=== PATIENT | female | born 1965 | race Two or more races ===

== ENCOUNTER 2023-12-26 15:13 | Emergency (ER) | payer MEDICAID, OTHER ==
[~2023-12-26] VITALS: Ht 175.3 cm; Wt 81.0 kg
[2023-12-26] MEDS ORDERED: BACDST PO (16:07)
--- NOTE | 2023-12-26 16:08 | ED.PDOC ---
Musculoskeletal HPI Comments 58-year-old female complaining of wound to right lower extremity. Patient states she had previous injury to her right ankle in November of 2022. States she was stepping off a curb when she twisted her ankle. Says that it it was a worker's comp injury. She has been followed by worker's comp. States over the last two days she noticed some mild swelling and indentation to the top removed put. States today she was started noticed weeping and swelling out of a wound to the top of her foot. Intermittent chills or fever. 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 Pertinent JAVA WEB USER INTERFACE DEVELOPER History Constitutional: reports: chills; denies: diaphoresis, fatigue, fever, malaise, sweats, weakness, others EENTM: denies: blurred vision, double vision, ear bleeding, ear discharge, ear drainage, ear pain, ear ringing, eye pain, eye redness, hearing loss, mouth nathaniel n, mouth swelling, nasal discharge, nose bleeding, nose congestion, nose pain, photophobia, tearing, throat pain, throat swelling, voice changes, others Respiratory: denies: cough, hemoptysis, orthopnea, SOB at rest, shortness of breath, SOB with excertion, stridor, wheezing, others Cardiovascular: denies: chest pain, dizzy spells, diaphoresis, Dyspnea on exertion, edema, irregular heart beat, left arm pain, lightheadedness, palpitations, PND, syncope, others Gastrointestinal: denies: abdomen distended, abdominal pain, blood streaked bowels, constipated, diarrhea, dysphagia, difficulty swallowing, hematemesis, melena, nausea, poor appetite, poor fluid intake, rectal bleeding, rectal pain, vomiting, others Genitourinary: denies: abnormal vagina bleeding, burning, dyspareunia, dysuria, flank pain, frequency, hematuria, incontinence, pain, , vagina discharge, urgency, others Neurological: denies: dizziness, fainting, headache, left sided numbness, left sided weakness, numbness, paresthesia, pre-existing deficit, right sided numbness, right sided weakness, seizure, speech problems, tingling, tremors, weakness, others Musculoskeletal: denies: back pain, gout, joint pain, joint swelling, muscle pain, muscle stiffness, neck pain, others Integumetry: reports: wounds (Right foot); denies: bruises, change in color, change in hair/nails, dryness, laceration, lesions, lumps, rash, others Physical Exam General Appearance: No Apparent Distress, Normal HEENT: Normal ENT Inspection, Pharynx Normal, TMs Normal Neck: Full Range of Motion, Non-Tender, Normal, Normal Inspection Respiratory: Chest Non-Tender, Lungs Clear, No Accessory Muscle Use, No Respiratory Distress, Normal Breath Sounds Cardiovascular: No Edema, No JVD, No Murmur, No Gallop, Normal Peripheral Pulses, Regular Rate/Rhythm Breast Exam: Deferred Gastrointestinal: No Organomegaly, Non Tender, No Pulsatile Mass, Normal Bowel Sounds, Soft Genitalia: Deferred Pelvic: Deferred Rectal: Deferred Extremities: No calf tenderness, Normal capillary refill, Normal inspection, Normal range of motion, Non-tender, No pedal edema Musculoskeletal : Apperance: Normal Neurologic: Alert, 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 Surrounding tissues erythemic. There is a mild indentation where the wound is. There was also weeping from the wound.) Lymphatic: No Adenopathy Was a procedure done? Was a procedure done?: No Differential Diagnosis EXT Differential Diagnosis: Cellulitis, Fracture, Sprain, Dislocation X-Ray, Labs, Meds, VS Comment Imaging: X-rays and CT scans were reviewed and interpreted by this provider, imaging shows no fractures and no pathological disease. Pending radiology review. Laboratory: Labs reviewed and interpreted by this provider. No significant abnormalities noted. Patient has prior medical visits reviewed. Med reconciliation performed Vital signs reviewed Time of 1ST Reevaluation: 16:07 Reevaluation 1ST: Improved Patient Education/Counseling: Diagnosis, Treatment, Need For Follow Up (Patient advised to follow-up in the emergency room in the next 24 to 48 hours if symptoms do not improve. Advised follow-up with PCP in the next 3 to 5 days. Patient verbalized understanding. ) Family Education/Counseling: Diagnosis, Treatment Departure 1 Departure Time of Disposition: 16:06 Impression: Primary Impression: Cellulitis Qualified Codes: L03.115 - Cellulitis of right lower limb Disposition: 01 HOME / SELF CARE / HOMELESS Condition: Fair e-Prescriptions Sulfamethoxazole W/Trimethopri (Bactrim Ds Tablet) 1 Tab Tb 1 TAB PO BID for 10 Days, #20 TAB Prov: CAM ANDEROSN 12/26/23 Discharged With: Self Critical Care Note Critical Care Time?: No Stability Stability form required: No Heart Score Heart Score: Heart Score Response (Comments) Value History N/A 0 EKG N/A 0 Age N/A 0 Risk Factors N/A 0 Troponin N/A 0 Total 0 CAM ANDERSON Dec 26, 2023 16:08
[2023-12-26 17:50] VITALS: BP 142/70; PULSE 74; RESP 16; TEMP 97.8; O2SAT 99
== END 2023-12-26 17:53 | disposition home or self-care (01) ==
LOC: ER 15:20
DX: L03.115 Cellulitis of right lower limb (principal); X50.1XXA Overexertion from prolonged static or awkward postures, initial encounter; Y93.89 Activity, other specified; Y92.89 Other specified places as the place of occurrence of the external cause; Y99.8 Other external cause status

== ENCOUNTER 2023-12-30 23:27 | Emergency (ER) | payer MEDICAID ==
[~2023-12-30] VITALS: Ht 175.3 cm; Wt 81.9 kg
[~2023-12-30 23:27] MED LIST: BACDST PO
[2023-12-31 01:05] VITALS: BP 127/64; PULSE 68; RESP 18; TEMP 98.5; O2SAT 97
[2023-12-31] MEDS: IBUPROFEN 800 MG TAB PO ONE (01:31)
[2023-12-31] MEDS ORDERED: IBUP-1455 PO (02:00)
[2023-12-31] MEDS ORDERED: DOXY100C4 PO (02:00)
--- NOTE | 2023-12-31 02:01 | ED.PDOC ---
History of Present Illness(SKN HPI Comments THIS IS A 58-YEAR-OLD FEMALE PATIENT PRESENTS TO THE ED CHIEF COMPLAINT OF RIGHT FOOT WOUND CHECK. PATIENT REPORTS WAS SEEN HERE [facility], [place] ON MONDAY FOR CELLULITIS OF THE RIGHT FOOT. SHE WAS DISCHARGED IN PRESCRIBED BACTRIM AND HAS BEEN ON IT FOR TOTAL OF 4 DAYS. PATIENT VOICES CONCERN TODAY COULD SHE NOTES NO IMPROVEMENT IN THE PAIN, REDNESS AND SWELLING. SHE DENIES NUMBNESS, WEAKNESS, FEVER, CHILLS, NAUSEA, VOMITING, OR ANY NOTED DRAINAGE. Chief Complaint: Wound Check Time Seen by MD: 23:36 History of Present Illness: Nurses Notes, Medications, Allergies Allergies: Coded Allergies: NO KNOWN ALLERGIES (Unverified , 12/26/23) Home Meds Active Scripts Ibuprofen Micronized (Ibuprofen) 800 Mg Tab, 1 TAB PO BID PRN for 10 Days, #20 TAB Prov:SAMARA WHITE [facility] 12/31/23 Doxycycline Hyclate (Doxycycline Hyclate) 100 Mg Cap, 1 CAP PO BID for 7 Days, #14 CAP Prov:SAMARA WHITE [facility] 12/31/23 Information Source: Patient Mode of Arrival: Ambulatory Severity: Moderate Past Medical History PAST MEDICAL HISTORY: Denies Surgical History: Denies all surgeries PASTER 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: No Pertinent PASTER OPERATOR History Family History Family History: Reviewed,noncontributory to illness Constitutional: denies: chills, diaphoresis, fatigue, fever, malaise, sweats, weakness, others EENTM: denies: blurred vision, double vision, ear bleeding, ear discharge, ear drainage, ear pain, ear ringing, eye pain, eye redness, hearing loss, mouth pain, mouth swelling, nasal discharge, nose bleeding, nose congestion, nose pain, photophobia, tearing, throat pain, throat swelling, voice changes, others Respiratory: denies: cough, hemoptysis, orthopnea, SOB at rest, shortness of breath, SOB with excertion, stridor, wheezing, others Cardiovascular: denies: chest pain, dizzy spells, diaphoresis, Dyspnea on exertion, edema, irregular heart beat, left arm pain, lightheadedness, palpitations, PND, syncope, others Gastrointestinal: denies: abdomen distended, abdominal pain, blood streaked bowels, constipated, diarrhea, dysphagia, difficulty swallowing, hematemesis, melena, nausea, poor appetite, poor fluid intake, rectal bleeding, rectal pain, vomiting, others Genitourinary: denies: abnormal vagina bleeding, burning, dyspareunia, dysuria, flank pain, frequency, hematuria, incontinence, pain, , vagina discharge, urgency, others Neurological: denies: dizziness, fainting, headache, left sided numbness, left sided weakness, numbness, paresthesia, pre-existing deficit, right sided numbness, right sided weakness, seizure, speech problems, tingling, tremors, weakness, others Musculoskeletal: reports: others (RIGHT FOOT PAIN AND SWELLING); denies: back pain, gout, joint pain, joint swelling, muscle pain, muscle stiffness, neck pain Integumetry: reports: wounds (RIGHT FOOT); denies: bruises, change in color, change in hair/nails, dryness, laceration, lesions, lumps, rash, others Allergic/Immunocompromised: denies: Difficulty Healing, Frequent Infections, Hives, Itching, others Hematologic/Lymphatic: denies: anemia, blood clots, easy bleeding, easy bruising, swollen glands, others Endocrine: denies: excessive hunger, excessive sweating, excessive thirst, excessive urination, flushing, intolerance to cold, intolerance to heat, unexplained weight gain, unexplained weight loss, others Psychiatric: denies: anxiety, bipolar disorder, depression, hopeless, panic disorder, schizophrenia, sleepless, suicidal, others Physical Exam General Appearance: No Apparent Distress, Normal HEENT: Pharynx Normal Neck: Full Range of Motion, Non-Tender Respiratory: Lungs Clear, No Respiratory Distress, Normal Breath Sounds Cardiovascular: No Murmur, Normal Peripheral Pulses, Regular Rate/Rhythm Breast Exam: Deferred Gastrointestinal: Non Tender, Soft Genitalia: Deferred Pelvic: Deferred Rectal: Deferred Extremities: Normal capillary refill, Normal inspection, Normal range of motion, Non-tender Musculoskeletal : Location: Right Extremity Location: Foot (DORSUM ASPECT NOTED ESCHAR TISSUE WITH NOTED SURROUNDING ERYTHEMA AND MILD TO MODERATE EDEMA. POSITIVE PEDAL PULSE. STRENGTH SENSORY MOTION INTACT.) Apperance: Normal Neurologic: Alert, smoke tester II-XII nml as Tested, No Motor Deficits, Normal Affect, Normal Mood, No Sensory Deficits Cerebellar Function: Normal Reflexes: Normal Skin: Dry, Normal Color, Warm Lymphatic: No Adenopathy Was a procedure done? Was a procedure done?: No Differential Diagnosis (INTG) Differential Diagnosis: Cellulitis, Fracture Differential Diagnosis: Other (OSTEOMYELITIS) X-Ray, Labs, Meds, VS Vital Signs Date Time Temp Pulse Resp B/P (MAP) Pulse Ox O2 Delivery O2 Flow Rate FiO2 12/31/23 01:05 68 18 97 Room Air 12/31/23 01:05 98.5 68 18 127/64 (85) 97 98.5 12/30/23 23:47 98.4 71 16 144/80 (101) 95 Current Medications Medications (Trade) Dose Ordered Sig/Gregoria Route Start Time Stop Time Status Last Admin Ibuprofen (Motrin Tablet) 800 mg ONCE ONCE PO 12/31/23 01:15 12/31/23 01:16 DC 12/31/23 01:31 X-Ray, Labs, Meds, VS Comment PATIENT GIVEN IBUPROFEN 800 MG, SHE NOTES IMPROVEMENT IN PAIN AND FUNCTION. REQUESTING DISCHARGE AT THIS TIME ADVISED TO FOLLOW UP WITH HER PCP IN 2-3 DAYS NECESSARY CONSIDER MRI FOR CONTINUED SYMPTOMS AND NO IMPROVEMENT. WE WILL DISCONTINUE BACTRIM START DOXYCYCLINE TWICE DAILY X7 DAYS. SCRIPT IBUPROFEN 800 MG 3 TIMES DAILY NEEDED FOR PAIN AND SWELLING. ADVISED TO ELEVATE EXTREMITY. ADVISED TO RETURN TO THE ER FOR INCREASING PAIN, NUMBNESS, WEAKNESS, PURULENT DRAINAGE, FEVER, CHILLS, NAUSEA OR VOMITING. PATIENT AGREES WITH DISCHARGE PLAN OF CARE. X-RAY OF RIGHT FOOT SHOWS Impression: No acute fracture or dislocation by plain radiography.Diffuse osteopenia in the visualized bones. Diffuse mild soft tissue swelling in the foot. Advised further evaluation with MRI right foot without contrast if clinically indicated. Time of 1ST Reevaluation: 02:50 Reevaluation 1ST: Improved Patient Education/Counseling: Diagnosis, Treatment, Prognosis, Need For Follow Up Family Education/Counseling: No Family Present Departure 1 Departure Time of Disposition: 02:50 Impression: Primary Impression: Infected ulcer of skin Qualified Codes: L98.499 - Non-pressure chronic ulcer of skin of other sites with unspecified severity; L08.9 - Local infection of the skin and subcutaneous tissue, unspecified Disposition: 01 HOME / SELF CARE / HOMELESS Condition: Stable e-Prescriptions Ibuprofen Micronized (Ibuprofen) 800 Mg Tab 1 TAB PO BID PRN for 10 Days, #20 TAB Prov: SAMARA WHITE 12/31/23 Doxycycline Hyclate (Doxycycline Hyclate) 100 Mg Cap 1 CAP PO BID for 7 Days, #14 CAP Prov: SAMARA WHITE 12/31/23 Discharged With: Self Critical Care Note Critical Care Time?: No Stability Stability form required: SAMARA Rivera Dec 31, 2023 02:01
--- NOTE | 2023-12-31 02:43 | DVH ---
Examination: RFOOT Clinical Indication: INFECTION/PAIN/EDEMA Comparison: None. Technique: Three views of the right foot were obtained. Findings: There is no evidence of acute fracture or dislocation. Diffuse osteopenia in the visualized bones. Degenerative mild posterior and inferior calcaneal spurs. The sesamoid complex is well approximated. The joint spaces appear preserved. Tarsal bones are well aligned. Diffuse mild soft tissue swelling in the foot. Impression: 1. No acute fracture or dislocation by plain radiography. 2. Diffuse osteopenia in the visualized bones. 3. Diffuse mild soft tissue swelling in the foot. 4. Advised further evaluation with MRI right foot without contrast if clinically indicated. Electronically Signed 12/31/2023 02:34 Camelia Shrestha
== END 2023-12-31 03:04 | disposition home or self-care (01) ==
LOC: ER 23:27
DX: L08.89 Other specified local infections of the skin and subcutaneous tissue (principal); L97.519 Non-pressure chronic ulcer of other part of right foot with unspecified severity; Z79.899 Other long term (current) drug therapy
CPT/HCPCS: 73630

== ENCOUNTER 2024-01-11 22:43 | Inpatient (IN) | payer MEDICAID ==
[~2024-01-11] VITALS: Ht 175.3 cm; Wt 84.8 kg
[~2024-01-11 22:43] MED LIST changes: -BACDST PO; +DOXY100C4 PO; +IBUP-1455 PO
[2024-01-11 23:33] LABS: Basophils # (auto) 0.1 10 ^3/uL (0-0.2); Basophils % (auto) 0.9 % (0.0-2.0); Eosinophils # (auto) 0.2 10 ^3/uL (0-0.8); Eosinophils % (auto) 1.7 % (0.0-7.0); Hemoglobin 10.8 g/dL (12.2-16.2); Lymphocytes # (auto) 1.7 10 ^3/uL (0.4-5.4); Lymphocytes % (auto) 18.9 % (10.0-50.0); Mean Corpuscular Hemoglobin 28.2 pg (28.0-32.0); Mean Corpuscular Hgb Conc. 32.7 g/dL (32.0-36.0); Mean Corpuscular Volume 86.4 fL (80.0-100.0); Monocytes # (auto) 0.6 10 ^3/uL (0-1.3); Monocytes % (auto) 6.4 % (0.0-12.0); Neutrophils # (auto) 6.7 10 ^3/uL (1.6-8.6); Neutrophils % (auto) 72.1 % (37.0-80.0); Nucleated Red Blood Cells % 0.2 %; Platelet Count (auto) 236 10^3/uL (140-450); Red Blood Cells 3.81 10^6/uL (4.0-5.20); Red Cell Distribution Width 14.2 % (11.8-14.3); White Blood Cell 9.2 10^3/uL (4.4-10.8)
[2024-01-11 23:51] LABS: Alanine Aminotransferase 15 U/L (7-40); Albumin 4.3 g/dL (3.2-4.8); Alkaline Phosphatase 143 U/L (46-116); Anion Gap 7 (5-15); Aspartate Aminotransferase 14 U/L (13-40); BUN/Creatinine Ratio 13.3 (10.0-20.0); Blood Urea Nitrogen 14 mg/dL (9-23); Calcium 10.2 mg/dL (8.7-10.4); Carbon Dioxide 27 mmol/L (20-31); Chloride 111 mmol/L (98-107); Glucose 107 mg/dL (74-106); Potassium 3.3 mmol/L (3.5-5.1); Sodium 145 mmol/L (136-145)
[2024-01-11 23:52] LABS: Bilirubin, Total 0.3 mg/dL (0.2-1.0); Total Protein 7.4 g/dL (5.7-8.2)
--- NOTE | 2024-01-12 00:49 | DVH ---
CLINICAL INDICATION: Osteomyelitis TECHNIQUE: XY R FOOT 3 VIEW XRAY Comparison: XY R FOOT 3 VIEW XRAY on DOS: 12/31/23 FINDINGS/IMPRESSION: Bony demineralization limits evaluation for osteomyelitis. No definite focal osteopenia or cortical d estruction is seen to suggest osteomyelitis. No definite acute fracture. Mild 1st MTP joint osteoarthritis. The alignment is anatomical. Soft tissue swelling at the dorsum of the forefoot.
--- NOTE | 2024-01-12 01:04 | ED.PDOC ---
History of Present Illness(SKN HPI Comments This patient is a pleasant 58-year-old female who arrives to the ED today for evaluation of right foot concerns. Patient states that she has had a right foot ulcer for several weeks that has also [id number] early painful. Patient states she initially went to a facility and was given a an antibiotic, but states that that antibiotic was ineffective and therefore, received a 2nd antibiotic which she states has not improved the wound. Patient denies any fever nausea or vomiting. Patient denies any history of diabetes, but states a history of hypertension. Patient was hypertensive at arrival. Chief Complaint: Wound Check Time Seen by MD: 22:47 History of Present Illness: Nurses Notes Allergies: Coded Allergies: NO KNOWN ALLERGIES (Unverified , 12/26/23) Home Meds Active Scripts Ibuprofen Micronized (Ibuprofen) 800 Mg Tab, 1 TAB PO BID PRN for 10 Days, #20 TAB Prov:SAMARA WHITE [facility] 12/31/23 Doxycycline Hyclate (Doxycycline Hyclate) 100 Mg Cap, 1 CAP PO BID for 7 Days, #14 CAP Prov:SAMARA WHITE [facility] 12/31/23 Information Source: Patient, Relative (Child) Mode of Arrival: Ambulatory Severity: Moderate Timing: Weeks Duration: Since onset Prehospital treatment: Treatment Location: Foot Mechanism: Spontaneous Onset Occurence: Indoors Object: None Condition of Object: None Tetanus: UTD Associated Signs and Symptoms: Redness, Swelling Past Medical History PAST MEDICAL HISTORY: HTN Surgical History: Denies all surgeries WORKFORCE ANALYST History: No Pertinent WORKFORCE ANALYST History Family History Family History: Reviewed,noncontributory to illness Social History Smoker: Non-Smoker Alcohol: Denies ETOH Use Drugs: Denies Drug Use Lives In: Home Constitutional: denies: chills, diaphoresis, fatigue, fever, malaise, sweats, weakness, others EENTM: denies: blurred vision, double vision, ear bleeding, ear discharge, ear drainage, ear pain, ear ringing, eye pain, eye redness, hearing loss, mouth pain, mouth swelling, nasal discharge, nose bleeding, nose congestion, nose pain, photophobia, tearing, throat pain, throat swelling, voice changes, others Respiratory: denies: cough, hemoptysis, orthopnea, SOB at rest, shortness of breath, SOB with excertion, stridor, wheezing, others Cardiovascular: denies: chest pain, dizzy spells, diaphoresis, Dyspnea on e xertion, edema, irregular heart beat, left arm pain, lightheadedness, palpitations, PND, syncope, others Gastrointestinal: denies: abdomen distended, abdominal pain, blood streaked bowels, constipated, diarrhea, dysphagia, difficulty swallowing, hematemesis, melena, nausea, poor appetite, poor fluid intake, rectal bleeding, rectal pain, vomiting, others Genitourinary: denies: abnormal vagina bleeding, burning, dyspareunia, dysuria, flank pain, frequency, hematuria, incontinence, pain, , vagina discharge, urgency, others Neurological: denies: dizziness, fainting, headache, left sided numbness, left sided weakness, numbness, paresthesia, pre-existing deficit, right sided numbness, right sided weakness, seizure, speech problems, tingling, tremors, weakness, others Musculoskeletal: reports: others (Right foot wound); denies: back pain, gout, joint pain, joint swelling, muscle pain, muscle stiffness, neck pain Integumetry: denies: bruises, change in color, change in hair/nails, dryness, laceration, lesions, lumps, rash, wounds, others Allergic/Immunocompromised: denies: Difficulty Healing, Frequent Infections, Hives, Itching, others Hematologic/Lymphatic: denies: anemia, blood clots, easy bleeding, easy bruisin g, swollen glands, others Endocrine: denies: excessive hunger, excessive sweating, excessive thirst, excessive urination, flushing, intolerance to cold, intolerance to heat, unexplained weight gain, unexplained weight loss, others Psychiatric: denies: anxiety, bipolar disorder, depression, hopeless, panic disorder, schizophrenia, sleepless, suicidal, others Physical Exam General Appearance: Moderate Distress (Due to right foot pain and wound concerns.), Normal HEENT: Normal ENT Inspection, Pharynx Normal, TMs Normal Neck: Full Range of Motion, Non-Tender, Normal, Normal Inspection Respiratory: Chest Non-Tender, Lungs Clear, No Accessory Muscle Use, No Respiratory Distress, Normal Breath Sounds Cardiovascular: No Edema, No JVD, No Murmur, No Gallop, Normal Peripheral Pulses, Regular Rate/Rhythm Breast Exam: Deferred Gastrointestinal: No Organomegaly, Non Tender, No Pulsatile Mass, Normal Bowel Sounds, Soft Genitalia: Deferred Pelvic: Deferred Rectal: Deferred Extremities: Other (Patient displays a large eschar to the dorsal aspect of the right foot near the ankle. Wound is black and may represent dried blood or some possible necrotizing fashion. Moderate reduced range of motion. Minimal edema.) Neurologic: Alert, die inspector II-XII nml as Tested, No Motor Deficits, Normal Affect, Normal Mood, No Sensory Deficits Cerebellar Function: Normal Reflexes: Normal Skin: Dry, Normal Color, Warm Lymphatic: No Adenopathy Was a procedure done? Was a procedure done?: No Differential Diagnosis (INTG) Differential Diagnosis: Cellulitis, Contusion, Insect Envenomation, Other (Osteomyelitis, antibiotic resistant wound) X-Ray, Labs, Meds, VS Vital Signs Date Time Temp Pulse Resp B/P (MAP) Pulse Ox O2 Delivery O2 Flow Rate FiO2 01/11/24 23:07 98.1 92 18 174/83 (113) 100 Lab Test 01/11/24 23:20 Range/Units White Blood Count 9.2 4.4-10.8 10^3/uL Red Blood Count 3.81 L 4.0-5.20 10^6/uL Hemoglobin 10.8 L 12.2-16.2 g/dL Hematocrit 33.0 L 36.0-46.0 % Mean Corpuscular Volume 86.4 80.0-100.0 fL Mean Corpuscular Hemoglobin 28.2 28.0-32.0 pg Mean Corpuscular Hemoglobin Concent 32.7 32.0-36.0 g/dL Red Cell Distribution Width 14.2 11.8-14.3 % Platelet Count 236 140-450 10^3/uL Mean Platelet Volume 9.7 6.9-10.8 fL Neutrophils (%) (Auto) 72.1 37.0-80.0 % Lymphocytes (%) (Auto) 18.9 10.0-50.0 % Monocytes (%) (Auto) 6.4 0.0-12.0 % Eosinophils (%) (Auto) 1.7 0.0-7.0 % Basophils (%) (Auto) 0.9 0.0-2.0 % Neutrophils # (Auto) 6.7 1.6-8.6 10 ^3/uL Lymphocytes # (Auto) 1.7 0.4-5.4 10 ^3/uL Monocytes # (Auto) 0.6 0-1.3 10 ^3/uL Eosinophils # (Auto) 0.2 0-0.8 10 ^3/uL Basophils # (Auto) 0.1 0-0.2 10 ^3/uL Nucleated Red Blood Cells 0.2 % Sodium Level 145 136-145 mmol/L Potassium Level 3.3 L 3.5-5.1 mmol/L Chloride Level 111 H 98-107 mmol/L Carbon Dioxide Level 27 20-31 mmol/L Anion Gap 7 5-15 Blood Urea Nitrogen 14 9-23 mg/dL Creatinine 1.05 H 0.550-1.02 mg/dL Glomerular Filtration Rate Calc 61 >90 mL/min BUN/Creatinine Ratio 13.3 10.0-20.0 Serum Glucose 107 H 74-106 mg/dL Lactic Acid Level 1.2 0.4-2.0 mmol/L Calcium Level 10.2 8.7-10.4 mg/dL Total Bilirubin 0.3 0.2-1.0 mg/dL Aspartate Amino Transferase (AST) 14 13-40 U/L Alanine Aminotransferase (ALT) 15 7-40 U/L Alkaline Phosphatase 143 H 46-116 U/L B-Type Natriuretic Peptide 78.66 0-100 pg/mL Total Protein 7.4 5.7-8.2 g/dL Albumin 4.3 3.2-4.8 g/dL X-Ray, Labs, Meds, VS Comment All studies ordered were reviewed by me personally. Serum laboratories were relatively unremarkable for any definitive systemic process. No elevated white blood cell count. Imaging studies were unremarkable for any osteomyelitis. Due to the fact the patient has failed on multiple outpatient oral therapy, patient will be admitted for IV antibiotics while waiting on wound culture for a more specific targeted antibiotic. Time of 1ST Reevaluation: 01:03 Reevaluation 1ST: Improved Consultation: PCP Patient Education/Counseling: Diagnosis, Treatment Family Education/Counseling: Diagnosis, Treatment Departure 1 Departure Time of Disposition: 01:03 Impression: Primary Impression: Cellulitis Additional Impression: Antibiotic-resistant bacterial infection Disposition: 09 ADMITTED INPATIENT Condition: Stable Discharged With: Self, Relative Critical Care Note Critical Care Time?: No Stability Stability form required: No Heart Score Heart Score: Heart Score Response (Comments) Value History N/A 0 EKG N/A 0 Age N/A 0 Risk Factors N/A 0 Troponin N/A 0 Total 0 YESENIA KEMP PAC Jan 12, 2024 01:04
[2024-01-12] MEDS ORDERED: VANCOMYCIN PER PHARMACY 0 MG IV SCH (01:15)
[2024-01-12] MEDS: PIPERACILLIN-TAZOB 3.375GM 100 ML IV ONE ×2 (02:33→02:38)
[2024-01-12] MEDS: HYDROcodone-ACET 10/325MG TAB PO ONE (02:38)
[2024-01-12 02:54] VITALS: PULSE 82; RESP 16; O2SAT 99
[2024-01-12] MEDS ORDERED: ONDANSETRON HCL 4 MG/2 ML VIAL IV PRN (03:15)
[2024-01-12] MEDS: VANCOMYCIN 1GM/200ML PREMIX IV SCH (05:18)
[2024-01-12] MEDS: SODIUM CHLOR 0.9% PF (SALINE LOCK) 10ML VIAL/SYR IV SCH (06:00)
--- NOTE | 2024-01-12 06:36 | DVHHP2 ---
History of Present Illness Reason for Visit: Osteomyelitis of right foot History of Present Illness Patient is a 58-year-old female with past medical history of hypertension who presented to [facility] ED for evaluation of right foot ulcer. Patient reports that she has had a right foot ulcer for several weeks that has also [id number] early painful. Patient states she initially went to a facility and was given a an antibiotic, but states that antibiotic was ineffective and therefore, received a 2nd antibiotic which she states has not im proved the wound. Patient was seen and evaluated in the ED, laboratory data shows WBC 9.2, platelets 236, sodium 145, potassium 3.3, BUN 14, creatinine 1.05, glucose 107, BNP 78.66, blood pressure 186/75, heart rate 82, temperature 98.1 F, O2 saturation 99% on room air. Right foot CT revealing mild 1st MTP joint osteomyelitis, soft tissue swelling at the dorsum of the forefoot. Patient was started on IV antibiotic regimen vancomycin, please see medication orders section in the computer. On my assessment, patient denied chest pain, no headache, no dizziness, no shortness of breath, no nausea, no vomiting, no fever, no chills. Patient was admitted for further evaluation and medical management. Past Medical History HTN Past Surgical History Denies all surgeries Family History Reviewed, noncontributory to the management of this case. Past Social History The patient lives at home, denies smoking, alcohol or illicit drugs abuse. Review of Systems Constitutional: No: Fever, Chills, Sweats, Weakness, Malaise, Other Eyes: No: Pain, Vision change, Conjunctivae inflammation, Eyelid inflammation, Other, Redness ENT: No: Ear pain, Ear discharge, Nose pain, Nose discharge, Nose congestion, Mouth pain, Mouth swelling, Throat pain, Throat swelling, Other Respiratory: No: Cough, Dry, Shortness of breath, SOB with excertion, Wheezing, Hemoptysis, Pleuritic Pain, Sputum, Wheezing, Other Cardiovascular: No: Chest Pain, Palpitations, Orthopnea, Paroxysmal Noc. Dyspnea, Edema, Lt Headedness, Other Gastrointestinal: No: Nausea, Vomiting, Abdominal Pain, Diarrhea, Constipation, Melena, Hematochezia, Other Genitourinary: No Dysuria, No Frequency, No Incontinence, No Hematuria, No Retention, No Other Musculoskeletal: other (Right foot wound.); No: neck pain, shoulder pain, arm pain, back pain, hand pain, leg pain, foot pain Skin: No: Rash, Lesions, Jaundice, Bruising, Other Neurological: No: Weakness, Numbness, Incoordination, Change in speech, Confusion, Seizures, Other Allergies: Coded Allergies: NO KNOWN ALLERGIES (Unverified , 12/26/23) Medications Current Medications Medications Dose Ordered Sig/Gregoria Route Start Time Stop Time Status Last Admin Dose Admin Vancomycin HCl 0 ml @ 0 mls/hr UD IV 01/12/24 01:15 UNV Sodium Chloride 10 ml Q8HR IV 01/12/24 06:00 01/12/24 06:00 10 ML Acetaminophen/ Hydrocodone Bitart 1 tab Q4HP PRN PO 01/12/24 03:15 Ondansetron HCl 4 mg Q4HP PRN IV 01/12/24 03:15 Docusate Sodium 100 mg BIDPRN PRN PO 01/12/24 03:15 Zinc Sulfate 220 mg DAILY PO 01/12/24 10:00 Ascorbic Acid 500 mg BID PO 01/12/24 10:00 Multivitamins 1 tab DAILY PO 01/12/24 10:00 Acetaminophen 650 mg Q6HP PRN PO 01/12/24 03:15 Nitroglycerin 0.4 mg Q5MINP PRN SL 01/12/24 06:45 Morphine Sulfate 2 mg Q30M PRN IV 01/12/24 06:45 Exam Vital Signs Vital Signs Date Time Temp Pulse Resp B/P (MAP) Pulse Ox O2 Delivery O2 Flow Rate FiO2 01/12/24 02:54 82 16 99 Room Air* 0 21 01/12/24 02:54 186/75 (112) 01/11/24 23:07 98.1 General Appearance: Alert, Oriented X3, Cooperative, No acute distress HEENT: Atraumatic, PERRLA, EOMI, Mucous membr. moist/pink Respiratory: Clear to auscultation, Normal air movement Cardiovascular: Regular rate, Normal S1, Normal S2, No murmurs Abdominal: Normal bowel sounds, Soft, No tenderness, No hepatospenomegaly Extremities: No clubbing, No cyanosis, No edema, Normal pulses, Other (Right foot tenderness) Skin: No rashes, No breakdown, No significant lesion Neuro: Normal gait, Normal speech, Strength at 5/5 X4 ext, Normal tone, Sensation intact, Cranial nerves 3-12 NL, Reflexes 2+ Psych/Mental Status: Mental status NL, Mood NL Labs/Xrays Labs Test 01/11/24 23:20 Range/Units White Blood Count 9.2 4.4-10.8 10^3/uL Red Blood Count 3.81 L 4.0-5.20 10^6/uL Hemoglobin 10.8 L 12.2-16.2 g/dL Hematocrit 33.0 L 36.0-46.0 % Mean Corpuscular Volume 86.4 80.0-100.0 fL Mean Corpuscular Hemoglobin 28.2 28.0-32.0 pg Mean Corpuscular Hemoglobin Concent 32.7 32.0-36.0 g/dL Red Cell Distribution Width 14.2 11.8-14.3 % Platelet Count 236 140-450 10^3/uL Mean Platelet Volume 9.7 6.9-10.8 fL Neutrophils (%) (Auto) 72.1 37.0-80.0 % Lymphocytes (%) (Auto) 18.9 10.0-50.0 % Monocytes (%) (Auto) 6.4 0.0-12.0 % Eosinophils (%) (Auto) 1.7 0.0-7.0 % Basophils (%) (Auto) 0.9 0.0-2.0 % Neutrophils # (Auto) 6.7 1.6-8.6 10 ^3/uL Lymphocytes # (Auto) 1.7 0.4-5.4 10 ^3/uL Monocytes # (Auto) 0.6 0-1.3 10 ^3/uL Eosinophils # (Auto) 0.2 0-0.8 10 ^3/uL Basophils # (Auto) 0.1 0-0.2 10 ^3/uL Nucleated Red Blood Cells 0.2 % Sodium Level 145 136-145 mmol/L Potassium Level 3.3 L 3.5-5.1 mmol/L Chloride Level 111 H 98-107 mmol/L Carbon Dioxide Level 27 20-31 mmol/L Anion Gap 7 5-15 Blood Urea Nitrogen 14 9-23 mg/dL Creatinine 1.05 H 0.550-1.02 mg/dL Glomerular Filtration Rate Calc 61 >90 mL/min BUN/Creatinine Ratio 13.3 10.0-20.0 Serum Glucose 107 H 74-106 mg/dL Lactic Acid Level 1.2 0.4-2.0 mmol/L Calcium Level 10.2 8.7-10.4 mg/dL Total Bilirubin 0.3 0.2-1.0 mg/dL Aspartate Amino Transferase (AST) 14 13-40 U/L Alanine Aminotransferase (ALT) 15 7-40 U/L Alkaline Phosphatase 143 H 46-116 U/L B-Type Natriuretic Peptide 78.66 0-100 pg/mL Total Protein 7.4 5.7-8.2 g/dL Albumin 4.3 3.2-4.8 g/dL PATIENT: PAIGE LANGLEY ACCT: [id number] UNIT: [id number] : 1965 LOC: ER ROOM / BED: / AGE / SEX: 58 / F ADM STATUS: REG ER SERVICE [id number] ORDERING PHYSICIAN: YESENIA KEMP PAC PROCEDURE(s): RFOOT - R FOOT 3 VIEW XRAY REASON: Osteomyelitis ORDER NUMBER(s): [id number], ACCESSION NUMBER(s): [id number] CLINICAL INDICATION: Osteomyelitis TECHNIQUE: XY R FOOT 3 VIEW XRAY Comparison: XY R FOOT 3 VIEW XRAY on DOS: 12/31/23 FINDINGS/IMPRESSION: Bony demineralization limits evaluation for osteomyelitis. No definite focal osteopenia or cortical destruction is seen to suggest osteomyelitis. No definite acute fracture. Mild 1st MTP joint osteoarthritis. The alignment is anatomical. Soft tissue swelling at the dorsum of the forefoot. Assessment/Plan Assessment/Plan Osteomyelitis of right foot Hypokalemia Hypertensive urgency Plan 1. Admit to Med-Surg unit 2. Breathing treatment 3. Pain control management 4. IV antibiotic management 5. Management of fluids and electrolytes 6. Consultation for hospitalist/wound care 7. Diagnostic test right foot x-ray 8. DVT prophylaxis on SCDs 9. Repeat labs CBC, CMP in a.m. 10. Home medication reviewed and reconciled 11. Continue with current medical management 12. Treatment plan discussed with patient and RN. Patient verbalized understan lisa. Plan discussed with: Patient, Other (RN) My Orders Orders - CAIT QUIJANO DNP Procedure Category Date Status Time Complete Blood Count LAB 01/12/24 Logged 04:00 Comprehensive LAB 01/12/24 Logged Metabolic Panel 04:00 Allergies ELIGIO 01/12/24 In Process 03:10 Code Status CODE 01/12/24 Transmitted 03:10 Sodium Chloride Lock PHA 01/12/24 In Process (Saline Lock Ns) 06:00 Oxygen Per Hour RT 01/12/24 Transmitted 03:10 Hydrocodone-Acet PHA 01/12/24 In Process 5/325mg Tab ([place] 03:15 Ondansetron Hcl PHA 01/12/24 In Process (Zofran) 03:15 Docusate Sodium PHA 01/12/24 In Process Capsule (Colace 03:15 Zinc Sulfate PHA 01/12/24 In Process 10:00 Ascorbic Acid Tablet PHA 01/12/24 In Process (Vitamin C Tablet) 10:00 Multiple Vitamin PHA 01/12/24 In Process Tablet (Mvi Tab) 10:00 Complete Blood Count LAB 01/13/24 Verified 04:00 Comprehensive LAB 01/13/24 Verified Metabolic Panel 04:00 Cardiac DIET 01/12/24 Transmitted Diet-2gna,Lofat,Lochol Breakfast Condition: Serious ELIGIO 01/12/24 In Process 03:10 Acetaminophen Tablet PHA 01/12/24 In Process (Tylenol Tablet) 03:15 Bedrest With Bathroom ELIGIO 01/12/24 In Process Privileg 03:10 Sequential ELIGIO 01/12/24 In Process Compression Device Admit ADMIT 01/12/24 Transmitted 06:31 Nitroglycerin PHA 01/12/24 In Process Sublingual (Ntrostat 06:45 Morphine Sulfate PHA 01/12/24 In Process Injection 06:45 Notify Md Of Changes ELIGIO 01/12/24 In Process From Base 06:31 Emergency Dysrhythmia [facility] 01/12/24 In Process Protocol 06:31 Oxygen By Nasal RT 01/12/24 Transmitted Cannula 06:31 Problem List: (1) Osteomyelitis of right foot (2) Hypokalemia (3) Hypertensive urgency Date of Service: Jan 12, 2024 Billing Provider: CAIT QUIJANO DNP Common Visit Codes: [id number] INP/OBS CARE (HIGH) CAIT QUIJANO DNP Jan 12, 2024 06:36
[2024-01-12] MEDS: POTASSIUM CHL 20 Meq TABLET PO ONE (06:43)
[2024-01-12] MEDS ORDERED: NITROGLYCERIN 0.4 MG SL TAB SL PRN (06:45)
[2024-01-12] MEDS ORDERED: MORPHINE SULFATE INJ 2 MG/ml SYRG IV PRN (06:45)
[2024-01-12 07:39] LABS: Basophils # (auto) 0.1 10 ^3/uL (0-0.2); Basophils % (auto) 0.8 % (0.0-2.0); Eosinophils # (auto) 0.2 10 ^3/uL (0-0.8); Eosinophils % (auto) 1.9 % (0.0-7.0); Hematocrit 31.4 % (36.0-46.0); Hemoglobin 10.5 g/dL (12.2-16.2); Lymphocytes # (auto) 1.6 10 ^3/uL (0.4-5.4); Mean Corpuscular Hgb Conc. 33.5 g/dL (32.0-36.0); Mean Corpuscular Volume 86.7 fL (80.0-100.0); Monocytes # (auto) 0.6 10 ^3/uL (0-1.3); Monocytes % (auto) 7.2 % (0.0-12.0); Neutrophils % (auto) 71.1 % (37.0-80.0); Nucleated Red Blood Cells % 0.1 %; Platelet Count (auto) 229 10^3/uL (140-450); Red Blood Cells 3.62 10^6/uL (4.0-5.20); Red Cell Distribution Width 14.1 % (11.8-14.3); White Blood Cell 8.4 10^3/uL (4.4-10.8)
[2024-01-12 08:07] LABS: Alanine Aminotransferase 15 U/L (7-40); Albumin 4.4 g/dL (3.2-4.8); Alkaline Phosphatase 138 U/L (46-116); Anion Gap 9 (5-15); Aspartate Aminotransferase 15 U/L (13-40); Blood Urea Nitrogen 11 mg/dL (9-23); Calcium 9.9 mg/dL (8.7-10.4); Carbon Dioxide 24 mmol/L (20-31); Chloride 108 mmol/L (98-107); Glucose 98 mg/dL (74-106); Potassium 3.3 mmol/L (3.5-5.1); Sodium 141 mmol/L (136-145)
[2024-01-12 08:08] LABS: Bilirubin, Total 0.5 mg/dL (0.2-1.0); Total Protein 7.6 g/dL (5.7-8.2)
[2024-01-12] MEDS: VANCOMYCIN 1GM/250ML KIT 200 ML IV ONE (08:50)
[2024-01-12] MEDS: ZINC SULFATE 220mg CAP or TAB PO SCH (10:00)
[2024-01-12] MEDS: MULTIPLE VITAMIN TAB PO SCH (10:00)
[2024-01-12] MEDS: ASCORBIC ACID 500 MG TAB PO SCH (10:00)
[2024-01-12] MEDS: HYDROcodone-ACET 5/325MG TAB PO PRN (10:18)
[2024-01-12 16:21] VITALS: PULSE 97; RESP 17; O2SAT 98
[2024-01-12] MEDS: VANCOMYCIN 1GM/250ML KIT 200 ML IV SCH (16:53)
[2024-01-12 17:00] VITALS: BP 134/71; PULSE 97; RESP 17; TEMP 97.9; O2SAT 98
[2024-01-12] MEDS: hydrALAZINE HCL 20 MG/ML VL IV PRN (20:33)
[2024-01-12 21:00] VITALS: BP 167/81; PULSE 87; RESP 18; TEMP 98.6; O2SAT 99
[2024-01-13 01:00] VITALS: BP 163/65; PULSE 107; RESP 20; TEMP 98.6; O2SAT 98
[2024-01-13] MEDS ORDERED: ATOR40TA52 PO (04:10)
[2024-01-13] MEDS ORDERED: LISI40TA16 PO (04:10)
[2024-01-13] MEDS ORDERED: FURO40TA4 PO (04:10)
[2024-01-13] MEDS ORDERED: AMLO1TAB22 PO (04:10)
[2024-01-13] MEDS ORDERED: HYDR25TA88 PO (04:20)
[2024-01-13] MEDS ORDERED: IBUP-1456 PO (04:20)
[2024-01-13] MEDS ORDERED: SPIR25TA8 PO (04:20)
[2024-01-13] MEDS ORDERED: DULO20CA PO (04:20)
[2024-01-13] MEDS ORDERED: [UNRECOGNIZED DRUG - CODE] PO (04:24)
[2024-01-13] MEDS ORDERED: FUR20I PO (04:30)
[2024-01-13 05:00] VITALS: BP 97/75; PULSE 98; RESP 20; TEMP 98.1; O2SAT 99
[2024-01-13 07:30] LABS: Basophils # (auto) 0 10 ^3/uL (0-0.2); Basophils % (auto) 0.4 % (0.0-2.0); Eosinophils # (auto) 0.2 10 ^3/uL (0-0.8); Eosinophils % (auto) 2.2 % (0.0-7.0); Hematocrit 30.8 % (36.0-46.0); Hemoglobin 10.5 g/dL (12.2-16.2); Lymphocytes # (auto) 1.4 10 ^3/uL (0.4-5.4); Lymphocytes % (auto) 15.3 % (10.0-50.0); Mean Corpuscular Hgb Conc. 34.1 g/dL (32.0-36.0); Mean Corpuscular Volume 85.1 fL (80.0-100.0); Monocytes # (auto) 0.7 10 ^3/uL (0-1.3); Monocytes % (auto) 7.9 % (0.0-12.0); Neutrophils # (auto) 6.7 10 ^3/uL (1.6-8.6); Neutrophils % (auto) 74.2 % (37.0-80.0); Platelet Count (auto) 235 10^3/uL (140-450); Red Blood Cells 3.62 10^6/uL (4.0-5.20); Red Cell Distribution Width 14.1 % (11.8-14.3); White Blood Cell 9.1 10^3/uL (4.4-10.8)
[2024-01-13 07:42] LABS: Alanine Aminotransferase 13 U/L (7-40); Alkaline Phosphatase 136 U/L (46-116); Anion Gap 10 (5-15); Calcium 9.7 mg/dL (8.7-10.4); Carbon Dioxide 21 mmol/L (20-31); Chloride 110 mmol/L (98-107); Glucose 98 mg/dL (74-106); Potassium 3.7 mmol/L (3.5-5.1); Sodium 141 mmol/L (136-145)
[2024-01-13 07:43] LABS: Aspartate Aminotransferase 13 U/L (13-40); BUN/Creatinine Ratio 14.7 (10.0-20.0); Blood Urea Nitrogen 17 mg/dL (9-23)
[2024-01-13 07:44] LABS: Albumin 4.1 g/dL (3.2-4.8)
[2024-01-13 07:45] LABS: Bilirubin, Total 0.3 mg/dL (0.2-1.0)
[2024-01-13 09:00] VITALS: BP 146/66; PULSE 100; RESP 20; TEMP 97.3; O2SAT 96
[2024-01-13 13:00] VITALS: BP 182/80; PULSE 102; RESP 20; TEMP 98.5; O2SAT 99
--- NOTE | 2024-01-13 13:45 | DVHPN2 ---
Subjective The patient is seen and examined at bedside. Complain of leg wound pain. No fever or chill. Reviewed: Care Plan, H&P, Labs, Medications, Radiology Changes from previous H/P or p: No Changes Eyes: No Pain, No Vision change, No Conjunctivae inflammation, No Eyelid inflammation, No Other, No Redness ENT: No Ear pain, No Ear discharge, No Nose pain, No Nose discharge, No Nose congestion, No Mouth pain, No Mouth swelling, No Throat pain, No Throat swelling, No Other Cardiovascular: No Chest Pain, No Palpitations, No Orthopnea, No Paroxysmal Noc. Dyspnea, No Edema, No Lt Headedness, No Other Respiratory: No Cough, No Dry, No Shortness of breath, No SOB with excertion, No Wheezing, No Hemoptysis, No Pleuritic Pain, No Sputum, No Other Gastrointestinal: No Nausea, No Vomiting, No Abdominal Pain, No Diarrhea, No Constipation, No Melena, No Hematochezia, No Other Genitourinary: No Dysuria, No Frequency, No Incontinence, No Hematuria, No Retention, No Other Musculoskeletal: other (Right foot wound.); No neck pain, No shoulder pain, No arm pain, No back pain, No hand pain, No leg pain, No foot pain Skin: No Rash, No Lesions, No Jaundice, No Bruising, No Other Objective Vitals Vital Signs Date Time Temp Pulse Resp B/P (MAP) Pulse Ox O2 Delivery O2 Flow Rate FiO2 01/13/24 09:00 97.3 100 20 146/66 (92) 96 97.3 01/13/24 08:00 Room Air* 0 21 Intake/Output Intake and Output 01/13/24 07:00 Intake Total 1200 ml Balance 1200 ml Intake Oral 800 ml IV Total 400 ml # Voids 1 General Appearance: Alert, Oriented X3, Cooperative, No acute distress HEENT: Atraumatic, PERRLA, EOMI, Mucous membr. moist/pink Neck: Supple Lungs: Clear to auscultation, Normal air movement Cardiovascular: Regular rate, Normal S1, Normal S2, No murmurs, Gallops, Rubs Abdomen: Normal bowel sounds, Soft, No tenderness Neuro: Cranial nerves 3-12 NL Psych/Mental Status: Mental status NL Medications Current Medications Medications Dose Ordered Sig/Gregoria Route Start Time Stop Time Status Last Admin Dose Admin Vancomycin HCl 0 ml @ 0 mls/hr UD IV 01/12/24 01:15 Sodium Chloride 10 ml Q8HR IV 01/12/24 06:00 01/13/24 06:25 10 ML Acetaminophen/ Hydrocodone Bitart 1 tab Q4HP PRN PO 01/12/24 03:15 01/13/24 12:34 1 TAB Ondansetron HCl 4 mg Q4HP PRN IV 01/12/24 03:15 Docusate Sodium 100 mg BIDPRN PRN PO 01/12/24 03:15 Zinc Sulfate 220 mg DAILY PO 01/12/24 10:00 01/13/24 09:09 220 MG Ascorbic Acid 500 mg BID PO 01/12/24 10:00 01/13/24 09:09 500 MG Multivitamins 1 tab DAILY PO 01/12/24 10:00 01/13/24 09:09 1 TAB Acetaminophen 650 mg Q6HP PRN PO 01/12/24 03:15 Nitroglycerin 0.4 mg Q5MINP PRN SL 01/12/24 06:45 Morphine Sulfate 2 mg Q30M PRN IV 01/12/24 06:45 Hydralazine HCl 10 mg Q6HP PRN IV 01/12/24 07:30 01/13/24 03:49 10 MG Vancomycin HCl 200 ml @ 200 mls/hr Q12H IV 01/12/24 17:00 01/12/24 16:53 200 MLS/HR Laboratory Results Laboratory Tests 01/13/24 06:12 Chemistry Test 01/13/24 06:12 Albumin 4.1 g/dL (3.2-4.8) Calcium Level 9.7 mg/dL (8.7-10.4) Total Protein 7.0 g/dL (5.7-8.2) LFT Test 01/13/24 06:12 Alanine Aminotransferase (ALT) 13 U/L (7-40) Alkaline Phosphatase 136 U/L (46-116) H Aspartate Amino Transferase (AST) 13 U/L (13-40) Total Bilirubin 0.3 mg/dL (0.2-1.0) Labs and/or images reviewed: Labs reviewed by me Assessment/Plan Assessment/Plan Osteomyelitis of the right foot, failed outpatient antibiotic Hypertension uncontrolled Plan: Continuing current management continuing with IV antibiotic vancomycin and I will add Zosyn to her regimen. Podiatry consult Continuing p.r.n. medication for hypertension and continuing her home medication. Plan discussed with: Patient My Orders Orders - AURORA AGUILAR MD Procedure Category Date Status Time * Wound Consult CONS 01/12/24 Transmitted Cleanse Wound With ELIGIO 01/13/24 In Process Wound Clean 12:04 Date of Service: Jan 13, 2024 Billing Provider: AURORA AGUILAR MD Common Visit Codes: [id number] INP/OBS CARE(HIGH) AURORA AGUILAR MD Jan 13, 2024 13:45
--- NOTE | 2024-01-13 13:48 | DVHPN2 ---
Eyes: No Pain, No Vision change, No Conjunctivae inflammation, No Eyelid inflammation, No Other, No Redness ENT: No Ear pain, No Ear discharge, No Nose pain, No Nose discharge, No Nose congestion, No Mouth pain, No Mouth swelling, No Throat pain, No Throat swelling, No Other Cardiovascular: No Chest Pain, No Palpitations, No Orthopnea, No Paroxysmal Noc. Dyspnea, No Edema, No Lt Headedness, No Other Respiratory: No Cough, No Dry, No Shortness of breath, No SOB with excertion, No Wheezing, No Hemoptysis, No Pleuritic Pain, No Sputum, No Other Gastrointestinal: No Nausea, No Vomiting, No Abdominal Pain, No Diarrhea, No Constipation, No Melena, No Hematochezia, No Other Genitourinary: No Dysuria, No Frequency, No Incontinence, No Hematuria, No Retention, No Other Musculoskeletal: other (Right foot wound.); No neck pain, No shoulder pain, No arm pain, No back pain, No hand pain, No leg pain, No foot pain Skin: No Rash, No Lesions, No Jaundice, No Bruising, No Other Objective Vitals Vital Signs Date Time Temp Pulse Resp B/P (MAP) Pulse Ox O2 Delivery O2 Flow Rate FiO2 01/13/24 09:00 97.3 100 20 146/66 (92) 96 97.3 01/13/24 08:00 Room Air* 0 21 Intake/Output Intake and Output 01/13/24 07:00 Intake Total 1200 ml Balance 1200 ml Intake Oral 800 ml IV Total 400 ml # Voids 1 Medications Current Medications Medications Dose Ordered Sig/Gregoria Route Start Time Stop Time Status Last Admin Dose Admin Vancomycin HCl 0 ml @ 0 mls/hr UD IV 01/12/24 01:15 Sodium Chloride 10 ml Q8HR IV 01/12/24 06:00 01/13/24 06:25 10 ML Acetaminophen/ Hydrocodone Bitart 1 tab Q4HP PRN PO 01/12/24 03:15 01/13/24 12:34 1 TAB Ondansetron HCl 4 mg Q4HP PRN IV 01/12/24 03:15 Docusate Sodium 100 mg BIDPRN PRN PO 01/12/24 03:15 Zinc Sulfate 220 mg DAILY PO 01/12/24 10:00 01/13/24 09:09 220 MG Ascorbic Acid 500 mg BID PO 01/12/24 10:00 01/13/24 09:09 500 MG Multivitamins 1 tab DAILY PO 01/12/24 10:00 01/13/24 09:09 1 TAB Acetaminophen 650 mg Q6HP PRN PO 01/12/24 03:15 Nitroglycerin 0.4 mg Q5MINP PRN SL 01/12/24 06:45 Morphine Sulfate 2 mg Q30M PRN IV 01/12/24 06:45 Hydralazine HCl 10 mg Q6HP PRN IV 01/12/24 07:30 01/13/24 03:49 10 MG Vancomycin HCl 200 ml @ 200 mls/hr Q12H IV 01/12/24 17:00 01/12/24 16:53 200 MLS/HR Laboratory Results Laboratory Tests 01/13/24 06:12 Chemistry Test 01/13/24 06:12 Albumin 4.1 g/dL (3.2-4.8) Calcium Level 9.7 mg/dL (8.7-10.4) Total Protein 7.0 g/dL (5.7-8.2) LFT Test 01/13/24 06:12 Alanine Aminotransferase (ALT) 13 U/L (7-40) Alkaline Phosphatase 136 U/L (46-116) H Aspartate Amino Transferase (AST) 13 U/L (13-40) Total Bilirubin 0.3 mg/dL (0.2-1.0) Assessment/Plan My Orders Orders - AURORA AGUILAR MD Procedure Category Date Status Time * Wound Consult CONS 01/12/24 Transmitted Cleanse Wound With ELIGIO 01/13/24 In Process Wound Clean 12:04 AURORA AGUILAR MD Jan 13, 2024 13:48
[2024-01-13 18:00] VITALS: BP 167/56
[2024-01-13 21:00] VITALS: BP 138/55; PULSE 114; RESP 18; TEMP 98.3; O2SAT 99
[2024-01-14] VITALS (7 sets, daily range): BP systolic 124–160; BP diastolic 51–66; PULSE 91–114; RESP 16–20; TEMP 97.3–98.7; O2SAT 95–98
[2024-01-14] MEDS: Juven Orange Powder PACKET 27.5gm PO SCH (08:13)
--- NOTE | 2024-01-14 10:01 | DVHPN2 ---
Subjective The patient is seen and examined at bedside. Complain of leg wound pain. No fever or chill. Reviewed: Care Plan, H&P, Labs, Medications, Radiology Changes from previous H/P or p: No Changes Eyes: No Pain, No Vision change, No Conjunctivae inflammation, No Eyelid inflammation, No Other, No Redness ENT: No Ear pain, No Ear discharge, No Nose pain, No Nose discharge, No Nose congestion, No Mouth pain, No Mouth swelling, No Throat pain, No Throat swelling, No Other Cardiovascular: No Chest Pain, No Palpitations, No Orthopnea, No Paroxysmal Noc. Dyspnea, No Edema, No Lt Headedness, No Other Respiratory: No Cough, No Dry, No Shortness of breath, No SOB with excertion, No Wheezing, No Hemoptysis, No Pleuritic Pain, No Sputum, No Other Gastrointestinal: No Nausea, No Vomiting, No Abdominal Pain, No Diarrhea, No Constipation, No Melena, No Hematochezia, No Other Genitourinary: No Dysuria, No Frequency, No Incontinence, No Hematuria, No Retention, No Other Musculoskeletal: other (Right foot wound.); No neck pain, No shoulder pain, No arm pain, No back pain, No hand pain, No leg pain, No foot pain Skin: No Rash, No Lesions, No Jaundice, No Bruising, No Other Objective Vitals Vital Signs Date Time Temp Pulse Resp B/P (MAP) Pulse Ox O2 Delivery O2 Flow Rate FiO2 01/14/24 08:54 97.7 96 16 140/66 (90) 98 97.7 01/13/24 20:00 Room Air* 0 21 Intake/Output Intake and Output 01/14/24 07:00 Intake Total 1100 ml Output Total 600 ml Balance 500 ml Intake Oral 700 ml IV Total 400 ml Output Urine Total 600 ml # Voids 2 General Appearance: Alert, Oriented X3, Cooperative, No acute distress HEENT: Atraumatic, PERRLA, EOMI, Mucous membr. moist/pink Neck: Supple Lungs: Clear to auscultation, Normal air movement Cardiovascular: Regular rate, Normal S1, Normal S2, No murmurs, Gallops, Rubs Abdomen: Normal bowel sounds, Soft, No tenderness Neuro: Cranial nerves 3-12 NL Psych/Mental Status: Mental status NL Medications Current Medications Medications Dose Ordered Sig/Gregoria Route Start Time Stop Time Status Last Admin Dose Admin Vancomycin HCl 0 ml @ 0 mls/hr UD IV 01/12/24 01:15 Sodium Chloride 10 ml Q8HR IV 01/12/24 06:00 01/14/24 05:58 10 ML Acetaminophen/ Hydrocodone Bitart 1 tab Q4HP PRN PO 01/12/24 03:15 01/14/24 08:38 1 TAB Ondansetron HCl 4 mg Q4HP PRN IV 01/12/24 03:15 Docusate Sodium 100 mg BIDPRN PRN PO 01/12/24 03:15 Zinc Sulfate 220 mg DAILY PO 01/12/24 10:00 01/13/24 09:09 220 MG Ascorbic Acid 500 mg BID PO 01/12/24 10:00 01/13/24 21:11 500 MG Multivitamins 1 tab DAILY PO 01/12/24 10:00 01/13/24 09:09 1 TAB Acetaminophen 650 mg Q6HP PRN PO 01/12/24 03:15 Nitroglycerin 0.4 mg Q5MINP PRN SL 01/12/24 06:45 Morphine Sulfate 2 mg Q30M PRN IV 01/12/24 06:45 Hydralazine HCl 10 mg Q6HP PRN IV 01/12/24 07:30 01/13/24 17:22 10 MG Vancomycin HCl 200 ml @ 200 mls/hr Q12H IV 01/12/24 17:00 01/14/24 05:58 200 MLS/HR Enteral Nutritional Formula 27.5 gm BIDWM PO 01/14/24 08:00 01/14/24 08:13 27.5 GM Piperacillin Sod/ Tazobactam Sod 100 ml @ 25 mls/hr Q8HR IV 01/14/24 14:00 Laboratory Results Laboratory Tests 01/13/24 06:12 Labs and/or images reviewed: Labs reviewed by me Assessment/Plan Assessment/Plan Osteomyelitis of the right foot, failed outpatient antibiotic Hypertension uncontrolled Plan: Continuing current management continuing with IV antibiotic vancomycin and Zosyn. Waiting for Podiatry consult Continuing p.r.n. medication for hypertension and continuing her home medication. Plan discussed with: Patient My Orders Orders - AURORA AGUILAR MD Procedure Category Date Status Time Cleanse Wound With ELIGIO 01/13/24 In Process Wound Clean 12:04 *Podiatry Consult CONS 01/13/24 Transmitted Dennys(Dvmg) 13:47 Piperacillin-Tazob PHA 01/14/24 In Process 3.375gm (Zosyn 3.375g 14:00 Date of Service: Jan 14, 2024 Billing Provider: AURORA AGUILAR MD Common Visit Codes: [id number] INP/OBS CARE(HIGH) AURORA AGUILAR MD Jan 14, 2024 10:01
[2024-01-14] MEDS: ACETAMINOPHEN 325 MG TAB PO PRN (11:28)
[2024-01-14] MEDS ORDERED: PIPERACILLIN-TAZOB 3.375GM 100 ML IV SCH (14:00)
[2024-01-14] MEDS: MORPHINE SULFATE INJ 2 MG/ml SYRG IV PRN (15:25)
[2024-01-14] MEDS: PIPERACILLIN-TAZOB 3.375GM 100 ML IV SCH (18:27)
[2024-01-15] VITALS (7 sets, daily range): BP systolic 142–151; BP diastolic 57–81; PULSE 82–103; RESP 17–20; TEMP 98.4–98.8; O2SAT 95–99
--- NOTE | 2024-01-15 11:24 | DVHPN2 ---
Subjective The patient is seen and examined at bedside. Complain of leg wound pain. No fever or chill. Reviewed: Care Plan, H&P, Labs, Medications, Radiology Changes from previous H/P or p: No Changes Eyes: No Pain, No Vision change, No Conjunctivae inflammation, No Eyelid inflammation, No Other, No Redness ENT: No Ear pain, No Ear discharge, No Nose pain, No Nose discharge, No Nose congestion, No Mouth pain, No Mouth swelling, No Throat pain, No Throat swelling, No Other Cardiovascular: No Chest Pain, No Palpitations, No Orthopnea, No Paroxysmal Noc. Dyspnea, No Edema, No Lt Headedness, No Other Respiratory: No Cough, No Dry, No Shortness of breath, No SOB with excertion, No Wheezing, No Hemoptysis, No Pleuritic Pain, No Sputum, No Other Gastrointestinal: No Nausea, No Vomiting, No Abdominal Pain, No Diarrhea, No Constipation, No Melena, No Hematochezia, No Other Genitourinary: No Dysuria, No Frequency, No Incontinence, No Hematuria, No Retention, No Other Musculoskeletal: other (Right foot wound.); No neck pain, No shoulder pain, No arm pain, No back pain, No hand pain, No leg pain, No foot pain Skin: No Rash, No Lesions, No Jaundice, No Bruising, No Other Objective Vitals Vital Signs Date Time Temp Pulse Resp B/P (MAP) Pulse Ox O2 Delivery O2 Flow Rate FiO2 01/15/24 08:26 98.4 97 17 151/81 (104) 98 98.4 01/14/24 20:09 Room Air* 0 21 Intake/Output Intake and Output 01/15/24 07:00 Intake Total 3300 ml Output Total 400 ml Balance 2900 ml Intake Oral 2700 ml IV Total 600 ml Output Urine Total 400 ml # Voids 1 General Appearance: Alert, Oriented X3, Cooperative, No acute distress HEENT: Atraumatic, PERRLA, EOMI, Mucous membr. moist/pink Neck: Supple Lungs: Clear to auscultation, Normal air movement Cardiovascular: Regular rate, Normal S1, Normal S2, No murmurs, Gallops, Rubs Abdomen: Normal bowel sounds, Soft, No tenderness Neuro: Cranial nerves 3-12 NL Psych/Mental Status: Mental status NL Medications Current Medications Medications Dose Ordered Sig/Gregoria Route Start Time Stop Time Status Last Admin Dose Admin Vancomycin HCl 0 ml @ 0 mls/hr UD IV 01/12/24 01:15 Sodium Chloride 10 ml Q8HR IV 01/12/24 06:00 01/15/24 05:43 10 ML Acetaminophen/ Hydrocodone Bitart 1 tab Q4HP PRN PO 01/12/24 03:15 01/15/24 10:15 1 TAB Ondansetron HCl 4 mg Q4HP PRN IV 01/12/24 03:15 Docusate Sodium 100 mg BIDPRN PRN PO 01/12/24 03:15 Zinc Sulfate 220 mg DAILY PO 01/12/24 10:00 01/15/24 09:56 220 MG Ascorbic Acid 500 mg BID PO 01/12/24 10:00 01/15/24 09:56 500 MG Multivitamins 1 tab DAILY PO 01/12/24 10:00 01/15/24 09:56 1 TAB Acetaminophen 650 mg Q6HP PRN PO 01/12/24 03:15 01/14/24 11:28 650 MG Nitroglycerin 0.4 mg Q5MINP PRN SL 01/12/24 06:45 Morphine Sulfate 2 mg Q30M PRN IV 01/12/24 06:45 Hydralazine HCl 10 mg Q6HP PRN IV 01/12/24 07:30 01/14/24 11:28 10 MG Vancomycin HCl 200 ml @ 200 mls/hr Q12H IV 01/12/24 17:00 01/15/24 05:43 200 MLS/HR Enteral Nutritional Formula 27.5 gm BIDWM PO 01/14/24 08:00 01/15/24 08:04 27.5 GM Clonidine HCl 0.1 mg Q8HP PRN PO 01/14/24 13:15 Piperacillin Sod/ Tazobactam Sod 100 ml @ 25 mls/hr Q8H IV 01/14/24 18:00 01/15/24 09:57 25 MLS/HR Morphine Sulfate 2 mg Q4HPRN PRN IV 01/14/24 14:00 01/14/24 23:08 2 MG Laboratory Results Laboratory Tests 01/13/24 06:12 01/15/24 05:03 Microbiology Microbiology Date/Time Source Procedure Growth Status 01/13/24 12:15 Foot Gram Stain - Final Resulted 01/13/24 12:15 Foot Wound Culture - Preliminary Resulted Labs and/or images reviewed: Labs reviewed by me Assessment/Plan Assessment/Plan Osteomyelitis of the right foot, failed outpatient antibiotic Hypertension uncontrolled Plan: Continuing current management continuing with IV antibiotic vancomycin and Zosyn. Podiatry consult input appreciated. No further intervention for her wound. Continuing p.r.n. medication for hypertension and continuing her home medication. Plan discussed with: Patient My Orders Orders - AURORA AGUILAR MD Procedure Category Date Status Time Clonidine Hcl Tablet PHA 01/14/24 In Process (Catapres Tablet) 13:15 Insert Midline ORDERS 01/14/24 Transmitted 13:11 Piperacillin-Tazob PHA 01/14/24 In Process 3.375gm (Zosyn 3.375g 18:00 Morphine Sulfate PHA 01/14/24 In Process Injection 14:00 Date of Service: Jan 15, 2024 Billing Provider: AURORA AGUILAR MD Common Visit Codes: [id number] INP/OBS CARE(HIGH) AURORA AGUILAR MD Jan 15, 2024 11:24
--- NOTE | 2024-01-15 15:57 | DVHINCON2 ---
Date Seen: Jan 15, 2024 Reason for Consultation Left foot wound History of Present Illness Patient is a 58-year-old female with past medical history of hypertension who presented to [facility] ED for evaluation of right foot ulcer. Patient reports that she has had a right foot ulcer for several weeks that has also [id number] early painful. Patient states she initially went to a facility and was given a an antibiotic, but states that antibiotic was ineffective and therefore, received a 2nd antibiotic which she states has not improved the wound. Patient was seen and evaluated in the ED, laboratory data shows WBC 9.2, platelets 236, sodium 145, potassium 3.3, BUN 14, creatinine 1.05, glucose 107, BNP 78.66, blood pressure 186/75, heart rate 82, temperature 98.1 F, O2 saturation 99% on room air. Right foot CT revealing mild 1st MTP joint osteomyelitis, soft tissue swelling at the dorsum of the forefoot. Patient was started on IV antibiotic regimen vancomycin, please see medication orders section in the computer. On my assessment, patient denied chest pain, no headache, no dizziness, no shortness of breath, no nausea, no vomiting, no fever, no chills. Patient was admitted for further evaluation and medical management. Past Medical History See H&P Past Surgical History See H&P Family History: Diabetes mellitus G8 MOTHER Allergies: Coded Allergies: NO KNOWN ALLERGIES (Unverified , 12/26/23) Home Meds Active Scripts Doxycycline Hyclate (Doxycycline Hyclate) 100 Mg Cap, 1 CAP PO BID for 7 Days, #14 CAP Prov:SAMARA WHITE FUR FEEDER 12/31/23 Reported Medications Furosemide (Furosemide) 10 Mg/Ml Inj, 20 MG PO DAILY, INJ 01/13/24 Propranolol HCl (Propranolol HCl) 1 Mg/Ml Inj, 20 MG PO TID, INJ 01/13/24 Ibuprofen (Ibuprofen) 800 Mg Tab, 800 MG PO TID, MG 01/13/24 Duloxetine Hcl (Cymbalta) 20 Mg Cap, 30 MG PO DAILY, CAP 01/13/24 Spironolactone (Spironolactone) 25 Mg Tab, 1 TAB PO DAILY, #90 TAB 1 Refill 01/13/24 Hydralazine Hcl (Hydralazine Hcl) 25 Mg Tab, 25 MG PO PRN for sys greater than 150 for 30 Days, MG 01/13/24 Lisinopril (Lisinopril) 40 Mg Tab, 40 MG PO DAILY for 30 Days, MG 01/13/24 Amlodipine Besylate (Amlodipine Besylate) 5 Mg Tab, 5 MG PO BID for 30 Days, MG 01/13/24 Atorvastatin Calcium (ATORVASTATIN CALCIUM) 40 Mg Tab, 40 MG PO DAILY, TAB 01/13/24 Discontinued Reported Medications Furosemide (Furosemide) 40 Mg Tab, 1 TAB PO DAILY, #30 TAB 5 Refills 01/13/24 Current Medications Current Medications Medications (Trade) Dose Ordered Sig/Gregoria Route PRN Reason Start Time Stop Time Status Last Admin Piperacillin Sod/ Tazobactam Sod 100 ml @ 25 mls/hr Q8H IV 01/14/24 18:00 01/15/24 09:57 Vital Signs Vital Signs Date Time Temp Pulse Resp B/P (MAP) Pulse Ox O2 Delivery O2 Flow Rate FiO2 01/15/24 11:47 98.8 95 17 147/70 (95) 97 98.8 01/15/24 08:00 Room Air* 0 21 Physical Exam DERMATOLOGIC EXAM: - Skin is dry and cool to the touch dry bilaterally. - Nails 1-5 of the bilateral foot are thickened, discolored, dystrophic, and tender to palpate with subungual debris - Hair loss noted to bilateral feet Wound #1: Location: Left dorsal wound Measurements: Length 5 cm x width 3 cm x depth 0.5 cm. Wound margins: Hyperkeratotic. Wound base: Full thickness. General Appearance: Fibrotic Probes to Bone: No Purulent drainage: No Serous drainage: No Erythema: Periwound VASCULAR EXAM: - DP and PT pulses are palpable bilaterally. - LIBRARY ASSOCIATE is brisk to all digits. - Feet are cool to touch compared to lower legs bilaterally. NEUROLOGIC EXAM: - Normal light touch sensation to the superficial peroneal, deep peroneal, sural, saphenous, and tibial nerve branches. - Protective sensation is diminished as tested with a 5.07 10g Brandon-Fernando bilaterally. MUSCULOSKELETAL EXAM: - No gross deformities - Muscle strength is 5/5 and active motion is pain-free and symmetrical bilaterally - No pain or crepitation with passive range of motion bilaterally to all major pedal joints Labs/Diagnostic Data Labs Test 01/15/24 05:03 01/13/24 06:12 11/21/24 23:20 Range/Units Creatinine 1.14 H 0.550-1.02 mg/dL Glomerular Filtration Rate Calc 55 >90 mL/min Vancomycin Level Trough 14.9 H 5-10 ug/mL White Blood Count 9.1 4.4-10.8 10^3/uL Red Blood Count 3.62 L 4.0-5.20 10^6/uL Hemoglobin 10.5 L 12.2-16.2 g/dL Hematocrit 30.8 L 36.0-46.0 % Mean Corpuscular Volume 85.1 80.0-100.0 fL Mean Corpuscular Hemoglobin 29.0 28.0-32.0 pg Mean Corpuscular Hemoglobin Concent 34.1 32.0-36.0 g/dL Red Cell Distribution Width 14.1 11.8-14.3 % Platelet Count 235 140-450 10^3/uL Mean Platelet Volume 10.0 6.9-10.8 fL Neutrophils (%) (Auto) 74.2 37.0-80.0 % Lymphocytes (%) (Auto) 15.3 10.0-50.0 % Monocytes (%) (Auto) 7.9 0.0-12.0 % Eosinophils (%) (Auto) 2.2 0.0-7.0 % Basophils (%) (Auto) 0.4 0.0-2.0 % Neutrophils # (Auto) 6.7 1.6-8.6 10 ^3/uL Lymphocytes # (Auto) 1.4 0.4-5.4 10 ^3/uL Monocytes # (Auto) 0.7 0-1.3 10 ^3/uL Eosinophils # (Auto) 0.2 0-0.8 10 ^3/uL Basophils # (Auto) 0 0-0.2 10 ^3/uL Nucleated Red Blood Cells 0.0 % Sodium Level 141 136-145 mmol/L Potassium Level 3.7 3.5-5.1 mmol/L Chloride Level 110 H 98-107 mmol/L Carbon Dioxide Level 21 20-31 mmol/L Anion Gap 10 5-15 Blood Urea Nitrogen 17 9-23 mg/dL BUN/Creatinine Ratio 14.7 10.0-20.0 Serum Glucose 98 74-106 mg/dL Calcium Level 9.7 8.7-10.4 mg/dL Total Bilirubin 0.3 0.2-1.0 mg/dL Aspartate Amino Transferase (AST) 13 13-40 U/L Alanine Aminotransferase (ALT) 13 7-40 U/L Alkaline Phosphatase 136 H 46-116 U/L Total Protein 7.0 5.7-8.2 g/dL Albumin 4.1 3.2-4.8 g/dL Lactic Acid Level 1.2 0.4-2.0 mmol/L B-Type Natriuretic Peptide 78.66 0-100 pg/mL Microbiology Date/Time Source Procedure Growth Status 01/13/24 12:15 Foot Gram Stain - Final Resulted 01/13/24 12:15 Foot Wound Culture - Preliminary Resulted Problems(with codes): (1) Infected ulcer of skin (2) Antibiotic-resistant bacterial infection (3) Cellulitis (4) Hypokalemia (5) Osteomyelitis of right foot (6) Hypertensive urgency Plan/Recommendation ASSESSMENT: Patient is a 58-year-old seen on the floor for worsening left foot wound PLAN: - The patients chart was reviewed, clinical findings were discussed with the patient, the etiologies of the conditions were discussed in detail, and a treat ment plan was agreed to at this time, with both oral and written instructions provided. - discussed with the patient that the wound does not appear to be deep at this point. - recommend that patient follows up as an outpatient for wound care - patient would benefit from either Medihoney or Santyl - no surgical intervention recommended at this point All questions were answered and concerns addressed to the patient's satisfaction. The patient was given the phone number to the clinic and was told how to make contact with the clinic should any concerns or questions arise. Patient understands that if any questions or concerns arise prior to the next appointment, we should be contacted immediately. FOLLOW-UP: Patient will follow up with me in 1 week for continued wound care Plan discussed with: Patient Date of Service: Jan 15, 2024 Billing Provider: JUAN LUIS SANTIZO DPM Common Visit Codes: [id number] INP/OBS CARE (MOD) JUAN LUIS SANTIZO DPM Jan 15, 2024 15:57
[2024-01-16] VITALS (7 sets, daily range): BP systolic 143–170; BP diastolic 47–78; PULSE 91–97; RESP 16–21; TEMP 98.1–98.8; O2SAT 97–99
[2024-01-16 06:35] LABS: Basophils # (auto) 0.1 10 ^3/uL (0-0.2); Basophils % (auto) 0.5 % (0.0-2.0); Eosinophils # (auto) 0.2 10 ^3/uL (0-0.8); Eosinophils % (auto) 1.9 % (0.0-7.0); Hematocrit 28.9 % (36.0-46.0); Hemoglobin 9.9 g/dL (12.2-16.2); Lymphocytes # (auto) 1.6 10 ^3/uL (0.4-5.4); Lymphocytes % (auto) 16.2 % (10.0-50.0); Mean Corpuscular Hemoglobin 29.2 pg (28.0-32.0); Mean Corpuscular Hgb Conc. 34.1 g/dL (32.0-36.0); Mean Corpuscular Volume 85.7 fL (80.0-100.0); Monocytes # (auto) 0.9 10 ^3/uL (0-1.3); Monocytes % (auto) 9.3 % (0.0-12.0); Neutrophils # (auto) 7.3 10 ^3/uL (1.6-8.6); Neutrophils % (auto) 72.1 % (37.0-80.0); Platelet Count (auto) 218 10^3/uL (140-450); Red Blood Cells 3.38 10^6/uL (4.0-5.20); Red Cell Distribution Width 14.5 % (11.8-14.3); White Blood Cell 10.1 10^3/uL (4.4-10.8)
[2024-01-16 07:15] LABS: Anion Gap 8 (5-15); Carbon Dioxide 24 mmol/L (20-31); Chloride 106 mmol/L (98-107); Potassium 3.8 mmol/L (3.5-5.1); Sodium 138 mmol/L (136-145)
[2024-01-16 07:17] LABS: Calcium 10.1 mg/dL (8.7-10.4)
[2024-01-16 07:21] LABS: Glucose 101 mg/dL (74-106)
[2024-01-16 07:43] LABS: BUN/Creatinine Ratio 17.9 (10.0-20.0); Blood Urea Nitrogen 21 mg/dL (9-23)
--- NOTE | 2024-01-16 11:17 | DVHPN2 ---
Subjective The patient is seen and examined at bedside. Complain of leg wound pain. No fever or chill. Reviewed: Care Plan, H&P, Labs, Medications, Radiology Changes from previous H/P or p: No Changes Eyes: No Pain, No Vision change, No Conjunctivae inflammation, No Eyelid inflammation, No Other, No Redness ENT: No Ear pain, No Ear discharge, No Nose pain, No Nose discharge, No Nose congestion, No Mouth pain, No Mouth swelling, No Throat pain, No Throat swelling, No Other Cardiovascular: No Chest Pain, No Palpitations, No Orthopnea, No Paroxysmal Noc. Dyspnea, No Edema, No Lt Headedness, No Other Respiratory: No Cough, No Dry, No Shortness of breath, No SOB with excertion, No Wheezing, No Hemoptysis, No Pleuritic Pain, No Sputum, No Other Gastrointestinal: No Nausea, No Vomiting, No Abdominal Pain, No Diarrhea, No Constipation, No Melena, No Hematochezia, No Other Genitourinary: No Dysuria, No Frequency, No Incontinence, No Hematuria, No Retention, No Other Musculoskeletal: other (Right foot wound.); No neck pain, No shoulder pain, No arm pain, No back pain, No hand pain, No leg pain, No foot pain Skin: No Rash, No Lesions, No Jaundice, No Bruising, No Other Objective Vitals Vital Signs Date Time Temp Pulse Resp B/P (MAP) Pulse Ox O2 Delivery O2 Flow Rate FiO2 01/16/24 09:00 98.1 93 16 157/76 (103) 97 98.1 01/15/24 20:00 Room Air* 0 21 Intake/Output Intake and Output 01/16/24 07:00 Intake Total 1200 ml Output Total 200 ml Balance 1000 ml Intake Oral 1200 ml Output Urine Total 200 ml # Voids 3 General Appearance: Alert, Oriented X3, Cooperative, No acute distress HEENT: Atraumatic, PERRLA, EOMI, Mucous membr. moist/pink Neck: Supple Lungs: Clear to auscultation, Normal air movement Cardiovascular: Regular rate, Normal S1, Normal S2, No murmurs, Gallops, Rubs Abdomen: Normal bowel sounds, Soft, No tenderness Neuro: Cranial nerves 3-12 NL Psych/Mental Status: Mental status NL Medications Current Medications Medications Dose Ordered Sig/Gregoria Route Start Time Stop Time Status Last Admin Dose Admin Vancomycin HCl 0 ml @ 0 mls/hr UD IV 01/12/24 01:15 Sodium Chloride 10 ml Q8HR IV 01/12/24 06:00 01/16/24 05:32 10 ML Acetaminophen/ Hydrocodone Bitart 1 tab Q4HP PRN PO 01/12/24 03:15 01/15/24 20:51 1 TAB Ondansetron HCl 4 mg Q4HP PRN IV 01/12/24 03:15 Docusate Sodium 100 mg BIDPRN PRN PO 01/12/24 03:15 Zinc Sulfate 220 mg DAILY PO 01/12/24 10:00 01/15/24 09:56 220 MG Ascorbic Acid 500 mg BID PO 01/12/24 10:00 01/15/24 20:50 500 MG Multivitamins 1 tab DAILY PO 01/12/24 10:00 01/15/24 09:56 1 TAB Acetaminophen 650 mg Q6HP PRN PO 01/12/24 03:15 01/14/24 11:28 650 MG Nitroglycerin 0.4 mg Q5MINP PRN SL 01/12/24 06:45 Morphine Sulfate 2 mg Q30M PRN IV 01/12/24 06:45 Hydralazine HCl 10 mg Q6HP PRN IV 01/12/24 07:30 01/14/24 11:28 10 MG Vancomycin HCl 200 ml @ 200 mls/hr Q12H IV 01/12/24 17:00 01/16/24 05:00 200 MLS/HR Enteral Nutritional Formula 27.5 gm BIDWM PO 01/14/24 08:00 01/15/24 18:00 27.5 GM Clonidine HCl 0.1 mg Q8HP PRN PO 01/14/24 13:15 Piperacillin Sod/ Tazobactam Sod 100 ml @ 25 mls/hr Q8H IV 01/14/24 18:00 01/16/24 01:43 25 MLS/HR Morphine Sulfate 2 mg Q4HPRN PRN IV 01/14/24 14:00 01/16/24 01:52 2 MG Laboratory Results Laboratory Tests 01/16/24 04:54 Chemistry Test 01/16/24 04:54 Calcium Level 10.1 mg/dL (8.7-10.4) Microbiology Microbiology Date/Time Source Procedure Growth Status 01/13/24 12:15 Foot Gram Stain - Final Resulted 01/13/24 12:15 Foot Wound Culture - Preliminary Resulted Labs and/or images reviewed: Labs reviewed by me Assessment/Plan Assessment/Plan Osteomyelitis of the right foot, failed outpatient antibiotic Hypertension uncontrolled Plan: Continuing current management continuing with IV antibiotic vancomycin and Zosyn. Superintendent Sales we will not have any procedure done for her wound on the foot. I will put in a infectious disease consulted to see if the patient will need IV antibiotics for her osteomyelitis of the right foot and how long the patient needs the IV antibiotic for her osteomyelitis. We will work with upper caser to arrange home IV antibiotic and wound care if need antibiotic IV at home. Continuing p.r.n. medication for hypertension and continuing her home medication. Plan discussed with: Patient My Orders Orders - AURORA AGUILAR MD Procedure Category Date Status Time Complete Blood Count LAB 01/17/24 Verified 05:00 Complete Blood Count LAB 01/18/24 Verified 05:00 Complete Blood Count LAB 01/19/24 Verified 05:00 Complete Blood Count LAB 01/20/24 Verified 05:00 Basic Metabolic Panel LAB 01/17/24 Verified 05:00 Basic Metabolic Panel LAB 01/18/24 Verified 05:00 Basic Metabolic Panel LAB 01/19/24 Verified 05:00 Basic Metabolic Panel LAB 01/20/24 Verified 05:00 * Infectious [place]- Dr. DAVID 01/16/24 Verified [place] 11:15 Date of Service: Jan 16, 2024 Billing Provider: AURORA AGUILAR MD Common Visit Codes: [id number] INP/OBS CARE(HIGH) AURORA AGUILAR MD Jan 16, 2024 11:17
--- NOTE | 2024-01-16 16:22 | MEDREC ---
[facility] ASP Intervention Section I [facility] ASP Intervention: Review courses of therapy (WOUND CULTURE CAME BACK POSITIVE FOR STENOTROPHOMONAS MALTOPHILIA - PLEASE CONSIDER TO ADD BACTRIM FOR THIS PATIENT) OSWALDO CAMPOS PHARMACIST Jan 16, 2024 16:22
[2024-01-17] VITALS (7 sets, daily range): BP systolic 117–188; BP diastolic 44–87; PULSE 79–120; RESP 20–21; TEMP 98.2–98.8; O2SAT 94–99
[2024-01-17] MEDS: VANCOMYCIN HCL 1000 MG VL ONE (05:20)
[2024-01-17 07:26] LABS: Anion Gap 8 (5-15); Carbon Dioxide 25 mmol/L (20-31); Chloride 107 mmol/L (98-107); Potassium 3.9 mmol/L (3.5-5.1); Sodium 140 mmol/L (136-145)
[2024-01-17 07:28] LABS: Calcium 10.1 mg/dL (8.7-10.4)
[2024-01-17 07:32] LABS: BUN/Creatinine Ratio 18.5 (10.0-20.0); Blood Urea Nitrogen 20 mg/dL (9-23); Glucose 92 mg/dL (74-106)
[2024-01-17 07:37] LABS: Basophils # (auto) 0 10 ^3/uL (0-0.2); Basophils % (auto) 0.5 % (0.0-2.0); Eosinophils # (auto) 0.2 10 ^3/uL (0-0.8); Eosinophils % (auto) 1.8 % (0.0-7.0); Hematocrit 29.6 % (36.0-46.0); Hemoglobin 9.9 g/dL (12.2-16.2); Lymphocytes # (auto) 1.2 10 ^3/uL (0.4-5.4); Lymphocytes % (auto) 13.7 % (10.0-50.0); Mean Corpuscular Hemoglobin 28.6 pg (28.0-32.0); Mean Corpuscular Hgb Conc. 33.3 g/dL (32.0-36.0); Mean Corpuscular Volume 85.8 fL (80.0-100.0); Monocytes # (auto) 0.7 10 ^3/uL (0-1.3); Monocytes % (auto) 7.7 % (0.0-12.0); Neutrophils # (auto) 6.7 10 ^3/uL (1.6-8.6); Neutrophils % (auto) 76.3 % (37.0-80.0); Platelet Count (auto) 249 10^3/uL (140-450); Red Blood Cells 3.45 10^6/uL (4.0-5.20); Red Cell Distribution Width 14.6 % (11.8-14.3); White Blood Cell 8.7 10^3/uL (4.4-10.8)
--- NOTE | 2024-01-17 13:22 | DVHPN2 ---
Reviewed: Care Plan, H&P, Labs, Medications, Radiology Changes from previous H/P or p: No Changes Eyes: No Pain, No Vision change, No Conjunctivae inflammation, No Eyelid inflammation, No Other, No Redness ENT: No Ear pain, No Ear discharge, No Nose pain, No Nose discharge, No Nose congestion, No Mouth pain, No Mouth swelling, No Throat pain, No Throat swelling, No Other Cardiovascular: No Chest Pain, No Palpitations, No Orthopnea, No Paroxysmal Noc. Dyspnea, No Edema, No Lt Headedness, No Other Respiratory: No Cough, No Dry, No Shortness of breath, No SOB with excertion, No Wheezing, No Hemoptysis, No Pleuritic Pain, No Sputum, No Other Gastrointestinal: No Nausea, No Vomiting, No Abdominal Pain, No Diarrhea, No Constipation, No Melena, No Hematochezia, No Other Genitourinary: No Dysuria, No Frequency, No Incontinence, No Hematuria, No Retention, No Other Musculoskeletal: other (Right foot wound.); No neck pain, No shoulder pain, No arm pain, No back pain, No hand pain, No leg pain, No foot pain Skin: No Rash, No Lesions, No Jaundice, No Bruising, No Other Objective Vitals Vital Signs Date Time Temp Pulse Resp B/P (MAP) Pulse Ox O2 Delivery O2 Flow Rate FiO2 01/17/24 13:18 98.5 87 20 154/87 (109) 99 98.5 01/17/24 08:00 Room Air* 0 21 Intake/Output Intake and Output 01/17/24 07:00 Intake Total 1800 ml Balance 1800 ml Intake Oral 1700 ml IV Total 100 ml # Voids 5 General Appearance: Alert, Oriented X3, Cooperative, No acute distress HEENT: Atraumatic, PERRLA, EOMI, Mucous membr. moist/pink Neck: Supple Lungs: Clear to auscultation, Normal air movement Cardiovascular: Regular rate, Normal S1, Normal S2, No murmurs, Gallops, Rubs Abdomen: Normal bowel sounds, Soft, No tenderness Neuro: Cranial nerves 3-12 NL Psych/Mental Status: Mental status NL Medications Current Medications Medications Dose Ordered Sig/Gregoria Route Start Time Stop Time Status Last Admin Dose Admin Vancomycin HCl 0 ml @ 0 mls/hr UD IV 01/12/24 01:15 Sodium Chloride 10 ml Q8HR IV 01/12/24 06:00 01/17/24 06:07 10 ML Acetaminophen/ Hydrocodone Bitart 1 tab Q4HP PRN PO 01/12/24 03:15 01/17/24 08:24 1 TAB Ondansetron HCl 4 mg Q4HP PRN IV 01/12/24 03:15 Docusate Sodium 100 mg BIDPRN PRN PO 01/12/24 03:15 Zinc Sulfate 220 mg DAILY PO 01/12/24 10:00 01/17/24 10:45 220 MG Ascorbic Acid 500 mg BID PO 01/12/24 10:00 01/17/24 10:45 500 MG Multivitamins 1 tab DAILY PO 01/12/24 10:00 01/17/24 10:45 1 TAB Acetaminophen 650 mg Q6HP PRN PO 01/12/24 03:15 01/14/24 11:28 650 MG Nitroglycerin 0.4 mg Q5MINP PRN SL 01/12/24 06:45 Morphine Sulfate 2 mg Q30M PRN IV 01/12/24 06:45 Hydralazine HCl 10 mg Q6HP PRN IV 01/12/24 07:30 01/14/24 11:28 10 MG Vancomycin HCl 200 ml @ 200 mls/hr Q12H IV 01/12/24 17:00 01/17/24 05:00 200 MLS/HR Enteral Nutritional Formula 27.5 gm BIDWM PO 01/14/24 08:00 01/17/24 08:25 27.5 GM Clonidine HCl 0.1 mg Q8HP PRN PO 01/14/24 13:15 Piperacillin Sod/ Tazobactam Sod 100 ml @ 25 mls/hr Q8H IV 01/14/24 18:00 01/17/24 10:46 25 MLS/HR Morphine Sulfate 2 mg Q4HPRN PRN IV 01/14/24 14:00 01/17/24 11:53 2 MG Laboratory Results Laboratory Tests 01/17/24 06:49 Chemistry Test 01/17/24 06:49 Calcium Level 10.1 mg/dL (8.7-10.4) Microbiology Microbiology Date/Time Source Procedure Growth Status 01/13/24 12:15 Foot Gram Stain - Final Complete 01/13/24 12:15 Wound Culture - Final Stenotrophomonas maltophilia Complete Labs and/or images reviewed: Labs reviewed by me, Image(s) reviewed by me Assessment/Plan Assessment/Plan Covering for Dr. Vee Acute Osteomyelitis of the right foot, failed outpatient antibiotic continue vancomycin and Zosyn, consult by Dr. Noyola appreciated advised IV antibiotics no surgical intervention Hypertension uncontrolled Plan discussed with: Patient Date of Service: Jan 17, 2024 Billing Provider: LESLIE HAMPTON MD Common Visit Codes: [id number] INP/OBS CARE(HIGH) LESLIE HAMPTON MD Jan 17, 2024 13:22
--- NOTE | 2024-01-17 22:22 | DVHINCON2 ---
Date of service: Jan 16, 2024 Family History: Diabetes mellitus G8 MOTHER Allergies: Coded Allergies: NO KNOWN ALLERGIES (Unverified , 12/26/23) Home Meds Active Scripts Doxycycline Hyclate (Doxycycline Hyclate) 100 Mg Cap, 1 CAP PO BID for 7 Days, #14 CAP Prov:[facility] 12/31/23 Reported Medications Furosemide (Furosemide) 10 Mg/Ml Inj, 20 MG PO DAILY, INJ 01/13/24 Propranolol HCl (Propranolol HCl) 1 Mg/Ml Inj, 20 MG PO TID, INJ 01/13/24 Ibuprofen (Ibuprofen) 800 Mg Tab, 800 MG PO TID, MG 01/13/24 Duloxetine Hcl (Cymbalta) 20 Mg Cap, 30 MG PO DAILY, CAP 01/13/24 Spironolactone (Spironolactone) 25 Mg Tab, 1 TAB PO DAILY, #90 TAB 1 Refill 01/13/24 Hydralazine Hcl (Hydralazine Hcl) 25 Mg Tab, 25 MG PO PRN for sys greater than 150 for 30 Days, MG 01/13/24 Lisinopril (Lisinopril) 40 Mg Tab, 40 MG PO DAILY for 30 Days, MG 01/13/24 Amlodipine Besylate (Amlodipine Besylate) 5 Mg Tab, 5 MG PO BID for 30 Days, MG 01/13/24 Atorvastatin Calcium (ATORVASTATIN CALCIUM) 40 Mg Tab, 40 MG PO DAILY, TAB 01/13/24 Discontinued Reported Medications Furosemide (Furosemide) 40 Mg Tab, 1 TAB PO DAILY, #30 TAB 5 Refills 01/13/24 Vital Signs Vital Signs Date Time Temp Pulse Resp B/P (MAP) Pulse Ox O2 Delivery O2 Flow Rate FiO2 01/17/24 21:00 98.3 107 20 160/76 (104) 98 98.3 01/17/24 08:00 Room Air* 0 21 Labs/Diagnostic Data Labs Test 01/17/24 16:28 01/17/24 06:49 01/13/24 06:12 01/11/24 23:20 Range/Units Vancomycin Level Trough 18.6 H 5-10 ug/mL White Blood Count 8.7 4.4-10.8 10^3/uL Red Blood Count 3.45 L 4.0-5.20 10^6/uL Hemoglobin 9.9 L 12.2-16.2 g/dL Hematocrit 29.6 L 36.0-46.0 % Mean Corpuscular Volume 85.8 80.0-100.0 fL Mean Corpuscular Hemoglobin 28.6 28.0-32.0 pg Mean Corpuscular Hemoglobin Concent 33.3 32.0-36.0 g/dL Red Cell Distribution Width 14.6 H 11.8-14.3 % Platelet Count 249 140-450 10^3/uL Mean Platelet Volume 9.8 6.9-10.8 fL Neutrophils (%) (Auto) 76.3 37.0-80.0 % Lymphocytes (%) (Auto) 13.7 10.0-50.0 % Monocytes (%) (Auto) 7.7 0.0-12.0 % Eosinophils (%) (Auto) 1.8 0.0-7.0 % Basophils (%) (Auto) 0.5 0.0-2.0 % Neutrophils # (Auto) 6.7 1.6-8.6 10 ^3/uL Lymphocytes # (Auto) 1.2 0.4-5.4 10 ^3/uL Monocytes # (Auto) 0.7 0-1.3 10 ^3/uL Eosinophils # (Auto) 0.2 0-0.8 10 ^3/uL Basophils # (Auto) 0 0-0.2 10 ^3/uL Nucleated Red Blood Cells 0.0 % Sodium Level 140 136-145 mmol/L Potassium Level 3.9 3.5-5.1 mmol/L Chloride Level 107 98-107 mmol/L Carbon Dioxide Level 25 20-31 mmol/L Anion Gap 8 5-15 Blood Urea Nitrogen 20 9-23 mg/dL Creatinine 1.08 H 0.550-1.02 mg/dL Glomerular Filtration Rate Calc 59 >90 mL/min BUN/Creatinine Ratio 18.5 10.0-20.0 Serum Glucose 92 74-106 mg/dL Calcium Level 10.1 8.7-10.4 mg/dL Total Bilirubin 0.3 0.2-1.0 mg/dL Aspartate Amino Transferase (AST) 13 13-40 U/L Alanine Aminotransferase (ALT) 13 7-40 U/L Alkaline Phosphatase 136 H 46-116 U/L Total Protein 7.0 5.7-8.2 g/dL Albumin 4.1 3.2-4.8 g/dL Lactic Acid Level 1.2 0.4-2.0 mmol/L B-Type Natriuretic Peptide 78.66 0-100 pg/mL Microbiology Date/Time Source Procedure Growth Status 01/13/24 12:15 Foot Gram Stain - Final Complete 01/13/24 12:15 Wound Culture - Final Stenotrophomonas maltophilia Complete Plan/Recommendation ASSESSMENT AND PLAN: ID Problem List: - Right foot ulcer - Osteomyelitis - Hypertension - Tobacco use disorder Assessment This is a 58-year-old female with a past medical history of hypertension and chronic smoking since age 10, who presents with a right foot ulcer for several weeks associated with moderate to severe pain and swelling. She had tendonitis in the right foot last November. The lesion started as a small pinpoint ulcer and progressed rapidly over a few days into a large, macerated wound with necrosis and skin sloughing on the dorsal aspect of the foot. She was previously treated with oral antibiotics without improvement. Laboratory studies show WBC count of 9.2, platelets 236, BUN 17, creatinine 1.05, lactate 1.2, sodium 141. Imaging studies include an X-ray revealing mild first joint osteomyelitis and soft tissue swelling at the dorsum of the right foot. Wound cultures grew few coagulase-negative staphylococci and rare growth of Stenotrophomonas maltophilia. She was started on intravenous vancomycin and Zosyn. Plan: - Continue vancomycin and Zosyn for now. - Recommend MRI of the right foot to further evaluate for unseen abscess and degree of osteomyelitis. - Recommend blood cultures. - Agree with Podiatry consultation; patient will likely need debridement of the dorsal foot wound during operative procedure. - Please collect deep tissue aerobic and anaerobic bacterial cultures during surgery. - Will likely require IV antibiotics for osteomyelitis; antibiotic regimen to be determined based on operative findings and MRI results. - Would not change therapy based on Stenotrophomonas maltophilia as it is unlikely to be the etiology of patient's current severe cellulitic infection. Isolation Precautions: Standard Assessment and plan was discussed with the patient as written above Plan is subject to change pending incorporation of new incoming information/diagnostics. Updates may be added as addendum at the bottom (OR TOP) of this note Thank you for interesting consult. ID will continue to follow. Please contact Infectious Disease for any questions or concerns. Amie Monroy M.D. [facility] Ph: ? History: The patient's chart and medications were reviewed in detail and the patient was seen and examined. History obtained from: Patient Clover Giles is a 58-year-old female with a past medical history of hypertension and chronic smoking since age 10, who presents with a right foot ulcer for several weeks associated with moderate to severe pain and swelling. She had tendonitis in the right foot last November. Her symptoms of swelling, tenderness, and necrosis of the dorsal foot began developing three weeks ago. She was given an oral antibiotic but it was ineffective and then switched to a second antibiotic without improvement. Her wound progressed rapidly over the course of a few days, starting as a small pinpoint ulcerative lesion and developing into progressive necrosis. Review of Systems: A complete 10 system review of systems was completed and negative except as noted in the HPI or here. ROS: - CONSTITUTIONAL: Denies weight loss, fever, and chills. - HEENT: Denies changes in vision and hearing. - RESPIRATORY: Denies shortness of breath and cough. - CV: Denies palpitations and chest pain. - GI: Denies abdominal pain, nausea, vomiting, and diarrhea. - : Denies dysuria and urinary frequency. - MSK: Reports right foot pain, swelling, and tenderness. - SKIN: Reports ulcerative lesion on right foot with skin sloughing. - NEUROLOGICAL: Denies headache and syncope. - PSYCHIATRIC: Denies recent changes in mood. Denies anxiety and depression. Past Medical History: Diagnosis Date Hypertension Tendonitis of right foot (November last year) Past Surgical History: History reviewed. No pertinent surgical history. Home Medications: Prior to Admission medications Medication Sig [Not provided] Allergies: No known drug allergies Family History: No relevant family history provided. Social History: Socioeconomic History Marital status: Not provided Occupational History Not provided Tobacco Use Smoking status: Chronic smoker since age 10 Smokeless tobacco: Never Substance and Sexual Activity Alcohol use: Denies Drug use: Denies Sexual activity: Not provided Other Topics Concern Not provided Social Determinants of Health No difficulties reported with housing, food, utilities, transportation, or financial resources. Objective: Vital Signs on Arrival: Temp: 98.1 F BP: 186/75 Pulse: 82 Resp: 16 SpO2: 99% on room air Most Recent Vital Signs: Temp: 98.1 F BP: 186/75 Pulse: 82 Resp: 16 SpO2: 99% on room air Admission Weight: Not provided. Physical Exam: General: NAD Neck: Supple. No masses. HEENT: PERRL. Normal lids and conjunctiva. Moist mucous membranes. Oropharynx without lesions, exudates or excessive erythema. Normal appearance of the external aspects of the nose and ears. Heart: Regular rhythm, normal rate. No murmur. No lower extremity edema. Lungs: Normal respiratory effort. Clear to auscultation bilaterally. No wheezes. No crackles. Abdomen: Soft. Non-tender. Non-distended. No masses or abdominal hernia. Msk: No digital cyanosis. Normal strength and tone in all 4 limbs. Right foot with a large, approximately 5 x 5 cm macerated lesion on the dorsal aspect with edema, tenderness, skin sloughing, and malodorous discharge. Skin: Warm and dry, no rashes. Lesion on right dorsal foot as described. Neuro: Alert. No facial droop or slurred speech. Extra-ocular movements intact. Sensation intact to soft touch in all 4 limbs. Psych: Appropriate mood. Full affect. Oriented to person, place, time, and situation. Lines: Active Lines Peripheral IV Line placed on admission. Diagnostic Studies: Available diagnostic studies were reviewed personally. Significant relevant results and findings are outlined below or addressed in the Assessment and Plan above. Pertinent Imaging: Recent Results XR Foot Right - Impression IMPRESSION: - Mild first joint osteomyelitis. - Soft tissue swelling at the dorsum of the right foot. CT Right Foot - Impression IMPRESSION: - Soft tissue swelling at the dorsum of the right foot. Laboratory Data: - WBC count: 9.2 - Platelets: 236 BUN: 17 - Creatinine: 1.05 - Lactate: 1.2 - Sodium: 141 - Glucose: [Not provided] Microbiology: - Wound cultures grew few coagulase-negative staphylococci and rare growth of Stenotrophomonas maltophilia. Plan discussed with: Patient AMIE MONROY MD Jan 17, 2024 22:22
--- NOTE | 2024-01-17 22:54 | DVHPN2 ---
Consult Progress Note Date Seen: Jan 17, 2024 Subjective Patient reports: Feels better (no fever or chills) Objective vital signs Vital Sign Date Time Temp Pulse Resp B/P (MAP) Pulse Ox O2 Delivery O2 Flow Rate FiO2 01/17/24 21:00 98.3 107 20 160/76 (104) 98 98.3 01/17/24 08:00 Room Air* 0 21 Total Intake and Output 01/16/24 01/16/24 01/17/24 15:00 23:00 07:00 Intake Total 1140 ml 660 ml Balance 1140 ml 660 ml medications Current Medications Medications Dose Ordered Sig/Gregoria Route Start Time Stop Time Status Last Admin Dose Admin Vancomycin HCl 0 ml @ 0 mls/hr UD IV 01/12/24 01:15 Sodium Chloride 10 ml Q8HR IV 01/12/24 06:00 01/17/24 22:14 10 ML Acetaminophen/ Hydrocodone Bitart 1 tab Q4HP PRN PO 01/12/24 03:15 01/17/24 22:06 1 TAB Ondansetron HCl 4 mg Q4HP PRN IV 01/12/24 03:15 Docusate Sodium 100 mg BIDPRN PRN PO 01/12/24 03:15 Zinc Sulfate 220 mg DAILY PO 01/12/24 10:00 01/17/24 10:45 220 MG Ascorbic Acid 500 mg BID PO 01/12/24 10:00 01/17/24 22:06 500 MG Multivitamins 1 tab DAILY PO 01/12/24 10:00 01/17/24 10:45 1 TAB Acetaminophen 650 mg Q6HP PRN PO 01/12/24 03:15 01/14/24 11:28 650 MG Nitroglycerin 0.4 mg Q5MINP PRN SL 01/12/24 06:45 Morphine Sulfate 2 mg Q30M PRN IV 01/12/24 06:45 Hydralazine HCl 10 mg Q6HP PRN IV 01/12/24 07:30 01/17/24 16:51 10 MG Vancomycin HCl 200 ml @ 200 mls/hr Q12H IV 01/12/24 17:00 01/17/24 17:00 200 MLS/HR Enteral Nutritional Formula 27.5 gm BIDWM PO 01/14/24 08:00 01/17/24 18:00 27.5 GM Clonidine HCl 0.1 mg Q8HP PRN PO 01/14/24 13:15 Piperacillin Sod/ Tazobactam Sod 100 ml @ 25 mls/hr Q8H IV 01/14/24 18:00 01/17/24 18:00 25 MLS/HR Morphine Sulfate 2 mg Q4HPRN PRN IV 01/14/24 14:00 01/17/24 11:53 2 MG Physical Exam: General: NAD Neck: Supple. No masses. HEENT: PERRL. Normal lids and conjunctiva. Moist mucous membranes. Oropharynx without lesions, exudates or excessive erythema. Normal appearance of the external aspects of the nose and ears. Heart: Regular rhythm, normal rate. No murmur. No lower extremity edema. Lungs: Normal respiratory effort. Clear to auscultation bilaterally. No wheezes. No crackles. Abdomen: Soft. Non-tender. Non-distended. No masses or abdominal hernia. Msk: No digital cyanosis. Normal strength and tone in all 4 limbs. Right foot with a large, approximately 5 x 5 cm macerated lesion on the dorsal aspect with edema, tenderness, skin sloughing, and malodorous discharge. Skin: Warm and dry, no rashes. Lesion on right dorsal foot as described. Neuro: Alert. No facial droop or slurred speech. Extra-ocular movements intact. Sensation intact to soft touch in all 4 limbs. Psych: Appropriate mood. Full affect. Oriented to person, place, time, and situation. Lines: laboratory and microbiology Laboratory Tests 01/17/24 06:49 Test 01/17/24 06:49 Range/Units Serum Glucose 92 74-106 mg/dL Problem List/Assessment/Plan Problem List/Assessment/Plan ASSESSMENT AND PLAN: ID Problem List: - Right foot ulcer - Osteomyelitis - Hypertension - Tobacco use disorder - R foot cellulitis Assessment This is a 58-year-old female with a past medical history of hypertension and chronic smoking since age 10, who presents with a right foot ulcer for several weeks associated with moderate to severe pain and swelling. She had tendonitis in the right foot last November. The lesion started as a small pinpoint ulcer and progressed rapidly over a few days into a large, macerated wound with necrosis and skin sloughing on the dorsal aspect of the foot. She was previously treated with oral antibiotics without improvement. Laboratory studies show WBC count of 9.2, platelets 236, BUN 17, creatinine 1.05, lactate 1.2, sodium 141. Imaging studies include an X-ray revealing mild first joint osteomyelitis and soft tissue swelling at the dorsum of the right foot. Wound cultures grew few coagulase-negative staphylococci and rare growth of Stenotrophomonas maltophilia. She was started on intravenous vancomycin and Zosyn. Plan: - Continue vancomycin and Zosyn for now. - Recommend MRI of the right foot to further evaluate for unseen abscess and degree of osteomyelitis. - Recommend blood cultures. - Agree with Podiatry consultation; patient will likely need debridement of the dorsal foot wound during operative procedure. - Please collect deep tissue aerobic and anaerobic bacterial cultures during surgery. - Will likely require IV antibiotics for osteomyelitis; antibiotic regimen to be determined based on operative findings and MRI results. - Would not change therapy based on Stenotrophomonas maltophilia as it is unlikely to be the etiology of patient's current severe cellulitic infection. Isolation Precautions: Standard Assessment and plan was discussed with the patient as written above Plan is subject to change pending incorporation of new incoming information/diagnostics. Updates may be added as addendum at the bottom (OR TOP) of this note Thank you for interesting consult. ID will continue to follow. Please contact Infectious Disease for any questions or concerns. Amie Lizarraga M.D. [facility] Ph: ? Plan discussed with: Patient Dietary Evaluation Review Comments: 1. Continue current diet regime 2. Consider Roni BID (180kcal, 5g pro) Expected Outcomes/Goals: 1. Pt will consume >75% of needs within 3-5 days AMIE LIZARRAGA MD Jan 17, 2024 22:54
[2024-01-18 01:00] VITALS: BP 153/77; PULSE 95; RESP 20; TEMP 98.7; O2SAT 99
[2024-01-18 05:00] VITALS: BP 144/82; PULSE 94; RESP 18; TEMP 98.4; O2SAT 96
[2024-01-18 06:09] LABS: Basophils # (auto) 0 10 ^3/uL (0-0.2); Basophils % (auto) 0.4 % (0.0-2.0); Eosinophils # (auto) 0.2 10 ^3/uL (0-0.8); Eosinophils % (auto) 2.3 % (0.0-7.0); Hematocrit 28.6 % (36.0-46.0); Hemoglobin 9.7 g/dL (12.2-16.2); Lymphocytes # (auto) 1.3 10 ^3/uL (0.4-5.4); Lymphocytes % (auto) 14.3 % (10.0-50.0); Mean Corpuscular Volume 85.1 fL (80.0-100.0); Monocytes # (auto) 0.9 10 ^3/uL (0-1.3); Monocytes % (auto) 9.7 % (0.0-12.0); Neutrophils # (auto) 6.7 10 ^3/uL (1.6-8.6); Neutrophils % (auto) 73.3 % (37.0-80.0); Platelet Count (auto) 257 10^3/uL (140-450); Red Blood Cells 3.36 10^6/uL (4.0-5.20); Red Cell Distribution Width 14.6 % (11.8-14.3); White Blood Cell 9.2 10^3/uL (4.4-10.8)
[2024-01-18 06:20] LABS: Anion Gap 11 (5-15); Carbon Dioxide 22 mmol/L (20-31); Chloride 107 mmol/L (98-107); Sodium 140 mmol/L (136-145)
[2024-01-18 06:21] LABS: Calcium 9.9 mg/dL (8.7-10.4)
[2024-01-18 06:26] LABS: BUN/Creatinine Ratio 23.3 (10.0-20.0); Glucose 95 mg/dL (74-106)
[2024-01-18 06:29] LABS: Blood Urea Nitrogen 24 mg/dL (9-23)
--- NOTE | 2024-01-18 08:44 | DVHPN2 ---
Reviewed: Care Plan, H&P, Labs, Medications, Radiology Changes from previous H/P or p: No Changes Eyes: No Pain, No Vision change, No Conjunctivae inflammation, No Eyelid inflammation, No Other, No Redness ENT: No Ear pain, No Ear discharge, No Nose pain, No Nose discharge, No Nose congestion, No Mouth pain, No Mouth swelling, No Throat pain, No Throat swelling, No Other Cardiovascular: No Chest Pain, No Palpitations, No Orthopnea, No Paroxysmal Noc. Dyspnea, No Edema, No Lt Headedness, No Other Respiratory: No Cough, No Dry, No Shortness of breath, No SOB with excertion, No Wheezing, No Hemoptysis, No Pleuritic Pain, No Sputum, No Other Gastrointestinal: No Nausea, No Vomiting, No Abdominal Pain, No Diarrhea, No Constipation, No Melena, No Hematochezia, No Other Genitourinary: No Dysuria, No Frequency, No Incontinence, No Hematuria, No Retention, No Other Musculoskeletal: other (Right foot wound.); No neck pain, No shoulder pain, No arm pain, No back pain, No hand pain, No leg pain, No foot pain Skin: No Rash, No Lesions, No Jaundice, No Bruising, No Other Objective Vitals Vital Signs Date Time Temp Pulse Resp B/P (MAP) Pulse Ox O2 Delivery O2 Flow Rate FiO2 01/18/24 08:39 89 17 154/74 01/18/24 05:00 98.4 96 98.4 01/17/24 20:00 Room Air* 0 21 Intake/Output Intake and Output 01/18/24 07:00 Intake Total 2880 ml Output Total 2200 ml Balance 680 ml Intake Oral 2280 ml IV Total 600 ml Output Urine Total 2200 ml # Voids 1 General Appearance: Alert, Oriented X3, Cooperative, No acute distress HEENT: Atraumatic, PERRLA, EOMI, Mucous membr. moist/pink Neck: Supple Lungs: Clear to auscultation, Normal air movement Cardiovascular: Regular rate, Normal S1, Normal S2, No murmurs, Gallops, Rubs Abdomen: Normal bowel sounds, Soft, No tenderness Neuro: Cranial nerves 3-12 NL Psych/Mental Status: Mental status NL Medications Current Medications Medications Dose Ordered Sig/Gregoria Route Start Time Stop Time Status Last Admin Dose Admin Vancomycin HCl 0 ml @ 0 mls/hr UD IV 01/12/24 01:15 Sodium Chloride 10 ml Q8HR IV 01/12/24 06:00 01/17/24 22:14 10 ML Acetaminophen/ Hydrocodone Bitart 1 tab Q4HP PRN PO 01/12/24 03:15 01/18/24 04:37 1 TAB Ondansetron HCl 4 mg Q4HP PRN IV 01/12/24 03:15 Docusate Sodium 100 mg BIDPRN PRN PO 01/12/24 03:15 Zinc Sulfate 220 mg DAILY PO 01/12/24 10:00 01/17/24 10:45 220 MG Ascorbic Acid 500 mg BID PO 01/12/24 10:00 01/17/24 22:06 500 MG Multivitamins 1 tab DAILY PO 01/12/24 10:00 01/17/24 10:45 1 TAB Acetaminophen 650 mg Q6HP PRN PO 01/12/24 03:15 01/14/24 11:28 650 MG Nitroglycerin 0.4 mg Q5MINP PRN SL 01/12/24 06:45 Morphine Sulfate 2 mg Q30M PRN IV 01/12/24 06:45 Hydralazine HCl 10 mg Q6HP PRN IV 01/12/24 07:30 01/18/24 01:18 10 MG Vancomycin HCl 200 ml @ 200 mls/hr Q12H IV 01/12/24 17:00 01/18/24 04:24 200 MLS/HR Enteral Nutritional Formula 27.5 gm BIDWM PO 01/14/24 08:00 01/17/24 18:00 27.5 GM Clonidine HCl 0.1 mg Q8HP PRN PO 01/14/24 13:15 Piperacillin Sod/ Tazobactam Sod 100 ml @ 25 mls/hr Q8H IV 01/14/24 18:00 01/18/24 01:05 25 MLS/HR Morphine Sulfate 2 mg Q4HPRN PRN IV 01/14/24 14:00 01/18/24 08:39 2 MG Laboratory Results Laboratory Tests 01/18/24 05:04 Chemistry Test 01/18/24 05:04 Calcium Level 9.9 mg/dL (8.7-10.4) Microbiology Microbiology Date/Time Source Procedure Growth Status 01/13/24 12:15 Foot Gram Stain - Final Complete 01/13/24 12:15 Wound Culture - Final Stenotrophomonas maltophilia Complete Labs and/or images reviewed: Labs reviewed by me, Image(s) reviewed by me Assessment/Plan Assessment/Plan Covering for Dr. Vee Acute Osteomyelitis of the right foot, failed outpatient antibiotic continue vancomycin and Zosyn, consult by Dr. Noyola appreciated advised IV antibiotics no surgical intervention Hypertension uncontrolled Patient is still complaining of pain in the right foot we will increase Thayer to Thayer 10 q.6 hours scheduled Plan discussed with: Patient My Orders Orders - LESLIE HAMPTON MD Procedure Category Date Status Time * Degree Clerk CONS 01/17/24 Transmitted Consult Date of Service: Jan 18, 2024 Billing Provider: LESLIE HAMPTON MD Common Visit Codes: [id number] INP/OBS CARE(HIGH) LESLIE HAMTPON MD Jan 18, 2024 08:44
[2024-01-18 09:00] VITALS: BP 157/66; PULSE 91; RESP 18; TEMP 98.2; O2SAT 97
[2024-01-18] MEDS: HYDROcodone-ACET 10/325MG TAB PO SCH (12:42)
[2024-01-18 13:00] VITALS: BP 157/60; PULSE 89; RESP 19; TEMP 97.6; O2SAT 97
[2024-01-18 17:00] VITALS: BP 157/70; PULSE 95; RESP 18; TEMP 98.2; O2SAT 99
[2024-01-18 21:00] VITALS: BP 166/78; PULSE 101; RESP 19; TEMP 98.3; O2SAT 92
--- NOTE | 2024-01-18 22:48 | DVHPN2 ---
Consult Progress Note Date Seen: Jan 18, 2024 Subjective Patient reports: Feels better (podiatry deferring surgery) Objective vital signs Vital Sign Date Time Temp Pulse Resp B/P (MAP) Pulse Ox O2 Delivery O2 Flow Rate FiO2 01/18/24 22:07 166/78 01/18/24 20:00 Room Air* 0 21 01/18/24 17:00 98.2 95 18 99 98.2 Total Intake and Output 01/17/24 01/17/24 01/18/24 15:00 23:00 07:00 Intake Total 100 ml 1280 ml 1500 ml Output Total 900 ml 1300 ml Balance 100 ml 380 ml 200 ml medications Current Medications Medications Dose Ordered Sig/Gregoria Route Start Time Stop Time Status Last Admin Dose Admin Vancomycin HCl 0 ml @ 0 mls/hr UD IV 01/12/24 01:15 Sodium Chloride 10 ml Q8HR IV 01/12/24 06:00 01/18/24 22:23 10 ML Acetaminophen/ Hydrocodone Bitart 1 tab Q4HP PRN PO 01/12/24 03:15 01/18/24 20:03 1 TAB Ondansetron HCl 4 mg Q4HP PRN IV 01/12/24 03:15 Docusate Sodium 100 mg BIDPRN PRN PO 01/12/24 03:15 Zinc Sulfate 220 mg DAILY PO 01/12/24 10:00 01/18/24 12:15 220 MG Ascorbic Acid 500 mg BID PO 01/12/24 10:00 01/18/24 22:07 500 MG Multivitamins 1 tab DAILY PO 01/12/24 10:00 01/18/24 12:16 1 TAB Acetaminophen 650 mg Q6HP PRN PO 01/12/24 03:15 01/14/24 11:28 650 MG Nitroglycerin 0.4 mg Q5MINP PRN SL 01/12/24 06:45 Morphine Sulfate 2 mg Q30M PRN IV 01/12/24 06:45 Hydralazine HCl 10 mg Q6HP PRN IV 01/12/24 07:30 01/18/24 22:07 10 MG Vancomycin HCl 200 ml @ 200 mls/hr Q12H IV 01/12/24 17:00 01/18/24 18:02 200 MLS/HR Enteral Nutritional Formula 27.5 gm BIDWM PO 01/14/24 08:00 01/18/24 18:03 27.5 GM Clonidine HCl 0.1 mg Q8HP PRN PO 01/14/24 13:15 Piperacillin Sod/ Tazobactam Sod 100 ml @ 25 mls/hr Q8H IV 01/14/24 18:00 01/18/24 19:27 25 MLS/HR Acetaminophen/ Hydrocodone Bitart 1 tab Q6HP PO 01/18/24 12:00 01/18/24 12:42 1 TAB Physical Exam: General: NAD Neck: Supple. No masses. HEENT: PERRL. Normal lids and conjunctiva. Moist mucous membranes. Oropharynx without lesions, exudates or excessive erythema. Normal appearance of the external aspects of the nose and ears. Heart: Regular rhythm, normal rate. No murmur. No lower extremity edema. Lungs: Normal respiratory effort. Clear to auscultation bilaterally. No wheezes. No crackles. Abdomen: Soft. Non-tender. Non-distended. No masses or abdominal hernia. Msk: No digital cyanosis. Normal strength and tone in all 4 limbs. Right foot with a large, approximately 5 x 5 cm macerated lesion on the dorsal aspect with edema, tenderness, skin sloughing, and malodorous discharge. Skin: Warm and dry, no rashes. Lesion on right dorsal foot as described. Neuro: Alert. No facial droop or slurred speech. Extra-ocular movements intact. Sensation intact to soft touch in all 4 limbs. Psych: Appropriate mood. Full affect. Oriented to person, place, time, and situation. Lines: laboratory and microbiology Laboratory Tests 01/18/24 05:04 Test 01/18/24 05:04 Range/Units Serum Glucose 95 74-106 mg/dL Problem List/Assessment/Plan Problem List/Assessment/Plan ASSESSMENT AND PLAN: ID Problem List: - Right foot ulcer - Osteomyelitis - Hypertension - Tobacco use disorder - R foot cellulitis Assessment This is a 58-year-old female with a past medical history of hypertension and chronic smoking since age 10, who presents with a right foot ulcer for several weeks associated with moderate to severe pain and swelling. She had tendonitis in the right foot last November. The lesion started as a small pinpoint ulcer and progressed rapidly over a few days into a large, macerated wound with necrosis and skin sloughing on the dorsal aspect of the foot. She was previously treated with oral antibiotics without improvement. Laboratory studies show WBC count of 9.2, platelets 236, BUN 17, creatinine 1.05, lactate 1.2, sodium 141. Imaging studies include an X-ray revealing mild first joint osteomyelitis and soft tissue swelling at the dorsum of the right foot. Wound cultures grew few coagulase-negative staphylococci and rare growth of Stenotrophomonas maltophilia. She was started on intravenous vancomycin and Zosyn. Plan: - Continue vancomycin, change Zosyn to Levofloxacin - Recommend MRI of the right foot to further evaluate for unseen abscess and degree of osteomyelitis. - Recommend blood cultures. - podiatry recommends deferring any debridement to outpatient, without surgery rec - Please collect deep tissue aerobic and anaerobic bacterial cultures during surgery. - Will likely require IV antibiotics for osteomyelitis; antibiotic regimen to be determined based on operative findings and MRI results. - Would not change therapy based on Stenotrophomonas maltophilia as it is unlikely to be the etiology of patient's current severe cellulitic infection. Isolation Precautions: Standard Assessment and plan was discussed with the patient as written above Plan is subject to change pending incorporation of new incoming information/diagnostics. Updates may be added as addendum at the bottom (OR TOP) of this note Thank you for interesting consult. ID will continue to follow. Please contact Infectious Disease for any questions or concerns. Amie Lizarraga M.D. [facility] Ph: ? Plan discussed with: Patient Dietary Evaluation Review Comments: 1. Continue current diet regime 2. Consider Roni BID (180kcal, 5g pro) Expected Outcomes/Goals: 1. Pt will consume >75% of needs within 3-5 days AMIE LIZARRAGA MD Jan 18, 2024 22:48
[2024-01-19] VITALS (7 sets, daily range): BP systolic 132–160; BP diastolic 52–82; PULSE 89–111; RESP 15–19; TEMP 97.7–98.5; O2SAT 97–100
--- NOTE | 2024-01-19 03:27 | DVH ---
Bilateral Lower Extremity Arterial Duplex Date: 01/18/2024 10:52 PM Clinical History: evaluate for PAD Comparison: None Findings: Duplex Doppler evaluation including color Doppler and spectral/pulsed waveform analysis of the lower extremity arteries was performed. RIGHT: Multifocal tandem atherosclerotic plaque noted throughout the lower extremity arteries. Peak systolic velocities are as follows: The waveforms are monophasic with diastolic flow. LEFT: Multifocal tandem atherosclerotic plaque noted throughout the lower extremity arteries. The waveforms are monophasic with diastolic flow. REFERENCE VALUES, [facility]) vascular Imaging Lab Criteria: Peak systolic velocity ranges (in cm/sec) are as follows: <150 cm/s - <20 % stenosis 150-200 cm/s - 20-49% stenosis 200-300 cm/s - 50-75% stenosis >300 cm/s -> 75% stenosis IMPRESSION: Elevated velocities in bilateral common femoral arteries. Monophasic waveforms bilaterally. END IMPRESSION:
[2024-01-19 06:15] LABS: Basophils # (auto) 0.1 10 ^3/uL (0-0.2); Basophils % (auto) 0.6 % (0.0-2.0); Eosinophils # (auto) 0.2 10 ^3/uL (0-0.8); Eosinophils % (auto) 1.9 % (0.0-7.0); Hematocrit 27.6 % (36.0-46.0); Hemoglobin 9.2 g/dL (12.2-16.2); Lymphocytes # (auto) 1.1 10 ^3/uL (0.4-5.4); Lymphocytes % (auto) 12.3 % (10.0-50.0); Mean Corpuscular Hemoglobin 28.4 pg (28.0-32.0); Mean Corpuscular Hgb Conc. 33.3 g/dL (32.0-36.0); Mean Corpuscular Volume 85.3 fL (80.0-100.0); Monocytes # (auto) 0.9 10 ^3/uL (0-1.3); Monocytes % (auto) 9.8 % (0.0-12.0); Neutrophils # (auto) 6.7 10 ^3/uL (1.6-8.6); Neutrophils % (auto) 75.4 % (37.0-80.0); Platelet Count (auto) 283 10^3/uL (140-450); Red Blood Cells 3.23 10^6/uL (4.0-5.20); Red Cell Distribution Width 14.4 % (11.8-14.3); White Blood Cell 8.8 10^3/uL (4.4-10.8)
[2024-01-19 06:28] LABS: Calcium 10.3 mg/dL (8.7-10.4); Potassium 4.2 mmol/L (3.5-5.1); Sodium 139 mmol/L (136-145)
[2024-01-19 06:29] LABS: Anion Gap 10 (5-15); Carbon Dioxide 22 mmol/L (20-31)
[2024-01-19 06:34] LABS: BUN/Creatinine Ratio 18.9 (10.0-20.0); Blood Urea Nitrogen 20 mg/dL (9-23); Glucose 103 mg/dL (74-106)
[2024-01-19 06:36] LABS: Chloride 107 mmol/L (98-107)
[2024-01-19 09:02] LABS: INR 1.12 (0.9-1.15); Prothrombin Time 11.8 sec (9.3-11.8)
[2024-01-19] MEDS: levoFLOXacin 250 MG TAB PO SCH (09:48)
--- NOTE | 2024-01-19 11:47 | DVHPN2 ---
Subjective The patient is seen and examined at bedside. Complain of leg wound pain. No fever or chill. Reviewed: Care Plan, H&P, Labs, Medications, Radiology Changes from previous H/P or p: No Changes Eyes: No Pain, No Vision change, No Conjunctivae inflammation, No Eyelid inflammation, No Other, No Redness ENT: No Ear pain, No Ear discharge, No Nose pain, No Nose discharge, No Nose congestion, No Mouth pain, No Mouth swelling, No Throat pain, No Throat swelling, No Other Cardiovascular: No Chest Pain, No Palpitations, No Orthopnea, No Paroxysmal Noc. Dyspnea, No Edema, No Lt Headedness, No Other Respiratory: No Cough, No Dry, No Shortness of breath, No SOB with excertion, No Wheezing, No Hemoptysis, No Pleuritic Pain, No Sputum, No Other Gastrointestinal: No Nausea, No Vomiting, No Abdominal Pain, No Diarrhea, No Constipation, No Melena, No Hematochezia, No Other Genitourinary: No Dysuria, No Frequency, No Incontinence, No Hematuria, No Retention, No Other Musculoskeletal: other (Right foot wound.); No neck pain, No shoulder pain, No arm pain, No back pain, No hand pain, No leg pain, No foot pain Skin: No Rash, No Lesions, No Jaundice, No Bruising, No Other Objective Vitals Vital Signs Date Time Temp Pulse Resp B/P (MAP) Pulse Ox O2 Delivery O2 Flow Rate FiO2 01/19/24 05:15 160/82 01/19/24 05:00 97.7 111 19 98 97.7 01/18/24 20:00 Room Air* 0 21 Intake/Output Intake and Output 01/19/24 07:00 Intake Total 2175 ml Output Total 750 ml Balance 1425 ml Intake Oral 1675 ml IV Total 500 ml Output Urine Total 750 ml # Voids 3 General Appearance: Alert, Oriented X3, Cooperative, No acute distress HEENT: Atraumatic, PERRLA, EOMI, Mucous membr. moist/pink Neck: Supple Lungs: Clear to auscultation, Normal air movement Cardiovascular: Regular rate, Normal S1, Normal S2, No murmurs, Gallops, Rubs Abdomen: Normal bowel sounds, Soft, No tenderness Neuro: Cranial nerves 3-12 NL Psych/Mental Status: Mental status NL Medications Current Medications Medications Dose Ordered Sig/Gregoria Route Start Time Stop Time Status Last Admin Dose Admin Vancomycin HCl 0 ml @ 0 mls/hr UD IV 01/12/24 01:15 Sodium Chloride 10 ml Q8HR IV 01/12/24 06:00 01/19/24 09:37 10 ML Acetaminophen/ Hydrocodone Bitart 1 tab Q4HP PRN PO 01/12/24 03:15 01/18/24 20:03 1 TAB Ondansetron HCl 4 mg Q4HP PRN IV 01/12/24 03:15 Docusate Sodium 100 mg BIDPRN PRN PO 01/12/24 03:15 Zinc Sulfate 220 mg DAILY PO 01/12/24 10:00 01/19/24 09:47 220 MG Ascorbic Acid 500 mg BID PO 01/12/24 10:00 01/19/24 09:47 500 MG Multivitamins 1 tab DAILY PO 01/12/24 10:00 01/19/24 09:49 1 TAB Acetaminophen 650 mg Q6HP PRN PO 01/12/24 03:15 01/14/24 11:28 650 MG Nitroglycerin 0.4 mg Q5MINP PRN SL 01/12/24 06:45 Morphine Sulfate 2 mg Q30M PRN IV 01/12/24 06:45 Hydralazine HCl 10 mg Q6HP PRN IV 01/12/24 07:30 01/19/24 05:15 10 MG Vancomycin HCl 200 ml @ 200 mls/hr Q12H IV 01/12/24 17:00 01/19/24 05:14 200 MLS/HR Enteral Nutritional Formula 27.5 gm BIDWM PO 01/14/24 08:00 01/19/24 08:00 27.5 GM Clonidine HCl 0.1 mg Q8HP PRN PO 01/14/24 13:15 Acetaminophen/ Hydrocodone Bitart 1 tab Q6HP PO 01/18/24 12:00 01/19/24 09:36 1 TAB Levofloxacin 750 mg DAILY PO 01/19/24 10:00 01/19/24 09:48 750 MG Laboratory Results Laboratory Tests 01/19/24 05:10 Chemistry Test 01/19/24 05:10 Calcium Level 10.3 mg/dL (8.7-10.4) Coagulation Test 01/19/24 08:29 Prothrombin Time 11.8 sec (9.3-11.8) Prothrombin Time INR 1.12 (0.9-1.15) Activated Partial Thromboplast Time 32.0 SEC (24.5-34.5) Microbiology Microbiology Date/Time Source Procedure Growth Status 01/13/24 12:15 Foot Gram Stain - Final Complete 01/13/24 12:15 Wound Culture - Final Stenotrophomonas maltophilia Complete Labs and/or images reviewed: Labs reviewed by me Assessment/Plan Assessment/Plan Osteomyelitis of the right foot, failed outpatient antibiotic Hypertension uncontrolled Plan: Continuing current management continuing with IV antibiotic vancomycin and Zosyn. Waiting for MRI of her foot. Waiting for cook mess on her wound. Waiting for lining caser to arrange her IV antibiotic as outpatient Continuing wound care Continuing [place] for pain control Plan discussed with: Patient Date of Service: Jan 19, 2024 Billing Provider: AURORA AGUILAR MD Common Visit Codes: [id number] INP/OBS CARE(HIGH) AURORA AGUILAR MD Jan 19, 2024 11:47
--- NOTE | 2024-01-19 23:37 | DVHPN2 ---
Consult Progress Note Date Seen: Jan 19, 2024 Subjective Patient reports: Other (refusing IV piccline because of concerns about buttermaker helper placement plans , wound is unchanged with necrotics boarders and annular lesions ) Objective vital signs Vital Sign Date Time Temp Pulse Resp B/P (MAP) Pulse Ox O2 Delivery O2 Flow Rate FiO2 01/19/24 17:00 98.3 96 16 147/79 (101) 98 98.3 01/19/24 08:30 Room Air* 0 21 Total Intake and Output 01/18/24 01/18/24 01/19/24 15:00 23:00 07:00 Intake Total 1175 ml 1000 ml Output Total 250 ml 500 ml Balance 925 ml 500 ml medications Current Medications Medications Dose Ordered Sig/Gregoria Route Start Time Stop Time Status Last Admin Dose Admin Vancomycin HCl 0 ml @ 0 mls/hr UD IV 01/12/24 01:15 Sodium Chloride 10 ml Q8HR IV 01/12/24 06:00 01/19/24 20:00 10 ML Acetaminophen/ Hydrocodone Bitart 1 tab Q4HP PRN PO 01/12/24 03:15 01/19/24 17:48 1 TAB Ondansetron HCl 4 mg Q4HP PRN IV 01/12/24 03:15 Docusate Sodium 100 mg BIDPRN PRN PO 01/12/24 03:15 Zinc Sulfate 220 mg DAILY PO 01/12/24 10:00 01/19/24 09:47 220 MG Ascorbic Acid 500 mg BID PO 01/12/24 10:00 01/19/24 20:00 500 MG Multivitamins 1 tab DAILY PO 01/12/24 10:00 01/19/24 09:49 1 TAB Acetaminophen 650 mg Q6HP PRN PO 01/12/24 03:15 01/14/24 11:28 650 MG Nitroglycerin 0.4 mg Q5MINP PRN SL 01/12/24 06:45 Morphine Sulfate 2 mg Q30M PRN IV 01/12/24 06:45 Hydralazine HCl 10 mg Q6HP PRN IV 01/12/24 07:30 01/19/24 05:15 10 MG Vancomycin HCl 200 ml @ 200 mls/hr Q12H IV 01/12/24 17:00 01/19/24 16:59 200 MLS/HR Enteral Nutritional Formula 27.5 gm BIDWM PO 01/14/24 08:00 01/19/24 18:28 27.5 GM Clonidine HCl 0.1 mg Q8HP PRN PO 01/14/24 13:15 Acetaminophen/ Hydrocodone Bitart 1 tab Q6HP PO 01/18/24 12:00 01/19/24 18:47 1 TAB Levofloxacin 750 mg DAILY PO 01/19/24 10:00 01/19/24 09:48 750 MG Physical Exam: General: NAD Neck: Supple. No masses. HEENT: PERRL. Normal lids and conjunctiva. Moist mucous membranes. Oropharynx without lesions, exudates or excessive erythema. Normal appearance of the external aspects of the nose and ears. Heart: Regular rhythm, normal rate. No murmur. No lower extremity edema. Lungs: Normal respiratory effort. Clear to auscultation bilaterally. No wheezes. No crackles. Abdomen: Soft. Non-tender. Non-distended. No masses or abdominal hernia. Msk: No digital cyanosis. Normal strength and tone in all 4 limbs. Right foot with a large, approximately 5 x 5 cm macerated lesion on the dorsal aspect with edema, tenderness, skin sloughing, and malodorous discharge. Skin: Warm and dry, no rashes. Lesion on right dorsal foot as described. Neuro: Alert. No facial droop or slurred speech. Extra-ocular movements intact. Sensation intact to soft touch in all 4 limbs. Psych: Appropriate mood. Full affect. Oriented to person, place, time, and situation laboratory and microbiology Laboratory Tests 01/19/24 05:10 Test 01/19/24 05:10 Range/Units Serum Glucose 103 74-106 mg/dL Problem List/Assessment/Plan Problems(with codes): (1) Infected ulcer of skin (2) Hypertensive urgency (3) Osteomyelitis of right foot (4) Hypokalemia (5) Antibiotic-resistant bacterial infection (6) Cellulitis Problem List/Assessment/Plan ASSESSMENT AND PLAN: ID Problem List: - Right foot ulcer - Osteomyelitis - Hypertension - Tobacco use disorder - R foot cellulitis Assessment This is a 58-year-old female with a past medical history of hypertension and chronic smoking since age 10, who presents with a right foot ulcer for several weeks associated with moderate to severe pain and swelling. She had tendonitis in the right foot last November. The lesion started as a small pinpoint ulcer and progressed rapidly over a few days into a large, macerated wound with necrosis and skin sloughing on the dorsal aspect of the foot. She was previously treated with oral antibiotics without improvement. Laboratory studies show WBC count of 9.2, platelets 236, BUN 17, creatinine 1.05, lactate 1.2, sodium 141. Imaging studies include an X-ray revealing mild first joint osteomyelitis and soft tissue swelling at the dorsum of the right foot. Wound cultures grew few coagulase-negative staphylococci and rare growth of Stenotrophomonas maltophilia. She was started on intravenous vancomycin and Zosyn. Plan: - Continue vancomycin - Continue Levofloxacin - Recommend MRI of the right foot to further evaluate for unseen abscess and degree of osteomyelitis. - Recommend blood cultures. - podiatry recommends deferring any debridement to outpatient, without surgery rec - Please collect deep tissue aerobic and anaerobic bacterial cultures during surgery. - Will likely require IV antibiotics for osteomyelitis; antibiotic regimen to be determined based on operative findings and MRI results. - Would not change therapy based on Stenotrophomonas maltophilia as it is unlikely to be the etiology of patient's current severe cellulitic infection. Isolation Precautions: Standard Assessment and plan was discussed with the patient as written above Plan is subject to change pending incorporation of new incoming information/diagnostics. Updates may be added as addendum at the bottom (OR TOP) of this note Thank you for interesting consult. ID will continue to follow. Please contact Infectious Disease for any questions or concerns. Amie Lizarraga M.D. [facility] Ph: ? Plan discussed with: Other Dietary Evaluation Review Comments: 1. Continue current diet regime 2. Consider Roni BID (180kcal, 5g pro) Expected Outcomes/Goals: 1. Pt will consume >75% of needs within 3-5 days AMIE LIZARRAGA MD Jan 19, 2024 23:37
[2024-01-20] VITALS (8 sets, daily range): BP systolic 144–174; BP diastolic 60–80; PULSE 92–120; RESP 18–20; TEMP 97.7–99; O2SAT 95–100
[2024-01-20 06:52] LABS: Basophils # (auto) 0 10 ^3/uL (0-0.2); Basophils % (auto) 0.6 % (0.0-2.0); Eosinophils # (auto) 0.2 10 ^3/uL (0-0.8); Hematocrit 27.3 % (36.0-46.0); Hemoglobin 9.1 g/dL (12.2-16.2); Lymphocytes # (auto) 0.8 10 ^3/uL (0.4-5.4); Lymphocytes % (auto) 10.1 % (10.0-50.0); Mean Corpuscular Hemoglobin 28.5 pg (28.0-32.0); Mean Corpuscular Hgb Conc. 33.5 g/dL (32.0-36.0); Mean Corpuscular Volume 84.9 fL (80.0-100.0); Monocytes # (auto) 0.9 10 ^3/uL (0-1.3); Monocytes % (auto) 11.1 % (0.0-12.0); Neutrophils # (auto) 5.9 10 ^3/uL (1.6-8.6); Neutrophils % (auto) 76.2 % (37.0-80.0); Platelet Count (auto) 284 10^3/uL (140-450); Red Blood Cells 3.21 10^6/uL (4.0-5.20); Red Cell Distribution Width 14.1 % (11.8-14.3); White Blood Cell 7.7 10^3/uL (4.4-10.8)
[2024-01-20 07:02] LABS: Anion Gap 10 (5-15); Carbon Dioxide 20 mmol/L (20-31); Chloride 107 mmol/L (98-107); Potassium 4.1 mmol/L (3.5-5.1); Sodium 137 mmol/L (136-145)
[2024-01-20 07:09] LABS: BUN/Creatinine Ratio 15.4 (10.0-20.0); Blood Urea Nitrogen 16 mg/dL (9-23); Glucose 97 mg/dL (74-106)
--- NOTE | 2024-01-20 13:33 | DVH ---
CLINICAL HISTORY: abscess COMPARISON: None TECHNIQUE: Multisequence multiplanar MRI images of the right foot were obtained without contrast. FINDINGS: Diffusely abnormal heterogeneous marrow signal throughout the visualized osseous structures, may be d ue to diffuse demineralization when correlated with recent radiographs. Complex regional pain syndrom e or marrow packing disorder could also have a similar appearance. Superimposed bone are infarcts can not be excluded given the heterogeneous, somewhat serpiginous areas of signal abnormality in some ar eas, including distal tibia and talus. There is diffuse subcutaneous edema with no focal fluid collec tion identified to suggest abscess. Mild there is mild to moderate Achilles tendinosis. IMPRESSION: 1. No focal fluid collection identified to suggest abscess. 2. Diffusely abnormal heterogeneous marrow signal throughout the visualized osseous structures of the right foot and ankle. Differential considerations would include extensive osteopenia/ demineralizati on, complex regional pain syndrome, or marrow packing disorder such as myeloproliferative disease, le ukemia, lymphoma, or myeloma. Superimposed bone infarcts can not be excluded given the heterogeneous and somewhat serpiginous areas of signal abnormality in some areas. Correlation with clinical and lab oratory findings is needed. 3. Additional findings as described above.
--- NOTE | 2024-01-20 13:34 | DVHPN2 ---
Subjective The patient is seen and examined at bedside. Complain of leg wound pain. No fever or chill. Reviewed: Care Plan, H&P, Labs, Medications, Radiology Changes from previous H/P or p: No Changes Eyes: No Pain, No Vision change, No Conjunctivae inflammation, No Eyelid inflammation, No Other, No Redness ENT: No Ear pain, No Ear discharge, No Nose pain, No Nose discharge, No Nose congestion, No Mouth pain, No Mouth swelling, No Throat pain, No Throat swelling, No Other Cardiovascular: No Chest Pain, No Palpitations, No Orthopnea, No Paroxysmal Noc. Dyspnea, No Edema, No Lt Headedness, No Other Respiratory: No Cough, No Dry, No Shortness of breath, No SOB with excertion, No Wheezing, No Hemoptysis, No Pleuritic Pain, No Sputum, No Other Gastrointestinal: No Nausea, No Vomiting, No Abdominal Pain, No Diarrhea, No Constipation, No Melena, No Hematochezia, No Other Genitourinary: No Dysuria, No Frequency, No Incontinence, No Hematuria, No Retention, No Other Musculoskeletal: other (Right foot wound.); No neck pain, No shoulder pain, No arm pain, No back pain, No hand pain, No leg pain, No foot pain Skin: No Rash, No Lesions, No Jaundice, No Bruising, No Other Objective Vitals Vital Signs Date Time Temp Pulse Resp B/P (MAP) Pulse Ox O2 Delivery O2 Flow Rate FiO2 01/20/24 09:00 98.2 111 20 152/68 (96) 99 98.2 01/20/24 07:49 Room Air* 0 21 Intake/Output Intake and Output 01/20/24 07:00 Intake Total 2300 ml Output Total 700 ml Balance 1600 ml Intake Oral 1900 ml IV Total 400 ml Output Urine Total 700 ml # Voids 1 General Appearance: Alert, Oriented X3, Cooperative, No acute distress HEENT: Atraumatic, PERRLA, EOMI, Mucous membr. moist/pink Neck: Supple Lungs: Clear to auscultation, Normal air movement Cardiovascular: Regular rate, Normal S1, Normal S2, No murmurs, Gallops, Rubs Abdomen: Normal bowel sounds, Soft, No tenderness Neuro: Cranial nerves 3-12 NL Psych/Mental Status: Mental status NL Medications Current Medications Medications Dose Ordered Sig/Gregoria Route Start Time Stop Time Status Last Admin Dose Admin Vancomycin HCl 0 ml @ 0 mls/hr UD IV 01/12/24 01:15 Sodium Chloride 10 ml Q8HR IV 01/12/24 06:00 01/20/24 05:56 10 ML Acetaminophen/ Hydrocodone Bitart 1 tab Q4HP PRN PO 01/12/24 03:15 01/20/24 04:58 1 TAB Ondansetron HCl 4 mg Q4HP PRN IV 01/12/24 03:15 Docusate Sodium 100 mg BIDPRN PRN PO 01/12/24 03:15 Zinc Sulfate 220 mg DAILY PO 01/12/24 10:00 01/20/24 10:41 220 MG Ascorbic Acid 500 mg BID PO 01/12/24 10:00 01/20/24 10:41 500 MG Multivitamins 1 tab DAILY PO 01/12/24 10:00 01/20/24 10:41 1 TAB Acetaminophen 650 mg Q6HP PRN PO 01/12/24 03:15 01/14/24 11:28 650 MG Nitroglycerin 0.4 mg Q5MINP PRN SL 01/12/24 06:45 Morphine Sulfate 2 mg Q30M PRN IV 01/12/24 06:45 Hydralazine HCl 10 mg Q6HP PRN IV 01/12/24 07:30 01/20/24 01:08 10 MG Vancomycin HCl 200 ml @ 200 mls/hr Q12H IV 01/12/24 17:00 01/20/24 05:03 200 MLS/HR Enteral Nutritional Formula 27.5 gm BIDWM PO 01/14/24 08:00 01/20/24 10:42 27.5 GM Clonidine HCl 0.1 mg Q8HP PRN PO 01/14/24 13:15 Acetaminophen/ Hydrocodone Bitart 1 tab Q6HP PO 01/18/24 12:00 01/20/24 12:20 1 TAB Levofloxacin 750 mg DAILY PO 01/19/24 10:00 01/20/24 10:42 750 MG Laboratory Results Laboratory Tests 01/20/24 06:24 Chemistry Test 01/20/24 06:24 Calcium Level 10.0 mg/dL (8.7-10.4) Microbiology Microbiology Date/Time Source Procedure Growth Status 01/13/24 12:15 Foot Gram Stain - Final Complete 01/13/24 12:15 Wound Culture - Final Stenotrophomonas maltophilia Complete Labs and/or images reviewed: Labs reviewed by me Assessment/Plan Assessment/Plan Osteomyelitis of the right foot, failed outpatient antibiotic Hypertension uncontrolled Plan: Continuing current management continuing with IV antibiotic vancomycin and Zosyn. Waiting for MRI of her foot. Waiting for tourist adviser on her wound. Waiting for nurse case manager to arrange her IV antibiotic as outpatient Continuing wound care Continuing [place] for pain control Plan discussed with: Patient My Orders Orders - AURORA AGUILAR MD Procedure Category Date Status Time Mri R Foot Wo Contrast MRI 01/20/24 Resulted Date of Service: Jan 20, 2024 Billing Provider: AURORA AGUILAR MD Common Visit Codes: [id number] INP/OBS CARE(HIGH) AURORA AGUILAR MD Jan 20, 2024 13:34
[2024-01-20] MEDS: amLODIPine BESYLATE 5 MG TAB PO SCH (21:23)
[2024-01-20] MEDS: DOCUSATE SOD 100 MG CAP PO PRN (21:27)
--- NOTE | 2024-01-20 23:07 | DVHPN2 ---
Consult Progress Note Date Seen: Jan 20, 2024 Subjective Patient reports: Feels better (explained patient how IV abz would work at home) Objective vital signs Vital Sign Date Time Temp Pulse Resp B/P (MAP) Pulse Ox O2 Delivery O2 Flow Rate FiO2 01/20/24 21:23 160/73 01/20/24 21:00 99.0 107 18 95 99.0 01/20/24 07:49 Room Air* 0 21 Total Intake and Output 01/19/24 01/19/24 01/20/24 15:00 23:00 07:00 Intake Total 1600 ml 700 ml Output Total 700 ml Balance 900 ml 700 ml medications Current Medications Medications Dose Ordered Sig/Gregoria Route Start Time Stop Time Status Last Admin Dose Admin Vancomycin HCl 0 ml @ 0 mls/hr UD IV 01/12/24 01:15 Sodium Chloride 10 ml Q8HR IV 01/12/24 06:00 01/20/24 21:22 10 ML Acetaminophen/ Hydrocodone Bitart 1 tab Q4HP PRN PO 01/12/24 03:15 01/20/24 20:35 1 TAB Ondansetron HCl 4 mg Q4HP PRN IV 01/12/24 03:15 Docusate Sodium 100 mg BIDPRN PRN PO 01/12/24 03:15 01/20/24 21:27 100 MG Zinc Sulfate 220 mg DAILY PO 01/12/24 10:00 01/20/24 10:41 220 MG Ascorbic Acid 500 mg BID PO 01/12/24 10:00 01/20/24 21:23 500 MG Multivitamins 1 tab DAILY PO 01/12/24 10:00 01/20/24 10:41 1 TAB Acetaminophen 650 mg Q6HP PRN PO 01/12/24 03:15 01/14/24 11:28 650 MG Nitroglycerin 0.4 mg Q5MINP PRN SL 01/12/24 06:45 Morphine Sulfate 2 mg Q30M PRN IV 01/12/24 06:45 Hydralazine HCl 10 mg Q6HP PRN IV 01/12/24 07:30 01/20/24 18:23 10 MG Vancomycin HCl 200 ml @ 200 mls/hr Q12H IV 01/12/24 17:00 01/20/24 18:23 200 MLS/HR Enteral Nutritional Formula 27.5 gm BIDWM PO 01/14/24 08:00 01/20/24 18:28 27.5 GM Clonidine HCl 0.1 mg Q8HP PRN PO 01/14/24 13:15 Acetaminophen/ Hydrocodone Bitart 1 tab Q6HP PO 01/18/24 12:00 01/20/24 18:22 1 TAB Levofloxacin 750 mg DAILY PO 01/19/24 10:00 01/20/24 10:42 750 MG Amlodipine Besylate 5 mg BID PO 01/20/24 22:00 01/20/24 21:23 5 MG Atorvastatin Calcium 40 mg DAILY PO 01/21/24 10:00 Duloxetine HCl 30 mg DAILY PO 01/21/24 10:00 Lisinopril 40 mg DAILY PO 01/21/24 10:00 HEENT: PERRL. Normal lids and conjunctiva. Moist mucous membranes. Oropharynx without lesions, exudates, or excessive erythema. Normal appearance of the external aspects of the nose and ears. Heart: Regular rhythm, normal rate. No murmur. No lower extremity edema. Lungs: Normal respiratory effort. Clear to auscultation bilaterally. No wheezes. No crackles. Abdomen: Soft. Non-tender. Non-distended. No masses or abdominal hernia. MSK: No digital cyanosis. Normal strength and tone in all 4 limbs. Skin: Warm and dry. Redness and irritation of theR foot Neuro: Alert. No facial droop or slurred speech. Extra-ocular movements intact. Sensation intact to soft touch in all 4 limbs. Psych: Appropriate mood. Full affect. Oriented to person, place, time, and situation. laboratory and microbiology Laboratory Tests 01/20/24 06:24 Test 01/20/24 06:24 Range/Units Serum Glucose 97 74-106 mg/dL Problem List/Assessment/Plan Problem List/Assessment/Plan ASSESSMENT AND PLAN: ID Problem List: - Right foot ulcer - Osteomyelitis - Hypertension - Tobacco use disorder - R foot cellulitis Assessment This is a 58-year-old female with a past medical history of hypertension and chronic smoking since age 10, who presents with a right foot ulcer for several weeks associated with moderate to severe pain and swelling. She had tendonitis in the right foot last November. The lesion started as a small pinpoint ulcer and progressed rapidly over a few days into a large, macerated wound with necrosis and skin sloughing on the dorsal aspect of the foot. She was previously treated with oral antibiotics without improvement. Laboratory studies show WBC count of 9.2, platelets 236, BUN 17, creatinine 1.05, lactate 1.2, sodium 141. Imaging studies include an X-ray revealing mild first joint osteomyelitis and soft tissue swelling at the dorsum of the right foot. Wound cultures grew few coagulase-negative staphylococci and rare growth of Stenotrophomonas maltophilia. She was started on intravenous vancomycin and Zosyn. MRI foot- IMPRESSION: 1. No focal fluid collection identified to suggest abscess. 2. Diffusely abnormal heterogeneous marrow signal throughout the visualized osseous structures of the right foot and ankle. Differential considerations would include extensive osteopenia/ demineralization, complex regional pain syndrome, or marrow packing disorder such as myeloproliferative disease, leukemia, lymphoma, or myeloma. Superimposed bone infarcts can not be excluded given the heterogeneous and somewhat serpiginous areas of signal abnormality in some areas. Correlation with clinical and laboratory findings is needed. 3. Additional findings as described above. Plan: - Continue vancomycin - Continue Levofloxacin - Recommend blood cultures. - podiatry recommends deferring any debridement to outpatient, without surgery rec - Would not change therapy based on Stenotrophomonas maltophilia as it is unlikely to be the etiology of patient's current severe cellulitic infection. Isolation Precautions: Standard Assessment and plan was discussed with the patient as written above Plan is subject to change pending incorporation of new incoming information/diagnostics. Updates may be added as addendum at the bottom (OR TOP) of this note Thank you for interesting consult. ID will continue to follow. Please contact Infectious Disease for any questions or concerns. Amie Lizarraga M.D. [facility] Ph: ? Plan discussed with: Patient Dietary Evaluation Review Comments: 1. Continue current diet regime 2. Consider Roni BID (180kcal, 5g pro) Expected Outcomes/Goals: 1. Pt will consume >75% of needs within 3-5 days AMIE LIZARRAGA MD Jan 20, 2024 23:07
[2024-01-21] VITALS (7 sets, daily range): BP systolic 128–154; BP diastolic 54–83; PULSE 85–105; RESP 17–20; TEMP 98–99.3; O2SAT 94–98
[2024-01-21 04:10] LABS: Basophils # (auto) 0.1 10 ^3/uL (0-0.2); Basophils % (auto) 0.8 % (0.0-2.0); Eosinophils # (auto) 0.2 10 ^3/uL (0-0.8); Hematocrit 25.9 % (36.0-46.0); Hemoglobin 8.7 g/dL (12.2-16.2); Mean Corpuscular Hemoglobin 28.5 pg (28.0-32.0); Mean Corpuscular Hgb Conc. 33.6 g/dL (32.0-36.0); Mean Corpuscular Volume 84.8 fL (80.0-100.0); Monocytes # (auto) 0.9 10 ^3/uL (0-1.3); Monocytes % (auto) 14.7 % (0.0-12.0); Neutrophils # (auto) 4.1 10 ^3/uL (1.6-8.6); Neutrophils % (auto) 65.5 % (37.0-80.0); Platelet Count (auto) 263 10^3/uL (140-450); Red Blood Cells 3.05 10^6/uL (4.0-5.20); Red Cell Distribution Width 14.5 % (11.8-14.3); White Blood Cell 6.3 10^3/uL (4.4-10.8)
--- NOTE | 2024-01-21 08:15 | DVHPN2 ---
Subjective The patient is seen and examined at bedside. Complain of leg wound pain. No fever or chill. Reviewed: Care Plan, H&P, Labs, Medications, Radiology Changes from previous H/P or p: No Changes Eyes: No Pain, No Vision change, No Conjunctivae inflammation, No Eyelid inflammation, No Other, No Redness ENT: No Ear pain, No Ear discharge, No Nose pain, No Nose discharge, No Nose congestion, No Mouth pain, No Mouth swelling, No Throat pain, No Throat swelling, No Other Cardiovascular: No Chest Pain, No Palpitations, No Orthopnea, No Paroxysmal Noc. Dyspnea, No Edema, No Lt Headedness, No Other Respiratory: No Cough, No Dry, No Shortness of breath, No SOB with excertion, No Wheezing, No Hemoptysis, No Pleuritic Pain, No Sputum, No Other Gastrointestinal: No Nausea, No Vomiting, No Abdominal Pain, No Diarrhea, No Constipation, No Melena, No Hematochezia, No Other Genitourinary: No Dysuria, No Frequency, No Incontinence, No Hematuria, No Retention, No Other Musculoskeletal: other (Right foot wound.); No neck pain, No shoulder pain, No arm pain, No back pain, No hand pain, No leg pain, No foot pain Skin: No Rash, No Lesions, No Jaundice, No Bruising, No Other Objective Vitals Vital Signs Date Time Temp Pulse Resp B/P (MAP) Pulse Ox O2 Delivery O2 Flow Rate FiO2 01/21/24 05:00 99.1 100 20 154/54 (87) 98 99.1 01/20/24 20:00 Room Air* 0 21 Intake/Output Intake and Output 01/21/24 07:00 Intake Total 2400 ml Output Total 2400 ml Balance 0 ml Intake Oral 2000 ml IV Total 400 ml Output Urine Total 2400 ml General Appearance: Alert, Oriented X3, Cooperative, No acute distress HEENT: Atraumatic, PERRLA, EOMI, Mucous membr. moist/pink Neck: Supple Lungs: Clear to auscultation, Normal air movement Cardiovascular: Regular rate, Normal S1, Normal S2, No murmurs, Gallops, Rubs Abdomen: Normal bowel sounds, Soft, No tenderness Neuro: Cranial nerves 3-12 NL Psych/Mental Status: Mental status NL Medications Current Medications Medications Dose Ordered Sig/Gregoria Route Start Time Stop Time Status Last Admin Dose Admin Vancomycin HCl 0 ml @ 0 mls/hr UD IV 01/12/24 01:15 Sodium Chloride 10 ml Q8HR IV 01/12/24 06:00 01/21/24 06:18 10 ML Ondansetron HCl 4 mg Q4HP PRN IV 01/12/24 03:15 Docusate Sodium 100 mg BIDPRN PRN PO 01/12/24 03:15 01/20/24 21:27 100 MG Zinc Sulfate 220 mg DAILY PO 01/12/24 10:00 01/20/24 10:41 220 MG Ascorbic Acid 500 mg BID PO 01/12/24 10:00 01/20/24 21:23 500 MG Multivitamins 1 tab DAILY PO 01/12/24 10:00 01/20/24 10:41 1 TAB Acetaminophen 650 mg Q6HP PRN PO 01/12/24 03:15 01/14/24 11:28 650 MG Nitroglycerin 0.4 mg Q5MINP PRN SL 01/12/24 06:45 Morphine Sulfate 2 mg Q30M PRN IV 01/12/24 06:45 Hydralazine HCl 10 mg Q6HP PRN IV 01/12/24 07:30 01/20/24 18:23 10 MG Vancomycin HCl 200 ml @ 200 mls/hr Q12H IV 01/12/24 17:00 01/21/24 04:46 200 MLS/HR Enteral Nutritional Formula 27.5 gm BIDWM PO 01/14/24 08:00 01/20/24 18:28 27.5 GM Clonidine HCl 0.1 mg Q8HP PRN PO 01/14/24 13:15 Acetaminophen/ Hydrocodone Bitart 1 tab Q6HP PO 01/18/24 12:00 01/21/24 06:19 1 TAB Levofloxacin 750 mg DAILY PO 01/19/24 10:00 01/20/24 10:42 750 MG Amlodipine Besylate 5 mg BID PO 01/20/24 22:00 01/20/24 21:23 5 MG Atorvastatin Calcium 40 mg DAILY PO 01/21/24 10:00 Duloxetine HCl 30 mg DAILY PO 01/21/24 10:00 Lisinopril 40 mg DAILY PO 01/21/24 10:00 Laboratory Results Laboratory Tests 01/20/24 06:24 01/21/24 03:50 Microbiology Microbiology Date/Time Source Procedure Growth Status 01/13/24 12:15 Foot Gram Stain - Final Complete 01/13/24 12:15 Wound Culture - Final Stenotrophomonas maltophilia Complete Assessment/Plan Assessment/Plan Osteomyelitis of the right foot, failed outpatient antibiotic Hypertension uncontrolled Plan: Continuing current management continuing with IV antibiotic vancomycin and Zosyn. Waiting for MRI of her foot. 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 Waiting for rifle case repairer to arrange her IV antibiotic as outpatient Continuing wound care Continuing hypertensive medication Continuing [place] for pain control Plan discussed with: Patient My Orders Orders - AURORA AGUILAR MD Procedure Category Date Status Time Mri R Foot Wo Contrast MRI 01/20/24 Resulted Amlodipine Tablet PHA 01/20/24 In Process (Norvasc Tablet) 22:00 Atorvastatin (Lipitor) PHA 01/21/24 In Process 10:00 Duloxetine Hcl PHA 01/21/24 In Process Capsule (Cymbalta 10:00 Lisinopril Tablet PHA 01/21/24 In Process (Zestril Tablet) 10:00 Date of Service: Jan 21, 2024 Billing Provider: AURORA AGUILAR MD Common Visit Codes: [id number] INP/OBS CARE(HIGH) AURORA AGUILAR MD Jan 21, 2024 08:15
[2024-01-21] MEDS: ATORVASTATIN 20 MG TAB PO SCH (10:58)
[2024-01-21] MEDS: LISINOPRIL 20 MG TAB PO SCH (11:00)
[2024-01-21] MEDS: DULoxetine HCL 30 MG CAP PO SCH (11:00)
--- NOTE | 2024-01-21 23:40 | DVHPN2 ---
Consult Progress Note Date Seen: Jan 21, 2024 Subjective Patient reports: Feels better (awaiting IV antibiotic no fever or chills) Objective vital signs Vital Sign Date Time Temp Pulse Resp B/P (MAP) Pulse Ox O2 Delivery O2 Flow Rate FiO2 01/21/24 21:49 138/65 01/21/24 21:00 98.1 102 19 94 98.1 01/21/24 08:00 Room Air* 0 21 Total Intake and Output 01/20/24 01/20/24 01/21/24 15:00 23:00 07:00 Intake Total 1800 ml 600 ml Output Total 2400 ml 0 ml Balance -600 ml 600 ml medications Current Medications Medications Dose Ordered Sig/Gregoria Route Start Time Stop Time Status Last Admin Dose Admin Vancomycin HCl 0 ml @ 0 mls/hr UD IV 01/12/24 01:15 Sodium Chloride 10 ml Q8HR IV 01/12/24 06:00 01/21/24 21:49 10 ML Ondansetron HCl 4 mg Q4HP PRN IV 01/12/24 03:15 Docusate Sodium 100 mg BIDPRN PRN PO 01/12/24 03:15 01/20/24 21:27 100 MG Zinc Sulfate 220 mg DAILY PO 01/12/24 10:00 01/21/24 10:56 220 MG Ascorbic Acid 500 mg BID PO 01/12/24 10:00 01/21/24 21:49 500 MG Multivitamins 1 tab DAILY PO 01/12/24 10:00 01/21/24 10:57 1 TAB Acetaminophen 650 mg Q6HP PRN PO 01/12/24 03:15 01/14/24 11:28 650 MG Nitroglycerin 0.4 mg Q5MINP PRN SL 01/12/24 06:45 Morphine Sulfate 2 mg Q30M PRN IV 01/12/24 06:45 Hydralazine HCl 10 mg Q6HP PRN IV 01/12/24 07:30 01/20/24 18:23 10 MG Vancomycin HCl 200 ml @ 200 mls/hr Q12H IV 01/12/24 17:00 01/21/24 17:06 200 MLS/HR Enteral Nutritional Formula 27.5 gm BIDWM PO 01/14/24 08:00 01/21/24 18:00 27.5 GM Clonidine HCl 0.1 mg Q8HP PRN PO 01/14/24 13:15 Acetaminophen/ Hydrocodone Bitart 1 tab Q6HP PO 01/18/24 12:00 01/21/24 23:33 1 TAB Levofloxacin 750 mg DAILY PO 01/19/24 10:00 01/21/24 10:57 750 MG Amlodipine Besylate 5 mg BID PO 01/20/24 22:00 01/21/24 21:49 5 MG Atorvastatin Calcium 40 mg DAILY PO 01/21/24 10:00 01/21/24 10:58 40 MG Duloxetine HCl 30 mg DAILY PO 01/21/24 10:00 01/21/24 11:00 30 MG Lisinopril 40 mg DAILY PO 01/21/24 10:00 01/21/24 11:00 40 MG Propranolol HCl 20 mg DAILY PO 01/22/24 10:00 HEENT: PERRL. Normal lids and conjunctiva. Moist mucous membranes. Oropharynx without lesions, exudates, or excessive erythema. Normal appearance of the external aspects of the nose and ears. Heart: Regular rhythm, normal rate. No murmur. No lower extremity edema. Lungs: Normal respiratory effort. Clear to auscultation bilaterally. No wheezes. No crackles. Abdomen: Soft. Non-tender. Non-distended. No masses or abdominal hernia. MSK: No digital cyanosis. Normal strength and tone in all 4 limbs. Skin: Warm and dry. Redness and irritation of theR foot Neuro: Alert. No facial droop or slurred speech. Extra-ocular movements intact. Sensation intact to soft touch in all 4 limbs. Psych: Appropriate mood. Full affect. Oriented to person, place, time, and situation. laboratory and microbiology Laboratory Tests 01/21/24 03:50 01/20/24 06:24 Test 01/20/24 06:24 Range/Units Serum Glucose 97 74-106 mg/dL Problem List/Assessment/Plan Problems(with codes): (1) Antibiotic-resistant bacterial infection (2) Cellulitis (3) Hypokalemia (4) Osteomyelitis of right foot (5) Hypertensive urgency (6) Infected ulcer of skin Problem List/Assessment/Plan ASSESSMENT AND PLAN: ID Problem List: - Right foot ulcer - Osteomyelitis - Hypertension - Tobacco use disorder - R foot cellulitis Assessment This is a 58-year-old female with a past medical history of hypertension and chronic smoking since age 10, who presents with a right foot ulcer for several weeks associated with moderate to severe pain and swelling. She had tendonitis in the right foot last November. The lesion started as a small pinpoint ulcer and progressed rapidly over a few days into a large, macerated wound with necrosis and skin sloughing on the dorsal aspect of the foot. She was previously treated with oral antibiotics without improvement. Laboratory studies show WBC count of 9.2, platelets 236, BUN 17, creatinine 1.05, lactate 1.2, sodium 141. Imaging studies include an X-ray revealing mild first joint osteomyelitis and soft tissue swelling at the dorsum of the right foot. Wound cultures grew few coagulase-negative staphylococci and rare growth of Stenotrophomonas maltophilia. She was started on intravenous vancomycin and Zosyn. Plan: - Continue vancomycinx 6 weeks - Continue Levofloxacinx 6 weeks, will cover stenotrophomonas - fu in ID clinic in 4 weeks - Recommend blood cultures. - podiatry recommends deferring any debridement to outpatient, without surgery rec - Would not change therapy based on Stenotrophomonas maltophilia as it is unlikely to be the etiology of patient's current severe cellulitic infection. Isolation Precautions: Standard Assessment and plan was discussed with the patient as written above Plan is subject to change pending incorporation of new incoming information/diagnostics. Updates may be added as addendum at the bottom (OR TOP) of this note Thank you for interesting consult. ID will continue to follow. Please contact Infectious Disease for any questions or concerns. Amie Lizarraga M.D. [facility] Ph: ? Plan discussed with: Patient Dietary Evaluation Review Comments: 1. Continue current diet regime 2. Consider Roni BID (180kcal, 5g pro) Expected Outcomes/Goals: 1. Pt will consume >75% of needs within 3-5 days AMIE LIZARRAGA MD Jan 21, 2024 23:40
[2024-01-22] VITALS (7 sets, daily range): BP systolic 137–170; BP diastolic 60–83; PULSE 89–111; RESP 18–19; TEMP 97.4–99.2; O2SAT 95–100
[2024-01-22] MEDS: MORPHINE SULFATE INJ 2 MG/ml SYRG IV ONE (10:15)
[2024-01-22] MEDS: PROPRANOLOL HCL 20 MG TAB PO SCH (10:26)
[2024-01-22] MEDS ORDERED: OXYCODONE W/ ACETAMINOPHEN 5/325MG TABLET PO PRN (10:30)
--- NOTE | 2024-01-22 10:33 | DVHPN2 ---
Subjective Patient continues to report having severe pain to her right foot and ankle. Reviewed: Care Plan, H&P, Labs, Medications, Radiology Changes from previous H/P or p: No Changes General: Per HPI Eyes: No Pain, No Vision change, No Conjunctivae inflammation, No Eyelid inflammation, No Other, No Redness ENT: No Ear pain, No Ear discharge, No Nose pain, No Nose discharge, No Nose congestion, No Mouth pain, No Mouth swelling, No Throat pain, No Throat swelling, No Other Cardiovascular: No Chest Pain, No Palpitations, No Orthopnea, No Paroxysmal Noc. Dyspnea, No Edema, No Lt Headedness, No Other Respiratory: No Cough, No Dry, No Shortness of breath, No SOB with excertion, No Wheezing, No Hemoptysis, No Pleuritic Pain, No Sputum, No Other Gastrointestinal: No Nausea, No Vomiting, No Abdominal Pain, No Diarrhea, No Constipation, No Melena, No Hematochezia, No Other Genitourinary: No Dysuria, No Frequency, No Incontinence, No Hematuria, No Retention, No Other Musculoskeletal: other (Right foot wound.); No neck pain, No shoulder pain, No arm pain, No back pain, No hand pain, No leg pain, No foot pain Skin: No Rash, No Lesions, No Jaundice, No Bruising, No Other Objective Vitals Vital Signs Date Time Temp Pulse Resp B/P (MAP) Pulse Ox O2 Delivery O2 Flow Rate FiO2 01/22/24 08:30 97.4 100 18 170/72 (104) 97 97.4 01/21/24 20:00 Room Air* 0 21 Intake/Output Intake and Output 01/22/24 07:00 Intake Total 2000 ml Output Total 1300 ml Balance 700 ml Intake Oral 1600 ml IV Total 400 ml Output Urine Total 1300 ml General Appearance: Alert, Oriented X3, Cooperative, mild distress HEENT: Atraumatic, PERRLA, EOMI, Mucous membr. moist/pink Neck: Supple Lungs: Clear to auscultation, Normal air movement Cardiovascular: Regular rate, Normal S1, Normal S2, No murmurs, Gallops, Rubs Abdomen: Normal bowel sounds, Soft, No tenderness Musculoskeletal: Normal sensory function, Normal motor function Neuro: Cranial nerves 3-12 NL Skin: Wounds (See nurse notes and pictures) Psych/Mental Status: Mental status NL, Mood NL (Patient agitated) Medications Current Medications Medications Dose Ordered Sig/Gregoria Route Start Time Stop Time Status Last Admin Dose Admin Vancomycin HCl 0 ml @ 0 mls/hr UD IV 01/12/24 01:15 Sodium Chloride 10 ml Q8HR IV 01/12/24 06:00 01/22/24 04:41 10 ML Ondansetron HCl 4 mg Q4HP PRN IV 01/12/24 03:15 Docusate Sodium 100 mg BIDPRN PRN PO 01/12/24 03:15 01/20/24 21:27 100 MG Zinc Sulfate 220 mg DAILY PO 01/12/24 10:00 01/21/24 10:56 220 MG Ascorbic Acid 500 mg BID PO 01/12/24 10:00 01/21/24 21:49 500 MG Multivitamins 1 tab DAILY PO 01/12/24 10:00 01/21/24 10:57 1 TAB Acetaminophen 650 mg Q6HP PRN PO 01/12/24 03:15 01/14/24 11:28 650 MG Nitroglycerin 0.4 mg Q5MINP PRN SL 01/12/24 06:45 Morphine Sulfate 2 mg Q30M PRN IV 01/12/24 06:45 Hydralazine HCl 10 mg Q6HP PRN IV 01/12/24 07:30 01/20/24 18:23 10 MG Vancomycin HCl 200 ml @ 200 mls/hr Q12H IV 01/12/24 17:00 01/22/24 04:39 200 MLS/HR Enteral Nutritional Formula 27.5 gm BIDWM PO 01/14/24 08:00 01/22/24 08:00 27.5 GM Clonidine HCl 0.1 mg Q8HP PRN PO 01/14/24 13:15 Acetaminophen/ Hydrocodone Bitart 1 tab Q6HP PO 01/18/24 12:00 01/22/24 04:41 1 TAB Levofloxacin 750 mg DAILY PO 01/19/24 10:00 01/21/24 10:57 750 MG Amlodipine Besylate 5 mg BID PO 01/20/24 22:00 01/21/24 21:49 5 MG Atorvastatin Calcium 40 mg DAILY PO 01/21/24 10:00 01/21/24 10:58 40 MG Duloxetine HCl 30 mg DAILY PO 01/21/24 10:00 01/21/24 11:00 30 MG Lisinopril 40 mg DAILY PO 01/21/24 10:00 01/21/24 11:00 40 MG Propranolol HCl 20 mg DAILY PO 01/22/24 10:00 Laboratory Results Laboratory Tests 01/20/24 06:24 01/21/24 03:50 01/22/24 05:43 Microbiology Microbiology Date/Time Source Procedure Growth Status 01/13/24 12:15 Foot Gram Stain - Final Complete 01/13/24 12:15 Wound Culture - Final Stenotrophomonas maltophilia Complete Labs and/or images reviewed: Labs reviewed by me, Image(s) reviewed by me Assessment/Plan Assessment/Plan Impression: -? Right foot/ankle osteomyelitis given MRI results -primary hypertension -peripheral arterial disease -failure of oral antibiotic therapy Plan: -reconsult Podiatry to assess wound as well as MRI results -infectious disease consultation: Continue antibiotic therapy per their recommendations -pain management: Change [place] to Percocet -check ESR -further course of care per podiatry is recommendations. Patient currently on enzymatic debridement, without improvement of wound. Total time spent with patient discussing and formulating plan of care: 35 minutes. This medical document was created using an electronic medical record system with Cover dictation system. Although this document has been carefully reviewed, there may still be some phonetic and typographical errors. These areas are purely typographical due to imperfections of the software programs, and do not reflect any compromise in the patient's medical care. Plan discussed with: Patient, Other (RN) My Orders Orders - MINNIE MURRIETA NP Procedure Category Date Status Time Erythrocyte LAB 01/22/24 Logged Sedimentation Rate 10:16 *Podiatry Consult CONS 01/22/24 Transmitted [place](Dvmg) 10:16 Oxycodone W/ Acet PHA 01/22/24 Logged 5/325mg Tab (Percocet 10:30 Date of Service: Jan 22, 2024 Billing Provider: MINNIE MURRIETA NP Common Visit Codes: [id number] INP/OBS CARE(HIGH) MINNIE MURRIETA NP Jan 22, 2024 10:33
[2024-01-22 11:58] LABS: Erythrocyte Sedimentation Rate 114 mm/hr (0-20)
--- NOTE | 2024-01-22 13:24 | DVHPN2 ---
Subjective Patient is a 58-year-old female with past medical history of hypertension who presented to [facility] ED for evaluation of right foot ulcer. P atient reports that she has had a right foot ulcer for several weeks that has also [id number] early painful. Patient states she initially went to a facility and was given a an antibiotic, but states that antibiotic was ineffective and therefore, received a 2nd antibiotic which she states has not improved the wound. Patient was seen and evaluated in the ED, laboratory data shows WBC 9.2, platelets 236, sodium 145, potassium 3.3, BUN 14, creatinine 1.05, glucose 107, BNP 78.66, blood pressure 186/75, heart rate 82, temperature 98.1 F, O2 saturation 99% on room air. Right foot CT revealing mild 1st MTP joint osteomyelitis, soft tissue swelling at the dorsum of the forefoot. Patient was started on IV antibiotic regimen vancomycin, please see medication orders section in the computer. On my assessment, patient denied chest pain, no headache, no dizziness, no shortness of breath, no nausea, no vomiting, no fever, no chills. Patient was admitted for further evaluation and medical manageme Reviewed: Care Plan, H&P, Labs, Medications, Radiology Changes from previous H/P or p: No Changes General: Per HPI Eyes: No Pain, No Vision change, No Conjunctivae inflammation, No Eyelid inflammation, No Other, No Redness ENT: No Ear pain, No Ear discharge, No Nose pain, No Nose discharge, No Nose congestion, No Mouth pain, No Mouth swelling, No Throat pain, No Throat swelling, No Other Cardiovascular: No Chest Pain, No Palpitations, No Orthopnea, No Paroxysmal Noc. Dyspnea, No Edema, No Lt Headedness, No Other Respiratory: No Cough, No Dry, No Shortness of breath, No SOB with excertion, No Wheezing, No Hemoptysis, No Pleuritic Pain, No Sputum, No Other Gastrointestinal: No Nausea, No Vomiting, No Abdominal Pain, No Diarrhea, No Constipation, No Melena, No Hematochezia, No Other Genitourinary: No Dysuria, No Frequency, No Incontinence, No Hematuria, No Retention, No Other Musculoskeletal: other (Right foot wound.); No neck pain, No shoulder pain, No arm pain, No back pain, No hand pain, No leg pain, No foot pain Skin: No Rash, No Lesions, No Jaundice, No Bruising, No Other Objective Vitals Vital Signs Date Time Temp Pulse Resp B/P (MAP) Pulse Ox O2 Delivery O2 Flow Rate FiO2 01/22/24 13:02 98.2 104 18 155/64 (94) 98 98.2 01/21/24 20:00 Room Air* 0 21 Intake/Output Intake and Output 01/22/24 07:00 Intake Total 2000 ml Output Total 1300 ml Balance 700 ml Intake Oral 1600 ml IV Total 400 ml Output Urine Total 1300 ml Exam DERMATOLOGIC EXAM: - Skin is dry and cool to the touch dry bilaterally. - Nails 1-5 of the bilateral foot are thickened, discolored, dystrophic, and tender to palpate with subungual debris - Hair loss noted to bilateral feet Wound #1: Location: Left dorsal wound Measurements: Length 5 cm x width 3 cm x depth 0.5 cm. Wound margins: Hyperkeratotic. Wound base: Full thickness. General Appearance: Fibrotic Probes to Bone: No Purulent drainage: No Serous drainage: No Erythema: Periwound VASCULAR EXAM: - DP and PT pulses are palpable bilaterally. 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 - Feet are cool to touch compared to lower legs bilaterally. NEUROLOGIC EXAM: - Normal light touch sensation to the superficial peroneal, deep peroneal, sural, saphenous, and tibial nerve branches. - Protective sensation is diminished as tested with a 5.07 10g [place] bilaterally. MUSCULOSKELETAL EXAM: - No gross deformities - Muscle strength is 5/5 and active motion is pain-free and symmetrical bilaterally - No pain or crepitation with passive range of motion bilaterally to all major pedal joints General Appearance: Alert, Oriented X3, Cooperative, mild distress HEENT: Atraumatic, PERRLA, EOMI, Mucous membr. moist/pink Neck: Supple Lungs: Clear to auscultation, Normal air movement Cardiovascular: Regular rate, Normal S1, Normal S2, No murmurs, Gallops, Rubs Abdomen: Normal bowel sounds, Soft, No tenderness Musculoskeletal: Normal sensory function, Normal motor function Neuro: Cranial nerves 3-12 NL Skin: Wounds (See nurse notes and pictures) Psych/Mental Status: Mental status NL, Mood NL (Patient agitated) Medications Current Medications Medications Dose Ordered Sig/Gregoria Route Start Time Stop Time Status Last Admin Dose Admin Vancomycin HCl 0 ml @ 0 mls/hr UD IV 01/12/24 01:15 Sodium Chloride 10 ml Q8HR IV 01/12/24 06:00 01/22/24 04:41 10 ML Ondansetron HCl 4 mg Q4HP PRN IV 01/12/24 03:15 Docusate Sodium 100 mg BIDPRN PRN PO 01/12/24 03:15 01/20/24 21:27 100 MG Zinc Sulfate 220 mg DAILY PO 01/12/24 10:00 01/22/24 10:31 220 MG Ascorbic Acid 500 mg BID PO 01/12/24 10:00 01/22/24 10:28 500 MG Multivitamins 1 tab DAILY PO 01/12/24 10:00 01/22/24 10:28 1 TAB Acetaminophen 650 mg Q6HP PRN PO 01/12/24 03:15 01/22/24 12:47 650 MG Nitroglycerin 0.4 mg Q5MINP PRN SL 01/12/24 06:45 Morphine Sulfate 2 mg Q30M PRN IV 01/12/24 06:45 Hydralazine HCl 10 mg Q6HP PRN IV 01/12/24 07:30 01/20/24 18:23 10 MG Vancomycin HCl 200 ml @ 200 mls/hr Q12H IV 01/12/24 17:00 01/22/24 04:39 200 MLS/HR Enteral Nutritional Formula 27.5 gm BIDWM PO 01/14/24 08:00 01/22/24 08:00 27.5 GM Clonidine HCl 0.1 mg Q8HP PRN PO 01/14/24 13:15 Levofloxacin 750 mg DAILY PO 01/19/24 10:00 01/22/24 10:32 750 MG Amlodipine Besylate 5 mg BID PO 01/20/24 22:00 01/22/24 10:27 5 MG Atorvastatin Calcium 40 mg DAILY PO 01/21/24 10:00 01/22/24 10:27 40 MG Duloxetine HCl 30 mg DAILY PO 01/21/24 10:00 01/22/24 10:33 30 MG Lisinopril 40 mg DAILY PO 01/21/24 10:00 01/22/24 10:27 40 MG Propranolol HCl 20 mg DAILY PO 01/22/24 10:00 01/22/24 10:26 20 MG Oxycodone/ Acetaminophen 1 tab Q4HP PRN PO 01/22/24 10:30 Laboratory Results Laboratory Tests 01/20/24 06:24 01/21/24 03:50 01/22/24 05:43 Microbiology Microbiology Date/Time Source Procedure Growth Status 01/13/24 12:15 Foot Gram Stain - Final Complete 01/13/24 12:15 Wound Culture - Final Stenotrophomonas maltophilia Complete Assessment/Plan Assessment/Plan ASSESSMENT: Patient is a 58-year-old seen on the floor for worsening left foot wound PLAN: - The patients chart was reviewed, clinical findings were discussed with the patient, the etiologies of the conditions were discussed in detail, and a treatment plan was agreed to at this time, with both oral and written instructions provided. - discussed with the patient that the wound does not appear to be deep at this point. - reassured the patient again on this visit that the wound does not appear deeper and I am not concerned based off the MRI for any deeper infection - recommend that patient follows up as an outpatient for wound care - patient would benefit from either Benji or Ridgeyl - no surgical intervention recommended at this point All questions were answered and concerns addressed to the patient's satisfaction. The patient was given the phone number to the clinic and was told how to make contact with the clinic should any concerns or questions arise. Patient understands that if any questions or concerns arise prior to the next appointment, we should be contacted immediately. FOLLOW-UP: Patient will follow up with me in 1 week for continued wound care Plan discussed with: Patient Problem List: (1) Antibiotic-resistant bacterial infection (2) Cellulitis (3) Hypokalemia (4) Osteomyelitis of right foot (5) Hypertensive urgency (6) Infected ulcer of skin Date of Service: Jan 22, 2024 Billing Provider: JUAN LUIS SANTIZO DPM Common Visit Codes: [id number] INP/OBS CARE(MOD) JUAN LUIS SANTIZO DPM Jan 22, 2024 13:24
[2024-01-22] MEDS: oxyCODONE HCL 5MG TAB PO PRN (18:23)
[2024-01-22] MEDS: KETOROLAC TROMETH 30 MG/ML 1ML VIAL IV ONE (22:09)
--- NOTE | 2024-01-22 22:29 | DVHPN2 ---
Consult Progress Note Date Seen: Jan 22, 2024 Subjective Patient reports: Feels better (explained IV antibiotics need topatient) Objective vital signs Vital Sign Date Time Temp Pulse Resp B/P (MAP) Pulse Ox O2 Delivery O2 Flow Rate FiO2 01/22/24 22:09 148/78 01/22/24 21:00 97.9 104 19 95 97.9 01/22/24 08:00 Room Air* 0 21 Total Intake and Output 01/21/24 01/21/24 01/22/24 15:00 23:00 07:00 Intake Total 900 ml 1100 ml Output Total 600 ml 700 ml Balance 300 ml 400 ml medications Current Medications Medications Dose Ordered Sig/Gregoria Route Start Time Stop Time Status Last Admin Dose Admin Vancomycin HCl 0 ml @ 0 mls/hr UD IV 01/12/24 01:15 Sodium Chloride 10 ml Q8HR IV 01/12/24 06:00 01/22/24 22:09 10 ML Ondansetron HCl 4 mg Q4HP PRN IV 01/12/24 03:15 Docusate Sodium 100 mg BIDPRN PRN PO 01/12/24 03:15 01/20/24 21:27 100 MG Zinc Sulfate 220 mg DAILY PO 01/12/24 10:00 01/22/24 10:31 220 MG Ascorbic Acid 500 mg BID PO 01/12/24 10:00 01/22/24 22:08 500 MG Multivitamins 1 tab DAILY PO 01/12/24 10:00 01/22/24 10:28 1 TAB Acetaminophen 650 mg Q6HP PRN PO 01/12/24 03:15 01/22/24 12:47 650 MG Nitroglycerin 0.4 mg Q5MINP PRN SL 01/12/24 06:45 Morphine Sulfate 2 mg Q30M PRN IV 01/12/24 06:45 Hydralazine HCl 10 mg Q6HP PRN IV 01/12/24 07:30 01/20/24 18:23 10 MG Vancomycin HCl 200 ml @ 200 mls/hr Q12H IV 01/12/24 17:00 01/22/24 18:22 200 MLS/HR Enteral Nutritional Formula 27.5 gm BIDWM PO 01/14/24 08:00 01/22/24 18:23 27.5 GM Clonidine HCl 0.1 mg Q8HP PRN PO 01/14/24 13:15 Levofloxacin 750 mg DAILY PO 01/19/24 10:00 01/22/24 10:32 750 MG Amlodipine Besylate 5 mg BID PO 01/20/24 22:00 01/22/24 22:09 5 MG Atorvastatin Calcium 40 mg DAILY PO 01/21/24 10:00 01/22/24 10:27 40 MG Duloxetine HCl 30 mg DAILY PO 01/21/24 10:00 01/22/24 10:33 30 MG Lisinopril 40 mg DAILY PO 01/21/24 10:00 01/22/24 10:27 40 MG Propranolol HCl 20 mg DAILY PO 01/22/24 10:00 01/22/24 10:26 20 MG Oxycodone HCl 5 mg Q6HP PRN PO 01/22/24 16:30 01/22/24 18:23 5 MG Physical Exam: General: Patient is in general acute distress; Neck: Supple. No masses. HEENT: PERRL. Normal lids and conjunctiva. Moist mucous membranes. Oropharynx without lesions, exudates, or excessive erythema. Normal appearance of the external aspects of the nose and ears. Heart: Regular rhythm, normal rate. No murmur. No lower extremity edema. Lungs: Normal respiratory effort. Clear to auscultation bilaterally. No wheezes. No crackles. Abdomen: Soft. Non-tender. Non-distended. No masses or abdominal hernia. MSK: No digital cyanosis. Normal strength and tone in all 4 limbs. Skin: Warm and dry, no rashes. Neuro: No facial droop or slurred speech. Extraocular movements intact. Sensation intact to soft touch in all 4 limbs. laboratory and microbiology Laboratory Tests 01/22/24 05:43 01/21/24 03:50 01/20/24 06:24 Test 01/20/24 06:24 Range/Units Serum Glucose 97 74-106 mg/dL Problem List/Assessment/Plan Problem List/Assessment/Plan ASSESSMENT AND PLAN: ID Problem List: - Right foot ulcer - Osteomyelitis - Hypertension - Tobacco use disorder - R foot cellulitis Assessment This is a 58-year-old female with a past medical history of hypertension and chronic smoking since age 10, who presents with a right foot ulcer for several weeks associated with moderate to severe pain and swelling. She had tendonitis in the right foot last November. The lesion started as a small pinpoint ulcer and progressed rapidly over a few days into a large, macerated wound with necrosis and skin sloughing on the dorsal aspect of the foot. She was previously treated with oral antibiotics without improvement. Laboratory studies show WBC count of 9.2, platelets 236, BUN 17, creatinine 1.05, lactate 1.2, sodium 141. Imaging studies include an X-ray revealing mild first joint osteomyelitis and soft tissue swelling at the dorsum of the right foot. Wound cultures grew few coagulase-negative staphylococci and rare growth of Stenotrophomonas maltophilia. She was started on intravenous vancomycin and Zosyn. Plan: - Continue vancomycinx 6 weeks - Continue Levofloxacinx 6 weeks, will cover stenotrophomonas - fu in ID clinic in 4 weeks - Recommend blood cultures. - podiatry recommends deferring any debridement to outpatient, without surgery rec - Would not change therapy based on Stenotrophomonas maltophilia as it is unlikely to be the etiology of patient's current severe cellulitic infection. Isolation Precautions: Standard Assessment and plan was discussed with the patient as written above Plan is subject to change pending incorporation of new incoming information/diagnostics. Updates may be added as addendum at the bottom (OR TOP) of this note Thank you for interesting consult. ID will continue to follow. Please contact Infectious Disease for any questions or concerns. Amie Lizarraga M.D. [facility] Ph: ? Plan discussed with: Patient Dietary Evaluation Review Comments: 1. Continue current diet regime 2. Consider Roni BID (180kcal, 5g pro) Expected Outcomes/Goals: 1. Pt will consume >75% of needs within 3-5 days AMIE LIZARRAGA MD Jan 22, 2024 22:29
[2024-01-23] VITALS (8 sets, daily range): BP systolic 130–163; BP diastolic 55–84; PULSE 67–98; RESP 16–20; TEMP 97.4–100.3; O2SAT 96–99
[2024-01-23 07:10] LABS: Basophils # (auto) 0 10 ^3/uL (0-0.2); Basophils % (auto) 0.4 % (0.0-2.0); Eosinophils # (auto) 0.2 10 ^3/uL (0-0.8); Hematocrit 26.1 % (36.0-46.0); Hemoglobin 8.9 g/dL (12.2-16.2); Lymphocytes # (auto) 0.7 10 ^3/uL (0.4-5.4); Mean Corpuscular Hemoglobin 28.4 pg (28.0-32.0); Mean Corpuscular Volume 83.5 fL (80.0-100.0); Monocytes # (auto) 0.6 10 ^3/uL (0-1.3); Neutrophils % (auto) 73.6 % (37.0-80.0); Nucleated Red Blood Cells % 0.1 %; Platelet Count (auto) 263 10^3/uL (140-450); Red Blood Cells 3.13 10^6/uL (4.0-5.20); Red Cell Distribution Width 14.3 % (11.8-14.3); White Blood Cell 5.5 10^3/uL (4.4-10.8)
[2024-01-23] MEDS ORDERED: PERCOT PO (09:19)
[2024-01-23 10:08] LABS: INR 1.19 (0.9-1.15); Prothrombin Time 12.5 sec (9.3-11.8)
--- NOTE | 2024-01-23 10:43 | DVHDS2 ---
Discharge Summary Date of Admission Jan 12, 2024 at 06:31 Date of Discharge: Jan 23, 2024 Admitting Diagnosis Osteomyelitis of right foot Labs/Diagnostic Data: Laboratory Results Test 01/23/24 06:35 01/22/24 05:43 01/21/24 03:50 01/20/24 06:24 White Blood Count 5.5 10^3/uL (4.4-10.8) Red Blood Count 3.13 10^6/uL (4.0-5.20) Hemoglobin 8.9 g/dL (12.2-16.2) Hematocrit 26.1 % (36.0-46.0) Mean Corpuscular Volume 83.5 fL (80.0-100.0) Mean Corpuscular Hemoglobin 28.4 pg (28.0-32.0) Mean Corpuscular Hemoglobin Concent 34.0 g/dL (32.0-36.0) Red Cell Distribution Width 14.3 % (11.8-14.3) Platelet Count 263 10^3/uL (140-450) Mean Platelet Volume 9.1 fL (6.9-10.8) Neutrophils (%) (Auto) 73.6 % (37.0-80.0) Lymphocytes (%) (Auto) 12.0 % (10.0-50.0) Monocytes (%) (Auto) 11.0 % (0.0-12.0) Eosinophils (%) (Auto) 3.0 % (0.0-7.0) Basophils (%) (Auto) 0.4 % (0.0-2.0) Neutrophils # (Auto) 4.0 10 ^3/uL (1.6-8.6) Lymphocytes # (Auto) 0.7 10 ^3/uL (0.4-5.4) Monocytes # (Auto) 0.6 10 ^3/uL (0-1.3) Eosinophils # (Auto) 0.2 10 ^3/uL (0-0.8) Basophils # (Auto) 0 10 ^3/uL (0-0.2) Nucleated Red Blood Cells 0.1 % Prothrombin Time 12.5 sec (9.3-11.8) Prothrombin Time INR 1.19 (0.9-1.15) Creatinine 1.03 mg/dL (0.550-1.02) Glomerular Filtration Rate Calc 63 mL/min (>90) Erythrocyte Sedimentation Rate 114 mm/hr (0-20) Vancomycin Level Trough 19.0 ug/mL (5-10) Sodium Level 137 mmol/L (136-145) Potassium Level 4.1 mmol/L (3.5-5.1) Chloride Level 107 mmol/L (98-107) Carbon Dioxide Level 20 mmol/L (20-31) Anion Gap 10 (5-15) Blood Urea Nitrogen 16 mg/dL (9-23) BUN/Creatinine Ratio 15.4 (10.0-20.0) Serum Glucose 97 mg/dL (74-106) Calcium Level 10.0 mg/dL (8.7-10.4) Test 01/19/24 08:29 01/13/24 06:12 01/11/24 23:20 Activated Partial Thromboplast Time 32.0 SEC (24.5-34.5) Total Bilirubin 0.3 mg/dL (0.2-1.0) Aspartate Amino Transferase (AST) 13 U/L (13-40) Alanine Aminotransferase (ALT) 13 U/L (7-40) Alkaline Phosphatase 136 U/L (46-116) Total Protein 7.0 g/dL (5.7-8.2) Albumin 4.1 g/dL (3.2-4.8) Lactic Acid Level 1.2 mmol/L (0.4-2.0) B-Type Natriuretic Peptide 78.66 pg/mL (0-100) Other Laboratory Tests 01/23/24 06:35 01/20/24 06:24 Brief Hx & Hospital Course: History of Present Illness Patient is a 58-year-old female with past medical history of hypertension who presented to [facility] ED for evaluation of right foot ulcer. P atient reports that she has had a right foot ulcer for several weeks that has also [id number] early painful. Patient states she initially went to a facility and was given a an antibiotic, but states that antibiotic was ineffective and therefore, received a 2nd antibiotic which she states has not improved the wound. Patient was seen and evaluated in the ED, laboratory data shows WBC 9.2, platelets 236, sodium 145, potassium 3.3, BUN 14, creatinine 1.05, glucose 107, BNP 78.66, blood pressure 186/75, heart rate 82, temperature 98.1 F, O2 saturation 99% on room air. Right foot CT revealing mild 1st MTP joint osteomyelitis, soft tissue swelling at the dorsum of the forefoot. Patient was started on IV antibiotic regimen vancomycin, please see medication orders section in the computer. On my assessment, patient denied chest pain, no headache, no dizziness, no shortness of breath, no nausea, no vomiting, no fever, no chills. Patient was admitted for further evaluation and medical management. Course of hospitalization: Infectious disease consultation was obtained. IV antibiotics were started to cover stenotrophomonas maltophilia as well as covering possible osteomyelitis. Podiatry consultation was obtained. At this time he recommends enzymatic debridement with TheraHoney. Patient was pain management has been managed with oral medications. At this time the plan of care includes IV antibiotic therapy for six weeks with both vancomycin and Levaquin with follow up lab work to be reviewed by Dr. Mehreen Lizarraga. Patient will also be discharged with home health services for wound care three to 4 times a week, as well as assistance with IV antibiotic therapy. Given the patient was not from this area, states that she lives in [place], social group worker will attempt to provide services in the area has covered under [facility]. She will be continued with oral analgesic with Percocet 5/325 q. eight hours as needed. She will also follow up with her PCP at the next earliest appointment. She was agreeable with discharge plan. All questions answered. Physical exam General: Alert and Oriented x3. No acute distress. Well-nourished. Eyes: EOMI. Anicteric. HENT: Moist mucous membranes. Lungs: Clear to auscultation bilaterally. No accessory muscle use. Cardiovascular: Regular rate and rhythm. No murmur. No JVD. Abdomen: Soft, non-tender and non-distended. No palpable masses. Extremities: No edema. Non-tender. Skin: No rashes or lesions. Warm. Cellulitis and necrosis on right foot Neurologic: No focal neurological deficits. CN II-XII grossly intact, but not individually tested. Psychiatric: Cooperative. Appropriate mood and affect. Total time spent with patient discussing and formulating plan of care: 35 minutes. This medical document was created using an electronic medical record system with [employer] dictation system. Although this document has been carefully reviewed, there may still be some phonetic and typographical errors. These areas are purely typographical due to imperfections of the software programs, and do not reflect any compromise in the patient's medical care. Consults/Reason for consult Podiatry: Rule out right foot osteomyelitis Infectious disease:? Right foot osteomyelitis Condition at Discharge: Guarded Final Diagnosis/Problems List Right foot cellulitis with necrosis Secondary Diagnosis: -probable Right foot/ankle osteomyelitis given MRI results -primary hypertension -peripheral arterial disease -failure of oral antibiotic therapy Discharge Disposition: Home with Health Services Discharge Instruct/Medications Diet: Cardiac 2g Na,low cholest Activity: No Restrictions, As Tolerated Medications: IV abx per Dr. Zia Issa q8hrs has needed for mod to sev pain 36 Discharge Statement: "Patient was advised to return to the ER or call 911 if any headaches, dizziness, shortness of breath, chest pain, abdominal pain, bleeding, fevers, or worsening of medical condition. Patient was counseled about treatment plan, medications, possible side effects, patientverbalized understanding. All questions were answered to the best of my ability. This discharge took greater then 30 minutes in planning, reviewing documentation, counseling the patient, and discussing with other team members." ASSESSMENT ASSESSMENT Assessment Right foot cellulitis with necrosis Date of Service: Jan 23, 2024 Billing Provider: MINNIE MURRIETA NP Common Visit Codes: [id number] DISCH DAY >30min MINNIE MURRIETA NP Jan 23, 2024 10:43
[2024-01-23] MEDS: LIDOCAINE 1% (LOCAL ANESTH.) PF 5ml SDV ID ONE (13:45)
[2024-01-23] MEDS ORDERED: LEVO250T58 PO (16:58)
[2024-01-23] MEDS: VANCOMYCIN 1GM/250ML KIT 250 ML IV SCH (17:34)
--- NOTE | 2024-01-23 20:24 | DVHPN2 ---
Consult Progress Note Date Seen: Jan 23, 2024 Subjective Patient reports: Feels better (wound is not tender and can walk on it now , her wound with fibrinous excidate and granular tissue on the right foot, piccline put in place ) Objective vital signs Vital Sign Date Time Temp Pulse Resp B/P (MAP) Pulse Ox O2 Delivery O2 Flow Rate FiO2 01/23/24 17:00 100.3 90 18 148/67 (94) 96 100.3 01/23/24 08:00 Room Air* 0 21 Total Intake and Output 01/22/24 01/22/24 01/23/24 15:00 23:00 07:00 Intake Total 1320 ml 900 ml Output Total 700 ml Balance 1320 ml 200 ml medications Current Medications Medications Dose Ordered Sig/Gregoria Route Start Time Stop Time Status Last Admin Dose Admin Vancomycin HCl 0 ml @ 0 mls/hr UD IV 01/12/24 01:15 Sodium Chloride 10 ml Q8HR IV 01/12/24 06:00 01/23/24 14:00 10 ML Ondansetron HCl 4 mg Q4HP PRN IV 01/12/24 03:15 Docusate Sodium 100 mg BIDPRN PRN PO 01/12/24 03:15 01/20/24 21:27 100 MG Zinc Sulfate 220 mg DAILY PO 01/12/24 10:00 01/23/24 11:51 220 MG Ascorbic Acid 500 mg BID PO 01/12/24 10:00 01/23/24 11:51 500 MG Multivitamins 1 tab DAILY PO 01/12/24 10:00 01/23/24 11:51 1 TAB Acetaminophen 650 mg Q6HP PRN PO 01/12/24 03:15 01/22/24 12:47 650 MG Nitroglycerin 0.4 mg Q5MINP PRN SL 01/12/24 06:45 Morphine Sulfate 2 mg Q30M PRN IV 01/12/24 06:45 Hydralazine HCl 10 mg Q6HP PRN IV 01/12/24 07:30 01/20/24 18:23 10 MG Enteral Nutritional Formula 27.5 gm BIDWM PO 01/14/24 08:00 01/23/24 17:44 27.5 GM Clonidine HCl 0.1 mg Q8HP PRN PO 01/14/24 13:15 Levofloxacin 750 mg DAILY PO 01/19/24 10:00 01/23/24 11:46 750 MG Amlodipine Besylate 5 mg BID PO 01/20/24 22:00 01/23/24 11:50 5 MG Atorvastatin Calcium 40 mg DAILY PO 01/21/24 10:00 01/23/24 11:50 40 MG Duloxetine HCl 30 mg DAILY PO 01/21/24 10:00 01/23/24 11:51 30 MG Lisinopril 40 mg DAILY PO 01/21/24 10:00 01/23/24 11:48 40 MG Propranolol HCl 20 mg DAILY PO 01/22/24 10:00 01/23/24 11:47 20 MG Oxycodone HCl 5 mg Q6HP PRN PO 01/22/24 16:30 01/23/24 17:44 5 MG Vancomycin HCl 250 ml @ 250 mls/hr Q12H IV 01/23/24 17:00 01/23/24 17:34 250 MLS/HR Sodium Chloride 10 ml QSHIFT@10,22 IV 01/23/24 22:00 Physical Exam: General: Patient is in general acute distress; Neck: Supple. No masses. HEENT: PERRL. Normal lids and conjunctiva. Moist mucous membranes. Oropharynx without lesions, exudates, or excessive erythema. Normal appearance of the external aspects of the nose and ears. Heart: Regular rhythm, normal rate. No murmur. No lower extremity edema. Lungs: Normal respiratory effort. Clear to auscultation bilaterally. No wheezes. No crackles. Abdomen: Soft. Non-tender. Non-distended. No masses or abdominal hernia. MSK: No digital cyanosis. Normal strength and tone in all 4 limbs. Skin: Warm and dry, no rashes. Neuro: No facial droop or slurred speech. Extraocular movements intact. Sensation intact to soft touch in all 4 limbs. Examination: CVS:Abnormal laboratory and microbiology Laboratory Tests 01/23/24 11:37 01/23/24 06:35 01/20/24 06:24 Test 01/20/24 06:24 Range/Units Serum Glucose 97 74-106 mg/dL Problem List/Assessment/Plan Problems(with codes): (1) Infected ulcer of skin (2) Hypertensive urgency (3) Osteomyelitis of right foot (4) Hypokalemia (5) Cellulitis (6) Antibiotic-resistant bacterial infection Problem List/Assessment/Plan ASSESSMENT AND PLAN: ID Problem List: - Right foot ulcer - Osteomyelitis - Hypertension - Tobacco use disorder - R foot cellulitis Assessment This is a 58-year-old female with a past medical history of hypertension and chronic smoking since age 10, who presents with a right foot ulcer for several weeks associated with moderate to severe pain and swelling. She had tendonitis in the right foot last November. The lesion started as a small pinpoint ulcer and progressed rapidly over a few days into a large, macerated wound with necrosis and skin sloughing on the dorsal aspect of the foot. She was previously treated with oral antibiotics without improvement. Laboratory studies show WBC count of 9.2, platelets 236, BUN 17, creatinine 1.05, lactate 1.2, sodium 141. Imaging studies include an X-ray revealing mild first joint osteomyelitis and soft tissue swelling at the dorsum of the right foot. Wound cultures grew few coagulase-negative staphylococci and rare growth of Stenotrophomonas maltophilia. She was started on intravenous vancomycin and Zosyn. Plan: - Continue vancomycinx 6 weeks - Continue Levofloxacinx 6 weeks, will cover stenotrophomonas - fu in ID clinic in 4 weeks - Recommend blood cultures. - podiatry recommends deferring any debridement to outpatient, without surgery rec - Would not change therapy based on Stenotrophomonas maltophilia as it is unlikely to be the etiology of patient's current severe cellulitic infection. Isolation Precautions: Standard Assessment and plan was discussed with the patient as written above Plan is subject to change pending incorporation of new incoming information/diagnostics. Updates may be added as addendum at the bottom (OR TOP) of this note Thank you for interesting consult. ID will continue to follow. Please contact Infectious Disease for any questions or concerns. Amie Lizarraga M.D. [facility] Ph: ? Plan discussed with: Other Dietary Evaluation Review Comments: 1. Continue current diet regime 2. Consider Roni BID (180kcal, 5g pro) Expected Outcomes/Goals: 1. Pt will consume >75% of needs within 3-5 days AMIE LIZARRAGA MD Jan 23, 2024 20:24
[2024-01-23] MEDS: KETOROLAC TROMETH 30 MG/ML 1ML VIAL IV ONE (21:49)
[2024-01-23] MEDS: SODIUM CHLOR 0.9% PF (SALINE LOCK) 10ML VIAL/SYR IV SCH (21:49)
[2024-01-24] VITALS (8 sets, daily range): BP systolic 139–174; BP diastolic 52–83; PULSE 73–100; RESP 16–20; TEMP 98.3–99.7; O2SAT 96–100
--- NOTE | 2024-01-24 08:55 | DVHPN2 ---
Subjective Patient continues to report having severe pain to her right foot and ankle. Reviewed: Care Plan, H&P, Labs, Medications, Radiology Changes from previous H/P or p: No Changes General: Per HPI Eyes: No Pain, No Vision change, No Conjunctivae inflammation, No Eyelid inflammation, No Other, No Redness ENT: No Ear pain, No Ear discharge, No Nose pain, No Nose discharge, No Nose congestion, No Mouth pain, No Mouth swelling, No Throat pain, No Throat swelling, No Other Cardiovascular: No Chest Pain, No Palpitations, No Orthopnea, No Paroxysmal Noc. Dyspnea, No Edema, No Lt Headedness, No Other Respiratory: No Cough, No Dry, No Shortness of breath, No SOB with excertion, No Wheezing, No Hemoptysis, No Pleuritic Pain, No Sputum, No Other Gastrointestinal: No Nausea, No Vomiting, No Abdominal Pain, No Diarrhea, No Constipation, No Melena, No Hematochezia, No Other Genitourinary: No Dysuria, No Frequency, No Incontinence, No Hematuria, No Retention, No Other Musculoskeletal: other (Right foot wound.); No neck pain, No shoulder pain, No arm pain, No back pain, No hand pain, No leg pain, No foot pain Skin: No Rash, No Lesions, No Jaundice, No Bruising, No Other Objective Vitals Vital Signs Date Time Temp Pulse Resp B/P (MAP) Pulse Ox O2 Delivery O2 Flow Rate FiO2 01/24/24 04:44 98.3 93 16 152/53 (86) 97 98.3 01/23/24 20:00 Room Air* 0 21 Intake/Output Intake and Output 01/24/24 07:00 Intake Total 1525 ml Output Total 1 ml Balance 1524 ml Intake Oral 1025 ml IV Total 500 ml Output Urine Total 1 ml # Voids 2 General Appearance: Alert, Oriented X3, Cooperative, mild distress HEENT: Atraumatic, PERRLA, EOMI, Mucous membr. moist/pink Neck: Supple Lungs: Clear to auscultation, Normal air movement Cardiovascular: Regular rate, Normal S1, Normal S2, No murmurs, Gallops, Rubs Abdomen: Normal bowel sounds, Soft, No tenderness Musculoskeletal: Normal sensory function, Normal motor function Neuro: Cranial nerves 3-12 NL Skin: Wounds (See nurse notes and pictures) Psych/Mental Status: Mental status NL, Mood NL (Patient agitated) Medications Current Medications Medications Dose Ordered Sig/Gregoria Route Start Time Stop Time Status Last Admin Dose Admin Vancomycin HCl 0 ml @ 0 mls/hr UD IV 01/12/24 01:15 Sodium Chloride 10 ml Q8HR IV 01/12/24 06:00 01/24/24 06:19 10 ML Ondansetron HCl 4 mg Q4HP PRN IV 01/12/24 03:15 Docusate Sodium 100 mg BIDPRN PRN PO 01/12/24 03:15 01/20/24 21:27 100 MG Zinc Sulfate 220 mg DAILY PO 01/12/24 10:00 01/23/24 11:51 220 MG Ascorbic Acid 500 mg BID PO 01/12/24 10:00 01/23/24 21:50 500 MG Multivitamins 1 tab DAILY PO 01/12/24 10:00 01/23/24 11:51 1 TAB Acetaminophen 650 mg Q6HP PRN PO 01/12/24 03:15 01/22/24 12:47 650 MG Nitroglycerin 0.4 mg Q5MINP PRN SL 01/12/24 06:45 Morphine Sulfate 2 mg Q30M PRN IV 01/12/24 06:45 Hydralazine HCl 10 mg Q6HP PRN IV 01/12/24 07:30 01/20/24 18:23 10 MG Enteral Nutritional Formula 27.5 gm BIDWM PO 01/14/24 08:00 01/23/24 17:44 27.5 GM Clonidine HCl 0.1 mg Q8HP PRN PO 01/14/24 13:15 Levofloxacin 750 mg DAILY PO 01/19/24 10:00 01/23/24 11:46 750 MG Amlodipine Besylate 5 mg BID PO 01/20/24 22:00 01/23/24 21:50 5 MG Atorvastatin Calcium 40 mg DAILY PO 01/21/24 10:00 01/23/24 11:50 40 MG Duloxetine HCl 30 mg DAILY PO 01/21/24 10:00 01/23/24 11:51 30 MG Lisinopril 40 mg DAILY PO 01/21/24 10:00 01/23/24 11:48 40 MG Propranolol HCl 20 mg DAILY PO 01/22/24 10:00 01/23/24 11:47 20 MG Oxycodone HCl 5 mg Q6HP PRN PO 01/22/24 16:30 01/24/24 01:59 5 MG Vancomycin HCl 250 ml @ 250 mls/hr Q12H IV 01/23/24 17:00 01/24/24 04:58 250 MLS/HR Sodium Chloride 10 ml QSHIFT@10,22 IV 01/23/24 22:00 01/23/24 21:49 10 ML Laboratory Results Laboratory Tests 01/20/24 06:24 01/23/24 06:35 01/23/24 11:37 01/24/24 05:14 Coagulation Test 01/23/24 11:37 Activated Partial Thromboplast Time 32.9 SEC (24.5-34.5) Microbiology Microbiology Date/Time Source Procedure Growth Status 01/13/24 12:15 Foot Gram Stain - Final Complete 01/13/24 12:15 Wound Culture - Final Stenotrophomonas maltophilia Complete Assessment/Plan Assessment/Plan Impression: -? Right foot/ankle osteomyelitis given MRI results -primary hypertension -peripheral arterial disease -failure of oral antibiotic therapy Plan: -Podiatry recommendations reviewed. -infectious disease consultation: Continue antibiotic therapy per their recommendations -pain management: Change Jerome to Percocet -check ESR -DC held secondary to acceptance by [facility]. Continue current POC until DC Total time spent with patient discussing and formulating plan of care: 35 minutes. This medical document was created using an electronic medical record system with [employer] dictation system. Although this document has been carefully reviewed, there may still be some phonetic and typographical errors. These areas are purely typographical due to imperfections of the software programs, and do not reflect any compromise in the patient's medical care. Plan discussed with: Patient, Other (RN) My Orders Orders - MINNIE MURRIETA NP Procedure Category Date Status Time * Stripper Color CONS 01/23/24 Transmitted Consult Discharge DISCHARGE 01/23/24 Transmitted 09:13 * Picc Line Consult CONS 01/23/24 Transmitted 09:42 Us Guided Vascular US 01/23/24 Logged Access 14:13 Change Dressing Prn ELIGIO 01/23/24 In Process 14:13 Sodium Chloride Lock PHA 01/23/24 In Process (Saline Lock Ns) 22:00 Do Not Use Picc For ELIGIO 01/23/24 In Process Blood Cult 14:13 May Draw Blood From ELIGIO 01/23/24 In Process Picc 14:13 Ok To Use Picc [facility] 01/23/24 In Process 14:13 Change Picc Dressing [facility] 01/23/24 In Process Q7 Days 14:13 Date of Service: Jan 24, 2024 Billing Provider: MINNIE MURRIETA NP Common Visit Codes: [id number] INP/OBS CARE(MOD) MINNIE MURRIETA NP Jan 24, 2024 08:55
[2024-01-24] MEDS: cloNIDine HCL 0.1 MG TAB PO PRN (11:47)
[2024-01-24] MEDS: VANCOMYCIN 1GM/250ML KIT 200 ML IV ONE (18:19)
--- NOTE | 2024-01-24 22:36 | DVHPN2 ---
Consult Progress Note Date Seen: Jan 24, 2024 Subjective Patient reports: Other (got wound care , piccline in place , having some pain on her foot adn requiring morphine ) Objective vital signs Vital Sign Date Time Temp Pulse Resp B/P (MAP) Pulse Ox O2 Delivery O2 Flow Rate FiO2 01/24/24 21:46 155/100 01/24/24 21:00 99.5 100 20 96 99.5 01/24/24 20:00 Room Air* 0 21 Total Intake and Output 01/23/24 01/23/24 01/24/24 15:00 23:00 07:00 Intake Total 875 ml 650 ml Output Total 1 ml Balance 875 ml 649 ml medications Current Medications Medications Dose Ordered Sig/Gregoria Route Start Time Stop Time Status Last Admin Dose Admin Vancomycin HCl 0 ml @ 0 mls/hr UD IV 01/12/24 01:15 Sodium Chloride 10 ml Q8HR IV 01/12/24 06:00 01/24/24 21:46 10 ML Ondansetron HCl 4 mg Q4HP PRN IV 01/12/24 03:15 Docusate Sodium 100 mg BIDPRN PRN PO 01/12/24 03:15 01/20/24 21:27 100 MG Zinc Sulfate 220 mg DAILY PO 01/12/24 10:00 01/24/24 10:18 220 MG Ascorbic Acid 500 mg BID PO 01/12/24 10:00 01/24/24 21:45 500 MG Multivitamins 1 tab DAILY PO 01/12/24 10:00 01/24/24 10:18 1 TAB Acetaminophen 650 mg Q6HP PRN PO 01/12/24 03:15 01/22/24 12:47 650 MG Nitroglycerin 0.4 mg Q5MINP PRN SL 01/12/24 06:45 Morphine Sulfate 2 mg Q30M PRN IV 01/12/24 06:45 Hydralazine HCl 10 mg Q6HP PRN IV 01/12/24 07:30 01/24/24 21:46 10 MG Enteral Nutritional Formula 27.5 gm BIDWM PO 01/14/24 08:00 01/24/24 18:15 27.5 GM Clonidine HCl 0.1 mg Q8HP PRN PO 01/14/24 13:15 01/24/24 11:47 0.1 MG Levofloxacin 750 mg DAILY PO 01/19/24 10:00 01/24/24 11:40 750 MG Amlodipine Besylate 5 mg BID PO 01/20/24 22:00 01/24/24 10:19 5 MG Atorvastatin Calcium 40 mg DAILY PO 01/21/24 10:00 01/24/24 10:18 40 MG Duloxetine HCl 30 mg DAILY PO 01/21/24 10:00 01/24/24 10:18 30 MG Lisinopril 40 mg DAILY PO 01/21/24 10:00 01/24/24 10:19 40 MG Propranolol HCl 20 mg DAILY PO 01/22/24 10:00 01/24/24 10:19 20 MG Oxycodone HCl 5 mg Q6HP PRN PO 01/22/24 16:30 01/24/24 18:18 5 MG Vancomycin HCl 250 ml @ 250 mls/hr Q12H IV 01/23/24 17:00 01/24/24 18:18 250 MLS/HR Sodium Chloride 10 ml QSHIFT@10,22 IV 01/23/24 22:00 01/24/24 21:47 10 ML Physical Exam: General: Patient is in general acute distress; Neck: Supple. No masses. HEENT: PERRL. Normal lids and conjunctiva. Moist mucous membranes. Oropharynx without lesions, exudates, or excessive erythema. Normal appearance of the external aspects of the nose and ears. Heart: Regular rhythm, normal rate. No murmur. No lower extremity edema. Lungs: Normal respiratory effort. Clear to auscultation bilaterally. No wheezes. No crackles. Abdomen: Soft. Non-tender. Non-distended. No masses or abdominal hernia. MSK: No digital cyanosis. Normal strength and tone in all 4 limbs. Skin: Warm and dry, no rashes. Neuro: No facial droop or slurred speech. Extraocular movements intact. Sensation intact to soft touch in all 4 limbs. laboratory and microbiology Laboratory Tests 01/24/24 05:14 01/23/24 11:37 01/23/24 06:35 01/20/24 06:24 Test 01/20/24 06:24 Range/Units Serum Glucose 97 74-106 mg/dL Problem List/Assessment/Plan Problems(with codes): (1) Infected ulcer of skin (2) Hypertensive urgency (3) Osteomyelitis of right foot (4) Hypokalemia (5) Cellulitis (6) Antibiotic-resistant bacterial infection Problem List/Assessment/Plan ASSESSMENT AND PLAN: ID Problem List: - Right foot ulcer - Osteomyelitis - Hypertension - Tobacco use disorder - R foot cellulitis Assessment This is a 58-year-old female with a past medical history of hypertension and chronic smoking since age 10, who presents with a right foot ulcer for several weeks associated with moderate to severe pain and swelling. She had tendonitis in the right foot last November. The lesion started as a small pinpoint ulcer and progressed rapidly over a few days into a large, macerated wound with necrosis and skin sloughing on the dorsal aspect of the foot. She was previously treated with oral antibiotics without improvement. Laboratory studies show WBC count of 9.2, platelets 236, BUN 17, creatinine 1.05, lactate 1.2, sodium 141. Imaging studies include an X-ray revealing mild first joint osteomyelitis and soft tissue swelling at the dorsum of the right foot. Wound cultures grew few coagulase-negative staphylococci and rare growth of Stenotrophomonas maltophilia. She was started on intravenous vancomycin and Zosyn. Plan: - Continue vancomycinx 6 weeks - Continue Levofloxacinx 6 weeks, will cover stenotrophomonas - fu in ID clinic in 4 weeks - Recommend blood cultures. - podiatry recommends deferring any debridement to outpatient, without surgery rec - Would not change therapy based on Stenotrophomonas maltophilia as it is unlikely to be the etiology of patient's current severe cellulitic infection. Isolation Precautions: Standard Assessment and plan was discussed with the patient as written above Plan is subject to change pending incorporation of new incoming information/diagnostics. Updates may be added as addendum at the bottom (OR TOP) of this note Thank you for interesting consult. ID will continue to follow. Please contact Infectious Disease for any questions or concerns. Amie Lizarraga M.D. [facility] Ph: ? Plan discussed with: Other Dietary Evaluation Review Comments: 1. Continue current diet regime 2. Consider Roni BID (180kcal, 5g pro) Expected Outcomes/Goals: 1. Pt will consume >75% of needs within 3-5 days AMIE LIZARRAGA MD Jan 24, 2024 22:36
[2024-01-25] VITALS (9 sets, daily range): BP systolic 125–193; BP diastolic 47–89; PULSE 73–99; RESP 16–20; TEMP 97.7–99.1; O2SAT 96–100
[2024-01-25] MEDS: VANCOMYCIN 1GM/250ML KIT 250 ML IV SCH ×2 (05:11→16:19)
[2024-01-25] MEDS: VANCOMYCIN 1GM/250ML KIT 200 ML IV ONE (08:19)
[2024-01-25] MEDS: DOCUSATE SOD 100 MG CAP PO SCH (10:00)
--- NOTE | 2024-01-25 10:10 | DVHPN2 ---
Subjective Patient continues to report having severe pain to her right foot and ankle. Reviewed: Care Plan, H&P, Labs, Medications, Radiology Changes from previous H/P or p: No Changes General: Per HPI Eyes: No Pain, No Vision change, No Conjunctivae inflammation, No Eyelid inflammation, No Other, No Redness ENT: No Ear pain, No Ear discharge, No Nose pain, No Nose discharge, No Nose congestion, No Mouth pain, No Mouth swelling, No Throat pain, No Throat swelling, No Other Cardiovascular: No Chest Pain, No Palpitations, No Orthopnea, No Paroxysmal Noc. Dyspnea, No Edema, No Lt Headedness, No Other Respiratory: No Cough, No Dry, No Shortness of breath, No SOB with excertion, No Wheezing, No Hemoptysis, No Pleuritic Pain, No Sputum, No Other Gastrointestinal: No Nausea, No Vomiting, No Abdominal Pain, No Diarrhea, No Constipation, No Melena, No Hematochezia, No Other Genitourinary: No Dysuria, No Frequency, No Incontinence, No Hematuria, No Retention, No Other Musculoskeletal: other (Right foot wound.); No neck pain, No shoulder pain, No arm pain, No back pain, No hand pain, No leg pain, No foot pain Skin: No Rash, No Lesions, No Jaundice, No Bruising, No Other Objective Vitals Vital Signs Date Time Temp Pulse Resp B/P (MAP) Pulse Ox O2 Delivery O2 Flow Rate FiO2 01/25/24 08:39 98.1 74 18 133/56 (81) 99 98.1 01/24/24 20:00 Room Air* 0 21 Intake/Output Intake and Output 01/25/24 07:00 Intake Total 3185 ml Output Total 600 ml Balance 2585 ml Intake Oral 2345 ml IV Total 840 ml Output Urine Total 600 ml # Voids 1 General Appearance: Alert, Oriented X3, Cooperative, mild distress HEENT: Atraumatic, PERRLA, EOMI, Mucous membr. moist/pink Neck: Supple Lungs: Clear to auscultation, Normal air movement Cardiovascular: Regular rate, Normal S1, Normal S2, No murmurs, Gallops, Rubs Abdomen: Normal bowel sounds, Soft, No tenderness Musculoskeletal: Normal sensory function, Normal motor function Neuro: Cranial nerves 3-12 NL Skin: Wounds (See nurse notes and pictures) Psych/Mental Status: Mental status NL, Mood NL (Patient agitated) Medications Current Medications Medications Dose Ordered Sig/Gregoria Route Start Time Stop Time Status Last Admin Dose Admin Vancomycin HCl 0 ml @ 0 mls/hr UD IV 01/12/24 01:15 Sodium Chloride 10 ml Q8HR IV 01/12/24 06:00 01/25/24 05:27 10 ML Ondansetron HCl 4 mg Q4HP PRN IV 01/12/24 03:15 Zinc Sulfate 220 mg DAILY PO 01/12/24 10:00 01/25/24 08:23 220 MG Ascorbic Acid 500 mg BID PO 01/12/24 10:00 01/25/24 08:24 500 MG Multivitamins 1 tab DAILY PO 01/12/24 10:00 01/25/24 08:22 1 TAB Acetaminophen 650 mg Q6HP PRN PO 01/12/24 03:15 01/25/24 04:16 650 MG Nitroglycerin 0.4 mg Q5MINP PRN SL 01/12/24 06:45 Morphine Sulfate 2 mg Q30M PRN IV 01/12/24 06:45 Hydralazine HCl 10 mg Q6HP PRN IV 01/12/24 07:30 01/24/24 21:46 10 MG Enteral Nutritional Formula 27.5 gm BIDWM PO 01/14/24 08:00 01/24/24 18:15 27.5 GM Clonidine HCl 0.1 mg Q8HP PRN PO 01/14/24 13:15 01/24/24 11:47 0.1 MG Levofloxacin 750 mg DAILY PO 01/19/24 10:00 01/25/24 08:21 750 MG Amlodipine Besylate 5 mg BID PO 01/20/24 22:00 01/25/24 08:24 5 MG Atorvastatin Calcium 40 mg DAILY PO 01/21/24 10:00 01/24/24 10:18 40 MG Duloxetine HCl 30 mg DAILY PO 01/21/24 10:00 01/25/24 08:20 30 MG Lisinopril 40 mg DAILY PO 01/21/24 10:00 01/25/24 08:23 40 MG Propranolol HCl 20 mg DAILY PO 01/22/24 10:00 01/25/24 08:24 20 MG Sodium Chloride 10 ml QSHIFT@, IV 12/3/24 22:00 01/25/24 08:20 10 ML Vancomycin HCl 250 ml @ 250 mls/hr Q12H IV 01/25/24 17:00 Oxycodone HCl 10 mg Q6HP PRN PO 01/25/24 09:30 Docusate Sodium 100 mg BID PO 01/25/24 10:00 Laboratory Results Laboratory Tests 01/20/24 06:24 01/23/24 06:35 01/23/24 11:37 01/24/24 05:14 Microbiology Microbiology Date/Time Source Procedure Growth Status 01/13/24 12:15 Foot Gram Stain - Final Complete 01/13/24 12:15 Wound Culture - Final Stenotrophomonas maltophilia Complete Labs and/or images reviewed: Labs reviewed by me, Image(s) reviewed by me Assessment/Plan Assessment/Plan Impression: -? Right foot/ankle osteomyelitis given MRI results -primary hypertension -peripheral arterial disease -failure of oral antibiotic therapy Plan: Events: Pt stating continued pain despite current modality -Increase Oxycodone -Podiatry recommendations reviewed. -infectious disease consultation: Continue antibiotic therapy per their recommendations -pain management: Change Dickinson to Percocet -check ESR -DC held secondary to acceptance by [facility]. Continue current POC until DC Total time spent with patient discussing and formulating plan of care: 35 minutes. This medical document was created using an electronic medical record system with [employer] dictation system. Although this document has been carefully reviewed, there may still be some phonetic and typographical errors. These areas are purely typographical due to imperfections of the software programs, and do not reflect any compromise in the patient's medical care. Plan discussed with: Patient, Other (RN) My Orders Orders - MINNIE MURRIETA NP Procedure Category Date Status Time Oxycodone Immediate PHA 01/25/24 In Process Rel Tablet 09:30 Docusate Sodium PHA 01/25/24 In Process Capsule (Colace 10:00 Date of Service: Jan 25, 2024 Billing Provider: MINNIE MURRIETA NP Common Visit Codes: [id number] INP/OBS CARE(HIGH) MINNIE MURRIETA NP Jan 25, 2024 10:10
[2024-01-25] MEDS: oxyCODONE HCL 5MG TAB PO PRN (16:23)
[2024-01-26 01:00] VITALS: BP 131/68; PULSE 100; RESP 20; TEMP 99.1; O2SAT 94
[2024-01-26 05:00] VITALS: BP 149/69; PULSE 94; RESP 19; TEMP 99.3; O2SAT 93
[2024-01-26 09:34] VITALS: BP 131/59; PULSE 96; RESP 16; TEMP 97.6; O2SAT 100
--- NOTE | 2024-01-26 10:11 | DVHPN2 ---
Subjective Patient continues to report having severe pain to her right foot and ankle. Reviewed: Care Plan, H&P, Labs, Medications, Radiology Changes from previous H/P or p: No Changes General: Per HPI Eyes: No Pain, No Vision change, No Conjunctivae inflammation, No Eyelid inflammation, No Other, No Redness ENT: No Ear pain, No Ear discharge, No Nose pain, No Nose discharge, No Nose congestion, No Mouth pain, No Mouth swelling, No Throat pain, No Throat swelling, No Other Cardiovascular: No Chest Pain, No Palpitations, No Orthopnea, No Paroxysmal Noc. Dyspnea, No Edema, No Lt Headedness, No Other Respiratory: No Cough, No Dry, No Shortness of breath, No SOB with excertion, No Wheezing, No Hemoptysis, No Pleuritic Pain, No Sputum, No Other Gastrointestinal: No Nausea, No Vomiting, No Abdominal Pain, No Diarrhea, No Constipation, No Melena, No Hematochezia, No Other Genitourinary: No Dysuria, No Frequency, No Incontinence, No Hematuria, No Retention, No Other Musculoskeletal: other (Right foot wound.); No neck pain, No shoulder pain, No arm pain, No back pain, No hand pain, No leg pain, No foot pain Skin: No Rash, No Lesions, No Jaundice, No Bruising, No Other Objective Vitals Vital Signs Date Time Temp Pulse Resp B/P (MAP) Pulse Ox O2 Delivery O2 Flow Rate FiO2 01/26/24 09:34 97.6 96 16 131/59 (83) 100 97.6 01/25/24 20:00 Room Air* 0 21 Intake/Output Intake and Output 01/26/24 07:00 Intake Total 850 ml Balance 850 ml Intake Oral 600 ml IV Total 250 ml # Voids 5 General Appearance: Alert, Oriented X3, Cooperative, mild distress HEENT: Atraumatic, PERRLA, EOMI, Mucous membr. moist/pink Neck: Supple Lungs: Clear to auscultation, Normal air movement Cardiovascular: Regular rate, Normal S1, Normal S2, No murmurs, Gallops, Rubs Abdomen: Normal bowel sounds, Soft, No tenderness Musculoskeletal: Normal sensory function, Normal motor function Neuro: Cranial nerves 3-12 NL Skin: Wounds (See nurse notes and pictures) Psych/Mental Status: Mental status NL, Mood NL (Patient agitated) Medications Current Medications Medications Dose Ordered Sig/Gregoria Route Start Time Stop Time Status Last Admin Dose Admin Vancomycin HCl 0 ml @ 0 mls/hr UD IV 01/12/24 01:15 Sodium Chloride 10 ml Q8HR IV 01/12/24 06:00 01/26/24 06:00 10 ML Ondansetron HCl 4 mg Q4HP PRN IV 01/12/24 03:15 Zinc Sulfate 220 mg DAILY PO 01/12/24 10:00 01/25/24 08:23 220 MG Ascorbic Acid 500 mg BID PO 01/12/24 10:00 01/25/24 22:45 500 MG Multivitamins 1 tab DAILY PO 01/12/24 10:00 01/25/24 08:22 1 TAB Acetaminophen 650 mg Q6HP PRN PO 01/12/24 03:15 01/26/24 09:55 650 MG Nitroglycerin 0.4 mg Q5MINP PRN SL 01/12/24 06:45 Hydralazine HCl 10 mg Q6HP PRN IV 01/12/24 07:30 01/25/24 18:59 10 MG Enteral Nutritional Formula 27.5 gm BIDWM PO 01/14/24 08:00 01/25/24 16:33 27.5 GM Clonidine HCl 0.1 mg Q8HP PRN PO 01/14/24 13:15 01/25/24 21:35 0.1 MG Levofloxacin 750 mg DAILY PO 01/19/24 10:00 01/25/24 08:21 750 MG Amlodipine Besylate 5 mg BID PO 01/20/24 22:00 01/25/24 22:45 5 MG Atorvastatin Calcium 40 mg DAILY PO 01/21/24 10:00 01/24/24 10:18 40 MG Duloxetine HCl 30 mg DAILY PO 01/21/24 10:00 01/25/24 08:20 30 MG Lisinopril 40 mg DAILY PO 01/21/24 10:00 01/25/24 08:23 40 MG Propranolol HCl 20 mg DAILY PO 01/22/24 10:00 01/25/24 08:24 20 MG Sodium Chloride 10 ml QSHIFT@10,22 IV 01/23/24 22:00 01/25/24 22:50 10 ML Vancomycin HCl 250 ml @ 250 mls/hr Q12H IV 01/25/24 17:00 01/26/24 04:35 250 MLS/HR Oxycodone HCl 10 mg Q6HP PRN PO 01/25/24 09:30 01/26/24 06:06 10 MG Docusate Sodium 100 mg BID PO 01/25/24 10:00 Laboratory Results Laboratory Tests 01/20/24 06:24 01/23/24 06:35 01/23/24 11:37 01/26/24 05:14 Microbiology Microbiology Date/Time Source Procedure Growth Status 01/13/24 12:15 Foot Gram Stain - Final Complete 01/13/24 12:15 Wound Culture - Final Stenotrophomonas maltophilia Complete Labs and/or images reviewed: Labs reviewed by me, Image(s) reviewed by me Assessment/Plan Assessment/Plan Impression: -? Right foot/ankle osteomyelitis given MRI results -primary hypertension -peripheral arterial disease -failure of oral antibiotic therapy Plan: Events: Apparently, patient has no help at home with discharge planning now involving transferred to a group home facility at [place]. Orders placed. Continue current plan of care. -Increase Oxycodone -Podiatry recommendations reviewed. -infectious disease consultation: Continue antibiotic therapy per their recommendations -pain management: Change [place] to Percocet -check ESR -discharge to group home facility Total time spent with patient discussing and formulating plan of care: 35 minutes. This medical document was created using an electronic medical record system with [employer] dictation system. Although this document has been carefully reviewed, there may still be some phonetic and typographical errors. These areas are purely typographical due to imperfections of the software programs, and do not reflect any compromise in the patient's medical care. Plan discussed with: Patient, Other (RN) My Orders Orders - MINNIE MURRIETA NP Procedure Category Date Status Time Discharge DISCHARGE 01/25/24 Transmitted 16:13 Date of Service: Jan 26, 2024 Billing Provider: MINNIE MURRIETA NP Common Visit Codes: [id number] INP/OBS CARE(HIGH) MINNIE MURRIETA NP Jan 26, 2024 10:11
[2024-01-26 13:00] VITALS: BP 156/71; PULSE 91; RESP 19; TEMP 98.3; O2SAT 96
--- NOTE | 2024-01-26 13:39 | DVHPN2 ---
Consult Progress Note Date Seen: Jan 25, 2024 Subjective Patient reports: Other (no longer has family members avaliable to help with IV antibiotics and is now planning to go to SNF , high BP , denies headaches , her foot is dry and the ulcer is starting to not have any excedate ) Objective vital signs Vital Sign Date Time Temp Pulse Resp B/P (MAP) Pulse Ox O2 Delivery O2 Flow Rate FiO2 01/26/24 11:38 96 131/59 01/26/24 09:34 97.6 16 100 97.6 01/26/24 08:00 Room Air* 0 21 Total Intake and Output 01/25/24 01/25/24 01/26/24 15:00 23:00 07:00 Intake Total 850 ml Balance 850 ml medications Current Medications Medications Dose Ordered Sig/Gregoria Route Start Time Stop Time Status Last Admin Dose Admin Vancomycin HCl 0 ml @ 0 mls/hr UD IV 01/12/24 01:15 Sodium Chloride 10 ml Q8HR IV 01/12/24 06:00 01/26/24 06:00 10 ML Ondansetron HCl 4 mg Q4HP PRN IV 01/12/24 03:15 Zinc Sulfate 220 mg DAILY PO 01/12/24 10:00 01/26/24 11:36 220 MG Ascorbic Acid 500 mg BID PO 01/12/24 10:00 01/26/24 11:36 500 MG Multivitamins 1 tab DAILY PO 01/12/24 10:00 01/25/24 08:22 1 TAB Acetaminophen 650 mg Q6HP PRN PO 01/12/24 03:15 01/26/24 09:55 650 MG Nitroglycerin 0.4 mg Q5MINP PRN SL 01/12/24 06:45 Hydralazine HCl 10 mg Q6HP PRN IV 01/12/24 07:30 01/25/24 18:59 10 MG Enteral Nutritional Formula 27.5 gm BIDWM PO 01/14/24 08:00 01/25/24 16:33 27.5 GM Clonidine HCl 0.1 mg Q8HP PRN PO 01/14/24 13:15 01/25/24 21:35 0.1 MG Levofloxacin 750 mg DAILY PO 01/19/24 10:00 01/26/24 11:36 750 MG Amlodipine Besylate 5 mg BID PO 01/20/24 22:00 01/26/24 11:36 5 MG Atorvastatin Calcium 40 mg DAILY PO 01/21/24 10:00 01/26/24 11:37 40 MG Duloxetine HCl 30 mg DAILY PO 01/21/24 10:00 01/26/24 11:36 30 MG Lisinopril 40 mg DAILY PO 01/21/24 10:00 01/26/24 11:37 40 MG Propranolol HCl 20 mg DAILY PO 01/22/24 10:00 01/26/24 11:38 20 MG Sodium Chloride 10 ml QSHIFT@10,22 IV 01/23/24 22:00 01/26/24 11:38 10 ML Vancomycin HCl 250 ml @ 250 mls/hr Q12H IV 01/25/24 17:00 01/26/24 04:35 250 MLS/HR Oxycodone HCl 10 mg Q6HP PRN PO 01/25/24 09:30 01/26/24 12:38 10 MG Docusate Sodium 100 mg BID PO 01/25/24 10:00 01/26/24 11:35 100 MG Physical Exam: General: Patient is in general acute distress; Neck: Supple. No masses. HEENT: PERRL. Normal lids and conjunctiva. Moist mucous membranes. Oropharynx without lesions, exudates, or excessive erythema. Normal appearance of the external aspects of the nose and ears. Heart: Regular rhythm, normal rate. No murmur. No lower extremity edema. Lungs: Normal respiratory effort. Clear to auscultation bilaterally. No wheezes. No crackles. Abdomen: Soft. Non-tender. Non-distended. No masses or abdominal hernia. MSK: No digital cyanosis. Normal strength and tone in all 4 limbs. Skin: Warm and dry, no rashes. Neuro: No facial droop or slurred speech. Extraocular movements intact. Sensation intact to soft touch in all 4 limbs. laboratory and microbiology Laboratory Tests 01/26/24 05:14 01/23/24 11:37 01/23/24 06:35 01/20/24 06:24 Test 01/20/24 06:24 Range/Units Serum Glucose 97 74-106 mg/dL Problem List/Assessment/Plan Problems(with codes): (1) Antibiotic-resistant bacterial infection (2) Cellulitis (3) Hypokalemia (4) Osteomyelitis of right foot (5) Hypertensive urgency (6) Infected ulcer of skin Problem List/Assessment/Plan ASSESSMENT AND PLAN: ID Problem List: - Right foot ulcer - Osteomyelitis - Hypertension - Tobacco use disorder - R foot cellulitis Assessment This is a 58-year-old female with a past medical history of hypertension and chronic smoking since age 10, who presents with a right foot ulcer for several weeks associated with moderate to severe pain and swelling. She had tendonitis in the right foot last November. The lesion started as a small pinpoint ulcer and progressed rapidly over a few days into a large, macerated wound with necrosis and skin sloughing on the dorsal aspect of the foot. She was previously treated with oral antibiotics without improvement. Laboratory studies show WBC count of 9.2, platelets 236, BUN 17, creatinine 1.05, lactate 1.2, sodium 141. Imaging studies include an X-ray revealing mild first joint osteomyelitis and soft tissue swelling at the dorsum of the right foot. Wound cultures grew few coagulase-negative staphylococci and rare growth of Stenotrophomonas maltophilia. She was started on intravenous vancomycin and Zosyn. Plan: - Continue vancomycinx 6 weeks - Continue Levofloxacinx 6 weeks, will cover stenotrophomonas - fu in ID clinic in 4 weeks - Recommend blood cultures. - podiatry recommends deferring any debridement to outpatient, without surgery rec - Would not change therapy based on Stenotrophomonas maltophilia as it is unlikely to be the etiology of patient's current severe cellulitic infection. Isolation Precautions: Standard Assessment and plan was discussed with the patient as written above Plan is subject to change pending incorporation of new incoming information/diagnostics. Updates may be added as addendum at the bottom (OR TOP) of this note Thank you for interesting consult. ID will continue to follow. Please contact Infectious Disease for any questions or concerns. Amie Lizarraga M.D. [facility] Ph: ? Plan discussed with: Other Dietary Evaluation Review Comments: 1. Continue current diet regime 2. Consider Roni BID (180kcal, 5g pro) Expected Outcomes/Goals: 1. Pt will consume >75% of needs within 3-5 days AMIE LIZARRAGA MD Jan 26, 2024 13:39
[2024-01-26 16:57] VITALS: BP 108/48; PULSE 78; RESP 16; TEMP 98.3; O2SAT 98
--- NOTE | 2024-01-26 22:38 | DVHPN2 ---
Consult Progress Note Date Seen: Jan 26, 2024 Subjective Patient reports: Feels better, Other (now going to SNF if doesnt have living arrangements to continue IV antibioitics , right foot wound is clean ) Objective vital signs Vital Sign Date Time Temp Pulse Resp B/P (MAP) Pulse Ox O2 Delivery O2 Flow Rate FiO2 01/26/24 16:57 98.3 78 16 108/48 (68) 98 98.3 01/26/24 08:00 Room Air* 0 21 Total Intake and Output 01/25/24 01/25/24 01/26/24 15:00 23:00 07:00 Intake Total 850 ml Balance 850 ml medications Current Medications Medications Dose Ordered Sig/Gregoria Route Start Time Stop Time Status Last Admin Dose Admin Vancomycin HCl 0 ml @ 0 mls/hr UD IV 01/12/24 01:15 Sodium Chloride 10 ml Q8HR IV 01/12/24 06:00 01/26/24 14:49 10 ML Ondansetron HCl 4 mg Q4HP PRN IV 01/12/24 03:15 Zinc Sulfate 220 mg DAILY PO 01/12/24 10:00 01/26/24 11:36 220 MG Ascorbic Acid 500 mg BID PO 01/12/24 10:00 01/26/24 11:36 500 MG Multivitamins 1 tab DAILY PO 01/12/24 10:00 01/25/24 08:22 1 TAB Acetaminophen 650 mg Q6HP PRN PO 01/12/24 03:15 01/26/24 09:55 650 MG Nitroglycerin 0.4 mg Q5MINP PRN SL 01/12/24 06:45 Hydralazine HCl 10 mg Q6HP PRN IV 01/12/24 07:30 01/25/24 18:59 10 MG Enteral Nutritional Formula 27.5 gm BIDWM PO 01/14/24 08:00 01/26/24 18:51 27.5 GM Clonidine HCl 0.1 mg Q8HP PRN PO 01/14/24 13:15 01/25/24 21:35 0.1 MG Levofloxacin 750 mg DAILY PO 01/19/24 10:00 01/26/24 11:36 750 MG Amlodipine Besylate 5 mg BID PO 01/20/24 22:00 01/26/24 11:36 5 MG Atorvastatin Calcium 40 mg DAILY PO 01/21/24 10:00 01/26/24 11:37 40 MG Duloxetine HCl 30 mg DAILY PO 01/21/24 10:00 01/26/24 11:36 30 MG Lisinopril 40 mg DAILY PO 01/21/24 10:00 01/26/24 11:37 40 MG Propranolol HCl 20 mg DAILY PO 01/22/24 10:00 01/26/24 11:38 20 MG Sodium Chloride 10 ml QSHIFT@10,22 IV 01/23/24 22:00 01/26/24 11:38 10 ML Vancomycin HCl 250 ml @ 250 mls/hr Q12H IV 01/25/24 17:00 01/26/24 17:12 250 MLS/HR Oxycodone HCl 10 mg Q6HP PRN PO 01/25/24 09:30 01/26/24 18:51 10 MG Docusate Sodium 100 mg BID PO 01/25/24 10:00 01/26/24 11:35 100 MG Physical Exam: General: Patient is in general acute distress; Neck: Supple. No masses. HEENT: PERRL. Normal lids and conjunctiva. Moist mucous membranes. Oropharynx without lesions, exudates, or excessive erythema. Normal appearance of the external aspects of the nose and ears. Heart: Regular rhythm, normal rate. No murmur. No lower extremity edema. Lungs: Normal respiratory effort. Clear to auscultation bilaterally. No wheezes. No crackles. Abdomen: Soft. Non-tender. Non-distended. No masses or abdominal hernia. MSK: No digital cyanosis. Normal strength and tone in all 4 limbs. Skin: Warm and dry, no rashes. Neuro: No facial droop or slurred speech. Extraocular movements intact. Sensation intact to soft touch in all 4 limbs. laboratory and microbiology Laboratory Tests 01/26/24 05:14 01/23/24 11:37 01/23/24 06:35 01/20/24 06:24 Test 01/20/24 06:24 Range/Units Serum Glucose 97 74-106 mg/dL Problem List/Assessment/Plan Problems(with codes): (1) Infected ulcer of skin (2) Hypertensive urgency (3) Osteomyelitis of right foot (4) Hypokalemia (5) Cellulitis (6) Antibiotic-resistant bacterial infection Problem List/Assessment/Plan ASSESSMENT AND PLAN: ID Problem List: - Right foot ulcer - Osteomyelitis - Hypertension - Tobacco use disorder - R foot cellulitis Assessment This is a 58-year-old female with a past medical history of hypertension and chronic smoking since age 10, who presents with a right foot ulcer for several weeks associated with moderate to severe pain and swelling. She had tendonitis in the right foot last November. The lesion started as a small pinpoint ulcer and progressed rapidly over a few days into a large, macerated wound with necrosis and skin sloughing on the dorsal aspect of the foot. She was previously treated with oral antibiotics without improvement. Laboratory studies show WBC count of 9.2, platelets 236, BUN 17, creatinine 1.05, lactate 1.2, sodium 141. Imaging studies include an X-ray revealing mild first joint osteomyelitis and soft tissue swelling at the dorsum of the right foot. Wound cultures grew few coagulase-negative staphylococci and rare growth of Stenotrophomonas maltophilia. She was started on intravenous vancomycin and Zosyn. Plan: - Continue vancomycinx 6 weeks, end date is 02/24/2024 - Continue Levofloxacinx 6 weeks, will cover stenotrophomonas , end date is 02/24/2024 - fu in ID clinic in 4 weeks - Recommend blood cultures. - podiatry recommends deferring any debridement to outpatient, without surgery rec - Would not change therapy based on Stenotrophomonas maltophilia as it is unlikely to be the etiology of patient's current severe cellulitic infection. Isolation Precautions: Standard Assessment and plan was discussed with the patient as written above Plan is subject to change pending incorporation of new incoming information/diagnostics. Updates may be added as addendum at the bottom (OR TOP) of this note Thank you for interesting consult. ID will continue to follow. Please contact Infectious Disease for any questions or concerns. Amie Lizarraga M.D. [facility] Ph: ? Plan discussed with: Other Dietary Evaluation Review Comments: 1. Continue current diet regime 2. Consider Roni BID (180kcal, 5g pro) Expected Outcomes/Goals: 1. Pt will consume >75% of needs within 3-5 days AMIE LIZARRAGA MD Jan 26, 2024 22:38
[2024-01-27 01:00] VITALS: BP 126/63; PULSE 91; RESP 17; TEMP 97.3; O2SAT 98
[2024-01-27 05:00] VITALS: BP 134/58; PULSE 89; RESP 18; TEMP 97.4; O2SAT 95
[2024-01-27 09:00] VITALS: BP 141/76; PULSE 89; RESP 18; TEMP 99.2; O2SAT 97
--- NOTE | 2024-01-27 12:04 | DVHPN2 ---
Subjective The patient is seen and examined at bedside. Complain of leg wound pain. No fever or chill. Reviewed: Care Plan, H&P, Labs, Medications, Radiology Changes from previous H/P or p: No Changes General: Per HPI Eyes: No Pain, No Vision change, No Conjunctivae inflammation, No Eyelid inflammation, No Other, No Redness ENT: No Ear pain, No Ear discharge, No Nose pain, No Nose discharge, No Nose congestion, No Mouth pain, No Mouth swelling, No Throat pain, No Throat swelling, No Other Cardiovascular: No Chest Pain, No Palpitations, No Orthopnea, No Paroxysmal Noc. Dyspnea, No Edema, No Lt Headedness, No Other Respiratory: No Cough, No Dry, No Shortness of breath, No SOB with excertion, No Wheezing, No Hemoptysis, No Pleuritic Pain, No Sputum, No Other Gastrointestinal: No Nausea, No Vomiting, No Abdominal Pain, No Diarrhea, No Constipation, No Melena, No Hematochezia, No Other Genitourinary: No Dysuria, No Frequency, No Incontinence, No Hematuria, No Retention, No Other Musculoskeletal: other (Right foot wound.); No neck pain, No shoulder pain, No arm pain, No back pain, No hand pain, No leg pain, No foot pain Skin: No Rash, No Lesions, No Jaundice, No Bruising, No Other Objective Vitals Vital Signs Date Time Temp Pulse Resp B/P (MAP) Pulse Ox O2 Delivery O2 Flow Rate FiO2 01/27/24 09:00 99.2 89 18 141/76 (97) 97 99.2 01/27/24 08:00 Room Air* 0 21 Intake/Output Intake and Output 01/27/24 07:00 Intake Total 1950 ml Balance 1950 ml Intake Oral 1700 ml IV Total 250 ml # Voids 5 General Appearance: Alert, Oriented X3, Cooperative, mild distress HEENT: Atraumatic, PERRLA, EOMI, Mucous membr. moist/pink Neck: Supple Lungs: Clear to auscultation, Normal air movement Cardiovascular: Regular rate, Normal S1, Normal S2, No murmurs, Gallops, Rubs Abdomen: Normal bowel sounds, Soft, No tenderness Musculoskeletal: Normal sensory function, Normal motor function Neuro: Cranial nerves 3-12 NL Skin: Wounds (See nurse notes and pictures) Psych/Mental Status: Mental status NL, Mood NL (Patient agitated) Medications Current Medications Medications Dose Ordered Sig/Gregoria Route Start Time Stop Time Status Last Admin Dose Admin Vancomycin HCl 0 ml @ 0 mls/hr UD IV 01/12/24 01:15 Sodium Chloride 10 ml Q8HR IV 01/12/24 06:00 01/27/24 05:59 10 ML Ondansetron HCl 4 mg Q4HP PRN IV 01/12/24 03:15 Zinc Sulfate 220 mg DAILY PO 01/12/24 10:00 01/27/24 08:39 220 MG Ascorbic Acid 500 mg BID PO 01/12/24 10:00 01/27/24 08:40 500 MG Multivitamins 1 tab DAILY PO 01/12/24 10:00 01/27/24 08:39 1 TAB Acetaminophen 650 mg Q6HP PRN PO 01/12/24 03:15 01/26/24 09:55 650 MG Nitroglycerin 0.4 mg Q5MINP PRN SL 01/12/24 06:45 Hydralazine HCl 10 mg Q6HP PRN IV 01/12/24 07:30 01/25/24 18:59 10 MG Enteral Nutritional Formula 27.5 gm BIDWM PO 01/14/24 08:00 01/27/24 08:05 27.5 GM Clonidine HCl 0.1 mg Q8HP PRN PO 01/14/24 13:15 01/25/24 21:35 0.1 MG Levofloxacin 750 mg DAILY PO 01/19/24 10:00 01/27/24 08:39 750 MG Amlodipine Besylate 5 mg BID PO 01/20/24 22:00 01/27/24 08:40 5 MG Atorvastatin Calcium 40 mg DAILY PO 01/21/24 10:00 01/27/24 08:40 40 MG Duloxetine HCl 30 mg DAILY PO 01/21/24 10:00 01/27/24 08:39 30 MG Lisinopril 40 mg DAILY PO 01/21/24 10:00 01/27/24 08:41 40 MG Propranolol HCl 20 mg DAILY PO 01/22/24 10:00 01/27/24 08:40 20 MG Sodium Chloride 10 ml QSHIFT@10, IV 01/23/24 22:00 01/27/24 08:39 10 ML Vancomycin HCl 250 ml @ 250 mls/hr Q12H IV 01/25/24 17:00 01/27/24 04:26 250 MLS/HR Oxycodone HCl 10 mg Q6HP PRN PO 01/25/24 09:30 01/27/24 08:38 10 MG Docusate Sodium 100 mg BID PO 01/25/24 10:00 01/27/24 08:40 100 MG Laboratory Results Laboratory Tests 01/20/24 06:24 01/23/24 06:35 01/23/24 11:37 01/27/24 05:51 Microbiology Microbiology Date/Time Source Procedure Growth Status 01/13/24 12:15 Foot Gram Stain - Final Complete 01/13/24 12:15 Wound Culture - Final Stenotrophomonas maltophilia Complete Labs and/or images reviewed: Labs reviewed by me Assessment/Plan Assessment/Plan Osteomyelitis of the right foot, failed outpatient antibiotic Hypertension uncontrolled Plan: Continuing current management continuing with IV antibiotic vancomycin and Zosyn. Continue pain medication. Waiting for SNF in [facility]. Continue wound care. Continue HTN meds. Plan discussed with: Patient Date of Service: Jan 27, 2024 Billing Provider: AUROAR AGUILAR MD Common Visit Codes: [id number] INP/OBS CARE(HIGH) AURORA AGUILAR MD Jan 27, 2024 12:04
[2024-01-27 12:56] VITALS: BP 128/68; PULSE 76; RESP 20; TEMP 98.8; O2SAT 97
[2024-01-27 16:56] VITALS: BP 129/87; PULSE 86; RESP 20; TEMP 98.1; O2SAT 96
[2024-01-27 21:00] VITALS: BP 165/82; PULSE 101; RESP 20; TEMP 98.3; O2SAT 96
--- NOTE | 2024-01-27 23:34 | DVHPN2 ---
Consult Progress Note Date Seen: Jan 27, 2024 Subjective Patient reports: Feels better (no diarrhea or rash) Objective vital signs Vital Sign Date Time Temp Pulse Resp B/P (MAP) Pulse Ox O2 Delivery O2 Flow Rate FiO2 01/27/24 23:30 165/82 01/27/24 16:56 98.1 86 20 96 98.1 01/27/24 08:00 Room Air* 0 21 Total Intake and Output 01/26/24 01/26/24 01/27/24 15:00 23:00 07:00 Intake Total 1050 ml 900 ml Balance 1050 ml 900 ml medications Current Medications Medications Dose Ordered Sig/Gregoria Route Start Time Stop Time Status Last Admin Dose Admin Vancomycin HCl 0 ml @ 0 mls/hr UD IV 01/12/24 01:15 Sodium Chloride 10 ml Q8HR IV 01/12/24 06:00 01/27/24 23:30 10 ML Ondansetron HCl 4 mg Q4HP PRN IV 01/12/24 03:15 Zinc Sulfate 220 mg DAILY PO 01/12/24 10:00 01/27/24 08:39 220 MG Ascorbic Acid 500 mg BID PO 01/12/24 10:00 01/27/24 23:28 500 MG Multivitamins 1 tab DAILY PO 01/12/24 10:00 01/27/24 08:39 1 TAB Acetaminophen 650 mg Q6HP PRN PO 01/12/24 03:15 01/26/24 09:55 650 MG Nitroglycerin 0.4 mg Q5MINP PRN SL 01/12/24 06:45 Hydralazine HCl 10 mg Q6HP PRN IV 01/12/24 07:30 01/25/24 18:59 10 MG Enteral Nutritional Formula 27.5 gm BIDWM PO 01/14/24 08:00 01/27/24 17:22 27.5 GM Clonidine HCl 0.1 mg Q8HP PRN PO 01/14/24 13:15 01/25/24 21:35 0.1 MG Levofloxacin 750 mg DAILY PO 01/19/24 10:00 01/27/24 08:39 750 MG Amlodipine Besylate 5 mg BID PO 01/20/24 22:00 01/27/24 23:30 5 MG Atorvastatin Calcium 40 mg DAILY PO 01/21/24 10:00 01/27/24 08:40 40 MG Duloxetine HCl 30 mg DAILY PO 01/21/24 10:00 01/27/24 08:39 30 MG Lisinopril 40 mg DAILY PO 01/21/24 10:00 01/27/24 08:41 40 MG Propranolol HCl 20 mg DAILY PO 01/22/24 10:00 01/27/24 08:40 20 MG Sodium Chloride 10 ml QSHIFT@10,22 IV 01/23/24 22:00 01/27/24 22:00 10 ML Vancomycin HCl 250 ml @ 250 mls/hr Q12H IV 01/25/24 17:00 01/27/24 17:22 250 MLS/HR Oxycodone HCl 10 mg Q6HP PRN PO 01/25/24 09:30 01/27/24 15:55 10 MG Docusate Sodium 100 mg BID PO 01/25/24 10:00 01/27/24 23:27 100 MG PHYSICAL EXAM: - GENERAL: Alert and oriented x 3. No acute distress. Well-nourished. - EYES: EOMI. Anicteric. - HENT: Moist mucous membranes. No scleral icterus. No cervical lymphadenopathy. - LUNGS: Clear to auscultation bilaterally. No accessory muscle use. - CARDIOVASCULAR: Regular rate and rhythm. No murmur. No JVD. - ABDOMEN: Soft, non-tender and non-distended. No palpable masses. - EXTREMITIES: No edema. Non-tender.?SKIN: No rashes or lesions. Warm. - NEUROLOGIC: No focal neurological deficits. CN II-XII grossly intact, but not individually tested. - PSYCHIATRIC: Cooperative. Appropriate mood and affect. laboratory and microbiology Laboratory Tests 01/27/24 05:51 01/23/24 11:37 01/23/24 06:35 01/20/24 06:24 Test 01/20/24 06:24 Range/Units Serum Glucose 97 74-106 mg/dL Problem List/Assessment/Plan Problem List/Assessment/Plan ASSESSMENT AND PLAN: ID Problem List: - Right foot ulcer - Osteomyelitis - Hypertension - Tobacco use disorder - R foot cellulitis Assessment This is a 58-year-old female with a past medical history of hypertension and chronic smoking since age 10, who presents with a right foot ulcer for several weeks associated with moderate to severe pain and swelling. She had tendonitis in the right foot last November. The lesion started as a small pinpoint ulcer and progressed rapidly over a few days into a large, macerated wound with necrosis and skin sloughing on the dorsal aspect of the foot. She was previously treated with oral antibiotics without improvement. Laboratory studies show WBC count of 9.2, platelets 236, BUN 17, creatinine 1.05, lactate 1.2, sodium 141. Imaging studies include an X-ray revealing mild first joint osteomyelitis and soft tissue swelling at the dorsum of the right foot. Wound cultures grew few coagulase-negative staphylococci and rare growth of Stenotrophomonas maltophilia. She was started on intravenous vancomycin and Zosyn. Plan: - Continue vancomycinx 6 weeks, end date is 02/24/2024 - Continue Levofloxacinx 6 weeks, will cover stenotrophomonas , end date is 02/24/2024 - fu in ID clinic in 4 weeks - Recommend blood cultures. - podiatry recommends deferring any debridement to outpatient, without surgery rec - Would not change therapy based on Stenotrophomonas maltophilia as it is unlikely to be the etiology of patient's current severe cellulitic infection. Isolation Precautions: Standard Assessment and plan was discussed with the patient as written above Plan is subject to change pending incorporation of new incoming information/diagnostics. Updates may be added as addendum at the bottom (OR TOP) of this note Thank you for interesting consult. ID will continue to follow. Please contact Infectious Disease for any questions or concerns. Amie Lizarraga M.D. [facility] Ph: ? Plan discussed with: Patient Dietary Evaluation Review Comments: 1. Continue current diet regime 2. Consider Roni BID (180kcal, 5g pro) Expected Outcomes/Goals: 1. Pt will consume >75% of needs within 3-5 days AMIE LIZARRAGA MD Jan 27, 2024 23:33
[2024-01-28 01:00] VITALS: BP 142/76; PULSE 95; RESP 18; TEMP 99.2; O2SAT 96
[2024-01-28 05:00] VITALS: BP 158/64; PULSE 94; RESP 20; TEMP 99; O2SAT 95
[2024-01-28 09:00] VITALS: BP 165/57; PULSE 89; RESP 17; TEMP 98.5; O2SAT 95
--- NOTE | 2024-01-28 12:53 | DVHPN2 ---
Subjective The patient is seen and examined at bedside. Complain of leg wound pain. Reviewed: Care Plan, H&P, Labs, Medications, Radiology Changes from previous H/P or p: No Changes General: Per HPI Eyes: No Pain, No Vision change, No Conjunctivae inflammation, No Eyelid inflammation, No Other, No Redness ENT: No Ear pain, No Ear discharge, No Nose pain, No Nose discharge, No Nose congestion, No Mouth pain, No Mouth swelling, No Throat pain, No Throat swelling, No Other Cardiovascular: No Chest Pain, No Palpitations, No Orthopnea, No Paroxysmal Noc. Dyspnea, No Edema, No Lt Headedness, No Other Respiratory: No Cough, No Dry, No Shortness of breath, No SOB with excertion, No Wheezing, No Hemoptysis, No Pleuritic Pain, No Sputum, No Other Gastrointestinal: No Nausea, No Vomiting, No Abdominal Pain, No Diarrhea, No Constipation, No Melena, No Hematochezia, No Other Genitourinary: No Dysuria, No Frequency, No Incontinence, No Hematuria, No Retention, No Other Musculoskeletal: other (Right foot wound.); No neck pain, No shoulder pain, No arm pain, No back pain, No hand pain, No leg pain, No foot pain Skin: No Rash, No Lesions, No Jaundice, No Bruising, No Other Objective Vitals Vital Signs Date Time Temp Pulse Resp B/P (MAP) Pulse Ox O2 Delivery O2 Flow Rate FiO2 01/28/24 09:57 165/57 01/28/24 09:56 89 01/28/24 07:50 Room Air* 0 21 01/28/24 05:00 99.0 20 95 99.0 Intake/Output Intake and Output 01/28/24 07:00 Intake Total 1600 ml Output Total 0 ml Balance 1600 ml Intake Oral 1350 ml IV Total 250 ml Output Urine Total 0 ml Stool Total 0 ml # Voids 2 General Appearance: Alert, Oriented X3, Cooperative, mild distress HEENT: Atraumatic, PERRLA, EOMI, Mucous membr. moist/pink Neck: Supple Lungs: Clear to auscultation, Normal air movement Cardiovascular: Regular rate, Normal S1, Normal S2, No murmurs, Gallops, Rubs Abdomen: Normal bowel sounds, Soft, No tenderness Musculoskeletal: Normal sensory function, Normal motor function Neuro: Cranial nerves 3-12 NL Skin: Wounds (See nurse notes and pictures) Psych/Mental Status: Mental status NL, Mood NL (Patient agitated) Medications Current Medications Medications Dose Ordered Sig/Gregoria Route Start Time Stop Time Status Last Admin Dose Admin Vancomycin HCl 0 ml @ 0 mls/hr UD IV 01/12/24 01:15 Sodium Chloride 10 ml Q8HR IV 01/12/24 06:00 01/28/24 05:49 10 ML Ondansetron HCl 4 mg Q4HP PRN IV 01/12/24 03:15 Zinc Sulfate 220 mg DAILY PO 01/12/24 10:00 01/28/24 09:56 220 MG Ascorbic Acid 500 mg BID PO 01/12/24 10:00 01/28/24 09:57 500 MG Multivitamins 1 tab DAILY PO 01/12/24 10:00 01/28/24 09:57 1 TAB Acetaminophen 650 mg Q6HP PRN PO 01/12/24 03:15 01/26/24 09:55 650 MG Nitroglycerin 0.4 mg Q5MINP PRN SL 01/12/24 06:45 Hydralazine HCl 10 mg Q6HP PRN IV 01/12/24 07:30 01/25/24 18:59 10 MG Enteral Nutritional Formula 27.5 gm BIDWM PO 01/14/24 08:00 01/28/24 08:00 27.5 GM Clonidine HCl 0.1 mg Q8HP PRN PO 01/14/24 13:15 01/25/24 21:35 0.1 MG Levofloxacin 750 mg DAILY PO 01/19/24 10:00 01/28/24 09:57 750 MG Amlodipine Besylate 5 mg BID PO 01/20/24 22:00 01/28/24 09:56 5 MG Atorvastatin Calcium 40 mg DAILY PO 01/21/24 10:00 01/28/24 09:56 40 MG Duloxetine HCl 30 mg DAILY PO 01/21/24 10:00 01/28/24 09:56 30 MG Lisinopril 40 mg DAILY PO 01/21/24 10:00 01/28/24 09:57 40 MG Propranolol HCl 20 mg DAILY PO 01/22/24 10:00 01/28/24 09:56 20 MG Sodium Chloride 10 ml QSHIFT@10,22 IV 01/23/24 22:00 01/28/24 09:58 10 ML Vancomycin HCl 250 ml @ 250 mls/hr Q12H IV 01/25/24 17:00 01/28/24 05:43 250 MLS/HR Oxycodone HCl 10 mg Q6HP PRN PO 01/25/24 09:30 01/28/24 12:16 10 MG Docusate Sodium 100 mg BID PO 01/25/24 10:00 01/28/24 09:57 100 MG Laboratory Results Laboratory Tests 01/20/24 06:24 01/23/24 06:35 01/23/24 11:37 01/27/24 05:51 Microbiology Microbiology Date/Time Source Procedure Growth Status 01/13/24 12:15 Foot Gram Stain - Final Complete 01/13/24 12:15 Wound Culture - Final Stenotrophomonas maltophilia Complete Labs and/or images reviewed: Labs reviewed by me Assessment/Plan Assessment/Plan Osteomyelitis of the right foot, failed outpatient antibiotic Hypertension uncontrolled Plan: Continuing current management continuing with IV antibiotic vancomycin and Zosyn. Continue pain medication. Still waiting for SNF in [facility]. Continue wound care. Continue HTN meds. Plan discussed with: Patient Date of Service: Jan 28, 2024 Billing Provider: AURORA AGULIAR MD Common Visit Codes: [id number] INP/OBS CARE(HIGH) AURORA AGUILAR MD Jan 28, 2024 12:53
[2024-01-28 13:00] VITALS: BP 158/73; PULSE 83; RESP 16; TEMP 99.6; O2SAT 95
[2024-01-28 17:00] VITALS: BP 154/64; PULSE 89; RESP 16; TEMP 98.4; O2SAT 95
[2024-01-28] MEDS: CATHFLO ACTIVASE (ALTEPLASE) 2 MG VIAL IV ONE (17:05)
[2024-01-28] MEDS: VANCOMYCIN 1GM/250ML KIT 250 ML IV SCH (18:57)
[2024-01-28 21:00] VITALS: BP 129/52; PULSE 93; RESP 17; TEMP 99.2; O2SAT 94
[2024-01-29 05:00] VITALS: BP 105/75; PULSE 91; RESP 17; TEMP 99.3; O2SAT 92
[2024-01-29] MEDS: VANCOMYCIN 1GM/250ML KIT 250 ML IV SCH (06:10)
[2024-01-29 06:59] LABS: Eosinophils # (auto) 0.1 10 ^3/uL (0-0.8); Hemoglobin 7.8 g/dL (12.2-16.2); Lymphocytes # (auto) 1.1 10 ^3/uL (0.4-5.4); Monocytes # (auto) 0.9 10 ^3/uL (0-1.3)
[2024-01-29 07:01] LABS: Basophils # (auto) 0 10 ^3/uL (0-0.2); Basophils % (auto) 0.5 % (0.0-2.0); Eosinophils % (auto) 0.9 % (0.0-7.0); Hematocrit 23.5 % (36.0-46.0); Lymphocytes % (auto) 12.5 % (10.0-50.0); Mean Corpuscular Hemoglobin 27.2 pg (28.0-32.0); Mean Corpuscular Hgb Conc. 33.3 g/dL (32.0-36.0); Mean Corpuscular Volume 81.9 fL (80.0-100.0); Monocytes % (auto) 10.1 % (0.0-12.0); Neutrophils # (auto) 6.9 10 ^3/uL (1.6-8.6); Platelet Count (auto) 230 10^3/uL (140-450); Red Blood Cells 2.87 10^6/uL (4.0-5.20); Red Cell Distribution Width 14.6 % (11.8-14.3); White Blood Cell 9.1 10^3/uL (4.4-10.8)
[2024-01-29 09:00] VITALS: BP 144/63; PULSE 87; RESP 20; TEMP 98.3; O2SAT 91
--- NOTE | 2024-01-29 09:38 | DVHPN2 ---
Subjective Patient continues to report having severe pain to her right foot and ankle. Reviewed: Care Plan, H&P, Labs, Medications, Radiology Changes from previous H/P or p: No Changes General: Per HPI Eyes: No Pain, No Vision change, No Conjunctivae inflammation, No Eyelid inflammation, No Other, No Redness ENT: No Ear pain, No Ear discharge, No Nose pain, No Nose discharge, No Nose congestion, No Mouth pain, No Mouth swelling, No Throat pain, No Throat swelling, No Other Cardiovascular: No Chest Pain, No Palpitations, No Orthopnea, No Paroxysmal Noc. Dyspnea, No Edema, No Lt Headedness, No Other Respiratory: No Cough, No Dry, No Shortness of breath, No SOB with excertion, No Wheezing, No Hemoptysis, No Pleuritic Pain, No Sputum, No Other Gastrointestinal: No Nausea, No Vomiting, No Abdominal Pain, No Diarrhea, No Constipation, No Melena, No Hematochezia, No Other Genitourinary: No Dysuria, No Frequency, No Incontinence, No Hematuria, No Retention, No Other Musculoskeletal: other (Right foot wound.); No neck pain, No shoulder pain, No arm pain, No back pain, No hand pain, No leg pain, No foot pain Skin: No Rash, No Lesions, No Jaundice, No Bruising, No Other Objective Vitals Vital Signs Date Time Temp Pulse Resp B/P (MAP) Pulse Ox O2 Delivery O2 Flow Rate FiO2 01/29/24 08:55 87 144/63 01/29/24 05:00 99.3 17 92 99.3 01/28/24 20:00 Room Air* 0 21 Intake/Output Intake and Output 01/29/24 07:00 Intake Total 2100 ml Balance 2100 ml Intake Oral 2100 ml # Voids 3 General Appearance: Alert, Oriented X3, Cooperative, mild distress HEENT: Atraumatic, PERRLA, EOMI, Mucous membr. moist/pink Neck: Supple Lungs: Clear to auscultation, Normal air movement Cardiovascular: Regular rate, Normal S1, Normal S2, No murmurs, Gallops, Rubs Abdomen: Normal bowel sounds, Soft, No tenderness Musculoskeletal: Normal sensory function, Normal motor function Neuro: Cranial nerves 3-12 NL Skin: Wounds (See nurse notes and pictures) Psych/Mental Status: Mental status NL, Mood NL (Patient agitated) Medications Current Medications Medications Dose Ordered Sig/Gregoria Route Start Time Stop Time Status Last Admin Dose Admin Vancomycin HCl 0 ml @ 0 mls/hr UD IV 01/12/24 01:15 Sodium Chloride 10 ml Q8HR IV 01/12/24 06:00 01/29/24 06:11 10 ML Ondansetron HCl 4 mg Q4HP PRN IV 01/12/24 03:15 Zinc Sulfate 220 mg DAILY PO 01/12/24 10:00 01/29/24 08:50 220 MG Ascorbic Acid 500 mg BID PO 01/12/24 10:00 01/29/24 08:50 500 MG Multivitamins 1 tab DAILY PO 01/12/24 10:00 01/29/24 08:50 1 TAB Acetaminophen 650 mg Q6HP PRN PO 01/12/24 03:15 01/29/24 06:09 650 MG Nitroglycerin 0.4 mg Q5MINP PRN SL 01/12/24 06:45 Hydralazine HCl 10 mg Q6HP PRN IV 01/12/24 07:30 01/25/24 18:59 10 MG Enteral Nutritional Formula 27.5 gm BIDWM PO 01/14/24 08:00 01/29/24 08:50 27.5 GM Clonidine HCl 0.1 mg Q8HP PRN PO 01/14/24 13:15 01/25/24 21:35 0.1 MG Levofloxacin 750 mg DAILY PO 01/19/24 10:00 01/29/24 08:51 750 MG Amlodipine Besylate 5 mg BID PO 01/20/24 22:00 01/29/24 08:53 5 MG Atorvastatin Calcium 40 mg DAILY PO 01/21/24 10:00 01/28/24 09:56 40 MG Duloxetine HCl 30 mg DAILY PO 01/21/24 10:00 01/29/24 08:54 30 MG Lisinopril 40 mg DAILY PO 01/21/24 10:00 01/29/24 08:54 40 MG Propranolol HCl 20 mg DAILY PO 01/22/24 10:00 01/29/24 08:55 20 MG Sodium Chloride 10 ml QSHIFT@10,22 IV 01/23/24 22:00 01/29/24 08:56 10 ML Oxycodone HCl 10 mg Q6HP PRN PO 01/25/24 09:30 01/29/24 08:53 10 MG Docusate Sodium 100 mg BID PO 01/25/24 10:00 01/28/24 23:18 100 MG Vancomycin HCl 250 ml @ 250 mls/hr Q10H IV 01/29/24 06:00 01/29/24 06:10 250 MLS/HR Laboratory Results Laboratory Tests 01/20/24 06:24 01/29/24 05:37 Microbiology Microbiology Date/Time Source Procedure Growth Status 01/13/24 12:15 Foot Gram Stain - Final Complete 01/13/24 12:15 Wound Culture - Final Stenotrophomonas maltophilia Complete Labs and/or images reviewed: Labs reviewed by me, Image(s) reviewed by me Assessment/Plan Assessment/Plan Impression: -? Right foot/ankle osteomyelitis given MRI results -primary hypertension -peripheral arterial disease -failure of oral antibiotic therapy Plan: Events: Apparently, patient has no help at home with discharge planning now involving transferred to a fpc facility at [place]. No change in assessment/plan.01/29/24 -Increase Oxycodone -Podiatry recommendations reviewed. -infectious disease consultation: Continue antibiotic therapy per their recommendations -pain management: Change Ashley to Percocet -discharge to fpc facility Total time spent with patient discussing and formulating plan of care: 35 minutes. This medical document was created using an electronic medical record system with [employer] dictation system. Although this document has been carefully reviewed, there may still be some phonetic and typographical errors. These areas are purely typographical due to imperfections of the software programs, and do not reflect any compromise in the patient's medical care. Plan discussed with: Patient, Other (RN) Date of Service: Jan 29, 2024 Billing Provider: MINNIE MURRIETA NP Common Visit Codes: [id number] INP/OBS CARE(MOD) MINNIE MURRIETA NP Jan 29, 2024 09:38
--- NOTE | 2024-01-29 11:01 | DVHCONRES ---
Date Seen: Jan 29, 2024 Resident Creating Document: CAROL RIVERS Jr., MD Referring Physician med Reason for Consultation Leg peripheral vascular disease History of Present Illness Patient is a 58-year-old female with past medical history of hypertension who presented to [facility] ED for evaluation of right foot ulcer. Patient reports that she has had a right foot ulcer for several weeks that has also [id number] early painful. Patient states she initially went to a facility and was given a an antibiotic, but states that antibiotic was ineffective and therefore, received a 2nd antibiotic which she states has not improved the wound. Was admitted to the hospital on January 11 was in 24. Patient has been on IV antibiotics the wound has not been healing. I was called to see the patient regarding her poor peripheral vascular exam. Patient describes having approximately 100 meter claudication. She has rest pain of the right foot. She smokes 1 pack a day for many years. Patient has history of high cholesterol hypertension. Not diabetic Past Medical History Hypertension, hypercholesterolemia, Past Surgical History None Family History: Diabetes mellitus G8 MOTHER Social History Pack-a-day smoker for many years. Does not drink. No other IV drug abuse. Allergies: Coded Allergies: NO KNOWN ALLERGIES (Unverified , 12/26/23) Home Meds Active Scripts Levofloxacin Hemihydrate (LEVOFLOXACIN) 250 Mg Tab, 750 MG PO DAILY for 35 Days, #105 TAB Prov:AMIE MONROY MD 01/23/24 Oxycodone W/ Acetaminophen (Percocet 5/325MG) 1 Tab Tb, 1 TAB PO TID for 4 Days, #12 TAB Prov:MINNIE MURRIETA NP 01/23/24 Doxycycline Hyclate (Doxycycline Hyclate) 100 Mg Cap, 1 CAP PO BID for 7 Days, #14 CAP Prov:SAMARA WHITE 12/31/23 Reported Medications Furosemide (Furosemide) 10 Mg/Ml Inj, 20 MG PO DAILY, INJ 01/13/24 Propranolol HCl (Propranolol HCl) 1 Mg/Ml Inj, 20 MG PO TID, INJ 01/13/24 Ibuprofen (Ibuprofen) 800 Mg Tab, 800 MG PO TID, MG 01/13/24 Duloxetine Hcl (Cymbalta) 20 Mg Cap, 30 MG PO DAILY, CAP 01/13/24 Spironolactone (Spironolactone) 25 Mg Tab, 1 TAB PO DAILY, #90 TAB 1 Refill 01/13/24 Hydralazine Hcl (Hydralazine Hcl) 25 Mg Tab, 25 MG PO PRN for sys greater than 150 for 30 Days, MG 01/13/24 Lisinopril (Lisinopril) 40 Mg Tab, 40 MG PO DAILY for 30 Days, MG 01/13/24 Amlodipine Besylate (Amlodipine Besylate) 5 Mg Tab, 5 MG PO BID for 30 Days, MG 01/13/24 Atorvastatin Calcium (ATORVASTATIN CALCIUM) 40 Mg Tab, 40 MG PO DAILY, TAB 01/13/24 Current Medications Current Medications Medications (Trade) Dose Ordered Sig/Gregoria Route PRN Reason Start Time Stop Time Status Last Admin Vancomycin HCl 250 ml @ 250 mls/hr Q10H IV 01/28/24 18:00 01/29/24 05:51 DC 01/28/24 18:57 Vancomycin HCl 250 ml @ 250 mls/hr Q10H IV 01/29/24 06:00 01/29/24 06:10 Review of Systems All systems reviewed otherwise negative. Vital Signs Vital Signs Date Time Temp Pulse Resp B/P (MAP) Pulse Ox O2 Delivery O2 Flow Rate FiO2 01/29/24 09:00 98.3 87 20 144/63 (90) 91 98.3 01/28/24 20:00 Room Air* 0 21 Physical Exam Head eyes ears nose and throat exam eyes are nonicteric conjunctiva is pink neck was supple no JVD no lymphadenopathy no carotid lungs are clear to auscultation heart was regular rate and rhythm abdomen is soft and nontender no pulsatile abdominal masses or bruits lower extremities palpable femoral pulses bilaterally nonpalpable pedal pulses bilaterally. Popliteal pulses were nonpalpable as well. She has large wound on her anterior ankle which has a black eschar over top of it with no signs of cellulitis the surrounding edges. No drainage. Neurologically she does have peripheral neuropathy. Labs/Diagnostic Data Labs Test 01/29/24 05:37 01/28/24 16:23 01/23/24 11:37 01/23/24 06:35 Range/Units White Blood Count 9.1 # 4.4-10.8 10^3/uL Red Blood Count 2.87 L 4.0-5.20 10^6/uL Hemoglobin 7.8 L 12.2-16.2 g/dL Hematocrit 23.5 L 36.0-46.0 % Mean Corpuscular Volume 81.9 80.0-100.0 fL Mean Corpuscular Hemoglobin 27.2 L 28.0-32.0 pg Mean Corpuscular Hemoglobin Concent 33.3 32.0-36.0 g/dL Red Cell Distribution Width 14.6 H 11.8-14.3 % Platelet Count 230 140-450 10^3/uL Mean Platelet Volume 9.4 6.9-10.8 fL Neutrophils (%) (Auto) 76.0 37.0-80.0 % Lymphocytes (%) (Auto) 12.5 10.0-50.0 % Monocytes (%) (Auto) 10.1 0.0-12.0 % Eosinophils (%) (Auto) 0.9 0.0-7.0 % Basophils (%) (Auto) 0.5 0.0-2.0 % Neutrophils # (Auto) 6.9 1.6-8.6 10 ^3/uL Lymphocytes # (Auto) 1.1 0.4-5.4 10 ^3/uL Monocytes # (Auto) 0.9 0-1.3 10 ^3/uL Eosinophils # (Auto) 0.1 0-0.8 10 ^3/uL Basophils # (Auto) 0 0-0.2 10 ^3/uL Nucleated Red Blood Cells 0.0 % Creatinine 0.98 0.550-1.02 mg/dL Glomerular Filtration Rate Calc 66 >90 mL/min Vancomycin Level Trough 14.6 H 5-10 ug/mL Activated Partial Thromboplast Time 32.9 24.5-34.5 SEC Prothrombin Time 12.5 H 9.3-11.8 sec Prothrombin Time INR 1.19 H 0.9-1.15 Test 01/22/24 05:43 01/20/24 06:24 01/13/24 06:12 01/11/24 23:20 Range/Units Erythrocyte Sedimentation Rate 114 H 0-20 mm/hr Sodium Level 137 136-145 mmol/L Potassium Level 4.1 3.5-5.1 mmol/L Chloride Level 107 98-107 mmol/L Carbon Dioxide Level 20 20-31 mmol/L Anion Gap 10 5-15 Blood Urea Nitrogen 16 9-23 mg/dL BUN/Creatinine Ratio 15.4 10.0-20.0 Serum Glucose 97 74-106 mg/dL Calcium Level 10.0 8.7-10.4 mg/dL Total Bilirubin 0.3 0.2-1.0 mg/dL Aspartate Amino Transferase (AST) 13 13-40 U/L Alanine Aminotransferase (ALT) 13 7-40 U/L Alkaline Phosphatase 136 H 46-116 U/L Total Protein 7.0 5.7-8.2 g/dL Albumin 4.1 3.2-4.8 g/dL Lactic Acid Level 1.2 0.4-2.0 mmol/L B-Type Natriuretic Peptide 78.66 0-100 pg/mL Microbiology Date/Time Source Procedure Growth Status 01/13/24 12:15 Foot Gram Stain - Final Complete 01/13/24 12:15 Wound Culture - Final Stenotrophomonas maltophilia Complete Bilateral Lower Extremity Arterial Duplex Date: 01/18/2024 10:52 PM Clinical History: evaluate for PAD Comparison: None Findings: Duplex Doppler evaluation including color Doppler and spectral/pulsed waveform analysis of the lower extremity arteries was performed. RIGHT: Multifocal tandem atherosclerotic plaque noted throughout the lower extremity arteries. Peak systolic velocities are as follows: The waveforms are monophasic with diastolic flow. LEFT: Multifocal tandem atherosclerotic plaque noted throughout the lower extremity arteries. The waveforms are monophasic with diastolic flow. REFERENCE VALUES, [facility] ([facility]) vascular Imaging Lab Criteria: Peak systolic velocity ranges (in cm/sec) are as follows: <150 cm/s - <20 % stenosis 150-200 cm/s - 20-49% stenosis 200-300 cm/s - 50-75% stenosis >300 cm/s -> 75% stenosis IMPRESSION: Elevated velocities in bilateral common femoral arteries. Monophasic waveforms bilaterally. Assessment A 58-year-old female with a right foot nonhealing wound. With arterial duplex findings of femoral artery disease on the right side. Recommend continue with IV antibiotics We will plan on performing a right leg arteriogram on January 30, 2024. Continue his current wound care. Stressed the importance of smoking cessation. Patient agrees with the plan. Plan/Recommendation A 58-year-old female with a right foot nonhealing wound. With arterial duplex findings of femoral artery disease on the right side. Recommend continue with IV antibiotics We will plan on performing a right leg arteriogram on January 30, 2024. Continue his current wound care. Stressed the importance of smoking cessation. Patient agrees with the plan. Plan discussed with: Patient CAROL RIVERS Jr., MD Jan 29, 2024 11:00
[2024-01-29 13:00] VITALS: BP 113/41; PULSE 95; RESP 20; TEMP 98.1; O2SAT 96
[2024-01-29 17:00] VITALS: BP 127/74; PULSE 90; RESP 20; TEMP 98; O2SAT 92
[2024-01-29 21:00] VITALS: BP 135/65; PULSE 99; RESP 17; TEMP 98.2; O2SAT 94
--- NOTE | 2024-01-29 21:23 | DVHPN2 ---
Consult Progress Note Date Seen: Jan 28, 2024 Subjective Patient reports: Feels better (awaiting placement) Objective vital signs Vital Sign Date Time Temp Pulse Resp B/P (MAP) Pulse Ox O2 Delivery O2 Flow Rate FiO2 01/29/24 17:00 98.0 90 20 127/74 (91) 92 98.0 01/29/24 08:00 Room Air* 0 21 Total Intake and Output 01/28/24 01/28/24 01/29/24 15:00 23:00 07:00 Intake Total 1600 ml 500 ml Balance 1600 ml 500 ml medications Current Medications Medications Dose Ordered Sig/Gregoria Route Start Time Stop Time Status Last Admin Dose Admin Vancomycin HCl 0 ml @ 0 mls/hr UD IV 01/12/24 01:15 Sodium Chloride 10 ml Q8HR IV 01/12/24 06:00 01/29/24 14:00 10 ML Ondansetron HCl 4 mg Q4HP PRN IV 01/12/24 03:15 Zinc Sulfate 220 mg DAILY PO 01/12/24 10:00 01/29/24 08:50 220 MG Ascorbic Acid 500 mg BID PO 01/12/24 10:00 01/29/24 08:50 500 MG Multivitamins 1 tab DAILY PO 01/12/24 10:00 01/29/24 08:50 1 TAB Acetaminophen 650 mg Q6HP PRN PO 01/12/24 03:15 01/29/24 06:09 650 MG Nitroglycerin 0.4 mg Q5MINP PRN SL 01/12/24 06:45 Hydralazine HCl 10 mg Q6HP PRN IV 01/12/24 07:30 01/25/24 18:59 10 MG Enteral Nutritional Formula 27.5 gm BIDWM PO 01/14/24 08:00 01/29/24 18:18 27.5 GM Clonidine HCl 0.1 mg Q8HP PRN PO 01/14/24 13:15 01/25/24 21:35 0.1 MG Levofloxacin 750 mg DAILY PO 01/19/24 10:00 01/29/24 08:51 750 MG Amlodipine Besylate 5 mg BID PO 01/20/24 22:00 01/29/24 08:53 5 MG Atorvastatin Calcium 40 mg DAILY PO 01/21/24 10:00 01/29/24 10:12 40 MG Duloxetine HCl 30 mg DAILY PO 01/21/24 10:00 01/29/24 08:54 30 MG Lisinopril 40 mg DAILY PO 01/21/24 10:00 01/29/24 08:54 40 MG Propranolol HCl 20 mg DAILY PO 01/22/24 10:00 01/29/24 08:55 20 MG Sodium Chloride 10 ml QSHIFT@10,22 IV 01/23/24 22:00 01/29/24 08:56 10 ML Oxycodone HCl 10 mg Q6HP PRN PO 01/25/24 09:30 01/29/24 15:01 10 MG Docusate Sodium 100 mg BID PO 01/25/24 10:00 01/28/24 23:18 100 MG Vancomycin HCl 250 ml @ 250 mls/hr Q10H IV 01/29/24 06:00 01/29/24 17:53 250 MLS/HR PHYSICAL EXAM: - GENERAL: Alert and oriented x 3. No acute distress. Well-nourished. - EYES: EOMI. Anicteric. - HENT: Moist mucous membranes. No scleral icterus. No cervical lymphadenopathy. - LUNGS: Clear to auscultation bilaterally. No accessory muscle use. - CARDIOVASCULAR: Regular rate and rhythm. No murmur. No JVD. - ABDOMEN: Soft, non-tender and non-distended. No palpable masses. - EXTREMITIES: No edema. Non-tender.?SKIN: No rashes or lesions. Warm. - NEUROLOGIC: No focal neurological deficits. CN II-XII grossly intact, but not individually tested. - PSYCHIATRIC: Cooperative. Appropriate mood and affect. laboratory and microbiology Laboratory Tests 01/29/24 05:37 01/20/24 06:24 Test 01/20/24 06:24 Range/Units Serum Glucose 97 74-106 mg/dL Problem List/Assessment/Plan Problem List/Assessment/Plan ASSESSMENT AND PLAN: ID Problem List: - Right foot ulcer - Osteomyelitis - Hypertension - Tobacco use disorder - R foot cellulitis Assessment This is a 58-year-old female with a past medical history of hypertension and chronic smoking since age 10, who presents with a right foot ulcer for several weeks associated with moderate to severe pain and swelling. She had tendonitis in the right foot last November. The lesion started as a small pinpoint ulcer and progressed rapidly over a few days into a large, macerated wound with necrosis and skin sloughing on the dorsal aspect of the foot. She was previously treated with oral antibiotics without improvement. Laboratory studies show WBC count of 9.2, platelets 236, BUN 17, creatinine 1.05, lactate 1.2, sodium 141. Imaging studies include an X-ray revealing mild first joint osteomyelitis and soft tissue swelling at the dorsum of the right foot. Wound cultures grew few coagulase-negative staphylococci and rare growth of Stenotrophomonas maltophilia. She was started on intravenous vancomycin and Zosyn. Plan: - Continue vancomycinx 6 weeks, end date is 02/24/2024 - Continue Levofloxacinx 6 weeks, will cover stenotrophomonas , end date is 02/24/2024 - fu in ID clinic in 4 weeks - Recommend blood cultures. - podiatry recommends deferring any debridement to outpatient, without surgery rec - Would not change therapy based on Stenotrophomonas maltophilia as it is unlikely to be the etiology of patient's current severe cellulitic infection. Isolation Precautions: Standard Assessment and plan was discussed with the patient as written above Plan is subject to change pending incorporation of new incoming information/diagnostics. Updates may be added as addendum at the bottom (OR TOP) of this note Thank you for interesting consult. ID will continue to follow. Please contact Infectious Disease for any questions or concerns. Amie Lizarraga M.D. [facility] Ph: ? Plan discussed with: Patient Dietary Evaluation Review Comments: 1. Continue current diet regime 2. Consider Roni BID (180kcal, 5g pro) Expected Outcomes/Goals: 1. Pt will consume >75% of needs within 3-5 days AMIE LIZARRAGA MD Jan 29, 2024 21:23
--- NOTE | 2024-01-29 22:20 | DVHPN2 ---
Consult Progress Note Date Seen: Jan 29, 2024 Subjective Patient reports: Feels better (Her piccline was clotted yesterday but is now functional , wound is clean with fibrious exudate on the base of her right foot ulcer ) Objective vital signs Vital Sign Date Time Temp Pulse Resp B/P (MAP) Pulse Ox O2 Delivery O2 Flow Rate FiO2 01/29/24 21:00 98.2 99 17 135/65 (88) 94 98.2 01/29/24 08:00 Room Air* 0 21 Total Intake and Output 01/28/24 01/28/24 01/29/24 15:00 23:00 07:00 Intake Total 1600 ml 500 ml Balance 1600 ml 500 ml medications Current Medications Medications Dose Ordered Sig/Gregoria Route Start Time Stop Time Status Last Admin Dose Admin Vancomycin HCl 0 ml @ 0 mls/hr UD IV 01/12/24 01:15 Sodium Chloride 10 ml Q8HR IV 01/12/24 06:00 01/29/24 14:00 10 ML Ondansetron HCl 4 mg Q4HP PRN IV 01/12/24 03:15 Zinc Sulfate 220 mg DAILY PO 01/12/24 10:00 01/29/24 08:50 220 MG Ascorbic Acid 500 mg BID PO 01/12/24 10:00 01/29/24 08:50 500 MG Multivitamins 1 tab DAILY PO 01/12/24 10:00 01/29/24 08:50 1 TAB Acetaminophen 650 mg Q6HP PRN PO 01/12/24 03:15 01/29/24 06:09 650 MG Nitroglycerin 0.4 mg Q5MINP PRN SL 01/12/24 06:45 Hydralazine HCl 10 mg Q6HP PRN IV 01/12/24 07:30 01/25/24 18:59 10 MG Enteral Nutritional Formula 27.5 gm BIDWM PO 01/14/24 08:00 01/29/24 18:18 27.5 GM Clonidine HCl 0.1 mg Q8HP PRN PO 01/14/24 13:15 01/25/24 21:35 0.1 MG Levofloxacin 750 mg DAILY PO 01/19/24 10:00 01/29/24 08:51 750 MG Amlodipine Besylate 5 mg BID PO 01/20/24 22:00 01/29/24 08:53 5 MG Atorvastatin Calcium 40 mg DAILY PO 01/21/24 10:00 01/29/24 10:12 40 MG Duloxetine HCl 30 mg DAILY PO 01/21/24 10:00 01/29/24 08:54 30 MG Lisinopril 40 mg DAILY PO 01/21/24 10:00 01/29/24 08:54 40 MG Propranolol HCl 20 mg DAILY PO 01/22/24 10:00 01/29/24 08:55 20 MG Sodium Chloride 10 ml QSHIFT@10,22 IV 01/23/24 22:00 01/29/24 08:56 10 ML Oxycodone HCl 10 mg Q6HP PRN PO 01/25/24 09:30 01/29/24 15:01 10 MG Docusate Sodium 100 mg BID PO 01/25/24 10:00 01/28/24 23:18 100 MG Vancomycin HCl 250 ml @ 250 mls/hr Q10H IV 01/29/24 06:00 01/29/24 17:53 250 MLS/HR PHYSICAL EXAM: - GENERAL: Alert and oriented x 3. No acute distress. Well-nourished. - EYES: EOMI. Anicteric. - HENT: Moist mucous membranes. No scleral icterus. No cervical lymphadenopathy. - LUNGS: Clear to auscultation bilaterally. No accessory muscle use. - CARDIOVASCULAR: Regular rate and rhythm. No murmur. No JVD. - ABDOMEN: Soft, non-tender and non-distended. No palpable masses. - EXTREMITIES: No edema. Non-tender.?SKIN: No rashes or lesions. Warm. - NEUROLOGIC: No focal neurological deficits. CN II-XII grossly intact, but not individually tested. - PSYCHIATRIC: Cooperative. Appropriate mood and affect. laboratory and microbiology Laboratory Tests 01/29/24 05:37 01/20/24 06:24 Test 01/20/24 06:24 Range/Units Serum Glucose 97 74-106 mg/dL Problem List/Assessment/Plan Problems(with codes): (1) Antibiotic-resistant bacterial infection (2) Cellulitis (3) Hypokalemia (4) Osteomyelitis of right foot (5) Hypertensive urgency (6) Infected ulcer of skin Problem List/Assessment/Plan ASSESSMENT AND PLAN: ID Problem List: - Right foot ulcer - Osteomyelitis - Hypertension - Tobacco use disorder - R foot cellulitis Assessment This is a 58-year-old female with a past medical history of hypertension and chronic smoking since age 10, who presents with a right foot ulcer for several weeks associated with moderate to severe pain and swelling. She had tendonitis in the right foot last November. The lesion started as a small pinpoint ulcer and progressed rapidly over a few days into a large, macerated wound with necrosis and skin sloughing on the dorsal aspect of the foot. She was previously treated with oral antibiotics without improvement. Laboratory studies show WBC count of 9.2, platelets 236, BUN 17, creatinine 1.05, lactate 1.2, sodium 141. Imaging studies include an X-ray revealing mild first joint osteomyelitis and soft tissue swelling at the dorsum of the right foot. Wound cultures grew few coagulase-negative staphylococci and rare growth of Stenotrophomonas maltophilia. She was started on intravenous vancomycin and Zosyn. Plan: - Continue vancomycinx 6 weeks, end date is 02/24/2024 - Continue Levofloxacinx 6 weeks, will cover stenotrophomonas , end date is 02/24/2024 - fu in ID clinic in 4 weeks - Recommend blood cultures. - podiatry recommends deferring any debridement to outpatient, without surgery rec - Would not change therapy based on Stenotrophomonas maltophilia as it is unlikely to be the etiology of patient's current severe cellulitic infection. Isolation Precautions: Standard Assessment and plan was discussed with the patient as written above Plan is subject to change pending incorporation of new incoming information/diagnostics. Updates may be added as addendum at the bottom (OR TOP) of this note Thank you for interesting consult. ID will continue to follow. Please contact Infectious Disease for any questions or concerns. Amie Lizarraga M.D. [facility] Ph: ? Plan discussed with: Other Dietary Evaluation Review Comments: 1. Continue current diet regime 2. Consider Roni BID (180kcal, 5g pro) Expected Outcomes/Goals: 1. Pt will consume >75% of needs within 3-5 days AMIE LIZARRAGA MD Jan 29, 2024 22:20
[2024-01-30] VITALS (10 sets, daily range): BP systolic 114–162; BP diastolic 57–71; PULSE 75–93; RESP 12–20; TEMP 97.3–98.7; O2SAT 94–99
[2024-01-30 05:49] LABS: INR 1.25 (0.9-1.15); Partial Thromboplastin Time 34.5 SEC (24.5-34.5)
[2024-01-30 06:00] LABS: Chloride 103 mmol/L (98-107); Sodium 137 mmol/L (136-145)
[2024-01-30 06:01] LABS: Anion Gap 7 (5-15); Calcium 9.2 mg/dL (8.7-10.4); Carbon Dioxide 27 mmol/L (20-31)
[2024-01-30 06:06] LABS: Blood Urea Nitrogen 13 mg/dL (9-23)
[2024-01-30 06:15] LABS: Glucose 111 mg/dL (74-106)
--- NOTE | 2024-01-30 06:40 | DVH ---
CHEST RADIOGRAPH Indication: protocol, pain Technique: Single frontal view of the chest was obtained Comparison: None FINDINGS: Lines and Tubes: Left PIC tip in svc Lungs: No focal consolidation. Pleura: No effusion. No pneumothorax. Cardiomediastinal contours: Unremarkable Bones: No acute osseous abnormality. IMPRESSION: No acute cardiopulmonary disease.
[2024-01-30] MEDS: IODIXANOL 320MG/ML 100ML BTL IV ONE (07:15)
[2024-01-30] MEDS: HEPARIN IN NS 1000Units/500mL 1,500 ML ONE (07:15)
[2024-01-30] MEDS: ANGIOMAX 250 MG VIAL IV ONE (07:44)
[2024-01-30] MEDS: MIDAZOLAM HCL 2MG/2ML 2ml VIAL (1mg/ml) ONE (07:45)
[2024-01-30] MEDS: fentaNYL CITRATE 100 MCG/2 ML VL ONE (07:45)
[2024-01-30] MEDS: LIDOCAINE 2%HCL (LOCAL ANESTH.) INJ 20ML MDV ONE (07:45)
[2024-01-30] MEDS: SODIUM CHL 0.9% 0 ML ONE (07:45)
[2024-01-30] MEDS: HEPARIN SODIUM (PORCINE) 5000 UNITS/ML 1ML VIAL ONE (08:02)
--- NOTE | 2024-01-30 08:35 | DVHOP2 ---
Operative Report - 2 Report Details Date: 01/30/24 Preop Diagnosis: Right leg critical limb ischemia Postop Diagnosis: Right foot cellulitis with necrosis Surgeon: Remy Fernandes MD Anesthesiologist: Conscious sedation Anesthesia: Local Consent: The patient was informed of the risks and benefits of the procedure. These inc lude but are not limited to complications of anesthesia, postoperative infection, incomplete relief of symptoms, recurrence of symptoms, damage to blood vessels, nerves and tendons, deep venous thrombosis, pulmonary embolism and possible need for repeat surgery in the future. Findings: Right profunda femoral artery stenosis 80% treated with 7 mm balloon down to 20% residual stenosis. Right SFA occlusion from the origin to the above knee popliteal artery. Indications for Surgery: Right critical limb ischemia. Name of Procedure Performed Aortogram bilateral lower extremity arteriogram with a right femoral artery angioplasty Procedure Details Procedure Details: Patient was identified in the preop hold areas being Mrs. Giles. At this point in time she was consented in preop by myself she was brought back to the catheterization lab and placed in the high density press laborer table in supine position after adequate induction anesthesia antibiotics and a time-out the right and left groins were prepped and draped normal surgical fashion. 1% lidocaine was injected above the left common femoral artery micro puncture needle was then used to cannulate the left common femoral artery this was then exchanged out for a 6 Romansh sheath a wire and catheter were passed into the aorta. Aortogram was performed demonstrated widely patent aorta and common iliacs bilaterally the external iliacs were patent bilaterally as well. The left common femoral artery was widely patent. The right common femoral artery was patent the SFA was occluded at its origin. The right profunda femoral artery had a 80% stenosis mid thigh. The remainder of the right lower extremity demonstrated reconstitution of the SFA at the above knee popliteal artery with the tibioperoneal trunk being widely patent. A wire was then passed down into the p rofunda and across the stenosis. A destination sheath was then inserted to the level of the right common femoral artery. 3000 units of heparin was given. The profunda femoral artery stenosis was then angioplasty with a 7 x 10 balloon. Completion arteriogram demonstrated 20% residual stenosis. At this point in time the wires and catheters were removed a Angio-Seal was deployed in the left common femoral artery. Patient was taken the PACU in a stable condition. Specimen: None Condition Guarded Disposition PACU REMY FERNANDES Jr., MD Jan 30, 2024 08:35
--- NOTE | 2024-01-30 08:37 | POSTOP ---
Post-Operative Note Post-Operative Note Preop Diagnosis Right leg critical limb ischemia Postop Diagnosis: Right foot cellulitis with necrosis Operation performed Aortogram bilateral lower extremity arteriogram with a right femoral artery angioplasty Specimen None Anesthesia: Local Anesthesiologist: Conscious sedation Blood Loss(fluid mgmt) Minimal Surgeon Remy Fernandes MD Additional Remarks Right SFA occlusion at its origin to the distal above knee popliteal artery. Right profunda femoral artery stenosis 80% treated with 7 mm balloon to a 20% residual stenosis. Patient will require fem-pop bypass once medically cleared with cardiology. Date 01/30/24 Time 08:35 REMY FERNANDES Jr., MD Jan 30, 2024 08:37
--- NOTE | 2024-01-30 12:01 | DVHPN2 ---
Subjective Patient continues to report having severe pain to her right foot and ankle. Reviewed: Care Plan, H&P, Labs, Medications, Radiology Changes from previous H/P or p: No Changes General: Per HPI Eyes: No Pain, No Vision change, No Conjunctivae inflammation, No Eyelid inflammation, No Other, No Redness ENT: No Ear pain, No Ear discharge, No Nose pain, No Nose discharge, No Nose congestion, No Mouth pain, No Mouth swelling, No Throat pain, No Throat swelling, No Other Cardiovascular: No Chest Pain, No Palpitations, No Orthopnea, No Paroxysmal Noc. Dyspnea, No Edema, No Lt Headedness, No Other Respiratory: No Cough, No Dry, No Shortness of breath, No SOB with excertion, No Wheezing, No Hemoptysis, No Pleuritic Pain, No Sputum, No Other Gastrointestinal: No Nausea, No Vomiting, No Abdominal Pain, No Diarrhea, No Constipation, No Melena, No Hematochezia, No Other Genitourinary: No Dysuria, No Frequency, No Incontinence, No Hematuria, No Retention, No Other Musculoskeletal: other (Right foot wound.); No neck pain, No shoulder pain, No arm pain, No back pain, No hand pain, No leg pain, No foot pain Skin: No Rash, No Lesions, No Jaundice, No Bruising, No Other Objective Vitals Vital Signs Date Time Temp Pulse Resp B/P (MAP) Pulse Ox O2 Delivery O2 Flow Rate FiO2 01/30/24 11:07 143/59 01/30/24 11:06 91 01/30/24 09:45 Room Air* 0 21 01/30/24 09:26 12 99 01/30/24 08:27 97.8 97.8 Intake/Output Intake and Output 01/30/24 07:00 Intake Total 1350 ml Output Total 800 ml Balance 550 ml Intake Oral 600 ml IV Total 750 ml Output Urine Total 800 ml # Voids 3 General Appearance: Alert, Oriented X3, Cooperative, mild distress HEENT: Atraumatic, PERRLA, EOMI, Mucous membr. moist/pink Neck: Supple Lungs: Clear to auscultation, Normal air movement Cardiovascular: Regular rate, Normal S1, Normal S2, No murmurs, Gallops, Rubs Abdomen: Normal bowel sounds, Soft, No tenderness Musculoskeletal: Normal sensory function, Normal motor function Neuro: Cranial nerves 3-12 NL Skin: Wounds (See nurse notes and pictures) Psych/Mental Status: Mental status NL, Mood NL (Patient agitated) Medications Current Medications Medications Dose Ordered Sig/Gregoria Route Start Time Stop Time Status Last Admin Dose Admin Vancomycin HCl 0 ml @ 0 mls/hr UD IV 01/12/24 01:15 Sodium Chloride 10 ml Q8HR IV 01/12/24 06:00 01/30/24 06:29 10 ML Ondansetron HCl 4 mg Q4HP PRN IV 01/12/24 03:15 Zinc Sulfate 220 mg DAILY PO 01/12/24 10:00 01/30/24 11:07 220 MG Ascorbic Acid 500 mg BID PO 01/12/24 10:00 01/30/24 11:07 500 MG Multivitamins 1 tab DAILY PO 01/12/24 10:00 01/30/24 11:07 1 TAB Acetaminophen 650 mg Q6HP PRN PO 01/12/24 03:15 01/30/24 11:14 650 MG Nitroglycerin 0.4 mg Q5MINP PRN SL 01/12/24 06:45 Hydralazine HCl 10 mg Q6HP PRN IV 01/12/24 07:30 01/25/24 18:59 10 MG Enteral Nutritional Formula 27.5 gm BIDWM PO 01/14/24 08:00 01/29/24 18:18 27.5 GM Clonidine HCl 0.1 mg Q8HP PRN PO 01/14/24 13:15 01/25/24 21:35 0.1 MG Levofloxacin 750 mg DAILY PO 01/19/24 10:00 01/30/24 11:05 750 MG Amlodipine Besylate 5 mg BID PO 01/20/24 22:00 01/30/24 11:06 5 MG Atorvastatin Calcium 40 mg DAILY PO 01/21/24 10:00 01/30/24 11:06 40 MG Duloxetine HCl 30 mg DAILY PO 01/21/24 10:00 01/30/24 11:06 30 MG Lisinopril 40 mg DAILY PO 01/21/24 10:00 01/30/24 11:07 40 MG Propranolol HCl 20 mg DAILY PO 01/22/24 10:00 01/30/24 11:06 20 MG Sodium Chloride 10 ml QSHIFT@, IV 01/23/24 22:00 01/30/24 11:07 10 ML Oxycodone HCl 10 mg Q6HP PRN PO 01/25/24 09:30 01/30/24 06:56 10 MG Docusate Sodium 100 mg BID PO 01/25/24 10:00 01/28/24 23:18 100 MG Vancomycin HCl 250 ml @ 250 mls/hr Q12H IV 01/30/24 14:00 Laboratory Results Laboratory Tests 01/29/24 05:37 01/30/24 04:56 Chemistry Test 01/30/24 04:56 Calcium Level 9.2 mg/dL (8.7-10.4) Coagulation Test 01/30/24 04:56 Prothrombin Time 13.0 sec (9.3-11.8) H Prothrombin Time INR 1.25 (0.9-1.15) H Activated Partial Thromboplast Time 34.5 SEC (24.5-34.5) Microbiology Microbiology Date/Time Source Procedure Growth Status 01/13/24 12:15 Foot Gram Stain - Final Complete 01/13/24 12:15 Wound Culture - Final Stenotrophomonas maltophilia Complete Labs and/or images reviewed: Labs reviewed by me, Image(s) reviewed by me Assessment/Plan Assessment/Plan Impression: -? Right foot/ankle osteomyelitis given MRI results -primary hypertension -peripheral arterial disease -failure of oral antibiotic therapy Plan: Events:S/P angioplasty to RLE. -Increase Oxycodone -Podiatry recommendations reviewed. -infectious disease consultation: Continue antibiotic therapy per their recommendations -pain management: Change Seanor to Percocet -discharge to correction facility once bed is available Total time spent with patient discussing and formulating plan of care: 35 minutes. This medical document was created using an electronic medical record system with [employer] dictation system. Although this document has been carefully reviewed, there may still be some phonetic and typographical errors. These areas are purely typographical due to imperfections of the software programs, and do not reflect any compromise in the patient's medical care. Plan discussed with: Patient, Other (RN) Date of Service: Jan 30, 2024 Billing Provider: MINNIE MURRIETA NP Common Visit Codes: [id number] INP/OBS CARE(HIGH) MINNIE MURRIETA NP Jan 30, 2024 12:00
[2024-01-30] MEDS: VANCOMYCIN 1GM/250ML KIT 250 ML IV SCH (13:33)
--- NOTE | 2024-02-01 17:23 | DVHPN2 ---
Consult Progress Note Date Seen: Jan 30, 2024 Subjective Patient reports: Feels better (has placement no fever or chills) Objective vital signs Vital Sign Date Time Temp Pulse Resp B/P (MAP) Pulse Ox O2 Delivery O2 Flow Rate FiO2 01/30/24 17:00 98.6 77 19 117/58 (77) 96 98.6 01/30/24 09:45 Room Air* 0 21 medications PHYSICAL EXAM: - GENERAL: Alert and oriented x 3. No acute distress. Well-nourished. ? - EYES: EOMI. Anicteric. ?- HENT: Moist mucous membranes. No scleral icterus. No cervical lymphadenopathy. ?- LUNGS: Clear to auscultation bilaterally. No accessory muscle use.? - CARDIOVASCULAR: Regular rate and rhythm. No murmur. No JVD.? - ABDOMEN: Soft, non-tender and non-distended. No palpable masses.? - EXTREMITIES: No edema. Non-tender.?SKIN: No rashes or lesions. Warm. ? - NEUROLOGIC: No focal neurological deficits. CN II-XII grossly intact, but not individually tested.? - PSYCHIATRIC: Cooperative. Appropriate mood and affect. laboratory and microbiology Laboratory Tests 01/30/24 04:56 01/29/24 05:37 Test 01/30/24 04:56 Range/Units Serum Glucose 111 H 74-106 mg/dL Problem List/Assessment/Plan Problem List/Assessment/Plan ASSESSMENT AND PLAN: ID Problem List: - Right foot ulcer - Osteomyelitis - Hypertension - Tobacco use disorder - R foot cellulitis Assessment This is a 58-year-old female with a past medical history of hypertension and chronic smoking since age 10, who presents with a right foot ulcer for several weeks associated with moderate to severe pain and swelling. She had tendonitis in the right foot last November. The lesion started as a small pinpoint ulcer and progressed rapidly over a few days into a large, macerated wound with necrosis and skin sloughing on the dorsal aspect of the foot. She was previously treated with oral antibiotics without improvement. Laboratory studies show WBC count of 9.2, platelets 236, BUN 17, creatinine 1.05, lactate 1.2, sodium 141. Imaging studies include an X-ray revealing mild first joint osteomyelitis and soft tissue swelling at the dorsum of the right foot. Wound cultures grew few coagulase-negative staphylococci and rare growth of Stenotrophomonas maltophilia. She was started on intravenous vancomycin and Zosyn. Plan: - Continue vancomycinx 6 weeks, end date is 02/24/2024 - Continue Levofloxacinx 6 weeks, will cover stenotrophomonas , end date is 02/24/2024 - fu in ID clinic in 4 weeks - Recommend blood cultures. - podiatry recommends deferring any debridement to outpatient, without surgery rec - Would not change therapy based on Stenotrophomonas maltophilia as it is unlikely to be the etiology of patient's current severe cellulitic infection. Isolation Precautions: Standard Assessment and plan was discussed with the patient as written above Plan is subject to change pending incorporation of new incoming information/diagnostics. Updates may be added as addendum at the bottom (OR TOP) of this note Thank you for interesting consult. ID will continue to follow. Please contact Infectious Disease for any questions or concerns. Amie Lizarraga M.D. [facility] Ph: ? Plan discussed with: Patient Dietary Evaluation Review Comments: 1. Continue current diet regime 2. Consider Roni BID (180kcal, 5g pro) Expected Outcomes/Goals: 1. Pt will consume >75% of needs within 3-5 days AMIE LIZARRAGA MD Feb 01, 2024 17:23
== END 2024-01-30 19:18 | DRG 182 ==
LOC: ER 22:43 → OVERFLOW 01-12 06:31 → CENTRAL 01-12 16:21
PROVIDERS: ADMIT Nurse Practitioner Family; ATTEND Nurse Practitioner Acute Care
PROC: 05HB33Z Insertion of Infusion Device into Right Basilic Vein, Percutaneous Approach (ICD-10-PCS; 2024-01-14)
PROC: B54MZZA Ultrasonography of Right Upper Extremity Veins, Guidance (ICD-10-PCS; 2024-01-14)
PROC: 02HV33Z Insertion of Infusion Device into Superior Vena Cava, Percutaneous Approach (ICD-10-PCS; 2024-01-23)
PROC: B548ZZA Ultrasonography of Superior Vena Cava, Guidance (ICD-10-PCS; 2024-01-23)
PROC: 047K3ZZ Dilation of Right Femoral Artery, Percutaneous Approach (ICD-10-PCS; principal; 2024-01-30)
PROC: B41DYZZ Fluoroscopy of Aorta and Bilateral Lower Extremity Arteries using Other Contrast (ICD-10-PCS; 2024-01-30)
PROC: B41GYZZ Fluoroscopy of Left Lower Extremity Arteries using Other Contrast (ICD-10-PCS; 2024-01-30)
PROC: B41FYZZ Fluoroscopy of Right Lower Extremity Arteries using Other Contrast (ICD-10-PCS; 2024-01-30)
DX: I70.221 Atherosclerosis of native arteries of extremities with rest pain, right leg (principal); M86.171 Other acute osteomyelitis, right ankle and foot; L03.115 Cellulitis of right lower limb; L97.519 Non-pressure chronic ulcer of other part of right foot with unspecified severity; I16.0 Hypertensive urgency; E87.6 Hypokalemia; I10 Essential (primary) hypertension; A48.8 Other specified bacterial diseases; F17.200 Nicotine dependence, unspecified, uncomplicated; Z16.30 Resistance to unspecified antimicrobial drugs; Z53.20 Procedure and treatment not carried out because of patient's decision for unspecified reasons; Z83.3 Family history of diabetes mellitus; Z79.1 Long term (current) use of non-steroidal anti-inflammatories (NSAID); Z79.899 Other long term (current) drug therapy
CPT/HCPCS: 36415; 36569; 37224; 71045; 73630; 73718; 75716; 76937; 80048; 80053; 80202; 82565; 83605; 83880; 85025; 85049; 85610; 85652; 85730; 87077; 87186; 87205; 93925; 96365; 96366; 96367; 99152; C1894; G0378; J1885; J2250; J2543; Q9967

== ENCOUNTER 2024-02-04 10:22 | Inpatient (IN) | payer MEDICAID ==
[~2024-02-04] VITALS: Ht 170.2 cm; Wt 82.7 kg
[~2024-02-04 10:22] MED LIST changes: +AMLO1TAB22 PO; +ATOR40TA52 PO; +DULO20CA PO; +FUR20I PO; +HYDR25TA88 PO; -IBUP-1455 PO; +IBUP-1456 PO; +LEVO250T58 PO; +LISI40TA16 PO; +PERCOT PO; +SPIR25TA8 PO; +[UNRECOGNIZED DRUG - CODE] PO
[2024-02-04 12:05] LABS: Basophils # (auto) 0.1 10 ^3/uL (0-0.2); Eosinophils # (auto) 0.1 10 ^3/uL (0-0.8)
[2024-02-04 12:07] LABS: Basophils % (auto) 0.4 % (0.0-2.0); Eosinophils % (auto) 0.7 % (0.0-7.0); Hematocrit 25.4 % (36.0-46.0); Hemoglobin 8.1 g/dL (12.2-16.2); Lymphocytes % (auto) 7.3 % (10.0-50.0); Mean Corpuscular Hemoglobin 26.7 pg (28.0-32.0); Mean Corpuscular Hgb Conc. 31.8 g/dL (32.0-36.0); Mean Corpuscular Volume 83.8 fL (80.0-100.0); Monocytes % (auto) 7.6 % (0.0-12.0); Nucleated Red Blood Cells % 0.2 %; Platelet Count (auto) 414 10^3/uL (140-450); Red Blood Cells 3.03 10^6/uL (4.0-5.20); White Blood Cell 13.1 10^3/uL (4.4-10.8)
[2024-02-04] MEDS: ONDANSETRON HCL 4 MG/2 ML VIAL IV ONE (12:10)
[2024-02-04] MEDS: MORPHINE SULFATE 4 MG/ML SYR/VIAL IV ONE (12:11)
[2024-02-04 12:13] LABS: Chloride 104 mmol/L (98-107); Potassium 3.7 mmol/L (3.5-5.1); Sodium 139 mmol/L (136-145)
[2024-02-04 12:14] LABS: Anion Gap 8 (5-15); Carbon Dioxide 27 mmol/L (20-31)
[2024-02-04 12:15] LABS: Calcium 9.9 mg/dL (8.7-10.4)
[2024-02-04 12:19] LABS: BUN/Creatinine Ratio 10.8 (10.0-20.0); Blood Urea Nitrogen 10 mg/dL (9-23)
[2024-02-04 12:21] LABS: INR 1.25 (0.9-1.15); Partial Thromboplastin Time 33.3 SEC (24.5-34.5)
[2024-02-04 12:31] LABS: Glucose 106 mg/dL (74-106)
[2024-02-04 12:42] LABS: Erythrocyte Sedimentation Rate 116 mm/hr (0-20)
[2024-02-04] MEDS ORDERED: VANCOMYCIN PER PHARMACY 0 MG IV SCH (13:15)
[2024-02-04] MEDS: SOD CHL 0.45% 1,000 ML IV SCH (13:15)
[2024-02-04] MEDS ORDERED: ONDANSETRON HCL 4 MG/2 ML VIAL IV PRN (13:15)
--- NOTE | 2024-02-04 13:40 | DVHHP2 ---
History of Present Illness Reason for Visit: Right foot wound History of Present Illness This 58-year-old female presents in the ED with a chief complaint of right foot wound. Patient was recently admitted at this facility status post angioplasty right lower extremity, right foot cellulitis with necrosis. She was advised by PCP to come to the ER for possible fem-pop bypass. History of hypertension. Denies other acute symptoms Past Medical History Hypertension Past Surgical History Status post angioplasty right lower extremity Family History Reviewed, non-contributory to the management of this case. Past Social History The patient lives at home, denies smoking, alcohol or illicit drugs abuse. Review of Systems Constitutional: Yes: Malaise Eyes: No: Pain, Vision change, Conjunctivae inflammation, Eyelid inflammation, Other, Redness ENT: No: Ear pain, Ear discharge, Nose pain, Nose discharge, Nose congestion, Mouth pain, Mouth swelling, Throat pain, Throat swelling, Other Respiratory: No: Cough, Dry, Shortness of breath, SOB with excertion, Wheezing, Hemoptysis, Pleuritic Pain, Sputum, Wheezing, Other Gastrointestinal: No: Nausea, Vomiting, Abdominal Pain, Diarrhea, Constipation, Melena, Hematochezia, Other Genitourinary: No Dysuria, No Frequency, No Incontinence, No Hematuria, No Retention, No Other Musculoskeletal: No: other, neck pain, shoulder pain, arm pain, back pain, hand pain, leg pain, foot pain Skin: Jaundice, Other (Right foot wound) Neurological: No: Weakness, Numbness, Incoordination, Change in speech, Confusion, Seizures, Other Allergies: Coded Allergies: NO KNOWN ALLERGIES (Unverified , 12/26/23) Medications Current Medications Medications Dose Ordered Sig/Gregoria Route Start Time Stop Time Status Last Admin Dose Admin Ondansetron HCl 4 mg Q4HP PRN IV 02/04/24 13:15 UNV Enoxaparin Sodium 40 mg DAILY SC 02/05/24 10:00 UNV Vancomycin HCl 0 ml @ 0 mls/hr UD IV 02/04/24 13:15 UNV Piperacillin Sod/ Tazobactam Sod 100 ml @ 25 mls/hr Q8HR IV 02/04/24 14:00 UNV Sodium Chloride 1,000 ml @ 75 mls/hr [id number] IV 02/04/24 13:15 UNV Exam Vital Signs Vital Signs Date Time Temp Pulse Resp B/P (MAP) Pulse Ox O2 Delivery O2 Flow Rate FiO2 02/04/24 13:16 78 16 137/89 02/04/24 10:26 98.0 96 General Appearance: Alert, Oriented X3, Cooperative, mild distress HEENT: Atraumatic, PERRLA, EOMI, Mucous membr. moist/pink Respiratory: Clear to auscultation, Normal air movement Cardiovascular: Regular rate, Normal S2 Abdominal: Normal bowel sounds, Soft, No tenderness Extremities: Other (Right foot wound) Neuro: Normal speech, Normal tone Psych/Mental Status: Mental status NL Labs/Xrays Labs Test 02/04/24 11:10 Range/Units White Blood Count 13.1 #H 4.4-10.8 10^3/uL Red Blood Count 3.03 L 4.0-5.20 10^6/uL Hemoglobin 8.1 L 12.2-16.2 g/dL Hematocrit 25.4 L 36.0-46.0 % Mean Corpuscular Volume 83.8 80.0-100.0 fL Mean Corpuscular Hemoglobin 26.7 L 28.0-32.0 pg Mean Corpuscular Hemoglobin Concent 31.8 L 32.0-36.0 g/dL Red Cell Distribution Width 16.0 H 11.8-14.3 % Platelet Count 414 140-450 10^3/uL Mean Platelet Volume 8.4 6.9-10.8 fL Neutrophils (%) (Auto) 84.0 H 37.0-80.0 % Lymphocytes (%) (Auto) 7.3 L 10.0-50.0 % Monocytes (%) (Auto) 7.6 0.0-12.0 % Eosinophils (%) (Auto) 0.7 0.0-7.0 % Basophils (%) (Auto) 0.4 0.0-2.0 % Neutrophils # (Auto) 11.0 H 1.6-8.6 10 ^3/uL Lymphocytes # (Auto) 1.0 0.4-5.4 10 ^3/uL Monocytes # (Auto) 1.0 0-1.3 10 ^3/uL Eosinophils # (Auto) 0.1 0-0.8 10 ^3/uL Basophils # (Auto) 0.1 0-0.2 10 ^3/uL Nucleated Red Blood Cells 0.2 % Erythrocyte Sedimentation Rate 116 H 0-20 mm/hr Prothrombin Time 13.0 H 9.3-11.8 sec Prothrombin Time INR 1.25 H 0.9-1.15 Activated Partial Thromboplast Time 33.3 24.5-34.5 SEC Sodium Level 139 136-145 mmol/L Potassium Level 3.7 3.5-5.1 mmol/L Chloride Level 104 98-107 mmol/L Carbon Dioxide Level 27 20-31 mmol/L Anion Gap 8 5-15 Blood Urea Nitrogen 10 9-23 mg/dL Creatinine 0.93 0.550-1.02 mg/dL Glomerular Filtration Rate Calc 71 >90 mL/min BUN/Creatinine Ratio 10.8 10.0-20.0 Serum Glucose 106 74-106 mg/dL Calcium Level 9.9 8.7-10.4 mg/dL PROCEDURE(s): RFTMR - MRI R FOOT WO CONTRAST REASON: abcess ORDER NUMBER(s): [id number], ACCESSION NUMBER(s): [id number] CLINICAL HISTORY: abscess COMPARISON: None TECHNIQUE: Multisequence multiplanar MRI images of the right foot were obtained without contrast. FINDINGS: Diffusely abnormal heterogeneous marrow signal throughout the visualized osseous structures, may be due to diffuse demineralization when correlated with recent radiographs. Complex regional pain syndrome or marrow packing disorder could also have a similar appearance. Superimposed bone are infarcts can not be excluded given the heterogeneous, somewhat serpiginous areas of signal abnormality in some areas, including distal tibia and talus. There is diffuse subcutaneous edema with no focal fluid collection identified to suggest abscess. Mild there is mild to moderate Achilles tendinosis. IMPRESSION: 1. No focal fluid collection identified to suggest abscess. 2. Diffusely abnormal heterogeneous marrow signal throughout the visualized osseous structures of the right foot and ankle. Differential considerations would include extensive osteopenia/ demineralization, complex regional pain syndrome, or marrow packing disorder such as myeloproliferative disease, leukemia, lymphoma, or myeloma. Superimposed bone infarcts can not be excluded given the heterogeneous and somewhat serpiginous areas of signal abnormality in some areas. Correlation with clinical and laboratory findings is needed. 3. Additional findings as described above. Assessment/Plan Assessment/Plan # Right foot cellulitis with necrosis # osteomyelitis # s/p angioplasty RLE # PAD Admit to medical unit Consult vascular Wound consult [facility] consult for clearance - for possible fem-pop bypass Echo NPO after MN # Hypertension Continue home meds Medical plan discuss with pt Plan discussed with: Patient My Orders Orders - NEFTALI FALLON Procedure Category Date Status Time Admit ADMIT 02/04/24 Transmitted 13:13 Code Status CODE 02/04/24 Transmitted 13:13 2 Gm Sodium Diet DIET 02/04/24 Transmitted Lunch Ondansetron Hcl PHA 02/04/24 Logged (Zofran) 13:15 Enoxaparin Sodium PHA 02/05/24 Logged (Lovenox) 10:00 Fall Risk Precautions ELIGIO 02/04/[address] 13:13 Complete Blood Count LAB 02/05/24 Verified 04:00 Comprehensive LAB 02/05/24 Verified Metabolic Panel 04:00 Condition: Fair ELIGIO 02/04/24 In Process 13:13 Consult CONS 02/04/24 Transmitted Vascular/Endovascular 13:13 Blood Culture GIANNA 02/04/24 Logged 13:13 Vancomycin Per PHA 02/04/24 Logged Pharmacy 13:15 Piperacillin-Tazob PHA 02/04/24 Logged 3.375gm (Zosyn 3.375g 14:00 * Wound Consult CONS 02/04/24 Transmitted Sod Chl 0.45% (Sodium PHA 02/04/24 Logged Chloride 0.45% Via 13:15 Echo 2d Mode Cardiac US 02/04/24 Transmitted DOP 13:23 * Cardiology Consult CONS 02/04/24 Transmitted 13:23 Date of Service: Feb 04, 2024 Billing Provider: NEFTALI FALLON Common Visit Codes: [id number] INP/OBS CARE (HIGH) NEFTALI FALLON Feb 04, 2024 13:40
[2024-02-04] MEDS ORDERED: hydrALAZINE HCL 25 MG TAB PO SCH (13:45)
--- NOTE | 2024-02-04 14:59 | ED.PDOC ---
History of Present Illness HPI Comments This is a 58-year-old female who comes in with chief complaint of right ankle osteomyelitis in his here for possible bypass surgery. The patient denies any nausea, vomiting or diarrhea. The patient states that she was told to come to the emergency department's because of persistent pain and failure of the last procedure. She has had somewhat of the decreased blood flow and developed the osteomyelitis to the right foot. Chief Complaint: Lower Extremity Time Seen by MD: 10:35 Primary Care Provider: dr barajas Reviewed Notes: Nurses Notes, Medications, Allergies (No allergies to medications) Allergies: Coded Allergies: NO KNOWN ALLERGIES (Unverified , 12/26/23) Home Meds Active Scripts Levofloxacin Hemihydrate (LEVOFLOXACIN) 250 Mg Tab, 750 MG PO DAILY for 35 Days, #105 TAB Prov:AMIE MONROY MD 01/23/24 Oxycodone W/ Acetaminophen (Percocet 5/325MG) 1 Tab Tb, 1 TAB PO TID for 4 Days, #12 TAB Prov:MINNIE MURRIETA NP 01/23/24 Doxycycline Hyclate (Doxycycline Hyclate) 100 Mg Cap, 1 CAP PO BID for 7 Days, #14 CAP Prov:SAMARA WHITE 12/31/23 Reported Medications Furosemide (Furosemide) 10 Mg/Ml Inj, 20 MG PO DAILY, INJ 01/13/24 Propranolol HCl (Propranolol HCl) 1 Mg/Ml Inj, 20 MG PO TID, INJ 01/13/24 Ibuprofen (Ibuprofen) 800 Mg Tab, 800 MG PO TID, MG 01/13/24 Duloxetine Hcl (Cymbalta) 20 Mg Cap, 30 MG PO DAILY, CAP 01/13/24 Spironolactone (Spironolactone) 25 Mg Tab, 1 TAB PO DAILY, #90 TAB 1 Refill 01/13/24 Hydralazine Hcl (Hydralazine Hcl) 25 Mg Tab, 25 MG PO PRN for sys greater than 150 for 30 Days, MG 01/13/24 Lisinopril (Lisinopril) 40 Mg Tab, 40 MG PO DAILY for 30 Days, MG 01/13/24 Amlodipine Besylate (Amlodipine Besylate) 5 Mg Tab, 5 MG PO BID for 30 Days, MG 01/13/24 Atorvastatin Calcium (ATORVASTATIN CALCIUM) 40 Mg Tab, 40 MG PO DAILY, TAB 01/13/24 Information Source: Patient Mode of Arrival: Ambulatory Severity: Moderate Timing: Days Duration: Since onset Prehospital treatment: None Associated signs and symptoms Right ankle osteomyelitis Past Medical History PAST MEDICAL HISTORY: High Lipids, HTN Past Medical History (Other): Peripheral vascular disease Surgical History (Other): Right shoulder surgery ROOM INSPECTOR History: No Pertinent ROOM INSPECTOR History Family History Family History: Family hx of DM, Family hx of heart letty Social History Smoker: Quit Greater Than 1 Year Alcohol: Denies ETOH Use Drugs: Denies Drug Use Lives In: Home Constitutional: denies: chills, diaphoresis, fatigue, fever, malaise, sweats, weakness, others EENTM: denies: blurred vision, double vision, ear bleeding, ear discharge, ear drainage, ear pain, ear ringing, eye pain, eye redness, hearing loss, mouth pain, mouth swelling, nasal discharge, nose bleeding, nose congestion, nose pain, photophobia, tearing, throat pain, throat swelling, voice changes, others Respiratory: denies: cough, hemoptysis, orthopnea, SOB at rest, shortness of breath, SOB with excertion, stridor, wheezing, others Cardiovascular: denies: chest pain, dizzy spells, diaphoresis, Dyspnea on exertion, edema, irregular heart beat, left arm pain, lightheadedness, palpitations, PND, syncope, others Gastrointestinal: denies: abdomen distended, abdominal pain, blood streaked bowels, constipated, diarrhea, dysphagia, difficulty swallowing, hematemesis, melena, nausea, poor appetite, poor fluid intake, rectal bleeding, rectal pain, vomiting, others Genitourinary: denies: abnormal vagina bleeding, burning, dyspareunia, dysuria, flank pain, frequency, hematuria, incontinence, pain, , vagina discharge, urgency, others Neurological: denies: dizziness, fainting, headache, left sided numbness, left sided weakness, numbness, paresthesia, pre-existing deficit, right sided numbness, right sided weakness, seizure, speech problems, tingling, tremors, weakness, others Musculoskeletal: reports: others (Right ankle pain and redness); denies: back pain, gout, joint pain, joint swelling, muscle pain, muscle stiffness, neck pain Integumetry: denies: bruises, change in color, change in hair/nails, dryness, laceration, lesions, lumps, rash, wounds, others Allergic/Immunocompromised: denies: Difficulty Healing, Frequent Infections, Hives, Itching, others Hematologic/Lymphatic: denies: anemia, blood clots, easy bleeding, easy bruising, swollen glands, others Endocrine: denies: excessive hunger, excessive sweating, excessive thirst, excessive urination, flushing, intolerance to cold, intolerance to heat, unexplained weight gain, unexplained weight loss, others Psychiatric: denies: anxiety, bipolar disorder, depression, hopeless, panic disorder, schizophrenia, sleepless, suicidal, others Physical Exam General Appearance: Mild Distress HEENT: Normal ENT Inspection, Pharynx Normal, TMs Normal Neck: Full Range of Motion, Non-Tender, Normal, Normal Inspection Respiratory: Chest Non-Tender, Lungs Clear, No Accessory Muscle Use, No Respiratory Distress, Normal Breath Sounds Cardiovascular: No Edema, No JVD, No Murmur, No Gallop, Normal Peripheral Pulses, Regular Rate/Rhythm Breast Exam: Deferred Gastrointestinal: No Organomegaly, Non Tender, No Pulsatile Mass, Normal Bowel Sounds, Soft Genitalia: Deferred Pelvic: Deferred Rectal: Deferred Extremities: No calf tenderness, Normal capillary refill, No pedal edema Musculoskeletal : Apperance: Normal Neurologic: Alert, screen cleaner II-XII nml as Tested, No Motor Deficits, Normal Affect, Normal Mood, No Sensory Deficits Cerebellar Function: Normal Reflexes: Normal Skin: Dry, Normal Color, Warm, Other (Right ankle pain and redness) Lymphatic: No Adenopathy Was a procedure done? Was a procedure done?: No Differential Dx Considerations may include: Fracture, osteomyelitis, strain X-Ray, Labs, Meds, VS Vital Signs Date Time Temp Pulse Resp B/P (MAP) Pulse Ox O2 Delivery O2 Flow Rate FiO2 02/04/24 12:11 78 16 156/71 02/04/24 10:26 98.0 85 22 180/80 (113) 96 Lab Test 02/04/24 11:10 Range/Units White Blood Count 13.1 #H 4.4-10.8 10^3/uL Red Blood Count 3.03 L 4.0-5.20 10^6/uL Hemoglobin 8.1 L 12.2-16.2 g/dL Hematocrit 25.4 L 36.0-46.0 % Mean Corpuscular Volume 83.8 80.0-100.0 fL Mean Corpuscular Hemoglobin 26.7 L 28.0-32.0 pg Mean Corpuscular Hemoglobin Concent 31.8 L 32.0-36.0 g/dL Red Cell Distribution Width 16.0 H 11.8-14.3 % Platelet Count 414 140-450 10^3/uL Mean Platelet Volume 8.4 6.9-10.8 fL Neutrophils (%) (Auto) 84.0 H 37.0-80.0 % Lymphocytes (%) (Auto) 7.3 L 10.0-50.0 % Monocytes (%) (Auto) 7.6 0.0-12.0 % Eosinophils (%) (Auto) 0.7 0.0-7.0 % Basophils (%) (Auto) 0.4 0.0-2.0 % Neutrophils # (Auto) 11.0 H 1.6-8.6 10 ^3/uL Lymphocytes # (Auto) 1.0 0.4-5.4 10 ^3/uL Monocytes # (Auto) 1.0 0-1.3 10 ^3/uL Eosinophils # (Auto) 0.1 0-0.8 10 ^3/uL Basophils # (Auto) 0.1 0-0.2 10 ^3/uL Nucleated Red Blood Cells 0.2 % Erythrocyte Sedimentation Rate 116 H 0-20 mm/hr Prothrombin Time 13.0 H 9.3-11.8 sec Prothrombin Time INR 1.25 H 0.9-1.15 Activated Partial Thromboplast Time 33.3 24.5-34.5 SEC Sodium Level 139 136-145 mmol/L Potassium Level 3.7 3.5-5.1 mmol/L Chloride Level 104 98-107 mmol/L Carbon Dioxide Level 27 20-31 mmol/L Anion Gap 8 5-15 Blood Urea Nitrogen 10 9-23 mg/dL Creatinine 0.93 0.550-1.02 mg/dL Glomerular Filtration Rate Calc 71 >90 mL/min BUN/Creatinine Ratio 10.8 10.0-20.0 Serum Glucose 106 74-106 mg/dL Calcium Level 9.9 8.7-10.4 mg/dL Current Medications Medications (Trade) Dose Ordered Sig/Gregoria Route Start Time Stop Time Status Last Admin Morphine Sulfate 4 mg ONCE ONCE IV 02/04/24 11:30 02/04/24 11:31 DC 02/04/24 12:11 Ondansetron HCl (Zofran) 4 mg ONCE ONCE IV 02/04/24 11:30 02/04/24 11:31 DC 02/04/24 12:10 IV Hep-Lock was established The patient was given morphine 4 mg IV push for the pain The patient was given Zofran 4 mg IV push for the nausea The CBC shows an elevated white blood cell count of 13.1 The patient was anemic with a hemoglobin of 8.1 and hematocrit of 25.4 The INR is 1.25 The chemistry panel is within normal limits At this time, the patient was being admitted to the hospitalist The vascular surgeon will be consulting on the patient. Time of 1ST Reevaluation: 14:58 Reevaluation 1ST: Unchanged Patient Education/Counseling: Diagnosis, Treatment, Prognosis Family Education/Counseling: No Family Present Departure 1 Departure Time of Disposition: 14:58 Impression: Primary Impression: Ankle osteomyelitis, right Qualified Codes: M86.9 - Osteomyelitis, unspecified Disposition: 09 ADMITTED INPATIENT Admit to: Med Surg Condition: Fair Critical Care Note Critical Care Time?: No Stability Stability form required: Yes Unstable for transfer: ED Physician Assesment (Clinical assesment) Heart Score Heart Score: Heart Score Response (Comments) Value History N/A 0 EKG N/A 0 Age N/A 0 Risk Factors N/A 0 Troponin N/A 0 Total 0 ANDREW ROLON MD Feb 04, 2024 14:59
[2024-02-04] MEDS: VANCOMYCIN 1GM/250ML KIT 250 ML IV ONE (15:26)
[2024-02-04] MEDS: PIPERACILLIN-TAZOB 3.375GM 100 ML IV SCH (15:27)
[2024-02-04 16:00] VITALS: BP 138/69; PULSE 91; RESP 16; TEMP 98.3; O2SAT 98
[2024-02-04 16:05] VITALS: BP 138/69; PULSE 91; RESP 14; TEMP 98.3; O2SAT 95
[2024-02-04] MEDS: PROPRANOLOL HCL 20 MG TAB PO SCH (16:27)
[2024-02-04] MEDS: ATORVASTATIN 20 MG TAB PO SCH (21:44)
[2024-02-04] MEDS: amLODIPine BESYLATE 5 MG TAB PO SCH (21:45)
[2024-02-04 22:00] VITALS: BP 152/55; PULSE 82; RESP 17; TEMP 98.7; O2SAT 98
[2024-02-05] VITALS (7 sets, daily range): BP systolic 134–176; BP diastolic 60–70; PULSE 79–94; RESP 11–20; TEMP 98.1–99.1; O2SAT 90–97
[2024-02-05 02:48] LABS: Urine Bacteria None Seen /hpf (None Seen)
[2024-02-05 03:03] LABS: Urine Blood Negative /uL (Negative); Urine Clarity Clear (Clear); Urine Color Yellow (Yellow); Urine Mucus FEW (None Seen); Urine Protein, UAD TRACE (Negative); Urine Specific Gravity 1.022 (1.001-1.035); Urine Urobilinogen Normal (Negative); Urine WBC <1 /hpf (0 - 5); Urine pH 5.5 (5.0-9.0)
[2024-02-05 06:29] LABS: Basophils # (auto) 0.1 10 ^3/uL (0-0.2); Basophils % (auto) 0.7 % (0.0-2.0); Eosinophils # (auto) 0.1 10 ^3/uL (0-0.8); Eosinophils % (auto) 1.2 % (0.0-7.0); Hematocrit 23.3 % (36.0-46.0); Hemoglobin 7.5 g/dL (12.2-16.2); Lymphocytes % (auto) 8.5 % (10.0-50.0); Mean Corpuscular Hgb Conc. 32.2 g/dL (32.0-36.0); Mean Corpuscular Volume 80.7 fL (80.0-100.0); Monocytes # (auto) 0.8 10 ^3/uL (0-1.3); Monocytes % (auto) 6.6 % (0.0-12.0); Neutrophils # (auto) 9.8 10 ^3/uL (1.6-8.6); Platelet Count (auto) 342 10^3/uL (140-450); Red Blood Cells 2.88 10^6/uL (4.0-5.20); Red Cell Distribution Width 15.7 % (11.8-14.3); White Blood Cell 11.8 10^3/uL (4.4-10.8)
[2024-02-05 06:59] LABS: Albumin 3.9 g/dL (3.2-4.8); Anion Gap 7 (5-15); BUN/Creatinine Ratio 11.2 (10.0-20.0); Bilirubin, Total 0.4 mg/dL (0.2-1.0); Blood Urea Nitrogen 12 mg/dL (9-23); Calcium 9.7 mg/dL (8.7-10.4); Carbon Dioxide 27 mmol/L (20-31); Cholesterol 103 mg/dL (< 200); LDL Cholesterol 59 mg/dL (< 100); Total Protein 6.8 g/dL (5.7-8.2); Triglycerides 84 mg/dL (< 150)
[2024-02-05 07:00] LABS: Chloride 105 mmol/L (98-107); Sodium 139 mmol/L (136-145)
[2024-02-05 07:01] LABS: Alanine Aminotransferase 99 U/L (7-40); Alkaline Phosphatase 117 U/L (46-116); Aspartate Aminotransferase 59 U/L (13-40); Glucose 120 mg/dL (74-106); HDL Cholesterol 23 mg/dL (40-59)
--- NOTE | 2024-02-05 07:14 | DVHSR ---
APPROVED REPORT EXAM: Two-dimensional and M-mode echocardiogram with Doppler and color Doppler. Blood Pressure: 137/89 mmHg INDICATION Pre-Op RISK FACTORS Height: 67, Weight: 174 DIMENSIONS LVDd4.2 (3.8-5.7cm)LA (2D)5.1 (1.9-4.0cm)Aortic Root3.7 (2.0-3.7cm) LVDs2.8 (2.5-4.0cm)LA (MM) (1.9-4.0cm)Aortic Cusp Exc1.9 (1.5-2.0cm) EF (%) 60.0 (55-70%)Rt. Atrium4.4 (1.9-4.0cm)Asc. Aorta cm Mitral Valve MitralMitral Stenosis E wave0.98m/sMV Mean GR.mmHg A wave1.13m/sMV Peak GR.mmHg E/A ratio0.92D MVAcm2 DECEL [id number] 1/2 Megi35tl IVRTmsDop MVA2.38cm2 Aortic Valve Aortic ValveAortic Stenosis V11.63m/Tonya Mean GR.8mmHg V22.01m/Tonya Peak GR.16mmHg LVOT Diameter2.0 (1.8-2.4cm)Doppler AVA2.55cm2 Pulmonic Valve V21.14m/s Other Information Technically limited study due to body habitus. Conclusion lvef 60% by visual estimate moderate LVH RV normal function left atrium enlarged aortic sclerosis
--- NOTE | 2024-02-05 08:31 | DVHINCON2 ---
Date of service: Feb 05, 2024 History of Present Illness This 58-year-old female presents in the ED with a chief complaint of right foot wound. Patient was recently admitted at this facility status post angioplasty right lower extremity, right foot cellulitis with necrosis. She was advised by PCP to come to the ER for possible fem-pop bypass. History of hypertension. Denies other acute symptoms Past Medical History Hypertension Past Surgical History Status post angioplasty right lower extremity Family History Reviewed, non-contributory to the management of this case. Past Social History The patient lives at home, denies smoking, alcohol or illicit drugs abuse. Past Medical History reviewed Family History: Congenital anomaly Diabetes mellitus G8 MOTHER ((Mther) Diabetes type !!. Takes pills only and never has used insulin. ) 19 CHILD, Onset:10's - 15 Grandmother Glaucoma Grandmother, Onset:50's - 60 Osteoporosis G8 MOTHER ((Mother) Osteoporosis onset at age 50) Thyroid disease G8 MOTHER, Onset:50s - 60 Allergies: Coded Allergies: NO KNOWN ALLERGIES (Unverified , 12/26/23) Home Meds Active Scripts Levofloxacin Hemihydrate (LEVOFLOXACIN) 250 Mg Tab, 750 MG PO DAILY for 35 Days, #105 TAB Prov:AMIE MONROY MD 01/23/24 Oxycodone W/ Acetaminophen (Percocet 5/325MG) 1 Tab Tb, 1 TAB PO TID for 4 Days, #12 TAB Prov:MINNIE MURRIETA NP 01/23/24 Doxycycline Hyclate (Doxycycline Hyclate) 100 Mg Cap, 1 CAP PO BID for 7 Days, #14 CAP Prov:SAMARA WHITE 12/31/23 Reported Medications Furosemide (Furosemide) 10 Mg/Ml Inj, 20 MG PO DAILY, INJ 01/13/24 Propranolol HCl (Propranolol HCl) 1 Mg/Ml Inj, 20 MG PO TID, INJ 01/13/24 Ibuprofen (Ibuprofen) 800 Mg Tab, 800 MG PO TID, MG 01/13/24 Duloxetine Hcl (Cymbalta) 20 Mg Cap, 30 MG PO DAILY, CAP 01/13/24 Spironolactone (Spironolactone) 25 Mg Tab, 1 TAB PO DAILY, #90 TAB 1 Refill 01/13/24 Hydralazine Hcl (Hydralazine Hcl) 25 Mg Tab, 25 MG PO PRN for sys greater than 150 for 30 Days, MG 01/13/24 Lisinopril (Lisinopril) 40 Mg Tab, 40 MG PO DAILY for 30 Days, MG 01/13/24 Amlodipine Besylate (Amlodipine Besylate) 5 Mg Tab, 5 MG PO BID for 30 Days, MG 01/13/24 Atorvastatin Calcium (ATORVASTATIN CALCIUM) 40 Mg Tab, 40 MG PO DAILY, TAB 01/13/24 Current Medications Current Medications Medications (Trade) Dose Ordered Sig/Gregoria Route PRN Reason Start Time Stop Time Status Last Admin Ondansetron HCl (Zofran) 4 mg Q4HP PRN IV NAUSEA / VOMITING 02/04/24 13:15 Enoxaparin Sodium (Lovenox) 40 mg DAILY SC 02/05/24 10:00 Vancomycin HCl 0 ml @ 0 mls/hr UD IV 02/04/24 13:15 Piperacillin Sod/ Tazobactam Sod 100 ml @ 25 mls/hr Q8HR IV 02/04/24 14:00 02/05/24 06:10 Sodium Chloride 1,000 ml @ 75 mls/hr [id number] IV 02/04/24 13:15 02/05/24 01:20 Amlodipine Besylate (Norvasc Tablet) 5 mg BID PO 02/04/24 22:00 02/04/24 21:45 Hydralazine HCl (Apresoline Tablet) 25 mg PRN PO 02/04/24 13:45 Hold Spironolactone (Aldactone) 25 mg DAILY PO 02/05/24 10:00 Atorvastatin Calcium (Lipitor) 40 mg HS PO 02/04/24 22:00 02/04/24 21:44 Duloxetine HCl (Cymbalta Capsule) 30 mg DAILY PO 02/05/24 10:00 Lisinopril (Zestril Tablet) 40 mg DAILY PO 02/05/24 10:00 Propranolol HCl (Inderal Tablet) 20 mg TID PO 02/04/24 14:00 02/05/24 06:10 Review of Systems 10 pt ros otherwise negative Vital Signs Vital Signs Date Time Temp Pulse Resp B/P (MAP) Pulse Ox O2 Delivery O2 Flow Rate FiO2 02/05/24 06:10 79 149/69 02/05/24 05:00 98.4 17 96 98.4 02/04/24 20:00 Room Air* 0 21 Physical Exam nad s1 s2 rrr ctab soft nt/nd RLE bandaged up Labs/Diagnostic Data Labs Test 02/05/24 06:00 02/05/24 02:30 02/04/24 11:10 Range/Units White Blood Count 11.8 H 4.4-10.8 10^3/uL Red Blood Count 2.88 L 4.0-5.20 10^6/uL Hemoglobin 7.5 L 12.2-16.2 g/dL Hematocrit 23.3 L 36.0-46.0 % Mean Corpuscular Volume 80.7 80.0-100.0 fL Mean Corpuscular Hemoglobin 26.0 L 28.0-32.0 pg Mean Corpuscular Hemoglobin Concent 32.2 32.0-36.0 g/dL Red Cell Distribution Width 15.7 H 11.8-14.3 % Platelet Count 342 140-450 10^3/uL Mean Platelet Volume 8.1 6.9-10.8 fL Neutrophils (%) (Auto) 83.0 H 37.0-80.0 % Lymphocytes (%) (Auto) 8.5 L 10.0-50.0 % Monocytes (%) (Auto) 6.6 0.0-12.0 % Eosinophils (%) (Auto) 1.2 0.0-7.0 % Basophils (%) (Auto) 0.7 0.0-2.0 % Neutrophils # (Auto) 9.8 H 1.6-8.6 10 ^3/uL Lymphocytes # (Auto) 1.0 0.4-5.4 10 ^3/uL Monocytes # (Auto) 0.8 0-1.3 10 ^3/uL Eosinophils # (Auto) 0.1 0-0.8 10 ^3/uL Basophils # (Auto) 0.1 0-0.2 10 ^3/uL Nucleated Red Blood Cells 0.0 % Sodium Level 139 136-145 mmol/L Potassium Level 4.0 3.5-5.1 mmol/L Chloride Level 105 98-107 mmol/L Carbon Dioxide Level 27 20-31 mmol/L Anion Gap 7 5-15 Blood Urea Nitrogen 12 9-23 mg/dL Creatinine 1.07 H 0.550-1.02 mg/dL Glomerular Filtration Rate Calc 60 >90 mL/min BUN/Creatinine Ratio 11.2 10.0-20.0 Serum Glucose 120 H 74-106 mg/dL Hemoglobin A1c 5.6 <5.7 % A1C Calcium Level 9.7 8.7-10.4 mg/dL Total Bilirubin 0.4 0.2-1.0 mg/dL Aspartate Amino Transferase (AST) 59 H 13-40 U/L Alanine Aminotransferase (ALT) 99 H 7-40 U/L Alkaline Phosphatase 117 H 46-116 U/L Total Protein 6.8 5.7-8.2 g/dL Albumin 3.9 3.2-4.8 g/dL Triglycerides Level 84 < 150 mg/dL Cholesterol Level 103 < 200 mg/dL LDL Cholesterol 59 < 100 mg/dL HDL Cholesterol 23 L 40-59 mg/dL Random Vancomycin Level 12.0 H 5-10 ug/mL Urine Color Yellow Yellow Urine Clarity Clear Clear Urine pH 5.5 5.0-9.0 Urine Specific [place] 1.022 1.001-1.035 Urine Protein Trace H Negative Urine Ketones Negative Negative Urine Blood Negative Negative /uL Urine Nitrite Negative Negative Urine Bilirubin Negative Negative Urine Urobilinogen Normal Negative mg/dL Urine Leukocyte Esterase Negative Negative /uL Urine RBC 1 0 - 4 /hpf Urine WBC <1 0 - 5 /hpf Urine Squamous Epithelial Cells Few <5 /hpf Urine Bacteria None seen None Seen /hpf Urine Mucus Few None Seen Urine Glucose Normal Normal mg/dL Erythrocyte Sedimentation Rate 116 H 0-20 mm/hr Prothrombin Time 13.0 H 9.3-11.8 sec Prothrombin Time INR 1.25 H 0.9-1.15 Activated Partial Thromboplast Time 33.3 24.5-34.5 SEC Assessment pad HTN HL copd previous tobacco LVH Plan/Recommendation pt to undergo vascular procedure with her surgeon recommend daily asa 81 mg for hx of pad statin cont bp meds normal lvef on echo outpt fu and stress testing no active cv symptoms, pt does all ADLs Plan discussed with: Patient PARUL CINTRON MD Feb 05, 2024 08:31
[2024-02-05] MEDS: ENOXAPARIN SOD 40 MG/0.4 ML SYRINGE SC SCH (10:00)
[2024-02-05] MEDS: LISINOPRIL 20 MG TAB PO SCH (10:03)
[2024-02-05] MEDS: DULoxetine HCL 30 MG CAP PO SCH (10:03)
[2024-02-05] MEDS: SPIRONOLACTONE 25 MG TAB PO SCH (10:04)
--- NOTE | 2024-02-05 10:28 | DVHCONRES ---
Date Seen: Feb 05, 2024 Resident Creating Document: CAROL RIVERS Jr., MD Referring Physician katy Reason for Consultation Right leg severe peripheral vascular disease nonhealing wound History of Present Illness This 58-year-old female presents in the ED with a chief complaint of right foot wound. Patient was recently admitted at this facility status post angioplasty right lower extremity, right foot cellulitis with necrosis. Patient was admitted yesterday with worsening pain of the right foot we will be cleared this morning for a right fem pop bypass. Past Medical History Hypertension Past Surgical History Right leg angiogram Family History: Congenital anomaly Diabetes mellitus G8 MOTHER ((Mther) Diabetes type !!. Takes pills only and never has used insulin. ) 19 CHILD, Onset:10's - 15 Grandmother Glaucoma Grandmother, Onset:50's - 60 Osteoporosis G8 MOTHER ((Mother) Osteoporosis onset at age 50) Thyroid disease G8 MOTHER, Onset:50's - 60 Social History Recently quit smoking but long history of smoking history Allergies: Coded Allergies: NO KNOWN ALLERGIES (Unverified , 12/26/23) Home Meds Active Scripts Levofloxacin Hemihydrate (LEVOFLOXACIN) 250 Mg Tab, 750 MG PO DAILY for 35 Days, #105 TAB Prov:AMIE MONROY MD 01/23/24 Oxycodone W/ Acetaminophen (Percocet 5/325MG) 1 Tab Tb, 1 TAB PO TID for 4 Days, #12 TAB Prov:MINNIE MURRIETA NP 01/23/24 Doxycycline Hyclate (Doxycycline Hyclate) 100 Mg Cap, 1 CAP PO BID for 7 Days, #14 CAP Prov:SAMARA WHITE 12/31/23 Reported Medications Furosemide (Furosemide) 10 Mg/Ml Inj, 20 MG PO DAILY, INJ 01/13/24 Propranolol HCl (Propranolol HCl) 1 Mg/Ml Inj, 20 MG PO TID, INJ 01/13/24 Ibuprofen (Ibuprofen) 800 Mg Tab, 800 MG PO TID, MG 01/13/24 Duloxetine Hcl (Cymbalta) 20 Mg Cap, 30 MG PO DAILY, CAP 01/13/24 Spironolactone (Spironolactone) 25 Mg Tab, 1 TAB PO DAILY, #90 TAB 1 Refill 01/13/24 Hydralazine Hcl (Hydralazine Hcl) 25 Mg Tab, 25 MG PO PRN for sys greater than 150 for 30 Days, MG 01/13/24 Lisinopril (Lisinopril) 40 Mg Tab, 40 MG PO DAILY for 30 Days, MG 01/13/24 Amlodipine Besylate (Amlodipine Besylate) 5 Mg Tab, 5 MG PO BID for 30 Days, MG 01/13/24 Atorvastatin Calcium (ATORVASTATIN CALCIUM) 40 Mg Tab, 40 MG PO DAILY, TAB 01/13/24 Current Medications Current Medications Medications (Trade) Dose Ordered Sig/Gregoria Route PRN Reason Start Time Stop Time Status Last Admin Ondansetron HCl (Zofran) 4 mg Q4HP PRN IV NAUSEA / VOMITING 02/04/24 13:15 Enoxaparin Sodium (Lovenox) 40 mg DAILY SC 02/05/24 10:00 Vancomycin HCl 0 ml @ 0 mls/hr UD IV 02/04/24 13:15 Piperacillin Sod/ Tazobactam Sod 100 ml @ 25 mls/hr Q8HR IV 02/04/24 14:00 02/05/24 06:10 Sodium Chloride 1,000 ml @ 75 mls/hr [id number] IV 02/04/24 13:15 02/05/24 01:20 Amlodipine Besylate (Norvasc Tablet) 5 mg BID PO 02/04/24 22:00 02/05/24 10:04 Hydralazine HCl (Apresoline Tablet) 25 mg PRN PO 02/04/24 13:45 Hold Spironolactone (Aldactone) 25 mg DAILY PO 02/05/24 10:00 02/05/24 10:04 Atorvastatin Calcium (Lipitor) 40 mg HS PO 02/04/24 22:00 02/04/24 21:44 Duloxetine HCl (Cymbalta Capsule) 30 mg DAILY PO 02/05/24 10:00 02/05/24 10:03 Lisinopril (Zestril Tablet) 40 mg DAILY PO 02/05/24 10:00 02/05/24 10:03 Propranolol HCl (Inderal Tablet) 20 mg TID PO 02/04/24 14:00 02/05/24 06:10 Review of Systems All systems reviewed otherwise negative other than what is in the HPI. Vital Signs Vital Signs Date Time Temp Pulse Resp B/P (MAP) Pulse Ox O2 Delivery O2 Flow Rate FiO2 02/05/24 10:04 170/60 02/05/24 09:00 98.5 87 20 97 98.5 02/04/24 20:00 Room Air* 0 21 Physical Exam Head eyes ears nose and throat exam eyes are nonicteric conjunctiva is pink neck was supple no JVD no lymphadenopathy no carotid bruits lungs are clear to auscultation heart was regular rate and rhythm abdomen was soft and nontender no pulsatile abdominal mass or bruits. Lower extremities palpable femoral pulses bilaterally nonpalpable pedal pulse on the right side with black eschar over the anterior portion of the ankle and foot. Labs/Diagnostic Data Labs Test 02/05/24 06:00 02/05/24 02:30 02/04/24 11:10 Range/Units White Blood Count 11.8 H 4.4-10.8 10^3/uL Red Blood Count 2.88 L 4.0-5.20 10^6/uL Hemoglobin 7.5 L 12.2-16.2 g/dL Hematocrit 23.3 L 36.0-46.0 % Mean Corpuscular Volume 80.7 80.0-100.0 fL Mean Corpuscular Hemoglobin 26.0 L 28.0-32.0 pg Mean Corpuscular Hemoglobin Concent 32.2 32.0-36.0 g/dL Red Cell Distribution Width 15.7 H 11.8-14.3 % Platelet Count 342 140-450 10^3/uL Mean Platelet Volume 8.1 6.9-10.8 fL Neutrophils (%) (Auto) 83.0 H 37.0-80.0 % Lymphocytes (%) (Auto) 8.5 L 10.0-50.0 % Monocytes (%) (Auto) 6.6 0.0-12.0 % Eosinophils (%) (Auto) 1.2 0.0-7.0 % Basophils (%) (Auto) 0.7 0.0-2.0 % Neutrophils # (Auto) 9.8 H 1.6-8.6 10 ^3/uL Lymphocytes # (Auto) 1.0 0.4-5.4 10 ^3/uL Monocytes # (Auto) 0.8 0-1.3 10 ^3/uL Eosinophils # (Auto) 0.1 0-0.8 10 ^3/uL Basophils # (Auto) 0.1 0-0.2 10 ^3/uL Nucleated Red Blood Cells 0.0 % Sodium Level 139 136-145 mmol/L Potassium Level 4.0 3.5-5.1 mmol/L Chloride Level 105 98-107 mmol/L Carbon Dioxide Level 27 20-31 mmol/L Anion Gap 7 5-15 Blood Urea Nitrogen 12 9-23 mg/dL Creatinine 1.07 H 0.550-1.02 mg/dL Glomerular Filtration Rate Calc 60 >90 mL/min BUN/Creatinine Ratio 11.2 10.0-20.0 Serum Glucose 120 H 74-106 mg/dL Hemoglobin A1c 5.6 <5.7 % A1C Calcium Level 9.7 8.7-10.4 mg/dL Total Bilirubin 0.4 0.2-1.0 mg/dL Aspartate Amino Transferase (AST) 59 H 13-40 U/L Alanine Aminotransferase (ALT) 99 H 7-40 U/L Alkaline Phosphatase 117 H 46-116 U/L Total Protein 6.8 5.7-8.2 g/dL Albumin 3.9 3.2-4.8 g/dL Triglycerides Level 84 < 150 mg/dL Cholesterol Level 103 < 200 mg/dL LDL Cholesterol 59 < 100 mg/dL HDL Cholesterol 23 L 40-59 mg/dL Random Vancomycin Level 12.0 H 5-10 ug/mL Urine Color Yellow Yellow Urine Clarity Clear Clear Urine pH 5.5 5.0-9.0 Urine Specific [place] 1.022 1.001-1.035 Urine Protein Trace H Negative Urine Ketones Negative Negative Urine Blood Negative Negative /uL Urine Nitrite Negative Negative Urine Bilirubin Negative Negative Urine Urobilinogen Normal Negative mg/dL Urine Leukocyte Esterase Negative Negative /uL Urine RBC 1 0 - 4 /hpf Urine WBC <1 0 - 5 /hpf Urine Squamous Epithelial Cells Few <5 /hpf Urine Bacteria None seen None Seen /hpf Urine Mucus Few None Seen Urine Glucose Normal Normal mg/dL Erythrocyte Sedimentation Rate 116 H 0-20 mm/hr Prothrombin Time 13.0 H 9.3-11.8 sec Prothrombin Time INR 1.25 H 0.9-1.15 Activated Partial Thromboplast Time 33.3 24.5-34.5 SEC Assessment Critical limb ischemia of the right foot. We will plan on performing a right fem-pop bypass today. Patient understands risks benefits of the procedure Plan/Recommendation Critical limb ischemia of the right foot. We will plan on performing a right fem-pop bypass today. Patient understands risks benefits of the procedure Plan discussed with: Patient CAROL RIVERS Jr., MD Feb 05, 2024 10:28
[2024-02-05] MEDS ORDERED: LIDOCAINE 2% (LOCAL ANESTH.) PF 5ml SDV ONE (11:54)
[2024-02-05] MEDS ORDERED: PROPOFOL 10 MG/ML 20 ML IV ONE (11:54)
[2024-02-05] MEDS ORDERED: ePHEDrine SULFATE 50 MG/ML AMP ONE (11:54)
[2024-02-05] MEDS ORDERED: MIDAZOLAM HCL 2MG/2ML 2ml VIAL (1mg/ml) ONE (11:54)
[2024-02-05] MEDS ORDERED: HYDROmorphone HCL 2 MG/ML VL/or syr ONE (11:54)
[2024-02-05] MEDS ORDERED: ONDANSETRON HCL 4 MG/2 ML VIAL ONE (11:54)
[2024-02-05] MEDS ORDERED: GLYCOPYRROLATE 0.2 MG/ML 1ML VIAL ONE (11:54)
[2024-02-05] MEDS ORDERED: fentaNYL CITRATE 100 MCG/2 ML VL ONE ×2 (11:54→12:35)
[2024-02-05] MEDS ORDERED: DexAMETHasone SOD PHOS 10MG/1ML VIAL INJ ONE (11:54)
[2024-02-05] MEDS: BUPIVACAINE 0.25% INJ 50ML VIAL ONE (13:24)
[2024-02-05] MEDS: LIDOCAINE 1% HCL (LOCAL ANESTH.) INJ 20ML MDV ONE (13:26)
[2024-02-05] MEDS: HEPARIN SODIUM (PORCINE) 5000 UNITS/ML 1ML VIAL ONE (13:27)
--- NOTE | 2024-02-05 15:07 | POSTOP ---
Post-Operative Note Post-Operative Note Preop Diagnosis Right critical limb ischemia, peripheral vascular disease Postop Diagnosis: Same Operation performed Right fem popliteal artery bypass with [place]-Job graft, right common femoral artery endarterectomy Specimen Right common femoral artery plaque Anesthesia: General Anesthesiologist: General endotracheal tube Blood Loss(fluid mgmt) 200 mL Tourniquet Time None Surgeon Remy Fernandes MD Date 02/05/24 Time 15:06 REMY FERNANDES Jr., MD Feb 05, 2024 15:07
--- NOTE | 2024-02-05 15:17 | DVHOP2 ---
Operative Report - 2 Report Details Date: 02/05/24 Preop Diagnosis: Right critical limb ischemia, peripheral vascular disease Postop Diagnosis: Same Surgeon: Remy Fernandes MD Anesthesiologist: General endotracheal tube Anesthesia: General Consent: The patient was informed of the risks and benefits of the procedure. These include but are not limited to complications of anesthesia, postoperative infection, incomplete relief of symptoms, recurrence of symptoms, damage to blood vessels, nerves and tendons, deep venous thrombosis, pulmonary embolism and possible need for repeat surgery in the future. Estimated Blood Loss: 200 mL Name of Procedure Performed Right fem popliteal artery bypass with Mobile-Job graft, right common femoral artery endarterectomy Procedure Details Procedure Details: Patient was identified in the preop hold area is being Mrs. Giles. Patient was consented in the preop by myself she was brought back to the operating room placed the operating table in supine position after adequate induction of anesthesia antibiotics and time-out the right leg was prepped and draped in normal surgical fashion. The initial incision was made in the right medial lower thigh dissection was taken down into the above knee popliteal fossa region where the popliteal artery was identified was calcified. However there was a good landing zone for the bypass circumferentially controlled proximally and distally was obtained with vessel loops. Wet lap was then placed in the wound and attention was placed to the right common femoral artery where a longitudinal incision was made above the right common femoral artery dissection was taken down to the common femoral artery common femoral artery was then dissected proximally and distally and controlled with vessel loops. There was a heavy posterior plaque noted in the right common femoral artery. At this point in time using a Mobile tunneler a 8 mm Mobile-Job reinforced graft was then tunneled subsartorially. 5000 units of heparin was given at this point in time then the common femoral artery was clamped proximally and distally in a arteriotomy was made and extended with the Suggs scissors there was extensive plaque burden and this area which was excised an endarterectomy fashion. Good healthy lumen was noted the proximal and distal artery was flushed with heparinized saline. At this point in time using a five 0 Mobile-Job suture the graft was then sewn to the common femoral artery in an end-to-side fashion. Surgicel was applied to the anastomosis and attention was then placed to the distal anastomosis. The Gortex graft was then measured and spatulated for the anastomosis. The proximal and distal popliteal artery was then clamped 11 blade was used to create the arteriotomy was extended with Suggs scissors using six 0 Mobile-Job suture the anastomosis was performed in an end-to-side fashion. Completion anastomosis there was no further surgical site bleeding from the anastomosis it was reinforced with a Surgicel. A Doppler was used which demonstrated excellent Doppler signals in the distal popliteal artery. At this point in time both wounds were closed deep layers were closed with 2-0 Vicryl sutures followed by a dermal layer of 3-0 Vicryl suture. Followed by 4-0 Monocryl subcuticular suture. 1% lidocaine with Marcaine was injected in both surgical sites Dermabond was applied to the skin. Sponge and needle counts were correct however there was a discrepancy with potentially one extra needle on the field. So a two field x-ray was performed which demonstrated no needles in the surgical field. The patient was brought to the PACU in a stable condition. Specimen: Right common femoral artery plaque Condition Stable (pacu) Disposition pacu REMY FERNANDES Jr., MD Feb 05, 2024 15:17
[2024-02-05] MEDS: THROMBIN (BOVINE) 5000 UNIT SOL VIAL ONE (15:24)
[2024-02-05] MEDS: GELATIN 1 SPONGE SIZE 100 TOP ONE (15:25)
[2024-02-05] MEDS: NEOMYCIN-BACITRACIN-POLYM 15GM TOP OINT TOP ONE (15:25)
[2024-02-05] MEDS: ceFAZolin 2 GM/D5W100ml 100 ML IV ONE (15:25)
[2024-02-05] MEDS: ONDANSETRON HCL 4 MG/2 ML VIAL IV ONE (15:26)
--- NOTE | 2024-02-05 15:27 | DVH ---
EXAM: XY POST PROCEDURE LOWER EXTREMITY INDICATION: R/O FB POST SURGERY TECHNIQUE: single radiographic views of the right knees were obtained. COMPARISON: None FINDINGS: No acute fracture. Soft tissue swelling is present. Surgical pins in subcutaneous tissue a t the level of the distal femur. IMPRESSION: No acute fracture. Soft tissue swelling is present. Surgical pins in subcutaneous tissue at the leve l of the distal femur.
[2024-02-05] MEDS ORDERED: HYDROmorphone HCL 2 MG/ML VL/or syr IV PRN (15:30)
--- NOTE | 2024-02-05 15:42 | DVH ---
INDICATION: R/O FB POST SURGERY TECHNIQUE: Single AP view of the pelvis was obtained. COMPARISON: XY R FOOT 3 VIEW XRAY on DOS: 01/11/24, XY R FOOT 3 VIEW XRAY on DOS: 12/31/23 FINDINGS: The pelvic ring appears intact.There is no evidence of acute fracture or dislocation.Bilate ral hip joints appear unremarkable without evidence of joint space narrowing. The lower lumbar spine and bilateral sacroiliac joints appear unremarkable without evidence of fusion.The alignment is anato mical.The surrounding soft tissues are unremarkable. IMPRESSION: Moderate right hip osteoarthritis. No radiopaque foreign body.
[2024-02-05] MEDS: VANCOMYCIN 1GM/250ML KIT 250 ML IV SCH (18:50)
--- NOTE | 2024-02-05 19:02 | DVHPN2 ---
Subjective in bed resting Changes from previous H/P or p: No Changes Eyes: No Pain, No Vision change, No Conjunctivae inflammation, No Eyelid inflammation, No Other, No Redness ENT: No Ear pain, No Ear discharge, No Nose pain, No Nose discharge, No Nose congestion, No Mouth pain, No Mouth swelling, No Throat pain, No Throat swelling, No Other Respiratory: No Cough, No Dry, No Shortness of breath, No SOB with excertion, No Wheezing, No Hemoptysis, No Pleuritic Pain, No Sputum, No Other Gastrointestinal: No Nausea, No Vomiting, No Abdominal Pain, No Diarrhea, No Constipation, No Melena, No Hematochezia, No Other Genitourinary: No Dysuria, No Frequency, No Incontinence, No Hematuria, No Retention, No Other Musculoskeletal: No other, No neck pain, No shoulder pain, No arm pain, No back pain, No hand pain, No leg pain, No foot pain Skin: Jaundice, Other (Right foot wound) Objective Vitals Vital Signs Date Time Temp Pulse Resp B/P (MAP) Pulse Ox O2 Delivery O2 Flow Rate FiO2 02/05/24 17:00 98.1 82 16 158/69 (98) 91 98.1 02/05/24 15:30 Room Air 0 90 Intake/Output Intake and Output 02/05/24 05:00 Intake Total 1910 ml Balance 1910 ml Intake Oral 785 ml IV Total 1125 ml # Voids 3 General Appearance: Alert, Oriented X3 HEENT: Atraumatic Cardiovascular: Regular rate, Normal S1 Abdomen: Normal bowel sounds Medications Current Medications Medications Dose Ordered Sig/Gregoria Route Start Time Stop Time Status Last Admin Dose Admin Ondansetron HCl 4 mg Q4HP PRN IV 02/04/24 13:15 Enoxaparin Sodium 40 mg DAILY SC 02/05/24 10:00 Vancomycin HCl 0 ml @ 0 mls/hr UD IV 02/04/24 13:15 Piperacillin Sod/ Tazobactam Sod 100 ml @ 25 mls/hr Q8HR IV 02/04/24 14:00 02/05/24 06:10 25 MLS/HR Sodium Chloride 1,000 ml @ 75 mls/hr [id number] IV 02/04/24 13:15 02/05/24 01:20 75 MLS/HR Amlodipine Besylate 5 mg BID PO 02/04/24 22:00 02/05/24 10:04 5 MG Hydralazine HCl 25 mg PRN PO 02/04/24 13:45 Cancel Spironolactone 25 mg DAILY PO 02/05/24 10:00 02/05/24 10:04 25 MG Atorvastatin Calcium 40 mg HS PO 02/04/24 22:00 02/04/24 21:44 40 MG Duloxetine HCl 30 mg DAILY PO 02/05/24 10:00 02/05/24 10:03 30 MG Lisinopril 40 mg DAILY PO 02/05/24 10:00 02/05/24 10:03 40 MG Propranolol HCl 20 mg TID PO 02/04/24 14:00 02/05/24 06:10 20 MG Vancomycin HCl 250 ml @ 250 mls/hr Q24H IV 02/05/24 18:00 02/05/24 18:50 250 MLS/HR Oxycodone/ Acetaminophen 2 tab Q4HP PRN PO 02/05/24 15:45 Hydralazine HCl 10 mg Q6HPRN PRN IV 02/05/24 15:50 Laboratory Results Laboratory Tests 02/05/24 06:00 Chemistry Test 02/05/24 06:00 Albumin 3.9 g/dL (3.2-4.8) Calcium Level 9.7 mg/dL (8.7-10.4) Total Protein 6.8 g/dL (5.7-8.2) Lipid panel Test 02/05/24 06:00 Cholesterol Level 103 mg/dL (< 200) HDL Cholesterol 23 mg/dL (40-59) L Triglycerides Level 84 mg/dL (< 150) LFT Test 02/05/24 06:00 Alanine Aminotransferase (ALT) 99 U/L (7-40) H Alkaline Phosphatase 117 U/L (46-116) H Aspartate Amino Transferase (AST) 59 U/L (13-40) H Total Bilirubin 0.4 mg/dL (0.2-1.0) HgA1c, TSH Test 02/05/24 06:00 Hemoglobin A1c 5.6 % A1C (<5.7) Urinalysis Test 02/05/24 02:30 Urine Color Yellow (Yellow) Urine Clarity Clear (Clear) Urine pH 5.5 (5.0-9.0) Urine Specific [place] 1.022 (1.001-1.035) Urine Protein Trace (Negative) H Urine Ketones Negative (Negative) Urine Blood Negative /uL (Negative) Urine Nitrite Negative (Negative) Urine Bilirubin Negative (Negative) Urine Urobilinogen Normal mg/dL (Negative) Urine Leukocyte Esterase Negative /uL (Negative) Urine RBC 1 /hpf (0 - 4) Urine WBC <1 /hpf (0 - 5) Urine Squamous Epithelial Cells Few /hpf (<5) Urine Bacteria None seen /hpf (None Seen) Urine Mucus Few (None Seen) Urine Glucose Normal mg/dL (Normal) Microbiology Microbiology Date/Time Source Procedure Growth Status 02/04/24 14:38 Blood Blood Culture - Preliminary NO GROWTH AFTER 24 HOURS OF INCUBATION. Resulted Assessment/Plan Assessment/Plan # Right foot cellulitis with necrosis # osteomyelitis # s/p angioplasty RLE # PAD Admit to medical unit Consult vascular >going for bypass tomorrow Wound consult Vanco and Zosyn Cardiology consult for clearance - for possible fem-pop bypass Echo NPO after MN # Hypertension Continue home meds Plan discussed with: Patient Date of Service: Feb 05, 2024 Billing Provider: BHUPINDER FRANCIS MD Common Visit Codes: [id number] INP/OBS CARE(HIGH) BHUPINDER FRANCIS MD Feb 05, 2024 19:02
[2024-02-05] MEDS: OXYCODONE W/ ACETAMINOPHEN 5/325MG TABLET PO PRN (22:06)
[2024-02-06] VITALS (11 sets, daily range): BP systolic 108–158; BP diastolic 44–72; PULSE 71–82; RESP 16–18; TEMP 98–98.7; O2SAT 95–98
[2024-02-06 06:34] LABS: Basophils # (auto) 0 10 ^3/uL (0-0.2); Basophils % (auto) 0.1 % (0.0-2.0); Eosinophils # (auto) 0 10 ^3/uL (0-0.8); Monocytes # (auto) 1.1 10 ^3/uL (0-1.3); Monocytes % (auto) 6.1 % (0.0-12.0); Red Cell Distribution Width 15.5 % (11.8-14.3)
[2024-02-06 06:38] LABS: Hematocrit 21.4 % (36.0-46.0); Lymphocytes % (auto) 5.6 % (10.0-50.0); Mean Corpuscular Hemoglobin 25.9 pg (28.0-32.0); Mean Corpuscular Hgb Conc. 31.8 g/dL (32.0-36.0); Mean Corpuscular Volume 81.4 fL (80.0-100.0); Neutrophils # (auto) 15.6 10 ^3/uL (1.6-8.6); Neutrophils % (auto) 88.2 % (37.0-80.0); Platelet Count (auto) 343 10^3/uL (140-450); Red Blood Cells 2.63 10^6/uL (4.0-5.20); White Blood Cell 17.6 10^3/uL (4.4-10.8)
--- NOTE | 2024-02-06 07:12 | DVHPN2 ---
Progress Note Date Seen: Feb 06, 2024 Has the PT tested + for MRSA If YES, has PT been informed?: No Medical Necessity Reason Pt with a Central, PICC or Fol: Yes The following are medically ne: PICC Line, Monterroso Catheter Reason for monterroso catheter: Strict I&O Subjective Patient reports: Other (Right foot pain decreased. Decreased sensation the medial calf incision sites mild discomfort) Review of Systems: HEENT:Normal, CVS:Normal, RESPIRATORY:Normal, GI:Normal, :Normal, MSK:Normal, NEURO:Normal Objective vital signs Vital Sign Date Time Temp Pulse Resp B/P (MAP) Pulse Ox O2 Delivery O2 Flow Rate FiO2 02/06/24 05:23 78 158/65 02/06/24 05:00 98.7 18 95 98.7 02/05/24 20:00 Room Air* 0 21 Total Intake and Output 02/05/24 02/05/24 02/06/24 15:00 23:00 07:00 Intake Total 100 ml 250 ml 700 ml Output Total 900 ml 650 ml Balance 100 ml -650 ml 50 ml medications Current Medications Medications Dose Ordered Sig/Gregoria Route Start Time Stop Time Status Last Admin Dose Admin Ondansetron HCl 4 mg Q4HP PRN IV 02/04/24 13:15 Enoxaparin Sodium 40 mg DAILY SC 02/05/24 10:00 Vancomycin HCl 0 ml @ 0 mls/hr UD IV 02/04/24 13:15 Piperacillin Sod/ Tazobactam Sod 100 ml @ 25 mls/hr Q8HR IV 02/04/24 14:00 02/06/24 05:27 25 MLS/HR Sodium Chloride 1,000 ml @ 75 mls/hr [id number] IV 02/04/24 13:15 02/05/24 01:20 75 MLS/HR Amlodipine Besylate 5 mg BID PO 02/04/24 22:00 02/05/24 22:07 5 MG Hydralazine HCl 25 mg PRN PO 02/04/24 13:45 Cancel Spironolactone 25 mg DAILY PO 02/05/24 10:00 02/05/24 10:04 25 MG Atorvastatin Calcium 40 mg HS PO 02/04/24 22:00 02/05/24 22:07 40 MG Duloxetine HCl 30 mg DAILY PO 02/05/24 10:00 02/05/24 10:03 30 MG Lisinopril 40 mg DAILY PO 02/05/24 10:00 02/05/24 10:03 40 MG Propranolol HCl 20 mg TID PO 02/04/24 14:00 02/06/24 05:23 20 MG Vancomycin HCl 250 ml @ 250 mls/hr Q24H IV 02/05/24 18:00 02/05/24 18:50 250 MLS/HR Oxycodone/ Acetaminophen 2 tab Q4HP PRN PO 02/05/24 15:45 02/06/24 04:30 2 TAB Hydralazine HCl 10 mg Q6HPRN PRN IV 02/05/24 15:50 Examination: GENERAL:Normal, HEENT:Normal, NECK:Normal, LUNGS:Normal, CVS:Normal, ABDOMEN:Normal, MSK:Normal (Right foot wrapped leg is warm well perfused. Incision sites clean dry intact. Decreased sensation medial calf postsurgical), SKIN:Normal, NEURO:Normal, :Normal laboratory and microbiology Laboratory Tests 02/06/24 05:52 02/05/24 06:00 Test 02/05/24 06:00 Range/Units Serum Glucose 120 H 74-106 mg/dL Microbiology Date/Time Source Procedure Growth Status 02/04/24 14:38 Blood Blood Culture - Preliminary NO GROWTH AFTER 24 HOURS OF INCUBATION. Resulted Problem List/Assessment/Plan Problem List/Assessment/Plan Patient is postop day 1. Status post right femoral to popliteal bypass and endarterectomy. Surgical date February 05, 2024 Out of bed Physical therapy Wound care consult [facility] to right foot wound. Social were for rehab placement. Plan discussed with: Patient My Orders My Orders Orders - CAROL RIVERS Jr., MD Procedure Category Date Status Time Obtain Consent For: ORDERS 02/05/24 Transmitted 10:21 Obtain Consent For ELIGIO 02/05/24 In Process Anesthesia 10:21 Post Procedure Lower XY 02/05/24 Resulted Extremity 15:04 R Hip 1v Xray XY 02/05/24 Resulted 15:04 Regular Diet DIET 02/05/24 Transmitted Dinner Transfer Orders XFER 02/05/24 Transmitted 15:23 Oxycodone W/ Acet PHA 02/05/24 In Process 5/325mg Tab (Percocet 15:45 CAROL RIVERS Jr., MD Feb 06, 2024 07:12
[2024-02-06 07:31] LABS: Hemoglobin 6.8 g/dL (12.2-16.2)
[2024-02-06] MEDS: LACTULOSE 20Gm/30ML SOLN PO ONE (15:45)
--- NOTE | 2024-02-06 15:50 | DVHPN2 ---
Subjective Seen and examined at bedside. POD1 Fem/Pop Bypass by Vascular Surgery. Patient has some anemia, will get FOBT or expected due to surgery. Will Transfuse 1 PRBC. Cont Abx Changes from previous H/P or p: No Changes Eyes: No Pain, No Vision change, No Conjunctivae inflammation, No Eyelid inflammation, No Other, No Redness ENT: No Ear pain, No Ear discharge, No Nose pain, No Nose discharge, No Nose congestion, No Mouth pain, No Mouth swelling, No Throat pain, No Throat swelling, No Other Respiratory: No Cough, No Dry, No Shortness of breath, No SOB with excertion, No Wheezing, No Hemoptysis, No Pleuritic Pain, No Sputum, No Other Gastrointestinal: No Nausea, No Vomiting, No Abdominal Pain, No Diarrhea, No Constipation, No Melena, No Hematochezia, No Other Genitourinary: No Dysuria, No Frequency, No Incontinence, No Hematuria, No Retention, No Other Musculoskeletal: No other, No neck pain, No shoulder pain, No arm pain, No back pain, No hand pain, No leg pain, No foot pain Objective Vitals Vital Signs Date Time Temp Pulse Resp B/P (MAP) Pulse Ox O2 Delivery O2 Flow Rate FiO2 02/06/24 15:34 82 146/68 02/06/24 15:30 98.2 16 98.2 02/06/24 12:45 96 02/06/24 08:00 Room Air* 0 21 Intake/Output Intake and Output 02/06/24 07:00 Intake Total 1050 ml Output Total 1550 ml Balance -500 ml Intake Oral 700 ml IV Total 350 ml Output Urine Total 1550 ml General Appearance: Alert, Oriented X3 HEENT: Atraumatic Cardiovascular: Regular rate, Normal S1 Abdomen: Normal bowel sounds Extremities: Other (Right Foot Dressing) Medications Current Medications Medications Dose Ordered Sig/Gregoria Route Start Time Stop Time Status Last Admin Dose Admin Ondansetron HCl 4 mg Q4HP PRN IV 02/04/24 13:15 Enoxaparin Sodium 40 mg DAILY SC 02/05/24 10:00 Vancomycin HCl 0 ml @ 0 mls/hr UD IV 02/04/24 13:15 Piperacillin Sod/ Tazobactam Sod 100 ml @ 25 mls/hr Q8HR IV 02/04/24 14:00 02/06/24 05:27 25 MLS/HR Sodium Chloride 1,000 ml @ 75 mls/hr [id number] IV 02/04/24 13:15 02/05/24 01:20 75 MLS/HR Amlodipine Besylate 5 mg BID PO 02/04/24 22:00 02/06/24 09:26 5 MG Hydralazine HCl 25 mg PRN PO 02/04/24 13:45 Cancel Spironolactone 25 mg DAILY PO 02/05/24 10:00 02/06/24 09:27 25 MG Atorvastatin Calcium 40 mg HS PO 02/04/24 22:00 02/05/24 22:07 40 MG Duloxetine HCl 30 mg DAILY PO 02/05/24 10:00 02/06/24 09:26 30 MG Lisinopril 40 mg DAILY PO 02/05/24 10:00 02/06/24 09:27 40 MG Propranolol HCl 20 mg TID PO 02/04/24 14:00 02/06/24 15:34 20 MG Vancomycin HCl 250 ml @ 250 mls/hr Q24H IV 02/05/24 18:00 02/05/24 18:50 250 MLS/HR Oxycodone/ Acetaminophen 2 tab Q4HP PRN PO 02/05/24 15:45 02/06/24 09:41 2 TAB Hydralazine HCl 10 mg Q6HPRN PRN IV 02/05/24 15:50 Laboratory Results Laboratory Tests 02/05/24 06:00 02/06/24 05:52 Urinalysis Test 02/05/24 02:30 Urine Color Yellow (Yellow) Urine Clarity Clear (Clear) Urine pH 5.5 (5.0-9.0) Urine Specific [place] 1.022 (1.001-1.035) Urine Protein Trace (Negative) H Urine Ketones Negative (Negative) Urine Blood Negative /uL (Negative) Urine Nitrite Negative (Negative) Urine Bilirubin Negative (Negative) Urine Urobilinogen Normal mg/dL (Negative) Urine Leukocyte Esterase Negative /uL (Negative) Urine RBC 1 /hpf (0 - 4) Urine WBC <1 /hpf (0 - 5) Urine Squamous Epithelial Cells Few /hpf (<5) Urine Bacteria None seen /hpf (None Seen) Urine Mucus Few (None Seen) Urine Glucose Normal mg/dL (Normal) Microbiology Microbiology Date/Time Source Procedure Growth Status 02/04/24 14:38 Blood Blood Culture - Preliminary NO GROWTH AFTER 48 HOURS OF INCUBATION. Resulted Assessment/Plan Assessment/Plan # Right Foot Osteomyelitis- Cont Abx # Anemia- Transfuse PRBC # s/p Right Fem Pop Bypass due to Critical Limb Ischemia # Transaminitis- Monitor, DC Statins if further increase # Vitamin D Def- Supplement critical care time 43 mins Plan discussed with: Patient My Orders Orders - JOHN MICHELLE MD Procedure Category Date Status Time * Wind Turbine Erector CONS 02/06/24 Transmitted Consult Lactulose Oral PHA 02/06/24 Verified 15:45 Stool Occult Blood LAB 02/06/24 Verified 15:45 Complete Blood Count LAB 02/07/24 Verified 04:00 Comprehensive LAB 02/07/24 Verified Metabolic Panel 04:00 Date of Service: Feb 06, 2024 Billing Provider: JOHN MICHELLE MD Common Visit Codes: [id number] CARE 30-74 MIN JOHN MICHELLE MD Feb 06, 2024 15:50
[2024-02-06] MEDS: PIPERACILLIN-TAZOB 3.375GM 100 ML IV SCH (17:18)
[2024-02-07] VITALS (9 sets, daily range): BP systolic 119–159; BP diastolic 57–79; PULSE 66–100; RESP 14–19; TEMP 98.2–100.1; O2SAT 94–98
--- NOTE | 2024-02-07 07:27 | DVHPN2 ---
Progress Note Date Seen: Feb 07, 2024 Has the PT tested + for MRSA If YES, has PT been informed?: No Medical Necessity Reason Pt with a Central, PICC or Fol: Yes The following are medically ne: PICC Line, Monterroso Catheter Reason for monterroso catheter: Strict I&O Subjective Patient reports: Other (Above knee incision site pain) Review of Systems: HEENT:Normal, CVS:Normal, RESPIRATORY:Normal, GI:Normal, :Normal, MSK:Normal, NEURO:Normal Objective vital signs Vital Sign Date Time Temp Pulse Resp B/P (MAP) Pulse Ox O2 Delivery O2 Flow Rate FiO2 02/07/24 05:35 85 159/67 02/07/24 05:00 98.6 19 95 98.6 02/06/24 20:15 Room Air* 0 21 Total Intake and Output 02/06/24 02/06/24 02/07/24 15:00 23:00 07:00 Intake Total 100 ml 1550 ml 500 ml Output Total 900 ml 1150 ml Balance 100 ml 650 ml -650 ml medications Current Medications Medications Dose Ordered Sig/Gregoria Route Start Time Stop Time Status Last Admin Dose Admin Ondansetron HCl 4 mg Q4HP PRN IV 02/04/24 13:15 Enoxaparin Sodium 40 mg DAILY SC 02/05/24 10:00 Vancomycin HCl 0 ml @ 0 mls/hr UD IV 02/04/24 13:15 Amlodipine Besylate 5 mg BID PO 02/04/24 22:00 02/06/24 22:46 5 MG Hydralazine HCl 25 mg PRN PO 02/04/24 13:45 Cancel Spironolactone 25 mg DAILY PO 02/05/24 10:00 02/06/24 09:27 25 MG Atorvastatin Calcium 40 mg HS PO 02/04/24 22:00 02/06/24 22:46 40 MG Duloxetine HCl 30 mg DAILY PO 02/05/24 10:00 02/06/24 09:26 30 MG Lisinopril 40 mg DAILY PO 02/05/24 10:00 02/06/24 09:27 40 MG Propranolol HCl 20 mg TID PO 02/04/24 14:00 02/07/24 05:35 20 MG Vancomycin HCl 250 ml @ 250 mls/hr Q24H IV 02/05/24 18:00 02/05/24 18:50 250 MLS/HR Oxycodone/ Acetaminophen 2 tab Q4HP PRN PO 02/05/24 15:45 02/07/24 05:36 2 TAB Hydralazine HCl 10 mg Q6HPRN PRN IV 02/05/24 15:50 Piperacillin Sod/ Tazobactam Sod 100 ml @ 25 mls/hr Q8H IV 02/06/24 18:00 02/07/24 02:45 25 MLS/HR Examination: GENERAL:Normal, HEENT:Normal, NECK:Normal, LUNGS:Normal, CVS:Normal, ABDOMEN:Normal, MSK:Normal (Things are clean dry and intact right leg is warm well-perfused), SKIN:Normal, NEURO:Normal, :Normal laboratory and microbiology Test 02/07/24 06:23 Range/Units Serum Glucose Pending Microbiology Date/Time Source Procedure Growth Status 02/04/24 14:38 Blood Blood Culture - Preliminary NO GROWTH AFTER 48 HOURS OF INCUBATION. Resulted Problem List/Assessment/Plan Problem List/Assessment/Plan Patient is postop day 1 Status post right femoral to popliteal bypass and endarterectomy. Surgical date February 05, 2024 Out of bed Physical therapy Wound care consult [facility] to right foot wound. Socialwork for rehab placement. Plan discussed with: Patient CAROL RIVERS Jr., MD Feb 07, 2024 07:27
[2024-02-07 07:44] LABS: Basophils # (auto) 0.1 10 ^3/uL (0-0.2); Eosinophils # (auto) 0.1 10 ^3/uL (0-0.8); Eosinophils % (auto) 0.6 % (0.0-7.0); Lymphocytes # (auto) 1.1 10 ^3/uL (0.4-5.4); Monocytes # (auto) 1.2 10 ^3/uL (0-1.3); Neutrophils # (auto) 12.8 10 ^3/uL (1.6-8.6)
[2024-02-07 07:46] LABS: Basophils % (auto) 0.7 % (0.0-2.0); Hematocrit 26.5 % (36.0-46.0); Hemoglobin 8.6 g/dL (12.2-16.2); Mean Corpuscular Hemoglobin 26.1 pg (28.0-32.0); Mean Corpuscular Hgb Conc. 32.5 g/dL (32.0-36.0); Mean Corpuscular Volume 80.4 fL (80.0-100.0); Monocytes % (auto) 7.6 % (0.0-12.0); Neutrophils % (auto) 84.1 % (37.0-80.0); Nucleated Red Blood Cells % 0.2 %; Platelet Count (auto) 335 10^3/uL (140-450); Red Blood Cells 3.29 10^6/uL (4.0-5.20); Red Cell Distribution Width 15.9 % (11.8-14.3); White Blood Cell 15.2 10^3/uL (4.4-10.8)
[2024-02-07 07:55] LABS: Anion Gap 6 (5-15); BUN/Creatinine Ratio 12.7 (10.0-20.0); Blood Urea Nitrogen 13 mg/dL (9-23); Calcium 9.7 mg/dL (8.7-10.4); Carbon Dioxide 27 mmol/L (20-31); Chloride 106 mmol/L (98-107); Glucose 102 mg/dL (74-106); Potassium 4.1 mmol/L (3.5-5.1); Sodium 139 mmol/L (136-145)
[2024-02-07 07:56] LABS: Albumin 3.8 g/dL (3.2-4.8); Bilirubin, Total 0.7 mg/dL (0.2-1.0); Total Protein 6.8 g/dL (5.7-8.2)
[2024-02-07 08:01] LABS: Alanine Aminotransferase 82 U/L (7-40); Alkaline Phosphatase 123 U/L (46-116); Aspartate Aminotransferase 58 U/L (13-40)
[2024-02-07] MEDS: MORPHINE SULFATE INJ 2 MG/ml SYRG IV ONE (08:08)
[2024-02-07] MEDS: VANCOMYCIN 1GM/250ML KIT 250 ML IV ONE (10:26)
--- NOTE | 2024-02-07 18:02 | DVHPN2 ---
Subjective Seen and examined at bedside. POD2 Fem/Pop Bypass by Vascular Surgery. Likely DC in AM. Changes from previous H/P or p: No Changes Eyes: No Pain, No Vision change, No Conjunctivae inflammation, No Eyelid inflammation, No Other, No Redness ENT: No Ear pain, No Ear discharge, No Nose pain, No Nose discharge, No Nose congestion, No Mouth pain, No Mouth swelling, No Throat pain, No Throat swelling, No Other Respiratory: No Cough, No Dry, No Shortness of breath, No SOB with excertion, No Wheezing, No Hemoptysis, No Pleuritic Pain, No Sputum, No Other Gastrointestinal: No Nausea, No Vomiting, No Abdominal Pain, No Diarrhea, No Constipation, No Melena, No Hematochezia, No Other Genitourinary: No Dysuria, No Frequency, No Incontinence, No Hematuria, No Retention, No Other Musculoskeletal: No other, No neck pain, No shoulder pain, No arm pain, No back pain, No hand pain, No leg pain, No foot pain Objective Vitals Vital Signs Date Time Temp Pulse Resp B/P (MAP) Pulse Ox O2 Delivery O2 Flow Rate FiO2 02/07/24 16:34 99.4 83 16 139/73 (95) 97 99.4 02/07/24 08:00 Room Air* 0 21 Intake/Output Intake and Output 02/07/24 07:00 Intake Total 2150 ml Output Total 2050 ml Balance 100 ml Intake Oral 1150 ml IV Total 100 ml Blood Product 300 ml Other 600 ml Output Urine Total 2050 ml General Appearance: Alert, Oriented X3 HEENT: Atraumatic Cardiovascular: Regular rate, Normal S1 Abdomen: Normal bowel sounds Extremities: Other (Right Foot Dressing) Medications Current Medications Medications Dose Ordered Sig/Gregoria Route Start Time Stop Time Status Last Admin Dose Admin Ondansetron HCl 4 mg Q4HP PRN IV 02/04/24 13:15 Enoxaparin Sodium 40 mg DAILY SC 02/05/24 10:00 02/07/24 10:28 40 MG Vancomycin HCl 0 ml @ 0 mls/hr UD IV 02/04/24 13:15 Amlodipine Besylate 5 mg BID PO 02/04/24 22:00 02/07/24 10:27 5 MG Hydralazine HCl 25 mg PRN PO 02/04/24 13:45 Cancel Spironolactone 25 mg DAILY PO 02/05/24 10:00 02/07/24 10:26 25 MG Atorvastatin Calcium 40 mg HS PO 02/04/24 22:00 02/06/24 22:46 40 MG Duloxetine HCl 30 mg DAILY PO 02/05/24 10:00 02/07/24 10:26 30 MG Lisinopril 40 mg DAILY PO 02/05/24 10:00 02/07/24 10:28 40 MG Propranolol HCl 20 mg TID PO 02/04/24 14:00 02/07/24 14:56 20 MG Oxycodone/ Acetaminophen 2 tab Q4HP PRN PO 02/05/24 15:45 02/07/24 10:27 2 TAB Hydralazine HCl 10 mg Q6HPRN PRN IV 02/05/24 15:50 Piperacillin Sod/ Tazobactam Sod 100 ml @ 25 mls/hr Q8H IV 02/06/24 18:00 02/07/24 12:16 25 MLS/HR Laboratory Results Laboratory Tests 02/07/24 06:23 Chemistry Test 02/07/24 06:23 Albumin 3.8 g/dL (3.2-4.8) Calcium Level 9.7 mg/dL (8.7-10.4) Total Protein 6.8 g/dL (5.7-8.2) LFT Test 02/07/24 06:23 Alanine Aminotransferase (ALT) 82 U/L (7-40) H Alkaline Phosphatase 123 U/L (46-116) H Aspartate Amino Transferase (AST) 58 U/L (13-40) H Total Bilirubin 0.7 mg/dL (0.2-1.0) Urinalysis Test 02/05/24 02:30 Urine Color Yellow (Yellow) Urine Clarity Clear (Clear) Urine pH 5.5 (5.0-9.0) Urine Specific [place] 1.022 (1.001-1.035) Urine Protein Trace (Negative) H Urine Ketones Negative (Negative) Urine Blood Negative /uL (Negative) Urine Nitrite Negative (Negative) Urine Bilirubin Negative (Negative) Urine Urobilinogen Normal mg/dL (Negative) Urine Leukocyte Esterase Negative /uL (Negative) Urine RBC 1 /hpf (0 - 4) Urine WBC <1 /hpf (0 - 5) Urine Squamous Epithelial Cells Few /hpf (<5) Urine Bacteria None seen /hpf (None Seen) Urine Mucus Few (None Seen) Urine Glucose Normal mg/dL (Normal) Microbiology Microbiology Date/Time Source Procedure Growth Status 02/04/24 14:38 Blood Blood Culture - Preliminary NO GROWTH AFTER 72 HOURS OF INCUBATION. Resulted Assessment/Plan Assessment/Plan # Right Foot Osteomyelitis- Cont Abx # Anemia- Transfuse PRBC # s/p Right Fem Pop Bypass due to Critical Limb Ischemia # Transaminitis- Monitor, DC Statins if further increase # Vitamin D Def- Supplement Plan discussed with: Patient My Orders Orders - JOHN IMCHELLE MD Procedure Category Date Status Time * Intel Analyst CONS 02/07/24 Transmitted Consult 09:30 Comprehensive LAB 02/08/24 Verified Metabolic Panel 04:00 Complete Blood Count LAB 02/08/24 Verified 04:00 Date of Service: Feb 07, 2024 Billing Provider: JOHN MICHELLE MD Common Visit Codes: [id number] INP/OBS CARE(HIGH) JOHN MICHELLE MD Feb 07, 2024 18:02
[2024-02-07] MEDS: hydrALAZINE HCL 20 MG/ML VL IV PRN (21:11)
[2024-02-08] VITALS (9 sets, daily range): BP systolic 137–153; BP diastolic 54–74; PULSE 70–96; RESP 13–17; TEMP 97–99.9; O2SAT 93–99
[2024-02-08 06:38] LABS: Monocytes # (auto) 1.1 10 ^3/uL (0-1.3); Red Cell Distribution Width 15.9 % (11.8-14.3); White Blood Cell 14.3 10^3/uL (4.4-10.8)
[2024-02-08 06:41] LABS: Basophils # (auto) 0 10 ^3/uL (0-0.2); Basophils % (auto) 0.3 % (0.0-2.0); Eosinophils # (auto) 0.2 10 ^3/uL (0-0.8); Eosinophils % (auto) 1.1 % (0.0-7.0); Hematocrit 25.4 % (36.0-46.0); Hemoglobin 8.3 g/dL (12.2-16.2); Lymphocytes % (auto) 7.3 % (10.0-50.0); Mean Corpuscular Hemoglobin 26.4 pg (28.0-32.0); Mean Corpuscular Hgb Conc. 32.6 g/dL (32.0-36.0); Mean Corpuscular Volume 80.9 fL (80.0-100.0); Monocytes % (auto) 7.4 % (0.0-12.0); Neutrophils % (auto) 83.9 % (37.0-80.0); Nucleated Red Blood Cells % 0.1 %; Platelet Count (auto) 320 10^3/uL (140-450); Red Blood Cells 3.14 10^6/uL (4.0-5.20)
[2024-02-08 06:50] LABS: Albumin 3.9 g/dL (3.2-4.8); Anion Gap 6 (5-15); BUN/Creatinine Ratio 14.3 (10.0-20.0); Bilirubin, Total 0.6 mg/dL (0.2-1.0); Blood Urea Nitrogen 14 mg/dL (9-23); Calcium 9.8 mg/dL (8.7-10.4); Carbon Dioxide 26 mmol/L (20-31); Glucose 102 mg/dL (74-106); Sodium 139 mmol/L (136-145); Total Protein 6.8 g/dL (5.7-8.2)
[2024-02-08 06:52] LABS: Alanine Aminotransferase 90 U/L (7-40); Alkaline Phosphatase 137 U/L (46-116); Aspartate Aminotransferase 61 U/L (13-40); Chloride 107 mmol/L (98-107)
--- NOTE | 2024-02-08 08:07 | DVHPN2 ---
Progress Note Date Seen: Feb 08, 2024 Has the PT tested + for MRSA If YES, has PT been informed?: No Medical Necessity Reason Pt with a Central, PICC or Fol: Yes The following are medically ne: PICC Line, Monterroso Catheter Reason for monterroso catheter: Strict I&O Subjective Patient reports: Feels better Review of Systems: HEENT:Normal, CVS:Normal, RESPIRATORY:Normal, GI:Normal, :Normal, MSK:Normal, NEURO:Normal Objective vital signs Vital Sign Date Time Temp Pulse Resp B/P (MAP) Pulse Ox O2 Delivery O2 Flow Rate FiO2 02/08/24 05:41 86 151/54 02/08/24 05:00 98.0 14 99 98.0 02/07/24 20:15 Room Air* 0 21 Total Intake and Output 02/07/24 02/07/24 02/08/24 15:00 23:00 07:00 Intake Total 250 ml 1050 ml Output Total 800 ml 550 ml Balance 250 ml 250 ml -550 ml medications Current Medications Medications Dose Ordered Sig/Gregoria Route Start Time Stop Time Status Last Admin Dose Admin Ondansetron HCl 4 mg Q4HP PRN IV 02/04/24 13:15 Enoxaparin Sodium 40 mg DAILY SC 02/05/24 10:00 02/07/24 10:28 40 MG Vancomycin HCl 0 ml @ 0 mls/hr UD IV 02/04/24 13:15 Amlodipine Besylate 5 mg BID PO 02/04/24 22:00 02/07/24 21:11 5 MG Hydralazine HCl 25 mg PRN PO 02/04/24 13:45 Cancel Spironolactone 25 mg DAILY PO 02/05/24 10:00 02/07/24 10:26 25 MG Atorvastatin Calcium 40 mg HS PO 02/04/24 22:00 02/07/24 21:10 40 MG Duloxetine HCl 30 mg DAILY PO 02/05/24 10:00 02/07/24 10:26 30 MG Lisinopril 40 mg DAILY PO 02/05/24 10:00 02/07/24 10:28 40 MG Propranolol HCl 20 mg TID PO 02/04/24 14:00 02/08/24 05:41 20 MG Oxycodone/ Acetaminophen 2 tab Q4HP PRN PO 02/05/24 15:45 02/08/24 05:41 2 TAB Hydralazine HCl 10 mg Q6HPRN PRN IV 02/05/24 15:50 02/07/24 21:11 10 MG Piperacillin Sod/ Tazobactam Sod 100 ml @ 25 mls/hr Q8H IV 02/06/24 18:00 02/08/24 03:05 25 MLS/HR Examination: GENERAL:Normal, HEENT:Normal, NECK:Normal, LUNGS:Normal, CVS:Normal, ABDOMEN:Normal, MSK:Normal (incision cdi, right leg warm and perfused.), SKIN:Normal, NEURO:Normal, :Normal laboratory and microbiology Laboratory Tests 02/08/24 05:37 Test 02/08/24 05:37 Range/Units Serum Glucose 102 74-106 mg/dL Microbiology Date/Time Source Procedure Growth Status 02/04/24 14:38 Blood Blood Culture - Preliminary NO GROWTH AFTER 72 HOURS OF INCUBATION. Resulted Problem List/Assessment/Plan Problem List/Assessment/Plan Patient is postop day 3 Status post right femoral to popliteal bypass and endarterectomy. Surgical date February 05, 2024 Out of bed Physical therapy Wound care consult [facility] to right foot wound. Socialwork for rehab placement. d/c monterroso Plan discussed with: Patient My Orders My Orders Orders - CAROL RIVERS Jr., MD Procedure Category Date Status Time Cleanse Wound With ELIGIO 02/07/24 In Process Wound Clean 16:34 Dietary Evaluation Review Comments: 1) Continue to monitor pt PO intake to meet at least 75% of meals 2) If appetite remains poor consider Ensure Enlive TIDWM 3) Continue current plan of care Expected Outcomes/Goals: 1) Pt appetite to improve 2) F/U in 3-5 days CAROL RIVERS Jr., MD Feb 08, 2024 08:07
[2024-02-08] MEDS: VANCOMYCIN 750MG VIAL 750 MG in D5W 5% 100 ML IV SCH (11:00)
--- NOTE | 2024-02-08 11:23 | DVHDS2 ---
Discharge Summary Date of Admission Feb 04, 2024 at 13:13 Date of Discharge: Feb 09, 2024 Admitting Diagnosis Right critical limb ischemia Labs/Diagnostic Data: Laboratory Results Test 02/08/24 05:37 02/05/24 06:00 02/05/24 02:30 02/04/24 11:10 White Blood Count 14.3 10^3/uL (4.4-10.8) Red Blood Count 3.14 10^6/uL (4.0-5.20) Hemoglobin 8.3 g/dL (12.2-16.2) Hematocrit 25.4 % (36.0-46.0) Mean Corpuscular Volume 80.9 fL (80.0-100.0) Mean Corpuscular Hemoglobin 26.4 pg (28.0-32.0) Mean Corpuscular Hemoglobin Concent 32.6 g/dL (32.0-36.0) Red Cell Distribution Width 15.9 % (11.8-14.3) Platelet Count 320 10^3/uL (140-450) Mean Platelet Volume 8.3 fL (6.9-10.8) Neutrophils (%) (Auto) 83.9 % (37.0-80.0) Lymphocytes (%) (Auto) 7.3 % (10.0-50.0) Monocytes (%) (Auto) 7.4 % (0.0-12.0) Eosinophils (%) (Auto) 1.1 % (0.0-7.0) Basophils (%) (Auto) 0.3 % (0.0-2.0) Neutrophils # (Auto) 12.0 10 ^3/uL (1.6-8.6) Lymphocytes # (Auto) 1.0 10 ^3/uL (0.4-5.4) Monocytes # (Auto) 1.1 10 ^3/uL (0-1.3) Eosinophils # (Auto) 0.2 10 ^3/uL (0-0.8) Basophils # (Auto) 0 10 ^3/uL (0-0.2) Nucleated Red Blood Cells 0.1 % Sodium Level 139 mmol/L (136-145) Potassium Level 4.0 mmol/L (3.5-5.1) Chloride Level 107 mmol/L (98-107) Carbon Dioxide Level 26 mmol/L (20-31) Anion Gap 6 (5-15) Blood Urea Nitrogen 14 mg/dL (9-23) Creatinine 0.98 mg/dL (0.550-1.02) Glomerular Filtration Rate Calc 66 mL/min (>90) BUN/Creatinine Ratio 14.3 (10.0-20.0) Serum Glucose 102 mg/dL (74-106) Calcium Level 9.8 mg/dL (8.7-10.4) Total Bilirubin 0.6 mg/dL (0.2-1.0) Aspartate Amino Transferase (AST) 61 U/L (13-40) Alanine Aminotransferase (ALT) 90 U/L (7-40) Alkaline Phosphatase 137 U/L (46-116) Total Protein 6.8 g/dL (5.7-8.2) Albumin 3.9 g/dL (3.2-4.8) Random Vancomycin Level 6.2 ug/mL (5-10) Hemoglobin A1c 5.6 % A1C (<5.7) Triglycerides Level 84 mg/dL (< 150) Cholesterol Level 103 mg/dL (< 200) LDL Cholesterol 59 mg/dL (< 100) HDL Cholesterol 23 mg/dL (40-59) Urine Color Yellow (Yellow) Urine Clarity Clear (Clear) Urine pH 5.5 (5.0-9.0) Urine Specific [place] 1.022 (1.001-1.035) Urine Protein Trace (Negative) Urine Ketones Negative (Negative) Urine Blood Negative /uL (Negative) Urine Nitrite Negative (Negative) Urine Bilirubin Negative (Negative) Urine Urobilinogen Normal mg/dL (Negative) Urine Leukocyte Esterase Negative /uL (Negative) Urine RBC 1 /hpf (0 - 4) Urine WBC <1 /hpf (0 - 5) Urine Squamous Epithelial Cells Few /hpf (<5) Urine Bacteria None seen /hpf (None Seen) Urine Mucus Few (None Seen) Urine Glucose Normal mg/dL (Normal) Erythrocyte Sedimentation Rate 116 mm/hr (0-20) Prothrombin Time 13.0 sec (9.3-11.8) Prothrombin Time INR 1.25 (0.9-1.15) Activated Partial Thromboplast Time 33.3 SEC (24.5-34.5) Vitamin D 25-Hydroxy 24.6 ng/mL (30.0-100) Other Laboratory Tests 02/08/24 05:37 Brief Hx & Hospital Course: This 58-year-old female presents in the ED with a chief complaint of right foot wound. Patient was recently admitted at this facility status post angioplasty right lower extremity, right foot cellulitis with necrosis. Patient was admitted yesterday with worsening pain of the right foot underwent a right fem pop bypass. Tolerated the procedure well. Will discharge back to SNF for IV Abx. Operations or Procedures Operative Report - 2 Operative Report - 2 Report Details Date: 02/05/24 Preop Diagnosis: Right critical limb ischemia, peripheral vascular disease Postop Diagnosis: Same Surgeon: Remy Fernandes MD Anesthesiologist: General endotracheal tube Anesthesia: General Consent: The patient was informed of the risks and benefits of the procedure. These include but are not limited to complications of anesthesia, postoperative infection, incomplete relief of symptoms, recurrence of symptoms, damage to blood vessels, nerves and tendons, deep venous thrombosis, pulmonary embolism and possible need for repeat surgery in the future. Estimated Blood Loss: 200 mL Name of Procedure Performed Right fem popliteal artery bypass with [place]-Job graft, right common femoral artery endarterectomy Procedure Details Procedure Details: Patient was identified in the preop hold area is being Mrs. Giles. Patient was consented in the preop by myself she was brought back to the operating room placed the operating table in supine position after adequate induction of anesthesia antibiotics and time-out the right leg was prepped and draped in normal surgical fashion. The initial incision was made in the right medial lower thigh dissection was taken down into the above knee popliteal fossa region where the popliteal artery was identified was calcified. However there was a good landing zone for the bypass circumferentially controlled proximally and distally was obtained with vessel loops. Wet lap was then placed in the wound and attention was placed to the right common femoral artery where a longitudinal incision was made above the right common femoral artery dissection was taken down to the common femoral artery common femoral artery was then dissected proximally and distally and controlled with vessel loops. There was a heavy posterior plaque noted in the right common femoral artery. At this point in time using a Plymouth tunneler a 8 mm [place]-Job reinforced graft was then tunneled subsartorially. 5000 units of heparin was given at this point in time then the common femoral artery was clamped proximally and distally in a arteriotomy was made and extended with the Suggs scissors there was extensive plaque burden and this area which was excised an endarterectomy fashion. Good healthy lumen was noted the proximal and distal artery was flushed with heparinized saline. At this point in time using a five 0 [place]-Job suture the graft was then sewn to the common femoral artery in an end-to-side fashion. Surgicel was applied to the anastomosis and attention was then placed to the distal anastomosis. The Gortex graft was then measured and spatulated for the anastomosis. The proximal and distal popliteal artery was then clamped 11 blade was used to create the arteriotomy was extended with Suggs scissors using six 0 [place]-Job suture the anastomosis was performed in an end-to-side fashion. Completion anastomosis there was no further surgical site bleeding from the anastomosis it was reinforced with a Surgicel. A Doppler was used which demonstrated excellent Doppler signals in the distal popliteal artery. At this point in time both wounds were closed deep layers were closed with 2-0 Vicryl sutures followed by a dermal layer of 3-0 Vicryl suture. Followed by 4-0 Monocryl subcuticular suture. 1% lidocaine with Marcaine was injected in both surgical sites Dermabond was applied to the skin. Sponge and needle counts were correct however there was a discrepancy with potentially one extra needle on the field. So a two field x-ray was performed which demonstrated no needles in the surgical field. The patient was brought to the PACU in a stable condition. Specimen: Right common femoral artery plaque Condition at Discharge: Poor Final Diagnosis/Problems List # Right Foot Osteomyelitis- Cont Abx # Anemia- Transfused PRBC # s/p Right Fem Pop Bypass due to Critical Limb Ischemia # Transaminitis- Monitor, DC Statins if further increase # Vitamin D Def- Supplement Discharge Disposition: [facility] Facility Discharge Instruct/Medications Diet: Regular Activity: Light activity Follow Up/Referral: Dr. Fernandes in 1 week Medications: see [facility] Discharge Statement: "Patient was advised to return to the ER or call 911 if any headaches, dizziness, shortness of breath, chest pain, abdominal pain, bleeding, fevers, or worsening of medical condition. Patient was counseled about treatment plan, medications, possible side effects, patientverbalized understanding. All questions were answered to the best of my ability. This discharge took greater then 30 minutes in planning, reviewing documentation, counseling the patient, and discussing with other team members." ASSESSMENT ASSESSMENT Assessment Same Date of Service: Feb 08, 2024 Billing Provider: JOHN MICHELLE MD Common Visit Codes: [id number] DISCH DAY >30min JOHN MICHELLE MD Feb 08, 2024 11:23
[2024-02-09 01:00] VITALS: BP_SYST 143; BP_DIAS 68; BP_DIAS 72; PULSE 93; RESP 13; RESP 16; TEMP 98.1; O2SAT 100; O2SAT 95
[2024-02-09 05:00] VITALS: BP 160/70; PULSE 89; RESP 17; TEMP 97.9; O2SAT 97
[2024-02-09 06:52] LABS: Chloride 107 mmol/L (98-107); Potassium 4.1 mmol/L (3.5-5.1); Sodium 140 mmol/L (136-145)
[2024-02-09 06:53] LABS: Anion Gap 6 (5-15); Calcium 9.8 mg/dL (8.7-10.4); Carbon Dioxide 27 mmol/L (20-31)
[2024-02-09 06:58] LABS: BUN/Creatinine Ratio 14.6 (10.0-20.0); Blood Urea Nitrogen 15 mg/dL (9-23); Glucose 102 mg/dL (74-106)
[2024-02-09 08:00] VITALS: PULSE 93; RESP 18; O2SAT 94
[2024-02-09 08:14] VITALS: BP 159/71; PULSE 93; RESP 18; TEMP 97.9; O2SAT 94
== END 2024-02-09 08:30 | DRG 181 ==
LOC: EDBD 10:22 → ER 10:29 → OVERFLOW 13:13 → EAST 15:21 → TELE-E-ADS 02-05 16:37 → EAST 02-08 11:25
PROVIDERS: ADMIT Registered Nurse; ATTEND Internal Medicine
PROC: 04CM3ZZ Extirpation of Matter from Right Popliteal Artery, Percutaneous Approach (ICD-10-PCS; 2024-02-05)
PROC: 04UK3JZ Supplement Right Femoral Artery with Synthetic Substitute, Percutaneous Approach (ICD-10-PCS; 2024-02-05)
PROC: 041K0JL Bypass Right Femoral Artery to Popliteal Artery with Synthetic Substitute, Open Approach (ICD-10-PCS; 2024-02-05)
PROC: 04CK0ZZ Extirpation of Matter from Right Femoral Artery, Open Approach (ICD-10-PCS; principal; 2024-02-05 12:16)
PROC: 30233N1 Transfusion of Nonautologous Red Blood Cells into Peripheral Vein, Percutaneous Approach (ICD-10-PCS; 2024-02-06)
DX: I70.221 Atherosclerosis of native arteries of extremities with rest pain, right leg (principal); R65.10 Systemic inflammatory response syndrome (SIRS) of non-infectious origin without acute organ dysfunction; M86.8X7 Other osteomyelitis, ankle and foot; L03.115 Cellulitis of right lower limb; R71.0 Precipitous drop in hematocrit; I10 Essential (primary) hypertension; J44.9 Chronic obstructive pulmonary disease, unspecified; R74.01 Elevation of levels of liver transaminase levels; E55.9 Vitamin D deficiency, unspecified; Z83.3 Family history of diabetes mellitus; Z87.891 Personal history of nicotine dependence; Z82.49 Family history of ischemic heart disease and other diseases of the circulatory system; Z82.62 Family history of osteoporosis
CPT/HCPCS: 36415; 73501; 80048; 80053; 80061; 80202; 81001; 82306; 82565; 83036; 85025; 85610; 85652; 85730; 86850; 86900; 86901; 86920; 87040; 93306; 97116; 97163; 97530; G0378; J1100; J2003; J2250; J2405; J2543; J2704; J3490; J7060

== ENCOUNTER 2024-03-03 11:17 | Inpatient (IN) | payer MEDICAID ==
[~2024-03-03] VITALS: Ht 172.7 cm; Wt 80.9 kg
--- NOTE | 2024-03-03 11:37 | ED.PDOC ---
History of Present Illness(SKN HPI Comments 58 y.o female with PMHx of HTN and hyperlipidemia, presents to the ED via EMS for a chief complaint of right foot pain s/p surgery. Patient reports she had a right foot arterial bypass due to a blockage on 02/06/24, developed osteomyelitis and underwent the surgery. Patient reports she developed pain shortly after with no modifying factors. Patient denies any fever, chills, nausea, vomiting, chest pain. 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, Medications, Allergies Allergies: Coded Allergies: NO KNOWN ALLERGIES (Unverified , 12/26/23) Home Meds Active Scripts Levofloxacin Hemihydrate (LEVOFLOXACIN) 250 Mg Tab, 750 MG PO DAILY for 35 Days, #105 TAB Prov:AMIE MONROY MD 01/23/24 Oxycodone W/ Acetaminophen (Percocet 5/325MG) 1 Tab Tb, 1 TAB PO TID for 4 Days, #12 TAB Prov:MINNIE MURRIETA NP 01/23/24 Doxycycline Hyclate (Doxycycline Hyclate) 100 Mg Cap, 1 CAP PO BID for 7 Days, #14 CAP Prov:SAMARA WHITE 12/31/23 Reported Medications Furosemide (Furosemide) 10 Mg/Ml Inj, 20 MG PO DAILY, INJ 01/13/24 Propranolol HCl (Propranolol HCl) 1 Mg/Ml Inj, 20 MG PO TID, INJ 01/13/24 Ibuprofen (Ibuprofen) 800 Mg Tab, 800 MG PO TID, MG 01/13/24 Duloxetine Hcl (Cymbalta) 20 Mg Cap, 30 MG PO DAILY, CAP 01/13/24 Spironolactone (Spironolactone) 25 Mg Tab, 1 TAB PO DAILY, #90 TAB 1 Refill 01/13/24 Hydralazine Hcl (Hydralazine Hcl) 25 Mg Tab, 25 MG PO PRN for sys greater than 150 for 30 Days, MG 01/13/24 Lisinopril (Lisinopril) 40 Mg Tab, 40 MG PO DAILY for 30 Days, MG 01/13/24 Amlodipine Besylate (Amlodipine Besylate) 5 Mg Tab, 5 MG PO BID for 30 Days, MG 01/13/24 Atorvastatin Calcium (ATORVASTATIN CALCIUM) 40 Mg Tab, 40 MG PO DAILY, TAB 01/13/24 Information Source: Patient, Emergency Med Personnel Mode of Arrival: EMS Severity: Moderate Timing: Hours Duration: Since onset Location: Foot Mechanism: Preceding Wound Object: None Wound Type: Other Immunization Status of Animal: NA Tetanus: UTD Associated Signs and Symptoms: Pain Past Medical History PAST MEDICAL HISTORY: High Lipids, HTN Surgical History (Other): right foot arterial bypass PEDIATRIC CLINICAL NURSE SPECIALIST History: No Pertinent PEDIATRIC CLINICAL NURSE SPECIALIST History Family History Family History: Family hx of DM, Family hx of heart letty, Family hx of HTN Social History Smoker: Quit Greater Than 1 Year Alcohol: Denies ETOH Use Drugs: Denies Drug Use Lives In: Home Constitutional: denies: chills, diaphoresis, fatigue, fever, malaise, sweats, weakness, others EENTM: denies: blurred vision, double vision, ear bleeding, ear discharge, ear drainage, ear pain, ear ringing, eye pain, eye redness, hearing loss, mouth pain, mouth swelling, nasal discharge, nose bleeding, nose congestion, nose pa in, photophobia, tearing, throat pain, throat swelling, voice changes, others Respiratory: denies: cough, hemoptysis, orthopnea, SOB at rest, shortness of breath, SOB with excertion, stridor, wheezing, others Cardiovascular: denies: chest pain, dizzy spells, diaphoresis, Dyspnea on exertion, edema, irregular heart beat, left arm pain, lightheadedness, palpitations, PND, syncope, others Gastrointestinal: denies: abdomen distended, abdominal pain, blood streaked bowels, constipated, diarrhea, dysphagia, difficulty swallowing, hematemesis, melena, nausea, poor appetite, poor fluid intake, rectal bleeding, rectal pain, vomiting, others Genitourinary: denies: abnormal vagina bleeding, burning, dyspareunia, dysuria, flank pain, frequency, hematuria, incontinence, pain, , vagina discharge, urgency, others Neurological: denies: dizziness, fainting, headache, left sided numbness, left sided weakness, numbness, paresthesia, pre-existing deficit, right sided numbness, right sided weakness, seizure, speech problems, tingling, tremors, weakness, others Musculoskeletal: denies: back pain, gout, joint pain, joint swelling, muscle pain, muscle stiffness, neck pain, others Integumetry: reports: wounds (right foot with pain ); denies: bruises, change in color, change in hair/nails, dryness, laceration, lesions, lumps, rash, others Allergic/Immunocompromised: denies: Difficulty Healing, Frequent Infections, Hives, Itching, others Hematologic/Lymphatic: denies: anemia, blood clots, easy bleeding, easy bruising, swollen glands, others Endocrine: denies: excessive hunger, excessive sweating, excessive thirst, excessive urination, flushing, intolerance to cold, intolerance to heat, unexplained weight gain, unexplained weight loss, others Psychiatric: denies: anxiety, bipolar disorder, depression, hopeless, panic disorder, schizophrenia, sleepless, suicidal, others All Other Systems: Reviewed and Negative Physical Exam General Appearance: Moderate Distress HEENT: Normal ENT Inspection, Pharynx Normal, TMs Normal Neck: Full Range of Motion, Non-Tender, Normal, Normal Inspection Respiratory: Chest Non-Tender, Lungs Clear, No Accessory Muscle Use, No Respi ratory Distress, Normal Breath Sounds Cardiovascular: No Edema, No JVD, No Murmur, No Gallop, Normal Peripheral Pulses, Regular Rate/Rhythm Breast Exam: Deferred Gastrointestinal: No Organomegaly, Non Tender, No Pulsatile Mass, Normal Bowel Sounds, Soft Genitalia: Deferred Pelvic: Deferred Rectal: Deferred Extremities: No calf tenderness, Normal capillary refill, No pedal edema, Other (Right foot with some drainage to the dorsum as well as tenderness and redness) Musculoskeletal : Apperance: Normal Neurologic: Alert, concrete block 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 Was a procedure done?: No Differential Diagnosis (INTG) Differential Diagnosis: N/A Differential Diagnosis: Cellulitis, Contact Dermatitis Abscess: Bacteremia Differential Diagnosis: Cellulitis, Osteomyelitis X-Ray, Labs, Meds, VS Vital Signs Date Time Temp Pulse Resp B/P (MAP) Pulse Ox O2 Delivery O2 Flow Rate FiO2 03/03/24 12:59 69 20 147/68 03/03/24 12:56 98.0 69 20 147/68 (94) 98 98.0 03/03/24 11:18 98.9 65 18 41/77 (65) 96 Lab Test 03/03/24 12:51 Range/Units White Blood Count 9.2 4.4-10.8 10^3/uL Red Blood Count 3.61 L 4.0-5.20 10^6/uL Hemoglobin 9.1 L 12.2-16.2 g/dL Hematocrit 29.0 L 36.0-46.0 % Mean Corpuscular Volume 80.2 80.0-100.0 fL Mean Corpuscular Hemoglobin 25.2 L 28.0-32.0 pg Mean Corpuscular Hemoglobin Concent 31.3 L 32.0-36.0 g/dL Red Cell Distribution Width 17.4 H 11.8-14.3 % Platelet Count 286 140-450 10^3/uL Mean Platelet Volume 8.8 6.9-10.8 fL Neutrophils (%) (Auto) 69.8 37.0-80.0 % Lymphocytes (%) (Auto) 19.3 10.0-50.0 % Monocytes (%) (Auto) 7.5 0.0-12.0 % Eosinophils (%) (Auto) 2.8 0.0-7.0 % Basophils (%) (Auto) 0.6 0.0-2.0 % Neutrophils # (Auto) 6.4 1.6-8.6 10 ^3/uL Lymphocytes # (Auto) 1.8 0.4-5.4 10 ^3/uL Monocytes # (Auto) 0.7 0-1.3 10 ^3/uL Eosinophils # (Auto) 0.3 0-0.8 10 ^3/uL Basophils # (Auto) 0.1 0-0.2 10 ^3/uL Nucleated Red Blood Cells 0.0 % Sodium Level 139 136-145 mmol/L Potassium Level 4.4 3.5-5.1 mmol/L Chloride Level 107 98-107 mmol/L Carbon Dioxide Level 25 20-31 mmol/L Anion Gap 7 5-15 Blood Urea Nitrogen 13 9-23 mg/dL Creatinine 0.95 0.550-1.02 mg/dL Glomerular Filtration Rate Calc 69 >90 mL/min BUN/Creatinine Ratio 13.7 10.0-20.0 Serum Glucose 98 74-106 mg/dL Calcium Level 10.2 8.7-10.4 mg/dL Current Medications Medications (Trade) Dose Ordered Sig/Gregoria Route Start Time Stop Time Status Last Admin Sodium Chloride 500 ml @ 500 mls/hr Q1H ONCE IV 03/03/24 11:45 03/03/24 12:44 DC 03/03/24 12:58 Morphine Sulfate 4 mg ONCE ONCE IV 03/03/24 11:45 03/03/24 11:46 DC 03/03/24 12:59 Ondansetron HCl (Zofran) 4 mg ONCE ONCE IV 03/03/24 11:45 03/03/24 11:46 DC 03/03/24 12:59 INDICATION: infection IMPRESSION: 1. Large wound over the dorsum of the foot with regional edema/cellulitis. No definite fluid collections identified to suggest abscess, somewhat limited in evaluation without intravenous contrast. 2. Redemonstration of severe demineralization of the osseous structures, with other underlying etiologies not excluded, as described on prior MRI. This results in limited evaluation for erosive changes. No definite erosive changes i dentified to suggest osteomyelitis. IV Hep-Lock was established The CBC is within normal limits The chemistry panel is within normal limits The patient was given normal saline at a 500 cc bolus The patient was given morphine 4 mg IV push for the pain The patient was given Zofran mg IV push for the nausea The patient was being given clindamycin IV piggyback The patient was being admitted. Images Reviewed?: Images reviewed and evaluated by me Time of 1ST Reevaluation: 11:34 Reevaluation 1ST: Unchanged Patient Education/Counseling: Diagnosis, Treatment, Prognosis Family Education/Counseling: No Family Present Departure 1 Departure Time of Disposition: 14:53 Impression: Primary Impression: Osteomyelitis of right foot Qualified Codes: M86.9 - Osteomyelitis, unspecified Disposition: 09 ADMITTED INPATIENT Admit to: Med Surg Condition: Fair Critical Care Note Critical Care Time?: No Stability Stability form required: Yes Unstable for transfer: ED Physician Assesment (Clinical assesment) I personally scribed for ANDREW ROLON MD (GINGER) on 03/03/24 at 11:37. Electronically submitted by Angeles Lopez ([employer]). I personally scribed for ANDREW ROLON MD (GINGER) on 03/03/24 at 13:20. Electronically submitted by Angeles Lopez ([employer]). ANDREW ROLON MD Mar 03, 2024 11:37
--- NOTE | 2024-03-03 12:49 | DVH ---
INDICATION: infection COMPARISON: MRI MRI R FOOT WO CONTRAST on DOS: 01/20/24 TECHNIQUE: CT of the right was performed without contrast. Volume transverse images were obtained and reconstructed in multiple planes using bone and soft tissue algorithms. Radiation Dose Information: CT Dose: CTDI volume is 7.75 mGy. Dose-length product is 232.57 mGy*cm FINDINGS: There is redemonstration of diffusely demineralized /lytic appearance of the visualized osseous struc tures. Large wound is noted over the dorsum of the foot with mild regional soft tissue swelling. There are no definite regional fluid collections identified. No definite osseous erosive changes are noted. The re is no acute fracture. There are scattered osseous degenerative changes. IMPRESSION: 1. Large wound over the dorsum of the foot with regional edema/cellulitis. No definite fluid collecti ons identified to suggest abscess, somewhat limited in evaluation without intravenous contrast. 2. Redemonstration of severe demineralization of the osseous structures, with other underlying etiolo gies not excluded, as described on prior MRI. This results in limited evaluation for erosive changes. No definite erosive changes identified to suggest osteomyelitis. All CT scans at this medical facility are performed using dose modulation techniques as appropriate t o a performed exam including the following: Automated exposure control was utilized; adjustment of th e MA and/or KV according to patient size; and use of iterative reconstruction technique.
[2024-03-03] MEDS: SODIUM CHLORIDE 0.9% 500 ML IV ONE (12:58)
[2024-03-03] MEDS: ONDANSETRON HCL 4 MG/2 ML VIAL IV ONE (12:59)
[2024-03-03] MEDS: MORPHINE SULFATE 4 MG/ML SYR/VIAL IV ONE (12:59)
[2024-03-03 13:29] LABS: Basophils # (auto) 0.1 10 ^3/uL (0-0.2); Basophils % (auto) 0.6 % (0.0-2.0); Eosinophils # (auto) 0.3 10 ^3/uL (0-0.8); Eosinophils % (auto) 2.8 % (0.0-7.0); Hemoglobin 9.1 g/dL (12.2-16.2); Lymphocytes # (auto) 1.8 10 ^3/uL (0.4-5.4); Lymphocytes % (auto) 19.3 % (10.0-50.0); Mean Corpuscular Hemoglobin 25.2 pg (28.0-32.0); Mean Corpuscular Hgb Conc. 31.3 g/dL (32.0-36.0); Mean Corpuscular Volume 80.2 fL (80.0-100.0); Monocytes # (auto) 0.7 10 ^3/uL (0-1.3); Monocytes % (auto) 7.5 % (0.0-12.0); Neutrophils # (auto) 6.4 10 ^3/uL (1.6-8.6); Neutrophils % (auto) 69.8 % (37.0-80.0); Platelet Count (auto) 286 10^3/uL (140-450); Red Blood Cells 3.61 10^6/uL (4.0-5.20); Red Cell Distribution Width 17.4 % (11.8-14.3); White Blood Cell 9.2 10^3/uL (4.4-10.8)
[2024-03-03 14:01] LABS: Potassium 4.4 mmol/L (3.5-5.1); Sodium 139 mmol/L (136-145)
[2024-03-03 14:02] LABS: Anion Gap 7 (5-15); Calcium 10.2 mg/dL (8.7-10.4); Carbon Dioxide 25 mmol/L (20-31)
[2024-03-03 14:03] LABS: Chloride 107 mmol/L (98-107)
[2024-03-03 14:07] LABS: BUN/Creatinine Ratio 13.7 (10.0-20.0); Blood Urea Nitrogen 13 mg/dL (9-23); Glucose 98 mg/dL (74-106)
[2024-03-03 15:07] VITALS: PULSE 81; RESP 19; O2SAT 95
[2024-03-03] MEDS: CLINDAMYCIN 600MG IV 50 ML IV ONE (15:26)
[2024-03-03] MEDS: HYDROcodone-ACET 10/325MG TAB PO ONE (16:50)
[2024-03-03] MEDS ORDERED: MAALOX PLUS or MAALOX 30 ML PO PRN (18:15)
[2024-03-03] MEDS ORDERED: LORazepam 0.5 MG TAB PO PRN (18:15)
[2024-03-03] MEDS ORDERED: ACETAMINOPHEN 325 MG TAB PO PRN (18:15)
[2024-03-03] MEDS ORDERED: VANCOMYCIN PER PHARMACY 0 MG IV SCH (18:15)
--- NOTE | 2024-03-03 18:23 | DVHHP2 ---
History of Present Illness Reason for Visit: Worsening Foot Wound History of Present Illness Patient is a 58 year-old F with a PMHx of severe PVD (s/p Right Fem Bypass last month), HTN, and Osteomyelitis of the right foot who was sent from [facility] for worsening right foot wound. Patient was being treated with IV abx at the SNF with Vancomycin. Patient was complaining of right foot pain. Patient will be taken to the OR tomorrow ( Monday) by Dr. Fernandes for debridement. Review of Systems Constitutional: No: Fever, Chills, Sweats, Weakness, Malaise, Other Eyes: No: Pain, Vision change, Conjunctivae inflammation, Eyelid inflammation, Other, Redness ENT: No: Ear pain, Ear discharge, Nose pain, Nose discharge, Nose congestion, Mouth pain, Mouth swelling, Throat pain, Throat swelling, Other Respiratory: No: Cough, Dry, Shortness of breath, SOB with excertion, Wheezing, Hemoptysis, Pleuritic Pain, Sputum, Wheezing, Other Cardiovascular: No: Chest Pain, Palpitations, Orthopnea, Paroxysmal Noc. Dyspnea, Edema, Lt Headedness, Other Gastrointestinal: No: Nausea, Vomiting, Abdominal Pain, Diarrhea, Constipation, Melena, Hematochezia, Other Genitourinary: No Dysuria, No Frequency, No Incontinence, No Hematuria, No Retention, No Other Musculoskeletal: No: other, neck pain, shoulder pain, arm pain, back pain, hand pain, leg pain, foot pain Skin: Other Neurological: No: Weakness, Numbness, Incoordination, Change in speech, Confusion, Seizures, Other Allergies: Coded Allergies: NO KNOWN ALLERGIES (Unverified , 12/26/23) Exam Vital Signs Vital Signs Date Time Temp Pulse Resp B/P (MAP) Pulse Ox O2 Delivery O2 Flow Rate FiO2 03/03/24 17:50 97.9 80 16 134/66 (88) 96 97.9 03/03/24 15:07 Room Air* 0 21 General Appearance: Alert, Oriented X3, Cooperative HEENT: Atraumatic Respiratory: Clear to auscultation Cardiovascular: Regular rate, Normal S1, Normal S2 Abdominal: Normal bowel sounds, Soft Extremities: Other (RIGHT FOOT DRESSING) Labs/Xrays Labs Test 03/03/24 12:51 Range/Units White Blood Count 9.2 4.4-10.8 10^3/uL Red Blood Count 3.61 L 4.0-5.20 10^6/uL Hemoglobin 9.1 L 12.2-16.2 g/dL Hematocrit 29.0 L 36.0-46.0 % Mean Corpuscular Volume 80.2 80.0-100.0 fL Mean Corpuscular Hemoglobin 25.2 L 28.0-32.0 pg Mean Corpuscular Hemoglobin Concent 31.3 L 32.0-36.0 g/dL Red Cell Distribution Width 17.4 H 11.8-14.3 % Platelet Count 286 140-450 10^3/uL Mean Platelet Volume 8.8 6.9-10.8 fL Neutrophils (%) (Auto) 69.8 37.0-80.0 % Lymphocytes (%) (Auto) 19.3 10.0-50.0 % Monocytes (%) (Auto) 7.5 0.0-12.0 % Eosinophils (%) (Auto) 2.8 0.0-7.0 % Basophils (%) (Auto) 0.6 0.0-2.0 % Neutrophils # (Auto) 6.4 1.6-8.6 10 ^3/uL Lymphocytes # (Auto) 1.8 0.4-5.4 10 ^3/uL Monocytes # (Auto) 0.7 0-1.3 10 ^3/uL Eosinophils # (Auto) 0.3 0-0.8 10 ^3/uL Basophils # (Auto) 0.1 0-0.2 10 ^3/uL Nucleated Red Blood Cells 0.0 % Sodium Level 139 136-145 mmol/L Potassium Level 4.4 3.5-5.1 mmol/L Chloride Level 107 98-107 mmol/L Carbon Dioxide Level 25 20-31 mmol/L Anion Gap 7 5-15 Blood Urea Nitrogen 13 9-23 mg/dL Creatinine 0.95 0.550-1.02 mg/dL Glomerular Filtration Rate Calc 69 >90 mL/min BUN/Creatinine Ratio 13.7 10.0-20.0 Serum Glucose 98 74-106 mg/dL Calcium Level 10.2 8.7-10.4 mg/dL Assessment/Plan Assessment/Plan # Unhealed Right Foot Wound - NPO after Midnight for Debridement - Cx Dr. Fernandes # Chronic Osteomyelitis - Cont Vanco # PVD - s/p Fem Pop Bypass - Cont ASA after surgery # Vitamin D Def - Supplement Plan discussed with: Patient My Orders Orders - JOHN MICHELLE MD Procedure Category Date Status Time Consult CONS 03/03/24 Transmitted Vascular/Endovascular 18:14 Npo After Midnight DIET 03/03/24 Transmitted Dinner Admit ADMIT 03/03/24 Transmitted 18:14 Code Status CODE 03/03/24 Transmitted 18:14 Vital Signs [facility] 03/03/24 In Process 18:14 Review Orders With ELIGIO 03/03/24 In Process Adm. 18:14 Sodium Chloride 0.9% PHA 03/03/24 Logged 18:15 Lorazepam Tablet PHA 03/03/24 Logged (Ativan Tablet) 18:15 Alum & Mag PHA 03/03/24 Logged Hydrox-Simethicone 18:15 Docusate Sodium PHA 03/03/24 Logged Capsule (Colace 18:15 Acetaminophen Tablet PHA 03/03/24 Logged (Tylenol Tablet) 18:15 Notify Of Changes [facility] 03/03/24 In Process From Base 18:14 Advance Directive [facility] 03/03/24 In Process 18:14 Patient Condition ORDERS 03/03/24 Transmitted 18:14 Allergies [facility] 03/03/24 In Process 18:14 Hydrocodone-Acet PHA 03/03/24 Logged 5/325mg Tab ([place] 18:15 Hydromorphone PHA 03/03/24 Logged Injection (Dilaudid 18:15 Ondansetron Hcl PHA 03/03/24 Logged (Zofran) 18:15 Vancomycin Per PHA 03/03/24 Logged Pharmacy 18:15 Date of Service: Mar 03, 2024 Billing Provider: JOHN MICHELLE MD Common Visit Codes: [id number] INP/OBS CARE (HIGH) JOHN MICHELLE MD Mar 03, 2024 18:23
[2024-03-03] MEDS: SODIUM CHLORIDE 0.9% 1,000 ML IV SCH (19:28)
[2024-03-03] MEDS: VANCOMYCIN 1.5GM/300ML 300 ML IV ONE (19:28)
[2024-03-03 21:45] VITALS: BP 151/69; PULSE 89; RESP 19; TEMP 98.1; O2SAT 98
[2024-03-03 21:53] VITALS: BP 151/69; PULSE 89; RESP 19; RESP 20; TEMP 98.1; O2SAT 98
[2024-03-03] MEDS: ONDANSETRON HCL 4 MG/2 ML VIAL IV PRN (22:22)
[2024-03-03] MEDS: HYDROmorphone HCL 2 MG/ML VL/or syr IV PRN (22:23)
[2024-03-03] MEDS ORDERED: PROP1TAB53 PO (23:03)
[2024-03-04] VITALS (8 sets, daily range): BP systolic 95–159; BP diastolic 55–77; PULSE 82–132; RESP 17–19; TEMP 98.2–99.2; O2SAT 92–100
--- NOTE | 2024-03-04 06:38 | DVH ---
CHEST RADIOGRAPH Indication: preop pain Technique: Single frontal view of the chest was obtained Comparison: XY CHEST PORTABLE on DOS: 01/30/24 FINDINGS: Lines and Tubes: Left PICC tip in the SVC Lungs: No focal consolidation. Pleura: No effusion. No pneumothorax. Cardiomediastinal contours: Unremarkable Bones: No acute osseous abnormality. IMPRESSION: No acute cardiopulmonary disease.
[2024-03-04 07:41] LABS: Basophils # (auto) 0 10 ^3/uL (0-0.2); Eosinophils # (auto) 0.3 10 ^3/uL (0-0.8); Hemoglobin 8.1 g/dL (12.2-16.2); Monocytes # (auto) 0.6 10 ^3/uL (0-1.3)
[2024-03-04 07:43] LABS: Basophils % (auto) 0.6 % (0.0-2.0); Eosinophils % (auto) 2.9 % (0.0-7.0); Hematocrit 25.6 % (36.0-46.0); Lymphocytes % (auto) 11.8 % (10.0-50.0); Mean Corpuscular Hgb Conc. 31.7 g/dL (32.0-36.0); Mean Corpuscular Volume 78.9 fL (80.0-100.0); Monocytes % (auto) 7.3 % (0.0-12.0); Neutrophils # (auto) 6.7 10 ^3/uL (1.6-8.6); Neutrophils % (auto) 77.4 % (37.0-80.0); Platelet Count (auto) 239 10^3/uL (140-450); Red Blood Cells 3.24 10^6/uL (4.0-5.20); Red Cell Distribution Width 17.6 % (11.8-14.3); White Blood Cell 8.7 10^3/uL (4.4-10.8)
[2024-03-04 07:47] LABS: INR 1.11 (0.9-1.15); Partial Thromboplastin Time 31.5 SEC (24.5-34.5); Prothrombin Time 11.7 sec (9.3-11.8)
[2024-03-04 07:59] LABS: Alanine Aminotransferase 17 U/L (7-40); Anion Gap 8 (5-15); BUN/Creatinine Ratio 13.9 (10.0-20.0); Blood Urea Nitrogen 14 mg/dL (9-23); Calcium 9.7 mg/dL (8.7-10.4); Carbon Dioxide 24 mmol/L (20-31); Chloride 106 mmol/L (98-107); Potassium 4.7 mmol/L (3.5-5.1); Sodium 138 mmol/L (136-145)
[2024-03-04 08:00] LABS: Bilirubin, Total 0.4 mg/dL (0.2-1.0); Total Protein 6.8 g/dL (5.7-8.2)
[2024-03-04 08:03] LABS: Alkaline Phosphatase 142 U/L (46-116); Aspartate Aminotransferase 13 U/L (13-40); Glucose 102 mg/dL (74-106)
--- NOTE | 2024-03-04 08:21 | DVHCONRES ---
Date Seen: Mar 04, 2024 Resident Creating Document: CAROL RIVERS Jr., MD Referring Physician Jeremias Reason for Consultation right foot chronic wound History of Present Illness Patient is a 58 year-old F with a PMHx of severe PVD (s/p Right Fem Bypass last month), HTN, and Osteomyelitis of the right foot who was sent from [facility] for worsening right foot wound. Patient was being treated with IV abx at the SNF with Vancomycin. Patient was complaining of right foot pain. Patient was admitted after I saw her on my office. She will require right foot debridement as well as the right thigh wound needs to be washed out as well. No fevers or chills. Past Medical History severe PVD (s/p Right Fem Bypass last month), HTN, and Osteomyelitis of the right foot Past Surgical History Right fem to popliteal artery bypass with graft performed January 2024. Family History: Congenital anomaly Diabetes mellitus G8 MOTHER ((Mther) Diabetes type !!. Takes pills only and never has used insulin. ) 19 CHILD, Onset:10's - 15 Grandmother Glaucoma Grandmother, Onset:50's - 60 Osteoporosis G8 MOTHER ((Mother) Osteoporosis onset at age 50) Thyroid disease G8 MOTHER, Onset:50's - 60 Family History Noncontributory Social History Quit smoking approximately 1 month ago. Allergies: Coded Allergies: NO KNOWN ALLERGIES (Unverified , 12/26/23) Home Meds Active Scripts Levofloxacin Hemihydrate (LEVOFLOXACIN) 250 Mg Tab, 750 MG PO DAILY for 35 Days, #105 TAB Prov:AMIE MONROY MD 01/23/24 Oxycodone W/ Acetaminophen (Percocet 5/325MG) 1 Tab Tb, 1 TAB PO TID for 4 Days, #12 TAB Prov:MINNIE MURRIETA NP 01/23/24 Doxycycline Hyclate (Doxycycline Hyclate) 100 Mg Cap, 1 CAP PO BID for 7 Days, #14 CAP Prov:SAMARA WHITE 12/31/23 Reported Medications Propranolol HCl (Propranolol Hydrochloride) 20 Mg Tab, 20 MG PO TID, TAB 03/03/24 Furosemide (Furosemide) 10 Mg/Ml Inj, 20 MG PO DAILY, INJ 01/13/24 Propranolol HCl (Propranolol HCl) 1 Mg/Ml Inj, 20 MG PO TID, INJ 01/13/24 Ibuprofen (Ibuprofen) 800 Mg Tab, 800 MG PO TID, MG 01/13/24 Duloxetine Hcl (Cymbalta) 20 Mg Cap, 30 MG PO DAILY, CAP 01/13/24 Spironolactone (Spironolactone) 25 Mg Tab, 1 TAB PO DAILY, #90 TAB 1 Refill 01/13/24 Hydralazine Hcl (Hydralazine Hcl) 25 Mg Tab, 25 MG PO PRN for sys greater than 150 for 30 Days, MG 01/13/24 Lisinopril (Lisinopril) 40 Mg Tab, 40 MG PO DAILY for 30 Days, MG 01/13/24 Amlodipine Besylate (Amlodipine Besylate) 5 Mg Tab, 5 MG PO BID for 30 Days, MG 01/13/24 Atorvastatin Calcium (ATORVASTATIN CALCIUM) 40 Mg Tab, 40 MG PO DAILY, TAB 01/13/24 Current Medications Current Medications Medications (Trade) Dose Ordered Sig/Gregoria Route PRN Reason Start Time Stop Time Status Last Admin Sodium Chloride 1,000 ml @ 60 mls/hr [id number] IV 03/03/24 18:15 03/03/24 19:28 Lorazepam (Ativan Tablet) 0.5 mg Q6HP PRN PO ANXIETY 03/03/24 18:15 Al Hydrox/Mg Hydrox/Simethicone (Maalox Plus) 30 ml Q6HP PRN PO FOR STOMACH DISTRESS 03/03/24 18:15 Docusate Sodium (Colace Capsule) 100 mg BIDPRN PRN PO FOR CONSTIPATION 03/03/24 18:15 Acetaminophen (Tylenol Tablet) 650 mg Q6HP PRN PO PAIN SCALE 1-3 OR TEMP>100.4 03/03/24 18:15 Acetaminophen/ Hydrocodone Bitart ([place] 5/325MG Tab) 1 tab Q4HP PRN PO MODERATE PAIN (4-6 PAIN SCALE) 03/03/24 18:15 Hydromorphone HCl (Dilaudid Injection) 0.5 mg Q4HP PRN IV SEVERE PAIN (7-10 PAIN SCALE) 03/03/24 18:15 03/04/24 05:07 Ondansetron HCl (Zofran) 4 mg Q4HP PRN IV NAUSEA / VOMITING 03/03/24 18:15 03/04/24 05:07 Vancomycin HCl 0 ml @ 0 mls/hr UD IV 03/03/24 18:15 UNV Review of Systems All systems reviewed otherwise negative than what is in HPI. Vital Signs Vital Signs Date Time Temp Pulse Resp B/P (MAP) Pulse Ox O2 Delivery O2 Flow Rate FiO2 03/04/24 05:37 89 16 132/67 03/04/24 05:00 99.0 97 99.0 03/03/24 21:53 Room Air* 0 21 Physical Exam Head eyes ears nose and throat exam eyes are nonicteric conjunctiva is pink neck was supple no JVD no lymphadenopathy no carotid bruits lungs are clear to auscultation heart was regular rate and rhythm abdomen is soft and nontender with no pulsatile mass or bruits lower extremities palpable femoral pulses bilaterally she does have Doppler signals in right popliteal artery the she has a large wound in the right foot on the dorsum. The right above knee popliteal incision was opened proximally 2 cm with no significant drainage. Labs/Diagnostic Data Labs Test 03/04/24 06:37 03/03/24 12:51 Range/Units White Blood Count 8.7 4.4-10.8 10^3/uL Red Blood Count 3.24 L 4.0-5.20 10^6/uL Hemoglobin 8.1 L 12.2-16.2 g/dL Hematocrit 25.6 #L 36.0-46.0 % Mean Corpuscular Volume 78.9 L 80.0-100.0 fL Mean Corpuscular Hemoglobin 25.0 L 28.0-32.0 pg Mean Corpuscular Hemoglobin Concent 31.7 L 32.0-36.0 g/dL Red Cell Distribution Width 17.6 H 11.8-14.3 % Platelet Count 239 140-450 10^3/uL Mean Platelet Volume 8.9 6.9-10.8 fL Neutrophils (%) (Auto) 77.4 37.0-80.0 % Lymphocytes (%) (Auto) 11.8 10.0-50.0 % Monocytes (%) (Auto) 7.3 0.0-12.0 % Eosinophils (%) (Auto) 2.9 0.0-7.0 % Basophils (%) (Auto) 0.6 0.0-2.0 % Neutrophils # (Auto) 6.7 1.6-8.6 10 ^3/uL Lymphocytes # (Auto) 1.0 0.4-5.4 10 ^3/uL Monocytes # (Auto) 0.6 0-1.3 10 ^3/uL Eosinophils # (Auto) 0.3 0-0.8 10 ^3/uL Basophils # (Auto) 0 0-0.2 10 ^3/uL Nucleated Red Blood Cells 0.0 % Prothrombin Time 11.7 9.3-11.8 sec Prothrombin Time INR 1.11 0.9-1.15 Activated Partial Thromboplast Time 31.5 24.5-34.5 SEC Sodium Level 138 136-145 mmol/L Potassium Level 4.7 3.5-5.1 mmol/L Chloride Level 106 98-107 mmol/L Carbon Dioxide Level 24 20-31 mmol/L Anion Gap 8 5-15 Blood Urea Nitrogen 14 9-23 mg/dL Creatinine 1.01 0.550-1.02 mg/dL Glomerular Filtration Rate Calc 64 >90 mL/min BUN/Creatinine Ratio 13.9 10.0-20.0 Serum Glucose 102 74-106 mg/dL Calcium Level 9.7 8.7-10.4 mg/dL Total Bilirubin 0.4 0.2-1.0 mg/dL Aspartate Amino Transferase (AST) 13 13-40 U/L Alanine Aminotransferase (ALT) 17 7-40 U/L Alkaline Phosphatase 142 H 46-116 U/L Total Protein 6.8 5.7-8.2 g/dL Assessment Chronic right foot wound with right thigh wound as well. The plan on performing incision and drainage findings today. NPO Patient agrees and consents to surgery. Plan/Recommendation Chronic right foot wound with right thigh wound as well. The plan on performing incision and drainage findings today. NPO Patient agrees and consents to surgery. Plan discussed with: Patient CAROL RIVERS Jr., MD Mar 04, 2024 08:21
[2024-03-04] MEDS ORDERED: fentaNYL CITRATE 100 MCG/2 ML VL IV PRN (12:00)
[2024-03-04] MEDS ORDERED: MORPHINE SULFATE INJ 2 MG/ml SYRG IV PRN (12:00)
[2024-03-04] MEDS ORDERED: HYDROmorphone HCL 2 MG/ML VL/or syr IV PRN (12:00)
[2024-03-04] MEDS ORDERED: KETAMINE 50mg/ML 1ml syringe ONE (12:37)
[2024-03-04] MEDS ORDERED: MIDAZOLAM HCL 2MG/2ML 2ml VIAL (1mg/ml) ONE (12:37)
[2024-03-04] MEDS ORDERED: fentaNYL CITRATE 5 ML ONE (12:37)
[2024-03-04] MEDS ORDERED: LIDOCAINE 1% INJ PF 5ML AMP ONE (12:37)
[2024-03-04] MEDS ORDERED: ONDANSETRON HCL 4 MG/2 ML VIAL ONE (12:37)
[2024-03-04] MEDS ORDERED: fentaNYL CITRATE 100 MCG/2 ML VL ONE (12:37)
[2024-03-04] MEDS ORDERED: PROPOFOL 10 MG/ML 20 ML IV ONE (12:37)
[2024-03-04] MEDS ORDERED: MEPERIDINE HCL (25 MG/ML) 1ML VIAL ONE (12:37)
[2024-03-04] MEDS: ceFAZolin 2 GM/D5W100ml 100 ML IV ONE (13:23)
--- NOTE | 2024-03-04 13:51 | DVHOP2 ---
Operative Report - 2 Report Details Date: 03/04/24 Preop Diagnosis: Right necrotic foot wound and open right thigh wound status post fem-pop bypass Postop Diagnosis: Same Surgeon: Remy Fernandes MD Anesthesiologist: LC Anesthesia: General Consent: The patient was informed of the risks and benefits of the procedure. These i nclude but are not limited to complications of anesthesia, postoperative infection, incomplete relief of symptoms, recurrence of symptoms, damage to blood vessels, nerves and tendons, deep venous thrombosis, pulmonary embolism and possible need for repeat surgery in the future. Estimated Blood Loss: 25 mL Findings: Healthy bleeding tissue in the right foot necrosis was down to tendon Indications for Surgery: Right necrotic foot wound and open surgical wound. Name of Procedure Performed Debridement of the right foot down to tendons. Debridement full-thickness skin of the right thigh wound. Procedure Details Procedure Details: Patient was identified in the preop hold area is being Mrs. Giles. At this time she was consented and preopped by myself she was brought back to the operating room placed the operating table supine position after adequate induction of anesthesia antibiotics and time-out the right leg was prepped and draped in normal surgical fashion the thigh wound above knee popliteal incision there was some necrotic skin edges which were debrided down through the dermis down to healthy bleeding tissue which was controlled with hemostasis by Bovie cauterization attention was then placed to the right foot had a large necrotic wound from the above knee ankle area to the dorsum of the foot just above all toes. Necrotic full-thickness skin was debrided down to healthy bleeding tendons the saphenous vein had to be ligated. The wound was then fully debrided bleeding was healthy and was controlled with Bovie cauterization. Both wounds were then pulse irrigated with a total of 3000 mL of saline. The wounds were th en dressed thigh wound was dressed with Betadine-soaked gauze the ankle and foot were dressed with Xeroform followed by ABD and Kerlix. This patient awoke without any difficulties. Taken to PACU in stable condition sponge and needle counts were correct. Specimen: Condition Good Disposition PACU REMY FERNANDES Jr., MD Mar 04, 2024 13:51
[2024-03-04] MEDS: VANCOMYCIN 500mg/100mL 100 ML IV SCH (14:00)
[2024-03-04] MEDS: LABETALOL HCL 20 MG/4 ML VL IV ONE (14:03)
[2024-03-04] MEDS: HYDROmorphone HCL 2 MG/ML VL/or syr IV PRN (14:15)
[2024-03-04] MEDS: ACETAMINOPHEN IV 1000 MG/100ML (10MG/ML) IV ONE (14:47)
--- NOTE | 2024-03-04 15:05 | DVHPNRES ---
Progress Note Date Seen: Mar 04, 2024 Resident Creating Document: KEVIN MEZA RESIDENT Has the PT tested + for MRSA If YES, has PT been informed?: No Medical Necessity Reason Pt with a Central, PICC or Fol: No Subjective Review of Systems This is a 58-year-old female with past medical history of hypertension, hyperlipidemia, severe PVD, status post right femoral bypass on February 06, 2024, osteomyelitis of the right foot who was sent from [facility] for worsening right foot wound. The patient was being treated with IV antibiotics specifically vancomycin at the [facility] but patient was still complaining of right foot pain. The patient was admitted to the ED due to right foot pain and nonhealing ulcer for wound debridement on Monday (March 04, 2024) by Dr. Mitchell. Patient seen and examined at bedside. The patient reports constant right foot pain in the dorsal aspect of the right foot. The patient had a clean gauze wrapping the wound this morning. The patient is currently on vancomycin and NS at 60 cc/hour. CT scan of the right foot showed large wound and dorsum of the foot consistent with edema/cellulitis. The patient is scheduled for incision and drainage of the right foot wound today. Wound debridement we will be sent for cultures. We will continue current treatment at this time. ROS Constitutional: Denies weight loss, fever and chills. HEENT: Denies changes in vision and hearing. Respiratory: Denies shortness of breath and cough Cardiovascular: Denies chest discomfort or palpitations GI: Denies abdominal pain, nausea, vomiting and diarrhea. : Denies dysuria and urinary frequency. Musculoskeletal: Reports right foot chronic pain at the level of the dorsal aspect of the right foot. Denies myalgias and joint pain Skin: Reports nonhealing wound on the dorsal aspect of the right foot. Denies rash and pruritus. Neurological: Denies dizziness, headache, vision or hearing problems Objective vital signs Vital Sign Date Time Temp Pulse Resp B/P (MAP) Pulse Ox O2 Delivery O2 Flow Rate FiO2 03/04/24 11:00 83 17 136/57 03/04/24 09:00 98.9 97 98.9 03/04/24 07:45 Room Air* 0 21 Total Intake and Output 03/03/24 03/03/24 03/04/24 15:00 23:00 07:00 Intake Total 610 ml 100 ml Output Total 600 ml Balance 610 ml -500 ml medications Current Medications Medications Dose Ordered Sig/Gregoria Route Start Time Stop Time Status Last Admin Dose Admin Sodium Chloride 1,000 ml @ 60 mls/hr [id number] IV 03/03/24 18:15 03/03/24 19:28 60 MLS/HR Lorazepam 0.5 mg Q6HP PRN PO 03/03/24 18:15 Al Hydrox/Mg Hydrox/Simethicone 30 ml Q6HP PRN PO 03/03/24 18:15 Docusate Sodium 100 mg BIDPRN PRN PO 03/03/24 18:15 Acetaminophen 650 mg Q6HP PRN PO 03/03/24 18:15 Acetaminophen/ Hydrocodone Bitart 1 tab Q4HP PRN PO 03/03/24 18:15 Hydromorphone HCl 0.5 mg Q4HP PRN IV 03/03/24 18:15 03/04/24 10:30 0.5 MG Ondansetron HCl 4 mg Q4HP PRN IV 03/03/24 18:15 03/04/24 10:30 4 MG Vancomycin HCl 0 ml @ 0 mls/hr UD IV 03/03/24 18:15 Vancomycin HCl 100 ml @ 200 mls/hr Q12H IV 03/04/24 14:00 Examination Physical Examination General: Patient alert and oriented in person, place and time. Patient following commands. HEENT: Normocephalic, atraumatic, moist mucous membranes Respiratory/pulmonary: Clear lungs bilaterally, no associated crackles or wheezes. Cardiovascular: Normal heart sounds S1 and S2 with no associated murmurs Abdomen: Abdomen nondistended, there is no pain to palpation in any of the abdominal quadrants, no palpable masses. Extremities: There is a nonhealing wound in the right dorsal aspect of the foot, which was dressed with clean gauze. There is no peripheral edema present at the lower extremities. Peripheral Pulses: 3+ Radial (R). 3+ Radial (L). 3+ Dorsalis pedis (R). 3+ Dorsalis pedis(L) Skin: No rashes or pruritus, there is no sacral edema present at this time. Neurological: Intact cranial nerves with no focal neurologic deficits laboratory and microbiology Laboratory Tests 03/04/24 06:37 Test 03/04/24 06:37 Range/Units Serum Glucose 102 74-106 mg/dL Microbiology Date/Time Source Procedure Growth Status 03/03/24 23:00 Nose MRSA Screen - Final Complete Problem List/Assessment/Plan Problem List/Assessment/Plan Assessment/plan Acute right foot pain likely due to nonhealing ulcer/wound due to acute cellulitis with necrotic tissue Chronic osteomyelitis of the right foot -initial CT scan of the right foot showed large wound in the dorsal of the right foot consistent with a edema/cellulitis. No evidence of bone compromise at this time -continue IV vancomycin -continue IV fluids -vascular surgeon was consulted for incision and drainage which was performed today -I&D: Necrotic full-thickness skin was debrided down to healthy bleeding tendons the saphenous vein had to be ligated. The wound was then fully debrided bleeding was healthy and was controlled with Bovie cauterization. Both wounds were then pulse irrigated with a total of 3000 mL of saline. The wounds were then dressed thigh wound was dressed with Betadine-soaked gauze the ankle and foot were dressed with Xeroform followed by JULIO and Abigail. Severe PVD, S/P right femoral bypass on February 06, 2024 -Start atorvastatin 40mg daily -Start aspirin 81mg daily -Monitor for correct wound healing Primary hypertension -Resume lisinopril 40mg daily -Resume amlodipine 5 mg daily -Monitor BP Dyslipidemia -Start atorvastatin 40mg daily Goals of care discussed with the patient at bedside, full code Plan discussed with Dr. Sorto Plan discussed with: Patient My Orders My Orders Orders - KEVIN MEZA Procedure Category Date Status Time Stool Occult Blood LAB 03/04/24 Logged 09:57 Date of Service: Mar 04, 2024 Billing Provider: MARK LEON MD Common Visit Codes: [id number] INP/OBS CARE(HIGH) KEVIN MEZA RESIDENT Mar 04, 2024 15:05 MARK LEON MD Mar 04, 2024 21:23
[2024-03-04] MEDS: LISINOPRIL 20 MG TAB PO SCH (17:43)
[2024-03-04] MEDS: HYDROcodone-ACET 5/325MG TAB PO PRN (19:36)
[2024-03-04] MEDS: amLODIPine BESYLATE 5 MG TAB PO SCH (21:03)
[2024-03-05] VITALS (8 sets, daily range): BP systolic 126–162; BP diastolic 59–77; PULSE 53–113; RESP 15–18; TEMP 98–98.9; O2SAT 95–99
[2024-03-05 06:57] LABS: Basophils # (auto) 0 10 ^3/uL (0-0.2); Basophils % (auto) 0.4 % (0.0-2.0); Eosinophils # (auto) 0.2 10 ^3/uL (0-0.8); Hemoglobin 8.3 g/dL (12.2-16.2); Lymphocytes # (auto) 1.4 10 ^3/uL (0.4-5.4); Red Cell Distribution Width 17.6 % (11.8-14.3)
[2024-03-05 07:01] LABS: Hematocrit 26.2 % (36.0-46.0); Lymphocytes % (auto) 16.5 % (10.0-50.0); Mean Corpuscular Hemoglobin 25.6 pg (28.0-32.0); Mean Corpuscular Hgb Conc. 31.9 g/dL (32.0-36.0); Mean Corpuscular Volume 80.2 fL (80.0-100.0); Monocytes # (auto) 0.8 10 ^3/uL (0-1.3); Monocytes % (auto) 9.1 % (0.0-12.0); Neutrophils # (auto) 5.9 10 ^3/uL (1.6-8.6); Nucleated Red Blood Cells % 0.1 %; Platelet Count (auto) 251 10^3/uL (140-450); Red Blood Cells 3.26 10^6/uL (4.0-5.20); White Blood Cell 8.3 10^3/uL (4.4-10.8)
[2024-03-05 07:12] LABS: Anion Gap 8 (5-15); Carbon Dioxide 24 mmol/L (20-31); Chloride 107 mmol/L (98-107); Potassium 4.3 mmol/L (3.5-5.1); Sodium 139 mmol/L (136-145)
[2024-03-05 07:13] LABS: Calcium 10.1 mg/dL (8.7-10.4)
[2024-03-05 07:18] LABS: BUN/Creatinine Ratio 9.6 (10.0-20.0); Blood Urea Nitrogen 10 mg/dL (9-23); Glucose 97 mg/dL (74-106)
[2024-03-05] MEDS: DOCUSATE SOD 100 MG CAP PO PRN (08:29)
[2024-03-05] MEDS: ASPirin 81 mg TAB PO SCH (08:29)
[2024-03-05] MEDS: PROPRANOLOL HCL 20 MG TAB PO SCH (09:42)
--- NOTE | 2024-03-05 12:03 | DVHPN2 ---
Progress Note Date Seen: Mar 05, 2024 Has the PT tested + for MRSA If YES, has PT been informed?: No Medical Necessity Reason Pt with a Central, PICC or Fol: No Subjective Patient reports: Other (Pain in right foot at surgical site) Review of Systems: HEENT:Normal, CVS:Normal, RESPIRATORY:Normal, GI:Normal, :Normal, MSK:Normal, NEURO:Normal Objective vital signs Vital Sign Date Time Temp Pulse Resp B/P (MAP) Pulse Ox O2 Delivery O2 Flow Rate FiO2 03/05/24 10:40 82 16 131/58 03/05/24 08:48 98.3 97 98.3 03/05/24 07:45 Room Air* 0 21 Total Intake and Output 03/04/24 03/04/24 03/05/24 15:00 23:00 07:00 Intake Total 200 ml 625 ml 400 ml Output Total 1350 ml Balance 200 ml -725 ml 400 ml medications Current Medications Medications Dose Ordered Sig/Gregoria Route Start Time Stop Time Status Last Admin Dose Admin Lorazepam 0.5 mg Q6HP PRN PO 03/03/24 18:15 Al Hydrox/Mg Hydrox/Simethicone 30 ml Q6HP PRN PO 03/03/24 18:15 Docusate Sodium 100 mg BIDPRN PRN PO 03/03/24 18:15 03/05/24 08:29 100 MG Acetaminophen 650 mg Q6HP PRN PO 03/03/24 18:15 Acetaminophen/ Hydrocodone Bitart 1 tab Q4HP PRN PO 03/03/24 18:15 03/05/24 08:29 1 TAB Hydromorphone HCl 0.5 mg Q4HP PRN IV 03/03/24 18:15 03/05/24 10:40 0.5 MG Ondansetron HCl 4 mg Q4HP PRN IV 03/03/24 18:15 03/05/24 10:39 4 MG Vancomycin HCl 0 ml @ 0 mls/hr UD IV 03/03/24 18:15 Vancomycin HCl 100 ml @ 200 mls/hr Q12H IV 03/04/24 14:00 03/05/24 02:09 200 MLS/HR Lisinopril 40 mg DAILY PO 03/04/24 15:00 03/05/24 06:52 40 MG Amlodipine Besylate 5 mg DAILY@2100 PO 03/04/24 21:00 03/04/24 21:03 5 MG Aspirin 81 mg DAILY PO 03/05/24 10:00 03/05/24 08:29 81 MG Propranolol HCl 20 mg TID PO 03/05/24 08:45 03/05/24 09:42 20 MG Examination: GENERAL:Normal, HEENT:Normal, NECK:Normal, LUNGS:Normal, CVS:Normal, ABDOMEN:Normal, MSK:Normal (Bandage clean dry and intact.), SKIN:Normal, NEURO:Normal, :Normal laboratory and microbiology Laboratory Tests 03/05/24 05:53 Test 03/05/24 05:53 Range/Units Serum Glucose 97 74-106 mg/dL Microbiology Date/Time Source Procedure Growth Status 03/03/24 23:00 Nose MRSA Screen - Final Complete Labs and/or images reviewed: Labs reviewed by me Problem List/Assessment/Plan Problem List/Assessment/Plan Status post right foot debridement failure will require wound VAC as outpatient in SNF Long-term plan will need a skin graft. Plan discussed with: Patient My Orders My Orders Orders - CAROL RIVERS Jr., MD Procedure Category Date Status Time Consistent DIET 03/04/24 Transmitted Carb(Ccho)Diabetes Dinner CAROL RIVERS Jr., MD Mar 05, 2024 12:03
--- NOTE | 2024-03-05 14:21 | DVHPNRES ---
Progress Note Date Seen: Mar 05, 2024 Resident Creating Document: KEVIN MEZA RESIDENT Has the PT tested + for MRSA If YES, has PT been informed?: No Medical Necessity Reason Pt with a Central, PICC or Fol: No Subjective Review of Systems This is a 58-year-old female with past medical history of hypertension, hyperlipidemia, severe PVD, status post right femoral bypass on February 06, 2024, osteomyelitis of the right foot who was sent from [facility] for worsening right foot wound. The patient was being treated with IV antibiotics specifically vancomycin at the [facility] but patient was still complaining of right foot pain. The patient was admitted to the ED due to right foot pain and nonhealing ulcer for wound debridement on Monday (March 04, 2024) by Dr. Mitchell. Patient seen and examined at bedside. The patient is status post incision and drainage day one. Patient still complaining of right foot pain that is moderate to severe in intensity. We ordered physical therapy evaluation to start working on right lower extremity movement. Ordered wound back for right foot wound. IV vancomycin was stopped and was changed to IV Unasyn 3 g q.6 hours. We will continue current medical management at this time. Planning on discharge tomorrow a.m. to SNF for IV antibiotics for 14 additional days, wound VAC and wound care, as well as physical therapy. ROS Constitutional: Denies weight loss, fever and chills. HEENT: Denies changes in vision and hearing. Respiratory: Denies shortness of breath and cough Cardiovascular: Denies chest discomfort or palpitations GI: Denies abdominal pain, nausea, vomiting and diarrhea. : Denies dysuria and urinary frequency. Musculoskeletal: Reports moderate to severe right foot pain, denies myalgias or any additional joint pain. Skin: Denies rash and pruritus. Neurological: Denies dizziness, headache, vision or hearing problems Objective vital signs Vital Sign Date Time Temp Pulse Resp B/P (MAP) Pulse Ox O2 Delivery O2 Flow Rate FiO2 03/05/24 14:02 84 139/67 03/05/24 12:47 98.0 16 99 98.0 03/05/24 07:45 Room Air* 0 21 Total Intake and Output 03/04/24 03/04/24 03/05/24 15:00 23:00 07:00 Intake Total 200 ml 625 ml 400 ml Output Total 1350 ml Balance 200 ml -725 ml 400 ml medications Current Medications Medications Dose Ordered Sig/Gregoria Route Start Time Stop Time Status Last Admin Dose Admin Lorazepam 0.5 mg Q6HP PRN PO 03/03/24 18:15 Al Hydrox/Mg Hydrox/Simethicone 30 ml Q6HP PRN PO 03/03/24 18:15 Docusate Sodium 100 mg BIDPRN PRN PO 03/03/24 18:15 03/05/24 08:29 100 MG Acetaminophen 650 mg Q6HP PRN PO 03/03/24 18:15 Acetaminophen/ Hydrocodone Bitart 1 tab Q4HP PRN PO 03/03/24 18:15 03/05/24 14:01 1 TAB Hydromorphone HCl 0.5 mg Q4HP PRN IV 03/03/24 18:15 03/05/24 10:40 0.5 MG Ondansetron HCl 4 mg Q4HP PRN IV 03/03/24 18:15 03/05/24 10:39 4 MG Lisinopril 40 mg DAILY PO 03/04/24 15:00 03/05/24 06:52 40 MG Amlodipine Besylate 5 mg DAILY@2100 PO 03/04/24 21:00 03/04/24 21:03 5 MG Aspirin 81 mg DAILY PO 03/05/24 10:00 03/05/24 08:29 81 MG Propranolol HCl 20 mg TID PO 03/05/24 08:45 03/05/24 14:02 20 MG Ampicillin Sodium/ Sulbactam Sodium 3 gm/Sodium Chloride 100 ml @ 100 mls/hr Q6H IV 03/05/24 13:30 Examination Physical Examination General: Patient alert and oriented in person, place and time. Patient following commands. HEENT: Normocephalic, atraumatic, moist mucous membranes Respiratory/pulmonary: Clear lungs bilaterally, no associated crackles or wheezes. Cardiovascular: Normal heart sounds S1 and S2 with no associated murmurs Abdomen: Abdomen nondistended, there is no pain to palpation in any of the abdominal quadrants, no palpable masses. Extremities: Right foot is dressed with clean gauze, not seen at this time since was recently dressed changed by surgeon. There is no peripheral edema present at the lower extremities. Peripheral Pulses: 3+ Radial (R). 3+ Radial (L). 3+ Dorsalis pedis (R). 3+ Dorsalis pedis(L) Skin: No rashes or pruritus, there is no sacral edema present at this time. Neurological: Intact cranial nerves with no focal neurologic deficits laboratory and microbiology Laboratory Tests 03/05/24 05:53 Test 03/05/24 05:53 Range/Units Serum Glucose 97 74-106 mg/dL Microbiology Date/Time Source Procedure Growth Status 03/03/24 23:00 Nose MRSA Screen - Final Complete Problem List/Assessment/Plan Problem List/Assessment/Plan Assessment/plan Acute right foot pain likely due to nonhealing ulcer/wound due to acute cellulitis with necrotic tissue Chronic osteomyelitis of the right foot S/P Incision and drainage of non healing right foot wound Day 1 -initial CT scan of the right foot showed large wound in the dorsal of the right foot consistent with a edema/cellulitis. No evidence of bone compromise at this time -Discontinue vancomycin -Start IV Unasyn -continue IV fluids -vascular surgeon was consulted for incision and drainage which was performed on Mar 04 -I&D: Necrotic full-thickness skin was debrided down to healthy bleeding tendons the saphenous vein had to be ligated. The wound was then fully debrided bleeding was healthy and was controlled with Bovie cauterization. Both wounds were then pulse irrigated with a total of 3000 mL of saline. The wounds were then dressed thigh wound was dressed with Betadine-soaked gauze the ankle and foot were dressed with Xeroform followed by ABD and Kerlix. Severe PVD, S/P right femoral bypass on February 06, 2024 -continue atorvastatin 40mg daily -continue aspirin 81mg daily -Monitor for correct wound healing Primary hypertension -continue lisinopril 40mg daily -continue amlodipine 5 mg daily -resume propranolol 20 mg t.i.d. -Monitor BP Dyslipidemia -continue atorvastatin 40mg daily ACP, discussed with the patient at bedside. 03/05/2024: Changed IV vancomycin to IV Unasyn, ordered wound back, wound care and physical therapy. DC planning tomorrow to SNF for IV antibiotics, wound back and physical therapy Goals of care discussed with the patient at bedside, full code Plan discussed with Dr. Sorto Plan discussed with: Patient My Orders My Orders Orders - KEVIN MEZA Procedure Category Date Status Time Lisinopril Tablet PHA 03/04/24 In Process (Zestril Tablet) 15:00 Amlodipine Tablet PHA 03/04/24 In Process (Norvasc Tablet) 21:00 Aspirin Tablet PHA 03/05/24 In Process 10:00 Wound Vac ELIGIO 03/04/24 In Process 16:55 Hi Wound Vac HDVI 03/04/24 Transmitted 16:55 Communication Order ORDERS 03/04/24 Transmitted 16:56 Propranolol Hcl PHA 03/05/24 In Process Tablet (Inderal 08:45 * Paper Stacker CONS 03/05/24 Transmitted Consult Pt Request For Service PT 03/05/24 Logged 13:20 Ampicillin & PHA 03/05/24 In Process Sulbactam Sodium 13:30 * Paper Stacker CONS 03/05/24 Transmitted Consult * Wound Consult CONS 03/05/24 Transmitted Date of Service: Mar 05, 2024 Billing Provider: MARK LEON MD Common Visit Codes: [id number] INP/OBS CARE(HIGH) KEVIN MEZA RESIDENT Mar 05, 2024 14:21 MARK LEON MD Mar 07, 2024 15:45
[2024-03-05] MEDS: AMPICILLIN & SULBACTAM SODIUM 3 GM in SODIUM CHL 0.9% 100 ML IV SCH (14:57)
[2024-03-05] MEDS: LABETALOL HCL 20 MG/4 ML VL IV ONE (22:41)
[2024-03-05] MEDS: METOCLOPRAMIDE HCL 5MG/ml INJ 2ml VIAL IV ONE (22:41)
[2024-03-05] MEDS: ACETAMINOPHEN IV 100 ML IV ONE (22:42)
[2024-03-06 05:00] VITALS: BP 173/53; PULSE 83; RESP 17; TEMP 99.5; O2SAT 99
[2024-03-06 08:00] VITALS: PULSE 65; RESP 16; O2SAT 96
--- NOTE | 2024-03-06 08:14 | DVHDSRES ---
Discharge Summary Date of Admission Resident Creating Document: KEVIN MEZA RESIDENT Mar 03, 2024 at 18:14 Date of Discharge: Mar 06, 2024 Admitting Diagnosis Chronic osteomyelitis of the right foot, with nonhealing wounds/ulcer Wounds: Right foot wound in the dorsal aspect of the foot with no necrotic tissue. Labs/Diagnostic Data: Laboratory Results Test 03/06/24 07:03 03/05/24 05:53 03/04/24 06:37 03/03/24 12:51 White Blood Count 8.3 10^3/uL (4.4-10.8) Red Blood Count 3.26 10^6/uL (4.0-5.20) Hemoglobin 8.3 g/dL (12.2-16.2) Hematocrit 26.2 % (36.0-46.0) Mean Corpuscular Volume 80.2 fL (80.0-100.0) Mean Corpuscular Hemoglobin 25.6 pg (28.0-32.0) Mean Corpuscular Hemoglobin Concent 31.9 g/dL (32.0-36.0) Red Cell Distribution Width 17.6 % (11.8-14.3) Platelet Count 251 10^3/uL (140-450) Mean Platelet Volume 8.6 fL (6.9-10.8) Neutrophils (%) (Auto) 71.0 % (37.0-80.0) Lymphocytes (%) (Auto) 16.5 % (10.0-50.0) Monocytes (%) (Auto) 9.1 % (0.0-12.0) Eosinophils (%) (Auto) 3.0 % (0.0-7.0) Basophils (%) (Auto) 0.4 % (0.0-2.0) Neutrophils # (Auto) 5.9 10 ^3/uL (1.6-8.6) Lymphocytes # (Auto) 1.4 10 ^3/uL (0.4-5.4) Monocytes # (Auto) 0.8 10 ^3/uL (0-1.3) Eosinophils # (Auto) 0.2 10 ^3/uL (0-0.8) Basophils # (Auto) 0 10 ^3/uL (0-0.2) Nucleated Red Blood Cells 0.1 % Prothrombin Time 11.7 sec (9.3-11.8) Prothrombin Time INR 1.11 (0.9-1.15) Activated Partial Thromboplast Time 31.5 SEC (24.5-34.5) Iron Level 30 ug/dL (50-170) Total Iron Binding Capacity 231 ug/dL (250-425) Percent Iron Saturation 13.0 % (15-50) Ferritin 330.2 ng/mL (10-291) Vitamin D 25-Hydroxy 32.4 ng/mL (30.0-100) Other Laboratory Tests 03/05/24 05:53 Brief Hx & Hospital Course: Hospital course: This is a 58-year-old female with past medical history of hypertension, hyperlipidemia, severe PVD, status post right femoral bypass on February 06, 2024, osteomyelitis of the right foot who was sent from [facility] for worsening right foot wound. The patient was being treated with IV antibiotics specifically vancomycin at [facility] but patient was still complaining of right foot pain. The patient was admitted to the ED due to right foot pain and nonhealing ulcer for wound debridement on Monday (March 04, 2024) by Dr. Mitchell. The patient was initially continued on IV vancomycin and surgical incision and drainage/debridement was performed without complications. Surgeon recommended to continue IV antibiotics with wound care with wound VAC and physical therapy at SNF for 2 weeks. Once wound/ulcer heals, the patient will need a skin graft at some point. IV antibiotics were switched from vancomycin to IV Unasyn 3 g q.6 hours. Patient was seen and evaluated today at bedside, the patient states that the right foot pain has improved considerably compared to admission and after surgery. We ordered physical therapy which has been working with the patient. The patient will be discharged to SNF for IV antibiotics, Unasyn IV Q6 for 14 days, wound back and physical therapy. Patient agrees and understands the plan. Patient needs to follow up with her PCP and with vascular surgeon for skin graft. Admitting diagnosis: Chronic right foot osteomyelitis with nonhealing wound DISCHARGE PLAN: -patient will be sent for SNF, for IV antibiotics (Unasyn) for 14 days. -wound care with wound VAC at [facility] -physical therapy -F/U with vascular surgeon for skin graft once ulcer/wond is healed. Consults/Reason for consult Vascular surgeon for right foot wound/ulcer debridement Operations or Procedures INDICATION: infection COMPARISON: MRI MRI R FOOT WO CONTRAST on DOS: 01/20/24 TECHNIQUE: CT of the right was performed without contrast. Volume transverse images were obtained and reconstructed in multiple planes using bone and soft tissue algorithms. Radiation Dose Information: CT Dose: CTDI volume is 7.75 mGy. Dose-length product is 232.57 mGy*cm FINDINGS: There is redemonstration of diffusely demineralized /lytic appearance of the visualized osseous structures. Large wound is noted over the dorsum of the foot with mild regional soft tissue swelling. There are no definite regional fluid collections identified. No definite osseous erosive changes are noted. There is no acute fracture. There are scattered osseous degenerative changes. IMPRESSION: 1. Large wound over the dorsum of the foot with regional edema/cellulitis. No definite fluid collections identified to suggest abscess, somewhat limited in evaluation without intravenous contrast. 2. Redemonstration of severe demineralization of the osseous structures, with other underlying etiologies not excluded, as described on prior MRI. This results in limited evaluation for erosive changes. No definite erosive changes identified to suggest osteomyelitis. All CT scans at this medical facility are performed using dose modulation techniques as appropriate to a performed exam including the following: Automated exposure control was utilized; adjustment of the MA and/or KV according to patient size; and use of iterative reconstruction technique. CHEST RADIOGRAPH Indication: preop pain Technique: Single frontal view of the chest was obtained Comparison: XY CHEST PORTABLE on DOS: 01/30/24 FINDINGS: Lines and Tubes: Left PICC tip in the SVC Lungs: No focal consolidation. Pleura: No effusion. No pneumothorax. Cardiomediastinal contours: Unremarkable Bones: No acute osseous abnormality. IMPRESSION: No acute cardiopulmonary disease. Condition at Discharge: Good Final Diagnosis/Problems List Acute right foot pain likely due to nonhealing ulcer/wound due to acute cellulitis with necrotic tissue Chronic osteomyelitis of the right foot S/P Incision and drainage of non healing right foot wound Day 2 Severe PVD, S/P right femoral bypass on February 06, 2024 Primary hypertension Dyslipidemia Discharge Disposition: [facility] Discharge Instruct/Medications Diet: Regular Activity: No Restrictions, As Tolerated Follow Up/Referral: F/U with her pcp in 1 week F/U with vascular surgeon for skin graft in 3 weeks after antibiotic treatment and initial wound heal. Medications: IV Unasyn for 14 days per SNF Discharge Statement: "Patient was advised to return to the ER or call 911 if any headaches, dizziness, shortness of breath, chest pain, abdominal pain, bleeding, fevers, or worsening of medical condition. Patient was counseled about treatment plan, medications, possible side effects, patientverbalized understanding. All questions were answered to the best of my ability. This discharge took greater then 30 minutes in planning, reviewing documentation, counseling the patient, and discussing with other team members." ASSESSMENT ASSESSMENT Assessment Acute right foot pain likely due to nonhealing ulcer/wound due to acute cellulitis with necrotic tissue Chronic osteomyelitis of the right foot S/P Incision and drainage of non healing right foot wound Day 2 Severe PVD, S/P right femoral bypass on February 06, 2024 Primary hypertension Dyslipidemia Date of Service: Mar 06, 2024 Billing Provider: MARK LEON MD Common Visit Codes: 04624-UIX/OBS DISCH DAY >30min KEVIN MEZA RESIDENT Mar 06, 2024 08:14 MARK LEON MD Mar 07, 2024 16:30
[2024-03-06 08:35] LABS: Alanine Aminotransferase 12 U/L (7-40); Anion Gap 9 (5-15); BUN/Creatinine Ratio 10.5 (10.0-20.0); Blood Urea Nitrogen 11 mg/dL (9-23); Carbon Dioxide 25 mmol/L (20-31); Chloride 105 mmol/L (98-107); Glucose 96 mg/dL (74-106); Potassium 4.3 mmol/L (3.5-5.1); Sodium 139 mmol/L (136-145)
[2024-03-06 08:36] LABS: Aspartate Aminotransferase 14 U/L (13-40); Bilirubin, Total 0.5 mg/dL (0.2-1.0); Total Protein 6.9 g/dL (5.7-8.2)
[2024-03-06 08:42] LABS: Alkaline Phosphatase 134 U/L (46-116)
[2024-03-06 09:00] VITALS: BP 129/60; PULSE 65; RESP 16; TEMP 98.7; O2SAT 96
[2024-03-06 12:55] VITALS: BP 123/52; PULSE 72; RESP 18; TEMP 98.2; O2SAT 97
[2024-03-06 15:39] VITALS: BP 123/52; PULSE 72; RESP 18; TEMP 98; O2SAT 97
== END 2024-03-06 15:55 | DRG 317 ==
LOC: EDUNIT# 11:17 → EDBD 11:17 → ER 11:17 → OVERFLOW 18:14 → EAST 21:45
PROVIDERS: ADMIT Student in an Organized Health Care Education/Training Program; ATTEND Student in an Organized Health Care Education/Training Program
PROC: 0LBV0ZZ Excision of Right Foot Tendon, Open Approach (ICD-10-PCS; principal; 2024-03-04 12:59)
DX: M86.671 Other chronic osteomyelitis, right ankle and foot (principal); I96 Gangrene, not elsewhere classified; L03.115 Cellulitis of right lower limb; E55.9 Vitamin D deficiency, unspecified; I10 Essential (primary) hypertension; E78.5 Hyperlipidemia, unspecified; Z87.891 Personal history of nicotine dependence; Z82.49 Family history of ischemic heart disease and other diseases of the circulatory system; Z83.3 Family history of diabetes mellitus; Z79.899 Other long term (current) drug therapy
CPT/HCPCS: 36415; 71045; 73700; 80048; 80053; 82306; 82728; 83540; 83550; 85025; 85610; 85730; 86850; 86900; 86901; 87081; 97163; G0378; J0131; J2250; J2405; J2704; J3490